=== PATIENT | female | born 1945 | race Caucasian/White ===

== ENCOUNTER → 2018-09-12 07:36 | Outpatient (CLI) | payer MEDICARE, BC, SELFPAY ==
[2018-09-12 08:13] LABS: Basophils # 0.1 K/mm3 (0-0.2); Eosinophils # 0.3 K/mm3 (0.0-0.4); Eosinophils % 4.3 % (0.1-12.0); Hematocrit 32.5 % (37.0-47.0); Hemoglobin 10.6 g/dL (12.2-16.2); Lymphocytes # 0.9 K/mm3 (0.7-4.5); Lymphocytes % 15.5 % (10-50); Mean Corpuscular HGB Conc 32.6 g/dL (31.8-35.4); Mean Corpuscular Hemoglobin 29.4 pg (27.0-31.2); Mean Corpuscular Volume 90.3 fl (81-99); Mean Platelet Volume 8.3 fl (7.4-10.4); Monocytes # 0.4 K/mm3 (0.1-1.0); Monocytes % 6.2 % (1.7-9.3); Neutrophils # 4.3 K/mm3 (1.8-7.8); Neutrophils % 73.1 % (37.0-80.0); Platelet Count 193 K/mm3 (142-424); Red Cell Distribution Width 13.1 % (11.5-17.5); Reticulocyte % (Auto) 1.6 % (0.9-3.2); White Blood Count 5.8 K/mm3 (4.8-10.8)
[2018-09-12 10:09] LABS: Blood Urea Nitrogen 50 mg/dL (7-18); Calcium 9.3 mg/dL (8.5-10.1); Carbon Dioxide 26 mmol/L (21.0-32.0); Chloride 105 mmol/L (98-107); Creatinine,Serum 1.84 mg/dL (0.55-1.02); Estimated Glomerular Filt Rate 27 ml/min (>60); Ferritin 32 ng/mL (8-388); GFR (African American) 33 ML/MIN (>60); Glucose 137 mg/dL (74-106); Sodium 142 mmol/L (136-145)
[2018-09-13 04:23] LABS: Iron 61 ug/dL (27-139); UIBC 246 ug/dL (118-369)
[2018-09-13 06:08] LABS: Iron Saturation 20 % (15-55)
[2018-09-13 08:34] LABS: Folate 14.1 ng/mL (>3.0); Vitamin B12 484 pg/mL (232-1245)
== END ==
PROVIDERS: Visit Provider Nurse Practitioner Family
DX: D64.9 Anemia, unspecified (principal); E87.5 Hyperkalemia; I10 Essential (primary) hypertension
CPT/HCPCS: 36415; 80048; 82607; 82728; 82746; 83540; 83550; 85025; 85044

== ENCOUNTER → 2018-09-27 15:19 | Outpatient (CLI) | payer MEDICARE, BC, SELFPAY ==
--- NOTE | 2018-09-27 15:25 | XR_ITS ---
XR chest 2V HISTORY: ITS.REASON: cough ORDERING PHYSICIAN: Alta Davila APRN PATIENT AGE: 73 years COMPARISON: None FINDINGS: There is borderline cardiomegaly without failure. Lungs are free of acute infiltrate. There are mild degenerative changes in the thoracic spine. IMPRESSION: Borderline cardiomegaly otherwise negative
== END ==
PROVIDERS: PCP Internal Medicine; Visit Provider Nurse Practitioner Family
DX: R05 Cough (principal)
CPT/HCPCS: 71046

== ENCOUNTER → 2018-10-30 14:56 | Outpatient (CLI) | payer MEDICARE, BC, SELFPAY ==
--- NOTE | 2018-10-30 14:58 | CA_ITS ---
PROCEDURE: 2-D M-mode and color Doppler study INDICATIONS FOR THE TEST: Chest pain COPD Heart Murmur Tobacco Smoking Palpitations Fatigue Syncope Edema HypertensionXDiabetes Mellitus Rheumatic Fever SOBXDOE ObesityXHyperlipidemia Family History HD Additional History PATIENT INFORMATION HEIGHT: 68 WEIGHT:226 GENDER: Female B/P:166/67 2-D/M-MODE INTERPRETATION: 2-D MEASUREMENTS OBSERVED VALUES IN CMS Right Ventricular Dimension (RVDd) 2.4 Interventricular Septum (Thickness)(IVsd) 1.1 Left Ventricular Internal Dimensions(LVIDd) 5.0 Left Ventricular Posterior Wall (Thickness)(LVPWd) 1.1 Aortic Root 3.0 Aortic Cusp Separation 1.9 Left Atrial Dimensions (LAD) 3.9 2D 1. Left atrium is mildly enlarged, left ventricle is normal size, there is mild concentric left ventricular hypertrophy, visually estimated ejection fraction 55% with no regional wall motion abnormality. 2. The right atrium and left ventricular normal size and contractility. 3. The aortic valve is minimally thickened and calcified leaflet continue to display good mobility. 4. The mitral and tricuspid valve leaflets are minimally thickened. 5. The pulmonic valve is poorly visualized. 6. No significant pericardial effusion noted. DOPPLER INTERROGATION: Doppler interrogation of the aortic, mitral and tricuspid valvular presence of moderate mitral and mild tricuspid regurgitation, tricuspid regurgitation jet velocity is inadequate for calculation of the right ventricular systolic pressure, grade 1 diastolic dysfunction seen with tissue Doppler evidence of raised left atrial pressure. CONCLUSION: 1. Mildly enlarged left atrium, normal left ventricular size, mild concentric left ventricular hypertrophy, visually estimated ejection fraction 55% with no regional wall motion abnormality, grade 1 diastolic dysfunction seen with tissue Doppler evidence of raised left atrial pressure. 2. Moderate mitral and mild tricuspid regurgitation 3. No significant pericardial effusion noted.
== END ==
PROVIDERS: PCP Internal Medicine; Visit Provider Internal Medicine
DX: R06.00 Dyspnea, unspecified (principal)
CPT/HCPCS: 93306

== ENCOUNTER → 2018-10-31 07:33 | Outpatient (CLI) | payer MEDICARE, BC, SELFPAY ==
--- NOTE | 2018-10-31 07:35 | US_ITS ---
US abd. aorta screening HISTORY: Abdominal aortic aneurysm evaluation ITS.REASON: aaa ORDERING PHYSICIAN: KAYLEEN Ghosh PATIENT AGE: 73 years Comparison: None FINDINGS: No evidence of aortic aneurysm. Incidental note is made of a 6 x 5 cm cyst along the lower pole the right kidney. IMPRESSION: 1. Negative for aortic aneurysm. 2. 6 cm right renal cyst
[2018-10-31 08:29] LABS: Basophils # 0.1 K/mm3 (0-0.2); Basophils % 0.9 % (0.1-2.0); Eosinophils # 0.2 K/mm3 (0.0-0.4); Eosinophils % 3.4 % (0.1-12.0); Hematocrit 33.8 % (37.0-47.0); Hemoglobin 10.5 g/dL (12.2-16.2); Lymphocytes # 0.8 K/mm3 (0.7-4.5); Lymphocytes % 14.4 % (10-50); Mean Corpuscular HGB Conc 30.9 g/dL (31.8-35.4); Mean Corpuscular Hemoglobin 27.6 pg (27.0-31.2); Mean Corpuscular Volume 89.3 fl (81-99); Mean Platelet Volume 8.1 fl (7.4-10.4); Monocytes # 0.4 K/mm3 (0.1-1.0); Monocytes % 7.5 % (1.7-9.3); Neutrophils # 4.2 K/mm3 (1.8-7.8); Neutrophils % 73.9 % (37.0-80.0); Platelet Count 208 K/mm3 (142-424); Red Blood Count 3.79 M/mm3 (4.20-5.40); Red Cell Distribution Width 13.1 % (11.5-17.5); White Blood Count 5.6 K/mm3 (4.8-10.8)
[2018-10-31 10:39] LABS: Uric Acid 5.9 mg/dL (2.6-7.2)
[2018-10-31 10:41] LABS: C-Reactive Protein < 0.2 mg/L (0.0-0.9)
[2018-10-31 11:04] LABS: Alanine Aminotransferase 29 U/L (12-78); Albumin Level 3.6 gm/dL (3.4-5.0); Alkaline Phosphatase 107 U/L (46-116); Anion Gap 16.2 mEq/L (5-15); Aspartate Amino Transferase 19 U/L (15-37); Bilirubin,Direct 0.1 mg/dL (0.0-0.2); Bilirubin,Indirect 0.5 mg/dL (0.0-0.9); Bilirubin,Total 0.6 mg/dL (0.2-1.0); Blood Urea Nitrogen 26 mg/dL (7-18); Calcium 9.3 mg/dL (8.5-10.1); Carbon Dioxide 25 mmol/L (21.0-32.0); Chloride 105 mmol/L (98-107); Creatinine,Serum 1.51 mg/dL (0.55-1.02); Estimated Glomerular Filt Rate 34 ml/min (>60); Free T4 (Free Thyroxine) 1.12 ng/dl (0.76-1.46); GFR (African American) 41 ML/MIN (>60); Glucose 123 mg/dL (74-106); Potassium 5.2 mmoL/L (3.5-5.1); Sodium 141 mmol/L (136-145); Thyroid Stimulating Hormone 2.96 uIU/ml (0.358-3.740); Total Protein,Serum 6.7 gm/dL (6.4-8.2)
[2018-10-31 11:44] LABS: Erythrocyte Sedimentation Rate 30 mm/hr (0-30)
[2018-11-01 16:10] LABS: Albumin 3.6 g/dL (2.9-4.4); Alpha-1-Globulin 0.2 g/dL (0.0-0.4); Alpha-2-Globulin 0.9 g/dL (0.4-1.0); Gamma Globulin 0.7 g/dL (0.4-1.8); Protein, Total 6.6 g/dL (6.0-8.5)
[2018-11-02 16:10] LABS: Albumin, U 74.7 % (.); Alpha-1-Globulin, U 3.8 % (.); Alpha-2-Globulin, U 5.4 % (.); Beta Globulin, U 10.7 % (.); Gamma Globulin, U 5.5 % (.); M-Spike, % Not Observed % (Not Observed); Protein,Total,Urine 98.2 mg/dL (Not Estab.)
[2018-11-02 20:02] LABS: Antinuclear Antibodies, IFA Positive (.); RA Latex Turbid. 10.1 IU/mL (0.0-13.9)
[2018-11-03 11:34] LABS: Antinuclear Antibodies (ANA) Negative
== END ==
PROVIDERS: Internal Medicine; PCP Internal Medicine; Visit Provider Physician Assistant
DX: R06.02 Shortness of breath (principal); M54.9 Dorsalgia, unspecified; R00.2 Palpitations; I10 Essential (primary) hypertension; I71.4 Abdominal aortic aneurysm, without rupture
CPT/HCPCS: 36415; 76705; 80048; 80076; 83880; 84155; 84156; 84165; 84166; 84439; 84443; 84550; 85025; 85651; 86038; 86140; 86431

== ENCOUNTER → 2018-11-08 07:25 | Outpatient (CLI) | payer MEDICARE, BC, SELFPAY ==
[2018-11-08 09:48] LABS: Anion Gap 16.1 mEq/L (5-15); Blood Urea Nitrogen 70 mg/dL (7-18); Calcium 9.2 mg/dL (8.5-10.1); Carbon Dioxide 24 mmol/L (21.0-32.0); Chloride 102 mmol/L (98-107); Creatinine,Serum 2.28 mg/dL (0.55-1.02); Estimated Glomerular Filt Rate 21 ml/min (>60); GFR (African American) 25 ML/MIN (>60); Glucose 129 mg/dL (74-106); Potassium 5.1 mmoL/L (3.5-5.1); Sodium 137 mmol/L (136-145)
== END ==
PROVIDERS: Visit Provider Nurse Practitioner Family
DX: R06.02 Shortness of breath (principal)
CPT/HCPCS: 36415; 80048; 83880

== ENCOUNTER → 2018-11-16 11:53 | Outpatient (CLI) | payer MEDICARE, BC, SELFPAY ==
[2018-11-16 13:02] LABS: Anion Gap 16.1 mEq/L (5-15); Blood Urea Nitrogen 73 mg/dL (7-18); Calcium 9.4 mg/dL (8.5-10.1); Carbon Dioxide 27 mmol/L (21.0-32.0); Chloride 101 mmol/L (98-107); Creatinine,Serum 2.32 mg/dL (0.55-1.02); Estimated Glomerular Filt Rate 21 ml/min (>60); GFR (African American) 25 ML/MIN (>60); Glucose 106 mg/dL (74-106); Potassium 4.1 mmoL/L (3.5-5.1); Sodium 140 mmol/L (136-145)
== END ==
PROVIDERS: Visit Provider Nurse Practitioner Family
DX: I51.89 Other ill-defined heart diseases (principal)
CPT/HCPCS: 36415; 80048

== ENCOUNTER 2018-11-23 15:04 | Outpatient (RCR) | payer MEDICARE, BC, SELFPAY | END 2019-03-12 13:27 | disposition home or self-care (01) | LOC: PT 15:04 | PROVIDERS: Visit Provider Internal Medicine | DX: I25.10 Atherosclerotic heart disease of native coronary artery without angina pectoris (principal); R06.02 Shortness of breath | CPT/HCPCS: 93798 ==

== ENCOUNTER → 2018-11-27 07:31 | Outpatient (CLI) | payer MEDICARE, BC, SELFPAY ==
[2018-11-27 10:54] LABS: Anion Gap 14.1 mEq/L (5-15); Blood Urea Nitrogen 53 mg/dL (7-18); Calcium 9.1 mg/dL (8.5-10.1); Carbon Dioxide 29 mmol/L (21.0-32.0); Chloride 102 mmol/L (98-107); Creatinine,Serum 1.92 mg/dL (0.55-1.02); Estimated Glomerular Filt Rate 26 ml/min (>60); GFR (African American) 31 ML/MIN (>60); Glucose 164 mg/dL (74-106); Potassium 4.1 mmoL/L (3.5-5.1); Sodium 141 mmol/L (136-145)
[2018-11-27 16:29] LABS: Basophils % 0.8 % (0.1-2.0); Eosinophils # 0.2 K/mm3 (0.0-0.4); Eosinophils % 3.7 % (0.1-12.0); Hematocrit 33.1 % (37.0-47.0); Hemoglobin 10.7 g/dL (12.2-16.2); Lymphocytes % 18.5 % (10-50); Mean Corpuscular HGB Conc 32.4 g/dL (31.8-35.4); Mean Corpuscular Hemoglobin 29.6 pg (27.0-31.2); Mean Corpuscular Volume 91.5 fl (81-99); Mean Platelet Volume 8.9 fl (7.4-10.4); Monocytes # 0.4 K/mm3 (0.1-1.0); Monocytes % 6.6 % (1.7-9.3); Neutrophils # 3.9 K/mm3 (1.8-7.8); Neutrophils % 70.4 % (37.0-80.0); Platelet Count 210 K/mm3 (142-424); Red Blood Count 3.62 M/mm3 (4.20-5.40); Red Cell Distribution Width 13.6 % (11.5-17.5); Reticulocyte % (Auto) 1.7 % (0.9-3.2); White Blood Count 5.5 K/mm3 (4.8-10.8)
[2018-11-27 17:10] LABS: Ferritin 35 ng/mL (8-388)
[2018-11-29 09:11] LABS: Iron 72 ug/dL (27-139); UIBC 237 ug/dL (118-369)
[2018-11-29 10:03] LABS: Iron Saturation 23 % (15-55)
[2018-11-29 10:16] LABS: Folate 16.6 ng/mL (>3.0); Vitamin B12 470 pg/mL (232-1245)
== END ==
PROVIDERS: Visit Provider Nurse Practitioner Family
DX: I10 Essential (primary) hypertension (principal); D50.9 Iron deficiency anemia, unspecified; E11.9 Type 2 diabetes mellitus without complications; Z79.84 Long term (current) use of oral hypoglycemic drugs
CPT/HCPCS: 36415; 80048; 82607; 82728; 82746; 83540; 83550; 85025; 85044

== ENCOUNTER → 2019-03-13 07:27 | Outpatient (CLI) | payer MEDICARE, BC, SELFPAY ==
[2019-03-13 08:57] LABS: Anion Gap 10.9 mEq/L (5-15); Blood Urea Nitrogen 38 mg/dL (7-18); Calcium 8.8 mg/dL (8.5-10.1); Carbon Dioxide 28 mmol/L (21.0-32.0); Chloride 104 mmol/L (98-107); Creatinine,Serum 1.87 mg/dL (0.55-1.02); Estimated Glomerular Filt Rate 26 ml/min (>60); GFR (African American) 32 ML/MIN (>60); Glucose 114 mg/dL (74-106); Potassium 3.9 mmoL/L (3.5-5.1); Sodium 139 mmol/L (136-145)
== END ==
PROVIDERS: Visit Provider Internal Medicine
DX: I10 Essential (primary) hypertension (principal); R06.02 Shortness of breath
CPT/HCPCS: 36415; 80048; 83880

== ENCOUNTER → 2019-04-30 08:42 | Outpatient (POV) | payer MEDICARE, BC, SELFPAY | PROVIDERS: Visit Provider Nurse Practitioner Family | DX: Z00.00 Encounter for general adult medical examination without abnormal findings (principal) ==

== ENCOUNTER → 2019-06-13 07:29 | Outpatient (CLI) | payer MEDICARE, BC, SELFPAY ==
[2019-06-13 08:42] LABS: Chloride 102 mmol/L (98-107); Potassium 4.3 mmoL/L (3.5-5.1); Sodium 141 mmol/L (136-145)
[2019-06-13 08:45] LABS: Anion Gap 17.3 mEq/L (5-15); Blood Urea Nitrogen 52 mg/dl (7-17); Calcium 9.5 mg/dl (8.4-10.2); Carbon Dioxide 26 mmol/L (22.0-30.0); Estimated Glomerular Filt Rate 28 ml/min (>60); GFR (African American) 33 ML/MIN (>60); Glucose 121 mg/dl (74-100)
== END ==
PROVIDERS: Visit Provider Internal Medicine
DX: I10 Essential (primary) hypertension (principal)
CPT/HCPCS: 36415; 80048

== ENCOUNTER → 2019-12-12 07:46 | Outpatient (CLI) | payer MEDICARE, BC, SELFPAY ==
[2019-12-12 09:01] LABS: Chloride 104 mmol/L (98-107); Potassium 3.9 mmoL/L (3.5-5.1); Sodium 140 mmol/L (136-145)
[2019-12-12 09:04] LABS: Anion Gap 13.9 mEq/L (5-15); Blood Urea Nitrogen 41 mg/dl (7-17); Calcium 8.9 mg/dl (8.4-10.2); Carbon Dioxide 26 mmol/L (22.0-30.0); Estimated Glomerular Filt Rate 29 ml/min (>60); GFR (African American) 36 ML/MIN (>60); Glucose 116 mg/dl (74-100)
== END ==
PROVIDERS: Visit Provider Internal Medicine
DX: I10 Essential (primary) hypertension (principal)
CPT/HCPCS: 36415; 80048

== ENCOUNTER → 2019-12-13 09:25 | Outpatient (CLI) | payer MEDICARE, BC, SELFPAY ==
--- NOTE | 2019-12-13 09:27 | CA_ITS ---
APPROVED REPORT EXAM: Comprehensive 2D, Doppler, and color-flow Echocardiogram Binding End Stitcher: Serena Purvis CRT Ht: 5 ft 8 in Wt: 216lbs BSA: 2.11 BP: 155/63 mmHg Indications: Congestive Heart Failure, Murmur, Shortness of Breath, Diabetes, CAD, Hyperlipidemia, Hypertension/HDD, GERD, 2D Dimensions LVOT 1.99 cm (M/F) 1.5-2.5 M-Mode Dimensions RVDd 3.13 cm (0.9-2.6) LVDd 4.56 cm (3.5-5.7) LVDs 3.08 cm (3.5-5.7) IVSd 1.74 cm (0.6-1.1) PWd 1.43 cm (0.6-1.1) EF (Teich) 60.90% FS 32.50% EDV (Teich) 95.40 mL ESV (Teich) 37.30 mL LV Diastology E/A Ratio 0.84 Mitral Valve MV A Velocity 97.00 (40-130 cm/s) Left Ventricle Left atrium is mildly enlarged, left ventricle is normal size, mild concentric left ventricular hypertrophy, visually estimated ejection fraction 55% with no regional wall motion abnormality, grade 1 diastolic dysfunction seen with tissue Doppler evidence of raise left atrial pressure. Right Ventricle Right atrium is normal size, right ventricle is mildly enlarged with normal contractility. Aortic Valve Aortic valve is minimally thickened and fibrosed, there is no aortic stenosis or aortic insufficiency. Mitral Valve Mitral valve leaflets are minimally thickened, there is no mitral stenosis, there is mild to moderate mitral regurgitation. Tricuspid Valve Tricuspid valve is grossly normal, there is mild tricuspid regurgitation, tricuspid regurgitation jet velocity is inadequate for calculation of the right ventricular systolic pressure. Pulmonic Valve Pulmonic valve is poorly visualized. Great Vessels Aortic root is normal size. Pericardium No significant pericardial effusion noted. Conclusion 1. Mildly enlarged left atrium, normal left ventricular size, mild concentric left ventricular hypertrophy, visually estimated ejection fraction 55% with no regional wall motion abnormality, grade 1 diastolic dysfunction seen with tissue Doppler evidence of raise left atrial pressure. 2. Mildly enlarged right ventricle with normal contractility. 3. Mild to moderate mitral and mild tricuspid regurgitation. 4. No significant pericardial effusion noted. Electronically signed by : Anson Palacio, 12/13/2019 13:48:04
--- NOTE | 2019-12-13 09:27 | CA_ITS ---
APPROVED REPORT Clinic Administrator: CT Laterality: Bilateral Study Quality: Adequate Indications: left carotid bruit Risk Factors Hypertension: Hyperlipidemia Diabetes Doppler Spectral Velocity Analysis ECA (R) 138.70/12.50 cm/s ECA (L) 86.80/14.20 cm/s dICA (R) 103.30/36.70 cm/s dICA (L) 91.40/27.40 cm/s Alesha (R) 81.50/27.00 cm/s Alesha (L) 88.30/26.90 cm/s pICA (R) 79.70/27.80 cm/s pICA (L) 87.50/23.20 cm/s dCCA (R) 99.40/21.40 cm/s dCCA (L) 77.10/24.70 cm/s pCCA (R) 76.30/17.10 cm/s pCCA (L) 97.30/24.70 cm/s Vert (R) 35.20/4.40 cm/s Vert (L) 60.60/24.70 cm/s ICA/CCA 1.00 ICA/CCA 1.20 Findings Duplex evaluation demonstrates stenosis of the right proximal internal carotid artery <20%. Duplex evaluation demonstrates stenosis of the left proximal internal carotid artery <20%. Duplex evaluation demonstrates antegrade flow of the bilateral Vertebral Arteries. Conclusion Duplex evaluation demonstrates stenosis of the right proximal internal carotid artery <20%. Duplex evaluation demonstrates stenosis of the left proximal internal carotid artery <20%. Duplex evaluation demonstrates antegrade flow of the bilateral Vertebral Arteries. Electronically signed by : Jose Alberto Mandujano MD 12/13/2019 17:59:03
== END ==
PROVIDERS: PCP Internal Medicine; Visit Provider Nurse Practitioner Family
DX: E11.9 Type 2 diabetes mellitus without complications (principal); E78.2 Mixed hyperlipidemia; I11.0 Hypertensive heart disease with heart failure; I25.10 Atherosclerotic heart disease of native coronary artery without angina pectoris; I34.0 Nonrheumatic mitral (valve) insufficiency; I50.32 Chronic diastolic (congestive) heart failure; K21.9 Gastro-esophageal reflux disease without esophagitis; R06.02 Shortness of breath; R09.89 Other specified symptoms and signs involving the circulatory and respiratory systems; Z79.84 Long term (current) use of oral hypoglycemic drugs
CPT/HCPCS: 93306; 93880

== ENCOUNTER → 2020-06-20 08:53 | Outpatient (CLI) | payer OTHER, MEDICARE, SELFPAY ==
--- NOTE | 2020-06-20 08:58 | XR_ITS ---
PROCEDURE: XR KNEE LT 4V CLINICAL INDICATION: left knee pain; weightbearing COMPARISON: No exams were available for comparison FINDINGS: Moderate to severe osteoarthritic changes are present most severe at the patellofemoral joint Minimal lateral patellar subluxation. No fracture or dislocation. No lytic or blastic change Other findings:None. IMPRESSION: Moderate to severe osteoarthritis Dictated by: Jose Alberto Mandujano MD 06/20/2020 09:50 Jose Alberto Mandujano MD in [place] 06/20/2020 09:50
== END ==
PROVIDERS: Visit Provider Orthopaedic Surgery
DX: M25.562 Pain in left knee (principal)
CPT/HCPCS: 73564

== ENCOUNTER → 2020-07-15 15:20 | Outpatient (POV) | payer MEDICARE, BC, SELFPAY | PROVIDERS: Visit Provider Dermatology | DX: Z00.00 Encounter for general adult medical examination without abnormal findings (principal) ==

== ENCOUNTER → 2020-07-17 07:31 | Outpatient (CLI) | payer OTHER, MEDICARE, SELFPAY ==
[2020-07-17 08:17] LABS: Basophils # 0.1 K/mm3 (0-0.2); Basophils % 0.8 % (0.1-2.0); Eosinophils # 0.4 K/mm3 (0.0-0.4); Eosinophils % 4.8 % (0.1-12.0); Hematocrit 34.4 % (37.0-47.0); Hemoglobin 11.4 g/dL (12.2-16.2); Lymphocytes # 1.1 K/mm3 (0.7-4.5); Lymphocytes % 14.9 % (10-50); Mean Corpuscular HGB Conc 33.2 g/dL (31.8-35.4); Mean Corpuscular Hemoglobin 30.2 pg (27.0-31.2); Mean Corpuscular Volume 90.8 fl (81-99); Mean Platelet Volume 8.2 fl (7.4-10.4); Monocytes # 0.5 K/mm3 (0.1-1.0); Monocytes % 6.6 % (1.7-9.3); Neutrophils # 5.4 K/mm3 (1.8-7.8); Neutrophils % 72.8 % (37.0-80.0); Platelet Count 218 K/mm3 (142-424); Red Blood Count 3.79 M/mm3 (4.20-5.40); Red Cell Distribution Width 13.5 % (11.5-17.5); White Blood Count 7.4 K/mm3 (4.8-10.8)
[2020-07-17 08:23] LABS: Chloride 104 mmol/L (98-107)
[2020-07-17 08:24] LABS: Potassium 4.4 mmoL/L (3.5-5.1); Sodium 140 mmol/L (136-145)
[2020-07-17 08:27] LABS: Anion Gap 11.4 mEq/L (5-15); Blood Urea Nitrogen 41 mg/dl (7-17); Calcium 9.5 mg/dl (8.4-10.2); Carbon Dioxide 29 mmol/L (22.0-30.0); Estimated Glomerular Filt Rate 32 ml/min (>60); GFR (African American) 38 ML/MIN (>60); Glucose 130 mg/dl (74-100)
== END ==
PROVIDERS: Visit Provider Internal Medicine
DX: I10 Essential (primary) hypertension (principal)
CPT/HCPCS: 36415; 80048; 85025

== ENCOUNTER → 2020-07-18 13:15 | Outpatient (CLI) | payer OTHER, MEDICARE, SELFPAY ==
--- NOTE | 2020-07-18 13:16 | CA_ITS ---
APPROVED REPORT Bilateral Lower Extremity Venous Study for DVT. Shoe Salesperson: Kathleen Rocha RVT Indications Lower Extremity Pain: Bilateral Lower Extremity Edema: Bilateral edema Medications Aspirin Vein Imaging CFV (R): compressive, spontaneous, phasic, augmentation FEM (R): compressive, spontaneous, phasic, augmentation POP (R): compressive, spontaneous, phasic, augmentation PTV (R): Compressible GSV (R): Compressible Peroneals (R):Compressible GAS (R): Compressible CFV (L): compressive, spontaneous, phasic, augmentation FEM (L): compressive, spontaneous, phasic, augmentation POP (L): compressive, spontaneous, phasic, augmentation PTV (L): Compressible GSV (L): Compressible Peroneals (L):Compressible GAS (L): Compressible Findings Study suggests no evidence of DVT of the bilateral lower extremites. Study suggests no evidence of SVT of the bilateral lower extremites. Conclusion Study suggests no evidence of DVT of the bilateral lower extremites. Study suggests no evidence of SVT of the bilateral lower extremites. Bilateral Juarez's cysts are noted, measuring up to 7 cm. Electronically signed by : Vijaya Ruvalcaba, 07/18/2020 15:42:47
== END ==
PROVIDERS: PCP Internal Medicine; Visit Provider Internal Medicine Cardiovascular Disease
DX: I70.213 Atherosclerosis of native arteries of extremities with intermittent claudication, bilateral legs; R60.0 Localized edema; M79.605 Pain in left leg; M79.604 Pain in right leg
CPT/HCPCS: 93970

== ENCOUNTER → 2020-12-26 07:54 | Outpatient (CLI) | payer OTHER, MEDICARE, SELFPAY ==
--- NOTE | 2020-12-26 08:09 | MM_ITS ---
PROCEDURE: MM DIG SCREENING MAMM BI W/CAD Digital Breast Tomosynthesis Included CLINICAL INDICATION: SCREENING COMPARISON: MG SCN DIG BREAST TOMOSYN PADMINI from 10/04/2017 MG SCN DIG BREAST TOMOSYN PADMINI from 10/06/2018 MG SCN DIG BREAST TOMOSYN PADMINI from 11/14/2019 TECHNIQUE: Standard CC and MLO images and 3D Tomosynthesis was obtained. R2 CAD reviewed. FINDINGS: The breasts are extremely dense which lowers the sensitivity of mammography. No suspicious appearing mass, malignant-appearing microcalcification, architectural distortion, or skin thickening. IMPRESSION: No change with no evidence of malignancy BI-RAD Category: 1 Negative FOLLOW-UP: 1 YR 1 Year Follow-up (A letter has been sent to the patient regarding results of the study.) Dictated by: Jose Alberto Mandujano MD 01/16/2021 16:24 Jose Alberto Mandujano MD in [place] 01/16/2021 16:24
== END ==
PROVIDERS: PCP Internal Medicine; Visit Provider Internal Medicine
DX: Z12.31 Encounter for screening mammogram for malignant neoplasm of breast (principal)
CPT/HCPCS: 77063; 77067

== ENCOUNTER → 2020-12-29 07:52 | Outpatient (CLI) | payer OTHER, MEDICARE, SELFPAY ==
[2020-12-29 09:53] LABS: Creatinine,Urine Random 137 mg/dL (Not Estab.)
[2020-12-29 10:29] LABS: Chloride 104 mmol/L (98-107); Potassium 4.9 mmoL/L (3.5-5.1); Sodium 140 mmol/L (136-145)
[2020-12-29 10:31] LABS: Alanine Aminotransferase 25 U/L (12-78); Alkaline Phosphatase 108 U/L (38-126); Aspartate Amino Transferase 28 U/L (14-36); Bilirubin,Total 0.5 mg/dl (0.2-1.3); Blood Urea Nitrogen 37 mg/dl (7-17); Estimated Glomerular Filt Rate 34 ml/min (>60); GFR (African American) 41 ML/MIN (>60)
[2020-12-29 10:32] LABS: Albumin Level 4.1 g/dl (3.5-5.0); Albumin/Globulin Ratio 1.7 (1.1-1.8); Calcium 9.2 mg/dl (8.4-10.2); Carbon Dioxide 27 mmol/L (22.0-30.0); Chol/HDL Ratio 5.3 (1-3.5); Cholesterol 229 mg/dl (140-200); Globulin 2.4 g/dL (1.3-3.2); Glucose 142 mg/dl (74-100); HDL Cholesterol 43 mg/dl (40-60); Total Protein,Serum 6.5 g/dl (6.3-8.2); Triglycerides 195 mg/dl (30-150); VLDL Cholesterol 39 mg/dL (0-40)
[2020-12-29 10:33] LABS: Microalbumin/Creatinine Ratio 351.8
[2020-12-29 10:43] LABS: Direct LDL Cholesterol 143.83 mg/dL (100-129)
[2020-12-29 14:12] LABS: Hemoglobin A1C 6.4 % (4.0-6.0)
== END ==
PROVIDERS: Visit Provider Internal Medicine
DX: E11.21 Type 2 diabetes mellitus with diabetic nephropathy (principal)
CPT/HCPCS: 36415; 80053; 80061; 82043; 82570; 83036

== ENCOUNTER → 2021-01-22 07:42 | Outpatient (CLI) | payer OTHER, MEDICARE, SELFPAY ==
[2021-01-22 08:45] LABS: Chloride 104 mmol/L (98-107)
[2021-01-22 08:46] LABS: Potassium 4.4 mmoL/L (3.5-5.1); Sodium 139 mmol/L (136-145)
[2021-01-22 08:49] LABS: Anion Gap 16.4 mEq/L (5-15); Blood Urea Nitrogen 56 mg/dl (7-17); Carbon Dioxide 23 mmol/L (22.0-30.0); Estimated Glomerular Filt Rate 32 ml/min (>60); GFR (African American) 38 ML/MIN (>60); Glucose 144 mg/dl (74-100)
[2021-01-22 08:56] LABS: NT Pro Brain Natriuretic Pep. 141 pg/mL (0-125)
== END ==
PROVIDERS: Visit Provider Internal Medicine Cardiovascular Disease
DX: R06.02 Shortness of breath (principal); I25.10 Atherosclerotic heart disease of native coronary artery without angina pectoris; I11.0 Hypertensive heart disease with heart failure; E78.5 Hyperlipidemia, unspecified; I50.30 Unspecified diastolic (congestive) heart failure; K21.9 Gastro-esophageal reflux disease without esophagitis
CPT/HCPCS: 36415; 80048; 83880

== ENCOUNTER → 2021-03-25 14:22 | Outpatient (CLI) | payer OTHER, MEDICARE, SELFPAY ==
--- NOTE | 2021-03-25 14:30 | XR_ITS ---
PROCEDURE: XR KNEE LT 4V CLINICAL INDICATION: left knee pain COMPARISON: CR XR KNEE LT 4V from 06/20/2020 FINDINGS: Moderate severe osteoarthritic change of the medial and lateral compartment with severe osteoarthritis of the patellofemoral joint. No fracture or dislocation. There is 6 mm lateral translation of the tibia. There is also mild lateral subluxation of the patella. These findings are overall not significantly changed. Other findings:None. IMPRESSION: Moderate to severe osteoarthritis of the left knee Dictated by: Jose Alberto Mandujano MD 03/25/2021 14:54 Jose Alberto Mandujano MD in [place] 03/25/2021 14:54
--- NOTE | 2021-03-25 14:30 | XR_ITS ---
PROCEDURE: XR KNEE RT 4V CLINICAL INDICATION: right knee pain COMPARISON: CR XR KNEE LT 4V from 06/20/2020 FINDINGS: There are severe osteoarthritic changes of the patellofemoral joint with mild lateral patellar subluxation. Along the lateral aspect of the patella there is a separate bony fragment which could be related to an old fracture or bipartite patella. An additional well-circumscribed calcific density is present along the superior lateral aspect of the patella. Moderate to severe osteoarthritic changes are present at the lateral compartment with chondrocalcinosis. Mild osteoarthritis of the medial compartment. Other findings:None. IMPRESSION: Moderate to severe osteoarthritis of the right knee with possible old fracture versus bipartite patella laterally Dictated by: Jose Alberto Mandujano MD 03/25/2021 14:57 Jose Alberto Mandujano MD in [place] 03/25/2021 14:57
== END ==
PROVIDERS: PCP Internal Medicine; Visit Provider Orthopaedic Surgery
DX: M25.561 Pain in right knee (principal); M25.562 Pain in left knee
CPT/HCPCS: 73564

== ENCOUNTER → 2021-05-07 14:27 | Outpatient (CLI) | payer OTHER, MEDICARE, SELFPAY ==
[2021-05-07 15:22] LABS: Anion Gap 13.3 mEq/L (5-15); Blood Urea Nitrogen 50 mg/dl (7-17); Calcium 9.3 mg/dl (8.4-10.2); Carbon Dioxide 28 mmol/L (22.0-30.0); Chloride 101 mmol/L (98-107); Estimated Glomerular Filt Rate 28 ml/min (>60); GFR (African American) 33 ML/MIN (>60); Glucose 165 mg/dl (74-100); Potassium 4.3 mmoL/L (3.5-5.1); Sodium 138 mmol/L (136-145)
[2021-05-08 17:20] LABS: Bilirubin,Unconjugated 0.2 mg/dL (0.0-1.1)
[2021-05-08 17:21] LABS: Alanine Aminotransferase 25 U/L (12-78); Albumin Level 4.4 g/dl (3.5-5.0); Alkaline Phosphatase 127 U/L (38-126); Aspartate Amino Transferase 29 U/L (14-36); Bilirubin,Direct 0.3 mg/dl (0.0-0.4); Bilirubin,Indirect 0.2 mg/dL (0.0-0.9); Bilirubin,Total 0.5 mg/dl (0.2-1.3); Chol/HDL Ratio 4.3 (1-3.5); Cholesterol 139 mg/dl (140-200); HDL Cholesterol 32 mg/dl (40-60)
[2021-05-08 17:27] LABS: Triglycerides 436 mg/dl (30-150)
[2021-05-08 17:32] LABS: Direct LDL Cholesterol 65.15 mg/dL (100-129)
== END ==
PROVIDERS: PCP Internal Medicine; Visit Provider Internal Medicine Cardiovascular Disease
DX: I25.10 Atherosclerotic heart disease of native coronary artery without angina pectoris (principal); I11.0 Hypertensive heart disease with heart failure; I50.32 Chronic diastolic (congestive) heart failure; E78.2 Mixed hyperlipidemia; R60.9 Edema, unspecified; E78.5 Hyperlipidemia, unspecified
CPT/HCPCS: 36415; 80048; 80061; 80076

== ENCOUNTER → 2021-06-23 11:52 | Outpatient (CLI) | payer OTHER, MEDICARE, SELFPAY | PROVIDERS: Visit Provider Podiatrist | DX: M79.672 Pain in left foot (principal); L60.0 Ingrowing nail | CPT/HCPCS: 87070; 87205 ==

== ENCOUNTER → 2021-07-01 15:02 | Outpatient (CLI) | payer OTHER, MEDICARE, SELFPAY ==
[2021-07-01 16:43] LABS: Blood Urea Nitrogen 63 mg/dl (7-17); Estimated Glomerular Filt Rate 22 ml/min (>60); GFR (African American) 26 ML/MIN (>60)
== END ==
PROVIDERS: Visit Provider Podiatrist
DX: Z01.812 Encounter for preprocedural laboratory examination (principal)
CPT/HCPCS: 82565; 84520

== ENCOUNTER → 2021-07-02 14:40 | Outpatient (CLI) | payer OTHER, MEDICARE, SELFPAY ==
--- NOTE | 2021-07-02 14:41 | MR_ITS ---
FINAL REPORT CLINICAL HISTORY: LEFT FOOT PAIN, Soft tissue mass left foot pain , redness, itching , swelling on top of foot ( marker placed) on soft tissue mass x 6 months FINDINGS: Multiplanar MR imaging of the left foot was performed without contrast. There is mild hallux valgus deformity. Mild and moderate degenerative changes are present, worst involving the midfoot. There are severe degenerative changes at the middle cuneiform-second metatarsal joint with severe bone marrow edema and superior spurring. This may account for the palpable abnormality. The bony structures are intact without evidence of fracture. The flexor and extensor tendons are intact. No ligamentous injury is identified. The musculature is intact. The plantar aponeurosis is intact. No soft tissue mass or cyst is identified. IMPRESSION: Severe degenerative change at the middle cuneiform-second metatarsal joint with bone marrow edema and spurring which may account for the palpable abnormality. Reviewed, Interpreted and Dictated by Noel Barber III, MD Transcribed by Sindy Mora Authenticated by Noel Barber III, MD on 07/02/2021 04:30:[address] [facility]
== END ==
PROVIDERS: PCP Internal Medicine; Visit Provider Podiatrist
DX: M79.672 Pain in left foot (principal)
CPT/HCPCS: 73718

== ENCOUNTER → 2021-07-16 13:13 | Outpatient (CLI) | payer OTHER, MEDICARE, SELFPAY ==
[2021-07-16 13:38] LABS: Basophils # 0.1 K/mm3 (0-0.2); Basophils % 1.6 % (0.1-2.0); Eosinophils # 0.4 K/mm3 (0.0-0.4); Eosinophils % 4.9 % (0.1-12.0); Hematocrit 34.2 % (37.0-47.0); Hemoglobin 11.2 g/dL (12.2-16.2); Lymphocytes # 1.2 K/mm3 (0.7-4.5); Lymphocytes % 16.7 % (10-50); Mean Corpuscular HGB Conc 32.8 g/dL (31.8-35.4); Mean Corpuscular Hemoglobin 30.9 pg (27.0-31.2); Mean Corpuscular Volume 94.1 fl (81-99); Mean Platelet Volume 9.1 fl (7.4-10.4); Monocytes # 0.5 K/mm3 (0.1-1.0); Monocytes % 6.5 % (1.7-9.3); Neutrophils % 70.2 % (37.0-80.0); Platelet Count 238 K/mm3 (142-424); Red Blood Count 3.64 M/mm3 (4.20-5.40); Red Cell Distribution Width 13.3 % (11.5-17.5); White Blood Count 7.1 K/mm3 (4.8-10.8)
[2021-07-16 14:15] LABS: Anion Gap 13.9 mEq/L (5-15); Blood Urea Nitrogen 41 mg/dl (7-17); Calcium 9.4 mg/dl (8.4-10.2); Carbon Dioxide 23 mmol/L (22.0-30.0); Chloride 106 mmol/L (98-107); Estimated Glomerular Filt Rate 31 ml/min (>60); GFR (African American) 38 ML/MIN (>60); Glucose 129 mg/dl (74-100); Potassium 4.9 mmoL/L (3.5-5.1); Sodium 138 mmol/L (136-145)
== END ==
PROVIDERS: Visit Provider Internal Medicine Cardiovascular Disease
DX: I25.10 Atherosclerotic heart disease of native coronary artery without angina pectoris (principal); I50.30 Unspecified diastolic (congestive) heart failure; E78.5 Hyperlipidemia, unspecified; R60.9 Edema, unspecified
CPT/HCPCS: 36415; 80048; 85025

== ENCOUNTER → 2021-08-25 14:11 | Outpatient (POV) | payer OTHER, MEDICARE, SELFPAY | PROVIDERS: Visit Provider Dermatology | DX: Z00.00 Encounter for general adult medical examination without abnormal findings (principal) ==

== ENCOUNTER → 2021-09-24 07:48 | Outpatient (CLI) | payer OTHER, MEDICARE, SELFPAY ==
[2021-09-24 09:28] LABS: Hemoglobin A1C 5.9 % (4.0-6.0)
[2021-09-24 09:55] LABS: Chloride 104 mmol/L (98-107); Sodium 140 mmol/L (136-145)
[2021-09-24 09:57] LABS: Blood Urea Nitrogen 48 mg/dl (7-17); Estimated Glomerular Filt Rate 29 ml/min (>60); GFR (African American) 35 ML/MIN (>60)
[2021-09-24 09:58] LABS: Alanine Aminotransferase 29 U/L (12-78); Albumin Level 4.3 g/dl (3.5-5.0); Albumin/Globulin Ratio 1.7 (1.1-1.8); Alkaline Phosphatase 102 U/L (38-126); Aspartate Amino Transferase 30 U/L (14-36); Bilirubin,Total 0.7 mg/dl (0.2-1.3); Carbon Dioxide 27 mmol/L (22.0-30.0); Globulin 2.5 g/dL (1.3-3.2); Glucose 133 mg/dl (74-100); Total Protein,Serum 6.8 g/dl (6.3-8.2)
[2021-09-24 09:59] LABS: Creatinine,Urine Random 129 mg/dL (Not Estab.)
[2021-09-24 10:47] LABS: Microalbumin/Creatinine Ratio 278.5
== END ==
PROVIDERS: PCP Internal Medicine; Visit Provider Nurse Practitioner
DX: I10 Essential (primary) hypertension (principal); E11.21 Type 2 diabetes mellitus with diabetic nephropathy
CPT/HCPCS: 36415; 80053; 82043; 82570; 83036

== ENCOUNTER → 2021-10-27 09:25 | Outpatient (CLI) | payer OTHER, MEDICARE, SELFPAY ==
--- NOTE | 2021-10-27 09:28 | XR_ITS ---
FINAL REPORT TECHNIQUE: Bone densitometry calculations of the left forearm and right hip were obtained. CLINICAL HISTORY: bone loss, post menopausal pt has metal in spine and lt hip FINDINGS: DEXA BONE DENSITY AXIAL SKELETON Using the left forearm, the bone mineral density of the distal 1/3 is 0.506 g/cm2, corresponding to T-score of -3.1. Diminished bone mineral density classified as osteoporosis. Using the right hip, the bone mineral density of the femoral neck is 0.782 g/cm2, corresponding to a T-score of -0.6. Normal bone mineral density. NOTE: T-score: Standard deviation compared with peak bone mass of young adult mean. *Following the recommendations of the International Society of Bone Densitometry, classification of hip BMD is based on the lower of two T-scores; total hip or femoral neck. IMPRESSION: Osteoporosis: Lowest T-score is at or below -2.5. This patient's T-score meets the World Health Organization criteria for osteoporosis. Reviewed, Interpreted and Dictated by Denton Serra MD Transcribed by Maggie England Authenticated and [facility]
== END ==
PROVIDERS: PCP Internal Medicine; Visit Provider Internal Medicine
DX: M81.0 Age-related osteoporosis without current pathological fracture (principal)
CPT/HCPCS: 77080

== ENCOUNTER → 2021-11-05 07:49 | Outpatient (CLI) | payer OTHER, MEDICARE, SELFPAY ==
[2021-11-05 09:10] LABS: Anion Gap 16.2 mEq/L (5-15); Blood Urea Nitrogen 52 mg/dl (7-17); Calcium 9.6 mg/dl (8.4-10.2); Carbon Dioxide 26 mmol/L (22.0-30.0); Chloride 101 mmol/L (98-107); Estimated Glomerular Filt Rate 27 ml/min (>60); GFR (African American) 33 ML/MIN (>60); Glucose 116 mg/dl (74-100); Potassium 5.2 mmoL/L (3.5-5.1); Sodium 138 mmol/L (136-145)
== END ==
PROVIDERS: PCP Internal Medicine; Visit Provider Internal Medicine Cardiovascular Disease
DX: I50.32 Chronic diastolic (congestive) heart failure (principal); R60.9 Edema, unspecified
CPT/HCPCS: 36415; 80048

== ENCOUNTER → 2021-11-10 14:33 | Outpatient (CLI) | payer OTHER, MEDICARE, SELFPAY ==
[2021-11-10 16:02] LABS: Anion Gap 11.9 mEq/L (5-15); Blood Urea Nitrogen 54 mg/dl (7-17); Calcium 9.4 mg/dl (8.4-10.2); Carbon Dioxide 25 mmol/L (22.0-30.0); Chloride 105 mmol/L (98-107); Estimated Glomerular Filt Rate 26 ml/min (>60); GFR (African American) 31 ML/MIN (>60); Glucose 133 mg/dl (74-100); Potassium 4.9 mmoL/L (3.5-5.1); Sodium 137 mmol/L (136-145)
== END ==
PROVIDERS: Visit Provider Internal Medicine Cardiovascular Disease
DX: E87.5 Hyperkalemia (principal)
CPT/HCPCS: 36415; 80048

== ENCOUNTER → 2022-01-22 07:47 | Outpatient (CLI) | payer OTHER, MEDICARE, SELFPAY ==
--- NOTE | 2022-01-22 07:57 | MM_ITS ---
PROCEDURE INFORMATION: Exam: MG Bilateral Screening 3D Mammography Exam date and time: 01/22/2022 7:53 AM Age: 76 years old Clinical indication: Screening examination. Her daughter had breast cancer at age 52. TECHNIQUE: Imaging protocol: Bilateral Screening tomosynthesis and 2D mammography including computer-aided detection (CAD) when performed. COMPARISON: 1. MG MM DIG SCREENING MAMM BI W/CAD 12/26/2020 8:05 AM 2. MG SCN DIG BREAST TOMOSYN PADMINI 11/14/2019 10:36 AM FINDINGS: MAMMOGRAPHY: Breast composition: The breasts are heterogeneously dense, which may obscure small masses. Mass: None. Architectural distortion: None. Calcifications: No suspicious calcifications. Asymmetric density: None. Skin thickening: None. Axillary adenopathy: None. IMPRESSION: No mammographic evidence of malignancy. Annual screening is recommended unless otherwise clinically indicated. ASSESSMENT: BI-RADS Category 1: Negative
== END ==
PROVIDERS: Visit Provider Internal Medicine
DX: Z12.31 Encounter for screening mammogram for malignant neoplasm of breast (principal)
CPT/HCPCS: 77063; 77067

== ENCOUNTER → 2022-03-30 07:46 | Outpatient (CLI) | payer OTHER, MEDICARE, SELFPAY ==
[2022-03-30 08:30] LABS: Basophils # 0.1 K/mm3 (0-0.2); Basophils % 1.1 % (0.1-2.0); Eosinophils # 0.4 K/mm3 (0.0-0.4); Hematocrit 35.6 % (37.0-47.0); Hemoglobin 11.7 g/dL (12.2-16.2); Lymphocytes # 1.3 K/mm3 (0.7-4.5); Lymphocytes % 17.8 % (10-50); Mean Corpuscular HGB Conc 32.9 g/dL (31.8-35.4); Mean Corpuscular Hemoglobin 31.1 pg (27.0-31.2); Mean Corpuscular Volume 94.7 fl (81-99); Monocytes # 0.5 K/mm3 (0.1-1.0); Monocytes % 6.1 % (1.7-9.3); Platelet Count 230 K/mm3 (142-424); Red Blood Count 3.76 M/mm3 (4.20-5.40); Red Cell Distribution Width 13.1 % (11.5-17.5); White Blood Count 7.3 K/mm3 (4.8-10.8)
[2022-03-30 08:40] LABS: Chloride 105 mmol/L (98-107); Potassium 4.8 mmoL/L (3.5-5.1); Sodium 142 mmol/L (136-145)
[2022-03-30 08:42] LABS: Alanine Aminotransferase 28 U/L (12-78); Aspartate Amino Transferase 28 U/L (14-36); Blood Urea Nitrogen 43 mg/dl (7-17); Estimated Glomerular Filt Rate 27 ml/min (>60); GFR (African American) 33 ML/MIN (>60)
[2022-03-30 08:43] LABS: Albumin Level 4.2 g/dl (3.5-5.0); Albumin/Globulin Ratio 1.8 (1.1-1.8); Alkaline Phosphatase 87 U/L (38-126); Anion Gap 15.8 mEq/L (5-15); Bilirubin,Total 0.5 mg/dl (0.2-1.3); Calcium 9.5 mg/dl (8.4-10.2); Carbon Dioxide 26 mmol/L (22.0-30.0); Cholesterol 121 mg/dl (140-200); Creatinine,Urine Random 131 mg/dL (Not Estab.); Globulin 2.3 g/dL (1.3-3.2); Glucose 121 mg/dl (74-100); HDL Cholesterol 40 mg/dl (40-60); Total Protein,Serum 6.5 g/dl (6.3-8.2); Triglycerides 126 mg/dl (30-150); VLDL Cholesterol 25 mg/dL (0-40)
[2022-03-30 08:48] LABS: Hemoglobin A1C 5.8 % (4.0-6.0)
[2022-03-30 08:55] LABS: Direct LDL Cholesterol 48.84 mg/dL (100-129)
[2022-03-30 09:26] LABS: Microalbumin/Creatinine Ratio 500.6
[2022-03-30 09:58] LABS: Vitamin B12 723 pg/mL (239-931)
[2022-03-30 10:05] LABS: Folate > 20.00 ng/mL
== END ==
PROVIDERS: PCP Internal Medicine; Visit Provider Internal Medicine
DX: E11.69 Type 2 diabetes mellitus with other specified complication (principal); Z79.84 Long term (current) use of oral hypoglycemic drugs
CPT/HCPCS: 36415; 80053; 80061; 82043; 82570; 82607; 82746; 83036; 85025

== ENCOUNTER → 2022-05-12 15:26 | Outpatient (CLI) | payer OTHER, MEDICARE, SELFPAY ==
--- NOTE | 2022-05-12 15:26 | MR_ITS ---
PROCEDURE INFORMATION: Exam: MR Lumbar Spine Without Contrast Exam date and time: 05/12/2022 3:36 PM Age: 76 years old Clinical indication: Pain; Lumbago with sciatica; Bilateral; Prior surgery; Additional info: Bilateral leg pain. Weakness and pain in both legs x few months. TECHNIQUE: Imaging protocol: Magnetic resonance imaging of the lumbar spine without contrast. COMPARISON: No relevant prior studies available. FINDINGS: Bones/joints: Retrolisthesis of L2 over L3 noted. Alignment is otherwise maintained. Discogenic changes noted along lumbar levels. No marrow replacing process. Spinal cord: Conus medullaris and cauda equina nerve roots are unremarkable L1-L2: Diffuse disc bulge and facet arthropathy produce mild spinal stenosis. There is mild bilateral neural foraminal narrowing. L2-L3: Diffuse disc bulge and arthropathy produce mild spinal canal stenosis. There is mild bilateral neural foraminal narrowing. L3-L4: Postoperative changes related to L3-L4 posterior interbody fusion. Susceptibility artifact obscures the assessment of the surrounding structures. Diffuse disc bulge and facet arthropathy produce mild spinal canal stenosis. There is moderate left, mild right neural foraminal narrowing. L4-L5: Diffuse disc bulge and facet arthropathy without significant spinal canal stenosis. There is severe right, mild left foraminal narrowing. L5-S1: Diffuse disc bulge and facet arthropathy without significant spinal canal stenosis. There is mild bilateral neural foraminal narrowing. Soft tissues: Unremarkable. IMPRESSION: 1. Status post L3-L4 posterior interbody fusion. Degenerative retrolisthesis of L2 over L3. 2. Multilevel degenerative changes more pronounced at L4-L5, where there is severe narrowing of the right neural foramen. Moderate narrowing of the left neural foramen at L3-L4 level.
== END ==
PROVIDERS: PCP Internal Medicine; Visit Provider Internal Medicine Cardiovascular Disease
DX: M79.604 Pain in right leg (principal); M79.605 Pain in left leg
CPT/HCPCS: 72148; 76376

== ENCOUNTER → 2022-05-14 08:26 | Outpatient (CLI) | payer OTHER, MEDICARE, SELFPAY ==
[2022-05-14 10:00] LABS: Chloride 109 mmol/L (98-107); Potassium 5.3 mmoL/L (3.5-5.1); Sodium 141 mmol/L (136-145)
[2022-05-14 10:03] LABS: Anion Gap 13.3 mEq/L (5-15); Blood Urea Nitrogen 46 mg/dl (7-17); Carbon Dioxide 24 mmol/L (22.0-30.0); Estimated Glomerular Filt Rate 34 ml/min (>60); GFR (African American) 41 ML/MIN (>60)
[2022-05-14 10:04] LABS: Calcium 9.2 mg/dl (8.4-10.2); Glucose 118 mg/dl (74-100)
== END ==
PROVIDERS: PCP Internal Medicine; Visit Provider Internal Medicine Cardiovascular Disease
DX: E78.2 Mixed hyperlipidemia (principal); I25.10 Atherosclerotic heart disease of native coronary artery without angina pectoris; I11.0 Hypertensive heart disease with heart failure; I50.32 Chronic diastolic (congestive) heart failure; M79.604 Pain in right leg; M79.605 Pain in left leg; N18.9 Chronic kidney disease, unspecified
CPT/HCPCS: 36415; 80048

== ENCOUNTER → 2022-05-21 08:06 | Outpatient (CLI) | payer OTHER, MEDICARE, SELFPAY ==
[2022-05-21 09:57] LABS: Chloride 107 mmol/L (98-107); Sodium 142 mmol/L (136-145)
[2022-05-21 10:00] LABS: Blood Urea Nitrogen 55 mg/dl (7-17); Estimated Glomerular Filt Rate 23 ml/min (>60); GFR (African American) 28 ML/MIN (>60)
[2022-05-21 10:01] LABS: Calcium 8.9 mg/dl (8.4-10.2); Carbon Dioxide 26 mmol/L (22.0-30.0); Glucose 138 mg/dl (74-100)
== END ==
PROVIDERS: PCP Internal Medicine; Visit Provider Internal Medicine Cardiovascular Disease
DX: I50.32 Chronic diastolic (congestive) heart failure (principal); N18.9 Chronic kidney disease, unspecified
CPT/HCPCS: 36415; 80048

== ENCOUNTER → 2022-05-26 13:17 | Outpatient (CLI) | payer OTHER, MEDICARE, SELFPAY ==
[2022-05-26 14:12] LABS: Anion Gap 11.6 mEq/L (5-15); Blood Urea Nitrogen 42 mg/dl (7-17); Calcium 8.8 mg/dl (8.4-10.2); Carbon Dioxide 25 mmol/L (22.0-30.0); Chloride 107 mmol/L (98-107); Estimated Glomerular Filt Rate 26 ml/min (>60); GFR (African American) 31 ML/MIN (>60); Glucose 148 mg/dl (74-100); Potassium 4.6 mmoL/L (3.5-5.1); Sodium 139 mmol/L (136-145)
== END ==
PROVIDERS: PCP Internal Medicine; Visit Provider Internal Medicine Cardiovascular Disease
DX: I25.10 Atherosclerotic heart disease of native coronary artery without angina pectoris (principal); I11.9 Hypertensive heart disease without heart failure; E78.5 Hyperlipidemia, unspecified; I50.30 Unspecified diastolic (congestive) heart failure; R60.9 Edema, unspecified
CPT/HCPCS: 36415; 80048

== ENCOUNTER → 2022-06-21 08:45 | Outpatient (POV) | payer OTHER, MEDICARE, SELFPAY ==
--- NOTE | 2022-06-21 09:03 | EXP.PAIN.OV ---
HPI Data of Consult Patient: new to practice Consult date: 06/21/22 Requesting Physician: Na Dunham APRN Primary Care Provider: Shahid Knight MD Consult Narrative Reason for consult: Low back pain, bilateral leg pain History of present illness: Ms. Nagel is a 77 year old female who presents today as a new patient. She is a referral from [facility]. Today she rates her pain a 10 out of 10. Patient states she has significant, unbearable pain in her low back that radiates into both her lower extremities. Patient does describe this as a sharp, throbbing sensation that is worse with increased activity and also has numbness in her toes bilaterally. Patient states she cannot tolerate prolonged walking or standing due to the pain. She does state that she has had back pain going on for years however this episode has been bothering her more over the last 7 months. Patient states that she has had 2 back surgeries in the past with the first surgery in 2011 on her L4-L5 and in 2014 on L3. Patient states that in 2018 she did have a significant infection related to her back hardware and had to be put on chronic medication to prevent infection. Patient states that Dr. Rojas who performed her back surgery states that she is not a candidate for back surgery due to the risk of infection. Patient denies any history of injections in her back. She states she frequently has trouble doing activities a living such as sweeping or even cooking causes increased pain. She does state at bedtime her legs do seem worse and she has trouble falling asleep due to the pain. Patient has tried [id number] Tylenol and ibuprofen along with heat and ice however did not notice any additional relief. Patient denies any topical use. Patient states she did try physical therapy and chiropractor however both of these made her symptoms significantly worse. Patient is not on any scheduled medications. Her Terry is [phone]. Its been reviewed and appropriate. CC: Na Dunham APRN [facility] Disclaimer: The information contained in this section may have been updated after the patient was seen, as this information can be updated by other users. Medical History Bilateral leg pain CAD (coronary artery disease) Cardiac murmur Diastolic dysfunction Edema HHD (hypertensive heart disease) HLD (hyperlipidemia) Left carotid bruit Moderate mitral valve regurgitation SOB (shortness of breath) Social History Smoking Status: Never smoker second hand exposure: No alcohol intake: never substance use type: denies use current occupational status: employed Travel in the last 8 weeks: Inside the [facility] housing: house current occupation: [employer] current occupational exposures/hazards: No caffeine: No Review of Systems Review of Systems Review of systems:: pertinent systems reviewed and negative unless documented below Review of systems (narrative): Review of Systems: General: No recent weight changes, no fever, no sleep disturbances Respiratory: No cough, no shortness of air, no recurring pulmonary infections Cardiovascular/peripheral vascular: No chest pain, no palpitations, no edema, no shortness of breath Gastrointestinal: No new onset incontinence, normal bowel movements reported Genitourinary: No new onset incontinence Musculoskeletal: Low back pain, bilateral leg pain Psychiatric: [Normal mood/affect] Neurological: [Denies weakness in extremities], [denies balance issues] Meds Home Medications and Allergies Home Medications Medication Instructions Recorded Confirmed Type aspirin 81 mg tablet,delayed 81 mg PO DAILY Supplement 12/16/17 06/11/22 History release (Adult Low Dose Aspirin) ropinirole 1 mg tablet (Requip) 2 mg PO QHS PRN . 10/30/18 06/11/22 History semaglutide 0.25 mg or 0.5 mg (2 0.5 mg SQ QWEEK Diabetes
[2022-06-21 09:31] VITALS: BP 117/67; PULSE 80; RESP 19; O2SAT 97; BMI 33.1
== END | disposition home or self-care (01) ==
PROVIDERS: PCP Internal Medicine; Visit Provider Nurse Practitioner Family
DX: M51.16 Intervertebral disc disorders with radiculopathy, lumbar region (principal); M47.26 Other spondylosis with radiculopathy, lumbar region; M48.061 Spinal stenosis, lumbar region without neurogenic claudication; M43.10 Spondylolisthesis, site unspecified; M79.604 Pain in right leg; M79.605 Pain in left leg
CPT/HCPCS: 99202; G0463

== ENCOUNTER → 2022-06-24 15:03 | Outpatient (CLI) | payer OTHER, MEDICARE, SELFPAY ==
[2022-06-24 16:35] LABS: Chloride 103 mmol/L (98-107)
[2022-06-24 16:36] LABS: Potassium 4.1 mmoL/L (3.5-5.1); Sodium 138 mmol/L (136-145)
[2022-06-24 16:39] LABS: Anion Gap 12.1 mEq/L (5-15); Blood Urea Nitrogen 50 mg/dl (7-17); Calcium 8.2 mg/dl (8.4-10.2); Carbon Dioxide 27 mmol/L (22.0-30.0); Estimated Glomerular Filt Rate 24 ml/min (>60); GFR (African American) 29 ML/MIN (>60); Glucose 110 mg/dl (74-100)
[2022-06-24 16:47] LABS: NT Pro Brain Natriuretic Pep. 207 pg/mL (0-450)
== END ==
PROVIDERS: PCP Internal Medicine; Visit Provider Nurse Practitioner Family
DX: I50.32 Chronic diastolic (congestive) heart failure (principal); R60.9 Edema, unspecified; I50.9 Heart failure, unspecified
CPT/HCPCS: 36415; 80048; 83880

== ENCOUNTER 2022-06-29 13:41 | Day surgery (SDC) | payer OTHER, MEDICARE, SELFPAY ==
[2022-06-29 13:57] VITALS: BP 177/74; PULSE 69; RESP 18; TEMP 36.6; O2SAT 98; BMI 32.8
[2022-06-29 14:05] VITALS: BP 200/86; PULSE 67; RESP 18; O2SAT 98
[2022-06-29 14:06] VITALS: BP 200/86; PULSE 67; RESP 18; O2SAT 98
[2022-06-29 14:15] VITALS: BP 195/78; PULSE 70; RESP 18; O2SAT 99
--- NOTE | 2022-06-29 14:15 | EXP.PAIN.PRO ---
Procedure Date: 06/29/22 Time: 14:10 Anesthesiologist:: Roberto Carlos Truong CRNA Complications:: None Pre-procedure Diagnosis:: Degenerative disc disease lumbar spine multilevels. Lumbar radiculopathy. Lumbar postlaminectomy syndrome. Post-procedure Diagnosis:: Same. Indications for Procedure:: Patient is a pleasant 77-year-old female comes our clinic today for lumbar epidural steroid injection L4-5 level. 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 She is on her feet 8 to 10 hours/day. She describes her low back pain as constant, dull, aching as well as bilateral hip and leg radicular symptoms. She rates her pain 7/10. Patient is status post 2 separate lumbar fusions. Procedure Details:: Procedure: Lumbar epidural steroid injection under fluoroscopy Informed consent was obtained and the risks and benefits of the procedure were explained to the patient. The patient was taken to the procedure room and noninvasive monitors placed, including noninvasive blood pressure cuff and pulse oximeter. The back was viewed using C-arm Fluoroscopy and prepped using Chloraprep as a cleansing solution and the L4-L5 interspace was palpated. Skin and subcutaneous tissues were anesthetized using lidocaine 1.5% and a 25-gauge needle. After this, an 18-gauge Touhy epidural needle was placed into the L4-L5 interspace and advanced using fluoroscopic guidance and loss of resistance to air until the epidural space was encountered. After confirmation of needle placement in the epidural space, with dye, a solution containing normal saline, 3 mL and Depo-Medrol 80 mg were incrementally injected into the lumbar epidural space. The patient tolerated the procedure well with no complications. The patient was observed in the Pain Clinic and then discharged home neurologically intact. Plan and Disposition:: Patient was discharged without incident.
== END 2022-06-29 14:15 | disposition home or self-care (01) ==
LOC: SC.PAINP 13:42
PROVIDERS: PCP Internal Medicine; Visit Provider Nurse Anesthetist, Certified Registered
DX: M51.16 Intervertebral disc disorders with radiculopathy, lumbar region (principal); M96.1 Postlaminectomy syndrome, not elsewhere classified
CPT/HCPCS: 62323; J1040

== ENCOUNTER → 2022-07-09 08:08 | Outpatient (CLI) | payer OTHER, MEDICARE, SELFPAY ==
[2022-07-09 08:13] LABS: MANUAL DIFFERENTIAL MANUAL DIFFERENTIAL (MANUAL DIFF)
[2022-07-09 08:40] LABS: Basophils % 0.5 % (0.1-2.0); Eosinophils # 0.4 K/mm3 (0.0-0.4); Eosinophils % 5.3 % (0.1-12.0); Hematocrit 34.5 % (37.0-47.0); Hemoglobin 11.3 g/dL (12.2-16.2); Lymphocytes # 1.1 K/mm3 (0.7-4.5); Lymphocytes % 15.5 % (10-50); Mean Corpuscular HGB Conc 32.9 g/dL (31.8-35.4); Mean Corpuscular Hemoglobin 30.9 pg (27.0-31.2); Mean Corpuscular Volume 93.9 fl (81-99); Mean Platelet Volume 8.7 fl (7.4-10.4); Monocytes # 0.5 K/mm3 (0.1-1.0); Monocytes % 6.4 % (1.7-9.3); Neutrophils # 5.2 K/mm3 (1.8-7.8); Neutrophils % 72.3 % (37.0-80.0); Platelet Count 220 K/mm3 (142-424); Red Blood Count 3.67 M/mm3 (4.20-5.40); Red Cell Distribution Width 13.2 % (11.5-17.5); White Blood Count 7.1 K/mm3 (4.8-10.8)
[2022-07-09 08:58] LABS: Alanine Aminotransferase 26 U/L (12-78); Albumin Level 3.8 g/dl (3.5-5.0); Alkaline Phosphatase 107 U/L (38-126); Amylase 65 U/L (30-110); Anion Gap 15.7 mEq/L (5-15); Aspartate Amino Transferase 25 U/L (14-36); Bilirubin,Direct 0.3 mg/dl (0.0-0.4); Bilirubin,Indirect 0.2 mg/dL (0.0-0.9); Bilirubin,Total 0.5 mg/dl (0.2-1.3); Bilirubin,Unconjugated 0.3 mg/dL (0.0-1.1); Blood Urea Nitrogen 27 mg/dl (7-17); Calcium 8.9 mg/dl (8.4-10.2); Carbon Dioxide 20 mmol/L (22.0-30.0); Chloride 108 mmol/L (98-107); Estimated Glomerular Filt Rate 34 ml/min (>60); GFR (African American) 41 ML/MIN (>60); Glucose 122 mg/dl (74-100); Lipase 189 U/L (23-300); Potassium 4.7 mmoL/L (3.5-5.1); Sodium 139 mmol/L (136-145); Total Protein,Serum 6.1 g/dl (6.3-8.2)
[2022-07-09 09:14] LABS: Free T4 (Free Thyroxine) 1.27 ng/dl (0.78-2.19)
[2022-07-09 09:29] LABS: Thyroid Stimulating Hormone 3.63 uIU/mL (0.465-4.68)
[2022-07-09 10:30] LABS: Lymphocytes % 20 % (10-50); Monocytes % 3 % (2-9); Neutrophils % 77 % (42-76); Platelet Estimate Normal; RBC Morphology Normal; Total Cells Counted 100
== END ==
PROVIDERS: PCP Internal Medicine; Visit Provider Physician Assistant
DX: R11.10 Vomiting, unspecified (principal); R19.7 Diarrhea, unspecified
CPT/HCPCS: 36415; 80048; 80076; 82150; 83690; 84439; 84443; 85007; 85014; 85018; 85048; 85049

== ENCOUNTER → 2022-07-19 07:58 | Outpatient (CLI) | payer OTHER, MEDICARE, SELFPAY ==
[2022-07-19 08:17] LABS: Microscopic, Urine URINE MICROSCOPIC (MICROSCOPIC)
[2022-07-19 08:35] LABS: Basophils % 0.6 % (0.1-2.0); Eosinophils # 0.3 K/mm3 (0.0-0.4); Eosinophils % 4.7 % (0.1-12.0); Hematocrit 37.9 % (37.0-47.0); Hemoglobin 11.7 g/dL (12.2-16.2); Lymphocytes % 14.5 % (10-50); Mean Corpuscular Hemoglobin 29.2 pg (27.0-31.2); Mean Corpuscular Volume 94.1 fl (81-99); Mean Platelet Volume 8.5 fl (7.4-10.4); Monocytes # 0.4 K/mm3 (0.1-1.0); Neutrophils # 5.2 K/mm3 (1.8-7.8); Neutrophils % 74.2 % (37.0-80.0); Platelet Count 257 K/mm3 (142-424); Red Blood Count 4.03 M/mm3 (4.20-5.40); Red Cell Distribution Width 13.2 % (11.5-17.5)
[2022-07-19 08:38] LABS: Appearance,Urine CLEAR (Clear); Bilirubin,Urine Negative (Negative); Blood, Urine TRACE-L (Negative); Color,Urine YELLOW (Yellow); Glucose,Urine (UA) 3+ (Negative); Ketones,Urine Negative (Negative); Leukocyte Esterase,Urine TRACE (Negative); Nitrate,Urine Negative (Negative); Protein,Urine 2+ (Negative); Specific Gravity, Urine 1.025 (1.005-1.030); Urobilinogen,Urine 0.2 EU/dl (0.2)
[2022-07-19 08:45] LABS: Creatinine,Urine Random 116 mg/dL (Not Estab.)
[2022-07-19 09:08] LABS: Bacteria,Urine Trace /lpf; Squamous Epithelial Cell,Urine Occasional #/hpf (0-5)
[2022-07-19 09:18] LABS: Albumin Level 3.9 g/dl (3.5-5.0); Anion Gap 13.6 mEq/L (5-15); Blood Urea Nitrogen 25 mg/dl (7-17); Carbon Dioxide 22 mmol/L (22.0-30.0); Chloride 108 mmol/L (98-107); Estimated Glomerular Filt Rate 31 ml/min (>60); GFR (African American) 38 ML/MIN (>60); Glucose 111 mg/dl (74-100); Phosphorous 3.9 mg/dl (2.5-4.5); Potassium 4.6 mmoL/L (3.5-5.1); Sodium 139 mmol/L (136-145)
[2022-07-19 09:28] LABS: Intact Parathyroid Hormone 99.2 pg/mL (7.5-53.5)
[2022-07-19 09:33] LABS: 25-OH Vitamin D, Total 45.2 ng/mL (30-100); Microalbumin/Creatinine Ratio 525.3
== END ==
PROVIDERS: PCP Internal Medicine; Visit Provider Internal Medicine Nephrology
DX: N18.32 Chronic kidney disease, stage 3b (principal); E55.9 Vitamin D deficiency, unspecified
CPT/HCPCS: 36415; 80069; 81001; 82043; 82306; 82570; 83970; 84155; 85025

== ENCOUNTER → 2022-07-19 08:26 | Outpatient (CLI) | payer OTHER, MEDICARE, SELFPAY ==
--- NOTE | 2022-07-19 08:26 | US_ITS ---
FINAL REPORT CLINICAL HISTORY: vomiting/diarrhea FINDINGS: Sonographic images of the abdomen were obtained. The liver has increased echogenicity consistent with fatty infiltration. The gallbladder is surgically absent. There is no evidence of biliary ductal dilatation. The common hepatic duct measures 7 mm, which is within normal limits. Limited images of the pancreas are unremarkable. There are echogenic foci within the spleen which is probably due to calcified granulomas. The right kidney measures 14 cm in length. The left kidney measures 11 cm in length. There are anechoic structures in both kidneys. A dominant focus in the lower pole of the right kidney measures 5.3 x 5.0 cm in there may be a single septation present. Other smaller anechoic structures are seen bilaterally. There is no evidence of hydronephrosis. The aorta has an unremarkable appearance. Limited images of the inferior vena cava are unremarkable. IMPRESSION: Surgically absent gallbladder . Fatty infiltrated liver. Bilateral renal cysts. Reviewed, Interpreted and Dictated by Denton Serra MD Transcribed by Maggie England Authenticated and [facility]
--- NOTE | 2022-07-19 08:26 | XR_ITS ---
FINAL REPORT TECHNIQUE: Chest PA & Lateral CLINICAL HISTORY: CAD FINDINGS: 2 views of the chest were performed. The heart size is normal. The mediastinum is within normal limits. There is no acute cardiopulmonary process. There are no pleural effusions. There is no pneumothorax. The bony thorax appears intact. IMPRESSION: No acute cardiopulmonary process. Reviewed, Interpreted and Dictated by Denton Serra MD Transcribed by Guille Nicole Authenticated and [facility]
== END ==
PROVIDERS: PCP Internal Medicine; Visit Provider Internal Medicine
DX: R06.02 Shortness of breath (principal); R11.10 Vomiting, unspecified; R19.7 Diarrhea, unspecified; I25.10 Atherosclerotic heart disease of native coronary artery without angina pectoris; I11.0 Hypertensive heart disease with heart failure; I50.32 Chronic diastolic (congestive) heart failure; E11.65 Type 2 diabetes mellitus with hyperglycemia; E78.2 Mixed hyperlipidemia; K21.9 Gastro-esophageal reflux disease without esophagitis; Z79.84 Long term (current) use of oral hypoglycemic drugs
CPT/HCPCS: 71046; 76700

== ENCOUNTER → 2022-07-22 15:11 | Outpatient (POV) | payer OTHER, MEDICARE, SELFPAY | PROVIDERS: Visit Provider Internal Medicine Nephrology | DX: Z00.00 Encounter for general adult medical examination without abnormal findings (principal) ==

== ENCOUNTER → 2022-07-28 15:19 | Outpatient (POV) | payer OTHER, MEDICARE, SELFPAY ==
--- NOTE | 2022-07-28 15:22 | EXP.PAIN.SOA ---
[facility] Pain Management SOAP Note Subjective:: Patient is a pleasant 77-year-old female who presents today for follow-up of lumbar epidural steroid injection at L4-L5 on 06/29/2022. We are currently treating the patient for degenerative disc disease of lumbar spine with lumbar radiculopathy symptoms, lumbar facet arthropathy, lumbar spinal stenosis, retrolisthesis lumbar spine, low back pain. Today she rates her pain a 6 out of 10. She does state that the injection provided good relief for approximately 2 weeks however she is back to her baseline. She states she continues to have throbbing, aching sensation that is worse with increased activity in her low back and numbness in her legs. She states the injection did improve some of the symptoms. She does state that she continues to have difficulty with activities of daily living such as cooking and cleaning. Patient does have a history of restless leg syndrome and is currently prescribed 2 mg of ropinirole twice daily. She states she did notice additional improvement with the increase of this medication. She states she does not need any refills at this time. She states she has been to her neurosurgeon who did think the injections were a good idea and that she would benefit from them. She is interested in repeating her lumbar epidural injection. She also states that she did discuss with her neurosurgeon the possibility of a spinal cord stimulator in the future. She does have a history of 2 back surgeries on L4-L5 and L3. 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 She has been previously told that she is not a candidate for additional back surgery due to the risk. Patient states that she is scheduled to see her infection disease doctor coming up. She has recently been prescribed gabapentin 300 mg 3 times a day from an outside provider. Patient denies any side effects from this medication. She does continue to use Tylenol and ibuprofen with minimal improvement. Her Terry is [phone]. Its been reviewed and appropriate. Review of Systems: General: No recent weight changes, no fever, no sleep disturbances Respiratory: No cough, no shortness of air, no recurring pulmonary infections Cardiovascular/peripheral vascular: No chest pain, no palpitations, no edema, no shortness of breath Gastrointestinal: No new onset incontinence, normal bowel movements reported Genitourinary: No new onset incontinence Musculoskeletal: Low back pain Psychiatric: [Normal mood/affect] Neurological: [Denies weakness in extremities], [denies balance issues] Objective:: Physical Exam: General: Alert and oriented x3, no acute distress, pleasant and cooperative Lungs: Respirations even and unlabored, symmetrical chest expansion Eyes: PERRL Musculoskeletal: Flexion and extension of lumbar [spine] somewhat guarded secondary to pain, [antalgic gait noted] Neurological: Speech clear, no gross sensory deficit Assessment:: Degenerative disc disease of lumbar spine with lumbar radiculopathy symptoms, lumbar facet arthropathy, lumbar spinal stenosis, retrolisthesis of lumbar spine, low back pain Plan:: Patient is experiencing significant pain in her low back with limited range of motion of her lumbar spine. I have discussed with the patient that she may benefit from a repeat lumbar epidural steroid injection. Patient has tried and failed conservative therapy such as oral medications, heat and ice, topicals, at home exercising and stretching for longer than 6 weeks and 2 prior back surgeries. Risk and benefits were discussed with the patient and she would like to proceed forward with this plan of care. Patient did have multilevel disc bulge, facet arthropathy and severe right with mild left foraminal narrowing at L4-L5. Patient is not on any blood thinners. I have also counseled the patient that she may benefit from the spinal cord stimulator t
[2022-07-28 15:33] VITALS: BP 161/71; PULSE 94; RESP 19; O2SAT 97; BMI 32.6
== END ==
PROVIDERS: PCP Internal Medicine; Visit Provider Nurse Practitioner Family
DX: M51.16 Intervertebral disc disorders with radiculopathy, lumbar region (principal); M48.061 Spinal stenosis, lumbar region without neurogenic claudication; M43.16 Spondylolisthesis, lumbar region; M47.26 Other spondylosis with radiculopathy, lumbar region
CPT/HCPCS: 99212; G0463

== ENCOUNTER → 2022-07-30 09:29 | Outpatient (CLI) | payer OTHER, MEDICARE, SELFPAY ==
--- NOTE | 2022-07-30 09:46 | XR_ITS ---
FINAL REPORT CLINICAL HISTORY: knee pain in bilat knees @ popliteal surface x mos. NKT. COMPARISON: 03/25/2021 FINDINGS: RIGHT KNEE Three views of the right knee reveal no evidence of fracture or dislocation. The bony alignment is normal. There are moderate degenerative changes. There is severe patellofemoral degenerative change. There is no evidence of joint effusion. There are chronic calcifications adjacent to the lateral patella. IMPRESSION: Moderate and severe degenerative changes as described, stable. Reviewed, Interpreted and Dictated by Noel Barber III, MD Transcribed by Maggie England Authenticated and [facility]
--- NOTE | 2022-07-30 09:46 | XR_ITS ---
FINAL REPORT CLINICAL HISTORY: knee pain in bilat knees, worsened in Lt knee @ popliteal surface. NKT. COMPARISON: 03/25/2021 FINDINGS: Three views of the left knee reveal no evidence of fracture or dislocation. There is mild lateral subluxation of the tibia in relation to the distal femur. There is moderate and severe degenerative change. There is severe patellofemoral compartment narrowing. There is no evidence of joint effusion. No localized soft tissue abnormality is seen. IMPRESSION: Moderate and severe degenerative changes as above, stable. Reviewed, Interpreted and Dictated by Noel Barber III, MD Transcribed by Maggie England Authenticated and [facility]
== END ==
PROVIDERS: PCP Internal Medicine; Visit Provider Orthopaedic Surgery
DX: M25.561 Pain in right knee (principal); M25.562 Pain in left knee
CPT/HCPCS: 73562

== ENCOUNTER → 2022-08-10 16:01 | Outpatient (POV) | payer OTHER, MEDICARE, SELFPAY | PROVIDERS: Visit Provider Dermatology | DX: Z00.00 Encounter for general adult medical examination without abnormal findings (principal) ==

== ENCOUNTER 2022-08-17 14:13 | Day surgery (SDC) | payer OTHER, MEDICARE, SELFPAY ==
[2022-08-17 14:32] VITALS: BP 165/66; PULSE 74; RESP 18; TEMP 36.7; O2SAT 95; BMI 33.1
[2022-08-17 14:49] VITALS: BP 166/76; PULSE 73; RESP 18; O2SAT 98
[2022-08-17 14:51] VITALS: BP 166/76; PULSE 73; RESP 18; O2SAT 98
[2022-08-17 14:58] VITALS: BP 143/66; PULSE 74; RESP 18; O2SAT 97
--- NOTE | 2022-08-17 15:02 | EXP.PAIN.PRO ---
Procedure Date: 08/17/22 Time: 14:45 Anesthesiologist:: Roberto Carlos Truong CRNA Complications:: None Pre-procedure Diagnosis:: Degenerative disc disease lumbar spine multilevels. Lumbar radiculopathy. Lumbar postlaminectomy syndrome. Lumbar spondylosis. Multilevel lumbar facet arthropathy. Post-procedure Diagnosis:: Same. Indications for Procedure:: Patient is a very pleasant 77-year-old female that comes our clinic today for a second lumbar epidural steroid injection at the L4-5 level. Patient is reporting 75% improvement terms of her overall low back, bilateral hip and leg radicular symptoms with her first injection at the L4-5 level. Patient states she is able to ambulate with minimal pain. She is standing on her feet longer at work with minimal pain. She is very pleased with the results. Procedure Details:: Procedure: Lumbar epidural steroid injection under fluoroscopy Informed consent was obtained and the risks and benefits of the procedure were explained to the patient. The patient was taken to the procedure room and noninvasive monitors placed, including noninvasive blood pressure cuff and pulse oximeter. The back was viewed using C-arm Fluoroscopy and prepped using Chloraprep as a cleansing solution and the L4-L5 interspace was palpated. Skin and subcutaneous tissues were anesthetized using lidocaine 1.5% and a 25-gauge needle. After this, an 18-gauge Touhy epidural needle was placed into the L4-L5 interspace and advanced using fluoroscopic guidance and loss of resistance to air until the epidural space was encountered. After confirmation of needle placement in the epidural space, with dye, a solution containing normal saline, 3 mL and Depo-Medrol 80 mg were incrementally injected into the lumbar epidural space. The patient tolerated the procedure well with no complications. The patient was observed in the Pain Clinic and then discharged home neurologically intact. Plan and Disposition:: Patient was discharged without incident.
== END 2022-08-17 14:57 | disposition home or self-care (01) ==
PROVIDERS: PCP Internal Medicine; Visit Provider Nurse Anesthetist, Certified Registered
DX: M51.16 Intervertebral disc disorders with radiculopathy, lumbar region (principal); M47.26 Other spondylosis with radiculopathy, lumbar region; M96.1 Postlaminectomy syndrome, not elsewhere classified
CPT/HCPCS: 62323; J1040

== ENCOUNTER → 2022-09-01 15:20 | Outpatient (POV) | payer OTHER, MEDICARE, SELFPAY ==
[2022-09-01 15:30] VITALS: BP 138/69; PULSE 74; RESP 20; O2SAT 96; BMI 33.0
--- NOTE | 2022-09-02 08:42 | EXP.PAIN.SOA ---
[facility] Pain Management SOAP Note Subjective:: Patient is a pleasant 77-year-old female who presents today for follow-up of lumbar epidural steroid injection at L4-L5 on 08/17/2022. We are currently treating the patient for degenerative disc disease of lumbar spine with lumbar radiculopathy symptoms, lumbar facet arthropathy, lumbar spinal stenosis, retrolisthesis of lumbar spine, low back pain. Today she rates her pain a 3 out of 10. She states she has had at least 80% improvement following this injection and that it has provided significant relief. Patient states she has been able to increase her activity with decreased pain symptoms. Patient was previously on gabapentin 300 mg 3 times a day from an outside provider however she states she has discontinued this medication due to not liking how she felt while on it. She did state that she had a groggy sensation following taking this medication. She does use Tylenol and ibuprofen as needed. Patient was also previously prescribed ropinirole 2 mg twice a day and this did provide additional relief. She is requesting a refill at today's visit. Patient does have a history of 2 previous back surgeries on L3 and L4-L5. At this time she is not a surgical candidate for additional back surgery due to infection risk. Her Terry is [phone]. Its been reviewed and appropriate. Review of Systems: General: No recent weight changes, no fever, no sleep disturbances Respiratory: No cough, no shortness of air, no recurring pulmonary infections Cardiovascular/peripheral vascular: No chest pain, no palpitations, no edema, no shortness of breath Gastrointestinal: No new onset incontinence, normal bowel movements reported Genitourinary: No new onset incontinence Musculoskeletal: Low back pain Psychiatric: [Normal mood/affect] Neurological: [Denies weakness in extremities], [denies balance issues] Objective:: Physical Exam: General: Alert and oriented x3, no acute distress, pleasant and cooperative Lungs: Respirations even and unlabored, symmetrical chest expansion Eyes: PERRL Musculoskeletal: Flexion and extension of lumbar [spine] somewhat guarded secondary to pain, [antalgic gait noted] Neurological: Speech clear, no gross sensory deficit Assessment:: Degenerative disc disease of lumbar spine with lumbar radiculopathy symptoms, lumbar facet arthropathy, lumbar spinal stenosis, retrolisthesis of lumbar spine, low back pain Plan:: Patient has had significant improvement following her lumbar epidural steroid injection and does not require any additional injective therapy. I will refill her ropinirole 2 mg twice daily and provide a 3-month supply of this medication patient will return to clinic in 1 month for reevaluation of symptoms and plan of care. Patient has been instructed to contact the clinic with any concerns before the next appointment. Dr. Mcclellan has reviewed this note and agrees with this plan of care. This note was dictated using voice recognition software and make contain errors or omissions. [facility] Disclaimer: The information contained in this section may have been updated after the patient was seen, as this information can be updated by other users. Medical History Bilateral leg pain CAD (coronary artery disease) Cardiac murmur Diastolic dysfunction Edema HHD (hypertensive heart disease) HLD (hyperlipidemia) Left carotid bruit Moderate mitral valve regurgitation SOB (shortness of breath) Family History Other No significant family history Social History Smoking Status: Never smoker second hand exposure: No alcohol intake: never substance use type: denies use current occupational status: employed Travel in the last 8 weeks: None housing: house current occupation: [employer] current occupational exposures/hazar
== END | disposition home or self-care (01) ==
PROVIDERS: Visit Provider Nurse Practitioner Family
DX: M51.16 Intervertebral disc disorders with radiculopathy, lumbar region (principal); M48.061 Spinal stenosis, lumbar region without neurogenic claudication; M43.16 Spondylolisthesis, lumbar region
CPT/HCPCS: 99212; G0463

== ENCOUNTER → 2022-09-17 08:45 | Outpatient (CLI) | payer OTHER, MEDICARE, SELFPAY ==
[2022-09-17 09:33] LABS: Adenovirus F 40/41, stool Not Detected (NotDetected); Astrovirus Not Detected (NotDetected); Campylobacter Not Detected (NotDetected); Clostridium Difficile A/B, PCR Not Detected (NotDetected); Cryptosporidium Not Detected (NotDetected); Cyclospora Cayetanesis Not Detected (NotDetected); Entamoeba histolytica Not Detected (NotDetected); Enteroaggregative E coli Not Detected (NotDetected); Enteropathogenic E coli Not Detected (NotDetected); Enterotoxigenic E coli Not Detected (NotDetected); Giardia lamblia Not Detected (NotDetected); Norovirus Not Detected (NotDetected); Plesimonas Shigalloides, PCR Not Detected (NotDetected); Rotavirus A Not Detected (NotDetected); Salmonella, PCR Not Detected (NotDetected); Sapovirus Not Detected (NotDetected); Shiga-like toxin E coli Not Detected (NotDetected); Shigella Enterovasive E coli Not Detected (NotDetected); Vibrio Cholerae Not Detected (NotDetected); Vibrio, PCR Not Detected (NotDetected); Yersinia Entercolitica, PCR Not Detected (NotDetected)
== END ==
PROVIDERS: PCP Internal Medicine; Visit Provider Nurse Practitioner
DX: R10.9 Unspecified abdominal pain (principal); R11.10 Vomiting, unspecified; R19.7 Diarrhea, unspecified
CPT/HCPCS: 87045; 87205; 87506

== ENCOUNTER → 2022-09-30 14:59 | Outpatient (POV) | payer OTHER, MEDICARE, SELFPAY ==
--- NOTE | 2022-09-30 15:16 | EXP.PAIN.SOA ---
[facility] Pain Management SOAP Note Subjective:: Patient is a pleasant 77-year-old female who presents today for 1 month follow-up. We are currently treating the patient for degenerative disc disease of the lumbar spine with lumbar radiculopathy symptoms, lumbar facet arthropathy, lumbar spinal stenosis, retrolisthesis of lumbar spine, low back pain. Today she rates her pain a 9 out of 10. Patient denies any new trauma or injury. Patient denies any change to location or type of pain she experiences. Patient states she is having worsening low back pain with radiating symptoms into her lower extremities. She does describe this as an aching, throbbing sensation that is worse with increased activity. Patient does state that the pain interferes with her ability to perform activities of daily living such as cooking and cleaning. Patient previously had a lumbar epidural steroid injection at the very beginning of August that provided 80% improvement and lasted up until last week. Patient is interested in repeating this injection. Patient states when the injection was working well she was able to increase her activity with decreased pain symptoms. She does use [id number] Tylenol and ibuprofen as needed. Patient is also managed with ropinirole 2 mg twice a day. Patient denies any side effects from this medication. She states she does not need any refills at this time. Patient has had prior back surgeries x2 at L3 and L4-L5. Patient has been told that she is a nonsurgical candidate due to increased infection risk. Her Terry is [phone]. Its been reviewed and appropriate. Review of Systems: General: No recent weight changes, no fever, no sleep disturbances Respiratory: No cough, no shortness of air, no recurring pulmonary infections Cardiovascular/peripheral vascular: No chest pain, no palpitations, no edema, no shortness of breath Gastrointestinal: No new onset incontinence, normal bowel movements reported Genitourinary: No new onset incontinence Musculoskeletal: Low back pain, bilateral leg pain Psychiatric: [Normal mood/affect] Neurological: [Denies weakness in extremities], [denies balance issues] Objective:: Physical Exam: General: Alert and oriented x3, no acute distress, pleasant and cooperative Lungs: Respirations even and unlabored, symmetrical chest expansion Eyes: PERRL Musculoskeletal: Flexion and extension of lumbar [spine] somewhat guarded secondary to pain, [antalgic gait noted] Neurological: Speech clear, no gross sensory deficit Assessment:: Degenerative disc disease of lumbar spine with lumbar radiculopathy symptoms, lumbar facet arthropathy, lumbar spinal stenosis, retrolisthesis of lumbar spine with low back pain Plan:: Patient is experiencing worsening pain in her low back and legs with limited range of motion. I have discussed with the patient that she may benefit from repeat lumbar epidural steroid injection. Risk and benefits were discussed with the patient and she would like to proceed forward with this plan of care. Patient is not on any blood thinners. patient has previously had a lumbar epidural that did provide at least 80% improvement lasting approximately a month and a half. Patient has tried and failed conservative therapy such as oral medications, heat and ice, topicals, physical therapy, at home exercise and stretching for longer than 6 weeks as well as 2 previous back surgeries. We will schedule the patient for an LESI L4-L5. Patient has been instructed to contact the clinic with any concerns before the next appointment. Dr. Mcclellan has reviewed this note and agrees with this plan of care. This note was dictated using voice recognition software and make contain errors or omissions. [facility] Disclaimer: The information contained in this section may have been updated after the patient was seen, as this information can be updated by other users. Medical History (Updated 09/09/22 @ 15:31 by Nayeli Acuna APRN) Abdominal pain
[2022-09-30 15:40] VITALS: BP 136/88; PULSE 72; RESP 18; O2SAT 97; BMI 32.6
== END ==
PROVIDERS: PCP Internal Medicine; Visit Provider Nurse Practitioner Family
DX: M51.16 Intervertebral disc disorders with radiculopathy, lumbar region (principal); M47.26 Other spondylosis with radiculopathy, lumbar region; M48.061 Spinal stenosis, lumbar region without neurogenic claudication; M43.16 Spondylolisthesis, lumbar region
CPT/HCPCS: 99212; G0463

== ENCOUNTER 2022-10-05 11:53 | Day surgery (SDC) | payer OTHER, MEDICARE, SELFPAY ==
[2022-10-05 12:00] VITALS: BP 165/77; PULSE 73; RESP 18; TEMP 36.6; O2SAT 96; BMI 32.6
[2022-10-05 12:04] VITALS: BP 176/71; PULSE 70; RESP 18; O2SAT 97
--- NOTE | 2022-10-05 12:05 | EXP.PAIN.PRO ---
Procedure Date: 10/05/22 Time: 12:00 Anesthesiologist:: Roberto Carlos Truong CRNA Complications:: None Pre-procedure Diagnosis:: Degenerative disc disease lumbar spine multilevels. Lumbar radiculopathy. Lumbar postlaminectomy syndrome. Lumbar spondylosis. Post-procedure Diagnosis:: Same. Indications for Procedure:: Patient is a very pleasant 77-year-old female that comes our clinic today for repeat lumbar epidural steroid injection at the L4-5 level. Patient describes her low back pain as constant, dull, aching. She also complains of bilateral hip and leg radicular symptoms at times. She rates her pain 8/10 Procedure Details:: Procedure: Lumbar epidural steroid injection under fluoroscopy Informed consent was obtained and the risks and benefits of the procedure were explained to the patient. The patient was taken to the procedure room and noninvasive monitors placed, including noninvasive blood pressure cuff and pulse oximeter. The back was viewed using C-arm Fluoroscopy and prepped using Chloraprep as a cleansing solution and the L4-L5 interspace was palpated. Skin and subcutaneous tissues were anesthetized using lidocaine 1.5% and a 25-gauge needle. After this, an 18-gauge Touhy epidural needle was placed into the L4-L5 interspace and advanced using fluoroscopic guidance and loss of resistance to air until the epidural space was encountered. After confirmation of needle placement in the epidural space, with dye, a solution containing normal saline, 3 mL and Depo-Medrol 80 mg were incrementally injected into the lumbar epidural space. The patient tolerated the procedure well with no complications. The patient was observed in the Pain Clinic and then discharged home neurologically intact. Plan and Disposition:: Patient was discharged without incident.
[2022-10-05 12:11] VITALS: BP 179/73; PULSE 66; RESP 18; O2SAT 96
== END 2022-10-05 12:11 | disposition home or self-care (01) ==
PROVIDERS: PCP Internal Medicine; Visit Provider Nurse Anesthetist, Certified Registered
DX: M51.16 Intervertebral disc disorders with radiculopathy, lumbar region (principal); M96.1 Postlaminectomy syndrome, not elsewhere classified; M47.26 Other spondylosis with radiculopathy, lumbar region
CPT/HCPCS: 62323; J1040; Q9966

== ENCOUNTER → 2022-10-21 12:45 | Outpatient (CLI) | payer OTHER, MEDICARE, SELFPAY | PROVIDERS: PCP Internal Medicine; Visit Provider Physician Assistant | DX: R06.02 Shortness of breath (principal); I11.0 Hypertensive heart disease with heart failure; I50.32 Chronic diastolic (congestive) heart failure | CPT/HCPCS: 93306 ==

== ENCOUNTER → 2022-10-25 07:36 | Outpatient (CLI) | payer OTHER, MEDICARE, SELFPAY ==
[2022-10-25 07:49] LABS: Microscopic, Urine URINE MICROSCOPIC (MICROSCOPIC)
[2022-10-25 08:50] LABS: Chloride 104 mmol/L (98-107); Potassium 4.8 mmoL/L (3.5-5.1); Sodium 138 mmol/L (136-145)
[2022-10-25 08:52] LABS: Blood Urea Nitrogen 66 mg/dl (7-17); Estimated Glomerular Filt Rate 24 ml/min (>60); GFR (African American) 29 ML/MIN (>60)
[2022-10-25 08:53] LABS: Alanine Aminotransferase 25 U/L (12-78); Albumin Level 4.3 g/dl (3.5-5.0); Albumin/Globulin Ratio 1.7 (1.1-1.8); Alkaline Phosphatase 103 U/L (38-126); Anion Gap 14.8 mEq/L (5-15); Aspartate Amino Transferase 27 U/L (14-36); Bilirubin,Total 0.6 mg/dl (0.2-1.3); Carbon Dioxide 24 mmol/L (22.0-30.0); Cholesterol 128 mg/dl (140-200); Globulin 2.6 g/dL (1.3-3.2); Glucose 127 mg/dl (74-100); Magnesium 1.7 mg/dl (1.6-2.3); Total Protein,Serum 6.9 g/dl (6.3-8.2); Triglycerides 183 mg/dl (30-150); VLDL Cholesterol 37 mg/dL (0-40)
[2022-10-25 08:54] LABS: Chol/HDL Ratio 3.2 (1-3.5); HDL Cholesterol 40 mg/dl (40-60)
[2022-10-25 09:00] LABS: Appearance,Urine CLEAR (Clear); Bilirubin,Urine Negative (Negative); Blood, Urine Negative (Negative); Color,Urine YELLOW (Yellow); Glucose,Urine (UA) 1+ (Negative); Ketones,Urine Negative (Negative); Leukocyte Esterase,Urine 1+ (Negative); Nitrate,Urine Negative (Negative); Protein,Urine 1+ (Negative); Urobilinogen,Urine 0.2 EU/dl (0.2)
[2022-10-25 09:04] LABS: Direct LDL Cholesterol 54.31 mg/dL (100-129)
[2022-10-25 10:11] LABS: Squamous Epithelial Cell,Urine Occasional #/hpf (0-5)
[2022-10-25 13:59] LABS: Intact Parathyroid Hormone 263.5 pg/mL (7.5-53.5); NT Pro Brain Natriuretic Pep. 219 pg/mL (0-450)
[2022-10-25 14:04] LABS: Free Thyroxine Index 3.2 ug/dL (5.93-13.13); T4 (Thyroxine) 8.7 ug/dl (5.53-11.0); Triiodothryronine (T3) Uptake 37 % (23.5-40.5)
[2022-10-25 14:17] LABS: Thyroid Stimulating Hormone 4.01 uIU/mL (0.465-4.68)
[2022-10-25 15:55] LABS: Creatinine,Urine Random 96 mg/dL (Not Estab.)
[2022-10-25 18:16] LABS: Microalbumin/Creatinine Ratio 182.5
[2022-10-25 21:25] LABS: Hemoglobin A1C 6.4 % (4.0-6.0)
[2022-10-26 14:34] LABS: Hematocrit 36.1 % (37.0-47.0); Red Blood Count 4.08 M/mm3 (4.20-5.40)
[2022-10-26 14:35] LABS: Mean Corpuscular HGB Conc 33.2 g/dL (31.8-35.4); Mean Corpuscular Hemoglobin 29.4 pg (27.0-31.2); Mean Corpuscular Volume 88.4 fl (81-99); Platelet Count 225 K/mm3 (142-424); Red Cell Distribution Width 13.6 % (11.5-17.5)
== END ==
PROVIDERS: Internal Medicine Nephrology; Physician Assistant; PCP Internal Medicine; Visit Provider Internal Medicine
DX: R06.02 Shortness of breath (principal); R53.83 Other fatigue; I50.32 Chronic diastolic (congestive) heart failure; E20.9 Hypoparathyroidism, unspecified
CPT/HCPCS: 36415; 80053; 80061; 80069; 81001; 82043; 82570; 83036; 83735; 83880; 83970; 84155; 84436; 84443; 84479; 85014; 85018; 85048; 85049; 87086

== ENCOUNTER → 2022-11-01 15:43 | Outpatient (POV) | payer OTHER, MEDICARE, SELFPAY | PROVIDERS: Visit Provider Internal Medicine Nephrology | DX: Z00.00 Encounter for general adult medical examination without abnormal findings (principal) ==

== ENCOUNTER → 2022-11-03 14:07 | Outpatient (CLI) | payer OTHER, MEDICARE, SELFPAY ==
--- NOTE | 2022-11-03 14:07 | CT_ITS ---
FINAL REPORT TECHNIQUE: Thin section axial images were obtained from the lung apices through the upper abdomen without contrast. This study was performed with techniques to keep radiation doses as low as reasonably achievable (ALARA). Individualized dose reduction techniques using automated exposure control or adjustment of mA and/or kV according to the patient's size were employed. CLINICAL HISTORY: HIGH RES CHEST COMPARISON: None FINDINGS: There are borderline in size AP window nodes, the largest measuring 19 mm in diameter. No hilar or axillary adenopathy is present. Borderline cardiomegaly is present. No pleural or pericardial effusion. There is evidence of prior granulomatous disease. There is a 3 mm nodule, noncalcified, in the left lower lobe best seen on axial image #35. High resolution images revealed no interlobular septal thickening, no bronchiectasis, no air trapping, and no fibrosis. Limited, unenhanced evaluation of the upper abdomen is without acute abnormality. There is no acute osseous abnormality. IMPRESSION: No evidence of interstitial lung disease. 3 mm nodule left lower lobe, recommend 6 to 12-month follow-up CT per Fleischner criteria.. Reviewed, Interpreted and Dictated by Brandie Thapa MD Transcribed by Linh Hunt Authenticated and . [facility]
[2022-11-03 15:00] VITALS: PULSE 58; PULSE 62
== END ==
PROVIDERS: PCP Internal Medicine; Visit Provider Internal Medicine Pulmonary Disease
DX: J84.9 Interstitial pulmonary disease, unspecified (principal)
CPT/HCPCS: 71250; 94060; 94618; 94640; 94727; 94729

== ENCOUNTER → 2022-11-05 13:46 | Outpatient (CLI) | payer OTHER, MEDICARE, SELFPAY ==
[2022-11-07 08:10] LABS: Complement C3 139 mg/dL (82-167)
[2022-11-08 12:17] LABS: Albumin 3.4 g/dL (2.9-4.4); Alpha-1-Globulin 0.2 g/dL (0.0-0.4); Alpha-2-Globulin 0.9 g/dL (0.4-1.0); Gamma Globulin 0.7 g/dL (0.4-1.8)
[2022-11-08 13:23] LABS: Immunoglobulin A, Qn 140 mg/dL (64-422); Immunoglobulin G, Qn 770 mg/dL (586-1602); Immunoglobulin M, Qn 42 mg/dL (26-217)
[2022-11-08 16:10] LABS: Cytoplasmic (C-ANCA) <1:20 titer (Neg:<1:20); Perinuclear (P-ANCA) <1:20 titer (Neg:<1:20)
[2022-11-28 12:54] LABS: Antiproteinase 3 (PR-3) Abs <0.2; Myeloperoxidase Antibody <0.2
[2022-11-28 12:55] LABS: Free Kappa Lt Chains 27; Free Lambda Lt Chains 23.7
[2022-11-28 12:56] LABS: Antinuclear Antibodies (ANA) NEGATIVE
== END ==
PROVIDERS: PCP Internal Medicine; Visit Provider Internal Medicine Nephrology
DX: R80.9 Proteinuria, unspecified (principal)
CPT/HCPCS: 36415; 82784; 83520; 83883; 84155; 84165; 86038; 86161; 86256; 86334

== ENCOUNTER 2022-11-18 08:56 | Day surgery (SDC) | payer OTHER, MEDICARE, SELFPAY ==
[2022-11-12 08:42] VITALS: BMI 33.1
[2022-11-18 09:31] VITALS: BP 160/55; PULSE 64; RESP 18; TEMP 36.1; O2SAT 97
[2022-11-18 09:39] LABS: POC Glucose,Bedside 115 (70-110)
--- NOTE | 2022-11-18 09:48 | P.PNANES_ITS ---
[facility] Disclaimer: The information contained in this section may have been updated after the patient was seen, as this information can be updated by other users. Medical History Abdominal pain Bilateral leg pain CAD (coronary artery disease) Cardiac murmur Chronic bronchitis Diastolic dysfunction Dyspnea on exertion Edema HHD (hypertensive heart disease) HLD (hyperlipidemia) Hyperparathyroidism Left carotid bruit Moderate mitral valve regurgitation SOB (shortness of breath) Surgical History History of back surgery History of bilateral tubal ligation History of cholecystectomy History of elbow surgery History of surgery on right wrist History of total left hip arthroplasty Family History Daughter Cancer Sister Diabetes Coronary artery disease Parkinsons Father Diabetes Coronary artery disease Brother Stroke Mother Spiradenoma Social History Smoking Status: Never smoker second hand exposure: No alcohol intake: never substance use type: denies use current occupational status: employed Travel in the last 8 weeks: None household members: none housing: house lives independently: Yes marital status: single education level: high school service: No skilled nursing: No current occupation: [employer] current occupational exposures/hazards: No caffeine: Yes special lois needs: No agree to transfusion: No do you feel safe at home: Yes victim of physical abuse: No victim of emotional abuse: No victim of sexual abuse: No would you like helpful sources: No [facility] Anesthesia Checklist Patient Identification Patient Identification: Arm Band and Verbal (Name & ) Structural Data Admitted From: Home Planned Operative Procedure/s: EGD & Colonoscopy Consent for Planned Operative Procedure(s) Verified: Yes NPO Status Verified Time NPO: 00:00 Additional verifications Anesthesia Reactions: No Hx Blood Transfusions: No Blood Transfusion Reaction: No Airway Assessment Mallampati Score:: Class II C-Spine Mobility Assessed: Yes TMJ Mobility Assessed: Yes Dentition: Dentures-poor fitting Neurological Assessment Level of Consciousness: Awake Hx Seizures: No Numbness or tingling in extremities: No Anesthesia Plan Anesthesia Risk discussed: Yes Anesthesia Plan: Verified ASA Class: III Anesthesia Type: MAC
--- NOTE | 2022-11-18 10:31 | HMH.SCOPE ---
Procedure: Date: 11/18/22 Patient Date of :: 1945 Procedure Performed:: EGD Indications:: Nausea/Vomiting Performing Provider:: Denis Acuna MD Referring Provider:: Nayeli Acuna APRN Sedation:: Propofol Procedure:: The gastroscope was gently passed through the incisoral orifice into the oral cavity and under direct visualization the esophagus was intubated. The endoscope was passed down the esophagus, through the stomach, and into the duodenum. Color, texture, mucosa, and anatomy of the esophagus, stomach, and duodenum were carefully examined with the scope. Findings:: Oropharynx: normal Esophagus: normal EG Junction: intact at 40 cm Cardia: normal Fundus: normal Body: normal Antrum: normal Duodenal bulb: normal Duodenum (second and third portion): normal Impression: Normal EGD Recommendations:: Symptomatic therapy as needed Complications:: None Estimated blood obtained (mL): 0 Colonoscopy Component Colonoscopy Component Was a colonoscopy performed during today's procedure?: No
[2022-11-18 10:32] VITALS: O2SAT 97
[2022-11-18 10:56] VITALS: BP 91/44; PULSE 61; RESP 14; TEMP 36.3; O2SAT 94
--- NOTE | 2022-11-18 11:01 | HMH.SCOPE ---
Procedure: Date: 11/18/22 Patient Date of :: 1945 Procedure Performed:: Colonoscopy & biopsies Indications:: diarrhea Performing Provider:: Denis Acuna MD Referring Provider:: Nayeli Acuna APRN Sedation:: Propofol Procedure:: After placing the patient in the left lateral decubitus position, the colonoscopy was gently inserted into the rectum and under direct visualization advanced to the cecum which was identified by transillumination in the right lower quadrant, identification of the ileocecal valve, appendiceal orifice, and cecal strap. Color, texture, mucosa, and anatomy of the colon were carefully examined with the scope. Findings:: Anal canal: normal Rectum: normal Sigmoid colon: normal without polyps or inflammatory changes Descending colon: normal without polyps or inflammatory changes Splenic flexure: normal Transverse colon: normal without polyps or inflammatory changes Hepatic flexure: normal Ascending colon: normal without polyps or inflammatory changes Cecum: normal Terminal ileum: not visualized Random biopsies obtained for evaluation of microscopic colitis Impression: Normal appearing colonoscopy. No evidence of active colitis. Specimens:: Colonic mucosa Recommendations:: Follow up examination in about TEN years or so, sooner if clinically indicated. Complications:: None Estimated blood obtained (mL): 0 Colonoscopy Component Colonoscopy Component Was a colonoscopy performed during today's procedure?: Yes Recommended follow up colonoscopy of at least 10 years?: Yes
[2022-11-18 11:06] VITALS: BP 113/60; PULSE 56; RESP 16; O2SAT 96
[2022-11-18 11:16] VITALS: BP 118/57; PULSE 60; RESP 17; O2SAT 95
[2022-11-18 11:25] VITALS: BP 123/69; PULSE 63; RESP 16; O2SAT 98
== END 2022-11-18 11:25 | disposition home or self-care (01) ==
PROVIDERS: PCP Internal Medicine; Visit Provider Internal Medicine Gastroenterology
PROC: 0DJ08ZZ Inspection of Upper Intestinal Tract, Via Natural or Artificial Opening Endoscopic (ICD-10-PCS; CPT 43235; principal; 2022-11-18 10:30)
DX: R11.2 Nausea with vomiting, unspecified (principal); R19.7 Diarrhea, unspecified; E11.9 Type 2 diabetes mellitus without complications
CPT/HCPCS: 44376; 45378; 82962

== ENCOUNTER → 2022-11-26 08:50 | Outpatient (CLI) | payer OTHER, MEDICARE, SELFPAY ==
--- NOTE | 2022-11-26 08:51 | NM_ITS ---
FINAL REPORT CLINICAL HISTORY: hyperthyroidism 10:05 am 20.1 mci tc sestamibi injected into lt ant COMPARISON: None FINDINGS: 20.1 mCi Technetium Sestamibi was administered. Planar imaging was performed early and two-hour delayed of the neck and upper thorax. Early imaging shows physiologic uptake within the upper neck involving the salivary glands and lower neck involving the thyroid gland. On delayed imaging there is no abnormal retained activity in the lower neck or mediastinum to localize parathyroid adenoma. IMPRESSION: No scintigraphic evidence of parathyroid adenoma. Reviewed, Interpreted and Dictated by Noel Barber III, MD Transcribed by Linh Hunt Authenticated and [facility]
== END ==
PROVIDERS: PCP Internal Medicine; Visit Provider Nurse Practitioner
DX: E21.3 Hyperparathyroidism, unspecified (principal)
CPT/HCPCS: 78070; A9500

== ENCOUNTER → 2022-12-13 15:40 | Outpatient (CLI) | payer OTHER, MEDICARE, SELFPAY ==
[2022-12-13 18:01] LABS: Alanine Aminotransferase 27 U/L (12-78); Albumin Level 3.7 g/dl (3.5-5.0); Alkaline Phosphatase 101 U/L (38-126); Anion Gap 15.1 mEq/L (5-15); Aspartate Amino Transferase 31 U/L (14-36); Bilirubin,Total 0.6 mg/dl (0.2-1.3); Blood Urea Nitrogen 40 mg/dl (7-17); Calcium 8.9 mg/dl (8.4-10.2); Carbon Dioxide 26 mmol/L (22.0-30.0); Chloride 104 mmol/L (98-107); Chol/HDL Ratio 3.2 (1-3.5); Cholesterol 109 mg/dl (140-200); Estimated Glomerular Filt Rate 31 ml/min (>60); GFR (African American) 38 ML/MIN (>60); Glucose 104 mg/dl (74-100); HDL Cholesterol 34 mg/dl (40-60); Potassium 4.1 mmoL/L (3.5-5.1); Sodium 141 mmol/L (136-145); Total Protein,Serum 6.3 g/dl (6.3-8.2); Triglycerides 272 mg/dl (30-150); VLDL Cholesterol 54 mg/dL (0-40)
[2022-12-13 18:09] LABS: NT Pro Brain Natriuretic Pep. 284 pg/mL (0-450)
[2022-12-13 18:11] LABS: Direct LDL Cholesterol 41.71 mg/dL (100-129)
[2022-12-13 18:29] LABS: Bilirubin,Direct 0.1 mg/dl (0.0-0.4); Bilirubin,Indirect 0.6 mg/dL (0.0-0.9); Bilirubin,Unconjugated 0.6 mg/dL (0.0-1.1)
== END ==
PROVIDERS: PCP Internal Medicine; Visit Provider Physician Assistant
DX: I25.10 Atherosclerotic heart disease of native coronary artery without angina pectoris (principal); I11.0 Hypertensive heart disease with heart failure; I50.32 Chronic diastolic (congestive) heart failure; N18.9 Chronic kidney disease, unspecified; Z79.899 Other long term (current) drug therapy; R06.09 Other forms of dyspnea
CPT/HCPCS: 36415; 80048; 80061; 80076; 83880

== ENCOUNTER 2022-12-14 08:12 | Day surgery (SDC) | payer OTHER, MEDICARE, SELFPAY ==
[2022-12-14 08:38] VITALS: BP 156/70; PULSE 68; RESP 18; TEMP 36.6; O2SAT 98; BMI 33.1
[2022-12-14 09:01] VITALS: BP 124/76; PULSE 73; RESP 18; O2SAT 97
[2022-12-14 09:02] VITALS: BP 124/76; PULSE 73; RESP 18; O2SAT 97
[2022-12-14 09:05] VITALS: BP 150/71; PULSE 71; RESP 18; O2SAT 98
--- NOTE | 2022-12-14 09:15 | EXP.PAIN.PRO ---
Procedure Date: 12/14/22 Time: 09:00 Anesthesiologist:: Roberto Carlos Truong CRNA Complications:: None Pre-procedure Diagnosis:: Degenerative disc lumbar spine multilevels. Lumbar radiculopathy. Post-procedure Diagnosis:: Same. Indications for Procedure:: Patient is a very pleasant 77-year-old female that comes our clinic today for repeat lumbar epidural steroid injection at the L4-5 level. Patient states previous epidural injections have been successful in regards to decreasing low back pain as well as bilateral hip and leg radicular symptoms. Patient still works full-time as a nurse. She is on her feet 8 to 10 hours a day. Procedure Details:: Procedure: Lumbar epidural steroid injection under fluoroscopy Informed consent was obtained and the risks and benefits of the procedure were explained to the patient. The patient was taken to the procedure room and noninvasive monitors placed, including noninvasive blood pressure cuff and pulse oximeter. The back was viewed using C-arm Fluoroscopy and prepped using Chloraprep as a cleansing solution and the L4-L5 interspace was palpated. Skin and subcutaneous tissues were anesthetized using lidocaine 1.5% and a 25-gauge needle. After this, an 18-gauge Touhy epidural needle was placed into the L4-L5 interspace and advanced using fluoroscopic guidance and loss of resistance to air until the epidural space was encountered. After confirmation of needle placement in the epidural space, with dye, a solution containing normal saline, 3 mL and Depo-Medrol 80 mg were incrementally injected into the lumbar epidural space. The patient tolerated the procedure well with no complications. The patient was observed in the Pain Clinic and then discharged home neurologically intact. Plan and Disposition:: Patient was discharged without incident.
== END 2022-12-14 09:05 | disposition home or self-care (01) ==
PROVIDERS: PCP Internal Medicine; Visit Provider Nurse Anesthetist, Certified Registered
DX: M51.16 Intervertebral disc disorders with radiculopathy, lumbar region (principal)
CPT/HCPCS: 62323; J1040

== ENCOUNTER → 2023-01-28 09:39 | Outpatient (CLI) | payer OTHER, MEDICARE, SELFPAY ==
--- NOTE | 2023-01-28 09:42 | MM_ITS ---
PROCEDURE INFORMATION: Exam: MG Bilateral Screening 3D Mammography Exam date and time: 01/28/2023 9:38 AM Age: 77 years old Clinical indication: Screening mammogram TECHNIQUE: Imaging protocol: Bilateral Screening tomosynthesis and 2D mammography including computer-aided detection (CAD) when performed. COMPARISON: 1. MG MM DIG SCREENING MAMM BI W/CAD 01/22/2022 7:53 AM 2. MG MM DIG SCREENING MAMM BI W/CAD 12/26/2020 8:05 AM 3. MG SCN DIG BREAST TOMOSYN PADMINI 11/14/2019 10:36 AM FINDINGS: MAMMOGRAPHY: Breast composition: The breast is heterogeneously dense, which may obscure small masses. Mass: None. Architectural distortion: No new or suspicious architectural distortion. Calcifications: No new or suspicious calcifications are present Asymmetric density: No new or suspicious asymmetric density is present Skin thickening: None. Axillary adenopathy: None. IMPRESSION: No mammographic evidence of malignancy. Recommend annual screening mammography unless otherwise clinically indicated. ASSESSMENT: BI-RADS category 1: Negative
== END ==
PROVIDERS: PCP Internal Medicine; Visit Provider Internal Medicine
DX: Z12.31 Encounter for screening mammogram for malignant neoplasm of breast (principal)
CPT/HCPCS: 77063; 77067

== ENCOUNTER 2023-03-15 11:13 | Day surgery (SDC) | payer OTHER, MEDICARE, SELFPAY ==
[2023-03-15 11:23] VITALS: BP 190/77; PULSE 75; RESP 16; TEMP 36.3; O2SAT 97; BMI 31.9
[2023-03-15 11:29] VITALS: BP 156/89; PULSE 76; RESP 18; O2SAT 98
[2023-03-15 11:30] VITALS: BP 156/89; PULSE 76; RESP 18; O2SAT 98
--- NOTE | 2023-03-15 11:39 | EXP.PAIN.PRO ---
Procedure Date: 03/15/23 Time: 11:20 Anesthesiologist:: Roberto Carlos Truong CRNA Complications:: None Pre-procedure Diagnosis:: Degenerative disc lumbar spine multilevels. Lumbar radiculopathy. Post-procedure Diagnosis:: Same. Indications for Procedure:: Very pleasant 77-year-old female comes our clinic today for repeat lumbar epidural steroid injection at the L4-5 level. Patient has had moderate to significant improvement terms of her overall low lumbar as well as bilateral hip and leg radicular symptoms with previous injection same level. She rates her pain today 7/10. Procedure Details:: Procedure: Lumbar epidural steroid injection under fluoroscopy Informed consent was obtained and the risks and benefits of the procedure were explained to the patient. The patient was taken to the procedure room and noninvasive monitors placed, including noninvasive blood pressure cuff and pulse oximeter. The back was viewed using C-arm Fluoroscopy and prepped using Chloraprep as a cleansing solution and the L4-L5 interspace was palpated. Skin and subcutaneous tissues were anesthetized using lidocaine 1.5% and a 25-gauge needle. After this, an 18-gauge Touhy epidural needle was placed into the L4-L5 interspace and advanced using fluoroscopic guidance and loss of resistance to air until the epidural space was encountered. After confirmation of needle placement in the epidural space, with dye, a solution containing normal saline, 3 mL and Depo-Medrol 80 mg were incrementally injected into the lumbar epidural space. The patient tolerated the procedure well with no complications. The patient was observed in the Pain Clinic and then discharged home neurologically intact. Plan and Disposition:: Patient was discharged without incident.
[2023-03-15 11:40] VITALS: BP 145/64; PULSE 78; RESP 18; O2SAT 97
== END 2023-03-15 11:40 | disposition home or self-care (01) ==
PROVIDERS: PCP Internal Medicine; Visit Provider Nurse Anesthetist, Certified Registered
DX: M51.16 Intervertebral disc disorders with radiculopathy, lumbar region (principal)
CPT/HCPCS: 62323; J1040

== ENCOUNTER 2023-05-13 08:03 | Outpatient (CLI) | payer OTHER, MEDICARE, SELFPAY ==
--- NOTE | 2023-05-13 08:16 | ECG_ITS ---
APPROVED REPORT Exam: Resting ECG HR:71 bpm ECG Measurements Heart Rate 71 AXES NJ 169 P 51 QRSd 113 QRS -5 QT 392 T 18 QTc 414 Conclusion SINUS RHYTHM LOW QRS VOLTAGE IN PRECORDIAL LEADS [QRS DEFLECTION < 1.0 mV IN CHEST LEADS] INCOMPLETE RIGHT BUNDLE BRANCH BLOCK [90+ ms QRS DURATION, TERMINAL R IN V1/V2, 40+ ms S IN I/aVL/V4/V5/V6] POSSIBLE ANTERIOR MYOCARDIAL INFARCTION , PROBABLY OLD [30 ms Q WAVE IN V3/V4, OR R < 0.2 mV IN V4] BORDERLINE ECG UNCONFIRMED REPORT Electronically signed by : Beto Ritter MD 05/13/2023 14:35:31
--- NOTE | 2023-05-13 08:27 | XR_ITS ---
FINAL REPORT CLINICAL HISTORY: Pre Op, knee sx FINDINGS: TWO-VIEW CHEST The heart size is normal. The mediastinum is normal. The lungs are clear. There is no pneumothorax. IMPRESSION: No acute cardiopulmonary process. Reviewed, Interpreted and Dictated by Denton Serra MD Transcribed by Sindy Mora Authenticated and [facility]
[2023-05-13 08:56] LABS: Basophils # 0.1 K/mm3 (0-0.2); Basophils % 0.7 % (0.1-2.0); Eosinophils # 0.5 K/mm3 (0.0-0.4); Eosinophils % 6.6 % (0.1-12.0); Hematocrit 36.3 % (37.0-47.0); Hemoglobin 12.1 g/dL (12.2-16.2); Lymphocytes % 14.4 % (10-50); Mean Corpuscular HGB Conc 33.2 g/dL (31.8-35.4); Mean Corpuscular Hemoglobin 30.3 pg (27.0-31.2); Mean Corpuscular Volume 91.2 fl (81-99); Mean Platelet Volume 8.6 fl (7.4-10.4); Monocytes # 0.5 K/mm3 (0.1-1.0); Monocytes % 6.9 % (1.7-9.3); Neutrophils # 4.9 K/mm3 (1.8-7.8); Neutrophils % 71.3 % (37.0-80.0); Platelet Count 180 K/mm3 (142-424); Red Blood Count 3.98 M/mm3 (4.20-5.40); Red Cell Distribution Width 14.2 % (11.5-17.5); White Blood Count 6.9 K/mm3 (4.8-10.8)
[2023-05-13 09:18] LABS: Alanine Aminotransferase 27 U/L (12-78); Albumin Level 3.5 g/dl (3.5-5.0); Albumin/Globulin Ratio 1.5 (1.1-1.8); Alkaline Phosphatase 103 U/L (38-126); Anion Gap 12.6 mEq/L (5-15); Aspartate Amino Transferase 28 U/L (14-36); Bilirubin,Total 0.7 mg/dl (0.2-1.3); Blood Urea Nitrogen 26 mg/dl (7-17); Calcium 9.4 mg/dl (8.4-10.2); Carbon Dioxide 25 mmol/L (22.0-30.0); Chloride 108 mmol/L (98-107); Estimated Glomerular Filt Rate 40 ml/min (>60); GFR (African American) 48 ML/MIN (>60); Globulin 2.4 g/dL (1.3-3.2); Glucose 129 mg/dl (74-100); Potassium 4.6 mmoL/L (3.5-5.1); Sodium 141 mmol/L (136-145); Total Protein,Serum 5.9 g/dl (6.3-8.2)
[2023-05-13 16:36] LABS: Hemoglobin A1C 6.4 % (4.0-6.0)
== END 2023-05-13 23:59 ==
PROVIDERS: PCP Internal Medicine; Visit Provider Orthopaedic Surgery
DX: Z01.818 Encounter for other preprocedural examination (principal); M17.0 Bilateral primary osteoarthritis of knee
CPT/HCPCS: 36415; 71046; 80053; 83036; 85025; 93005

== ENCOUNTER 2023-05-31 06:14 | Observation (INO) | payer OTHER, MEDICARE, SELFPAY ==
[2023-05-27 12:45] VITALS: BMI 33.4
[2023-05-31] VITALS (19 sets, daily range): BP systolic 114–165; BP diastolic 55–83; PULSE 58–86; RESP 12–20; TEMP 36.1–37.1; O2SAT 93–99; BMI 34.6
[2023-05-31] MEDS: LACTATED RINGERS 1000ML 1,000 ML 25 ML IV (06:18)
[2023-05-31 06:50] LABS: POC Glucose,Bedside 176 (70-110)
--- NOTE | 2023-05-31 07:32 | SW/DCPLANNER ---
Addendum entered by Sandra Kelly 06/01/23 10:00: Patient prefers to discharge home and receive outpatient PT at [facility]. I have asked Commercial Real Estate Sales Manager to schedule an appointment as outpatient. Original Note: I called and spoke w/ this patient yesterday regarding plans once medically stable for discharge after procedure. Patient stated that she plans to return back home, has all appropriate DME, assistance from family and wants to go to outpatient PT in [place]. I will follow up w/ patient today after procedure.
--- NOTE | 2023-05-31 07:44 | HMH.PHAINT1 ---
Pharmacy Intervention Comments: Reviewed medication list using external fill history to confirm all medications.
[2023-05-31] MEDS: CEFAZOLIN SODIUM 2 GM in 0.9 % SODIUM CHLORIDE 100 ML IV ×3 (07:45→21:03)
--- NOTE | 2023-05-31 08:07 | EXP.ANES.CKL ---
[facility] Disclaimer: The information contained in this section may have been updated after the patient was seen, as this information can be updated by other users. Medical History Abdominal pain Asthma Bilateral leg pain CAD (coronary artery disease) Cardiac murmur Chronic bronchitis Diastolic dysfunction Dyspnea on exertion Edema HHD (hypertensive heart disease) HLD (hyperlipidemia) Hyperparathyroidism Left carotid bruit Moderate mitral valve regurgitation SOB (shortness of breath) Surgical History History of back surgery History of bilateral tubal ligation History of cholecystectomy History of elbow surgery right History of surgery on right wrist History of total left hip arthroplasty Family History Daughter Cancer breast Sister Diabetes Coronary artery disease Parkinsons Father Diabetes Coronary artery disease Brother Stroke Mother Spiradenoma Social History Smoking Status: Never smoker second hand exposure: No alcohol intake: never substance use type: denies use current occupational status: employed Travel in the last 8 weeks: None household members: none housing: house lives independently: Yes marital status: single education level: high school service: No jail: No current occupation: [employer] current occupational exposures/hazards: No caffeine: Yes special lois needs: No agree to transfusion: No do you feel safe at home: Yes victim of physical abuse: No victim of emotional abuse: No victim of sexual abuse: No would you like helpful sources: No [facility] Anesthesia Checklist Patient Identification Patient Identification: Arm Band Structural Data Admitted From: Home Planned Operative Procedure/s: Left Total Knee Arthroplasty Consent for Planned Operative Procedure(s) Verified: Yes Verified Documents: Surgical Consent and History and Physical NPO Status Verified Time NPO: 00:00 Additional verifications Anesthesia Reactions: No Hx Blood Transfusions: Yes Blood Transfusion Reaction: No Airway Assessment Mallampati Score:: Class II C-Spine Mobility Assessed: Yes TMJ Mobility Assessed: Yes Dentition: Good Dentition (upper dentures removed) Neurological Assessment Level of Consciousness: Awake, Alert and Appropriate Anesthesia Plan Anesthesia Risk discussed: Yes Anesthesia Plan: Verified ASA Class: III Anesthesia Type: General w/block (Left Adductor Canal Block. Risks/benefits explained. Pt verbalized understanding) Preoperative Comments Pre-Operative Comments: Discussed options of SAB/MAC/Nerve Block vs GA/Nerve Block with pt. Pt did not want SAB d/t her history of low back surgery and elected for GA/Regional. Risks/benefits of plan of care discussed. Pt verbalized understanding
[2023-05-31] MEDS: TRANEXAMIC ACID 1,000 MG in 0.9 % SODIUM CHLORIDE 250 ML 500 MG IV ×2 (08:15→09:20)
[2023-05-31] MEDS: MORPHINE PF 10 MG/10ML AMP (08:17)
[2023-05-31] MEDS: ROPIVACAINE 0.5% 30ML VIAL 150 MG (08:17)
--- NOTE | 2023-05-31 09:26 | EXP.OP.NOTE ---
Date of procedure: 05/31/23 Pre-op Diagnosis:: Left knee osteoarthritis Post-op Diagnosis:: Left knee osteoarthritis Procedure performed:: Left total knee replacement Surgeon:: Toi Eubanks MD [place] Supervisor(s):: None LABOR SERVICE REPRESENTATIVE:: Kevin Huffman Anesthesia: GETA, regional and local Estimated blood loss (mL): 5 Clinical Note:: Hilda is a very pleasant 78-year-old female with activity limiting left knee pain secondary to osteoarthritis affecting her quality of life. Left knee x-rays July 2022 revealed severe tricompartmental degenerative changes in a valgus knee with complete loss of lateral joint space and marginal osteophyte formation. 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 She lives in [place] and her primary care physician is Dr. Shahid Knight. History of a lumbar fusion in [address] Rojas. History of a left hip replacement. She failed conservative treatment measures for her left knee including cortisone injections in January. We discussed all the risks, benefits and alternatives to left total knee replacement and she agrees to proceed. Surgical consent form was signed. Operative findings:: Left knee severe tricompartmental degenerative changes in a valgus knee with complete loss of lateral joint space and marginal osteophyte formation. Evidence of osteonecrosis as well. Operative note:: The patient was seen in the preoperative holding area. The left knee was marked to confirm the correct operative site. She received Ancef 2 g IV prophylactic antibiotics within 1 hour of incision time. She received a gram of IV TXA just prior to the incision and as we were closing to help minimize bleeding. She was seen by anesthesia. Spinal was deferred due to patient preference and history of a lumbar fusion. She was brought back to the operating room. General anesthesia induced without difficulty. Nonsterile tourniquet applied to the left thigh. The left lower extremity was prepped and draped in the usual sterile fashion. Timeout performed to confirm left total knee replacement for patient Hilda Nagel. The left lower extremity was exsanguinated with an Esmarch. Tourniquet was inflated to 300 mmHg. With the knee flexed I made a midline incision with a 10 blade scalpel. Full-thickness medial and lateral flaps were elevated. Using a fresh 10 blade I made a medial parapatellar arthrotomy. Patella was everted. Infrapatellar fat pad and anterior femoral fat pads were excised with the Bovie. Marginal osteophytes were removed with a rongeur. Medial and lateral Hohmann retractors were placed. A medial release was performed with the Bovie. We then drilled the distal femur and placed the intramedullary distal femoral cutting guide set at a 5 degree valgus cut. This was pinned in place. We removed approximately centimeter bone from the distal femur with the oscillating saw. The distal femur was sized to a size 5. The 4-in-1 cutting guide was pinned in place set at 3 degrees of external rotation. We then made the anterior and posterior cuts and the chamfer cuts. We turned our attention to the tibia. A PCL retractor and medial and lateral Hohmann retractors were placed. Using the extramedullary tibial cutting guide this was pinned in place for a 3 degree posterior slope removing approximately a centimeter from the high medial side and 5 mm from the lateral side. This cut was made with the oscillating saw. Medial and lateral menisci and posterior osteophytes were excised. With a 9 mm block we achieved full extension with excellent alignment. We sized the tibia to a size 3 tibial tray. This was pinned in place and fins were impacted. We placed the size 5 trial femur. Decided to use a 5 narrow for the final implant. We made the box cut with the reamer and punch. We then placed a 9 mm trial poly. With these trial components in place there was full extension and flexion with excellent alignment. We then made a thin patellar cut as patella was sized to just 18 mm in thickness. We placed a 29 guide and made drill holes and with the [address] there is excellent patellar tracking. Trial components removed and final components opened on the back table. The knee was copiously irrigated with Pulsavac lavage and thoroughly dried. We injected the posterior capsule with 20 cc of half percent Naropin and 5 mg of morphine for local anesthetic. Cement was mixed on the back table. We applied cement to the cut tibial and femoral surfaces and impacted in place the final size 3 tibia and the size 5 narrow femur. We then placed a 9 mm poly it was seen to be fully engaged in the tibial tray. The knee was placed in extension and excess cement was removed. We applied cement to the cut patellar surface and held the 29 thin patellar button in place with a patellar clamp. Once the cemented fully cured we irrigated the knee with a dilute Betadine solution and Pulsavac lavage. The knee was thoroughly dried. We proceeded with closure. The deep fascia was closed with #1 strata fix barbed suture. The dermis was closed with 2-0 Vicryl interrupted sutures. The skin was closed with 3 0 STRATAFIX barbed subcuticular suture. We applied a Prineo mesh dressing with glue on the incision. We then applied a sterile dressing with 4 x 4's, ABD, soft roll and Gamaliel bandage. Tourniquet was deflated at 74 minutes. Anesthesia reversed without difficulty. Adductor canal block was performed for perioperative pain control. Patient was transferred to recovery in stable condition. All sponge and needle counts correct. Postoperative plan: -She will be admitted to the hospitalist service for medical management. Discussed with Dr. Millan. -Mobilize as tolerated with PT and OT. -Initiate aspirin tomorrow for DVT prophylaxis. -communications manager for rehab placement in [place]. Patient prefers inpatient rehab after her hospital stay as she lives at home alone. -Remove dressing tomorrow. Okay to shower with mesh dressing in place. -Follow-up in the office on Wednesday 06/21. Tourniquet time (min): 74 Condition: stable Disposition: PACU Specimens:: Implants: [employer] posterior stabilized total knee arthroplasty with a size 5 narrow femur, 3 tibia, 9 polyethylene and 29 thin patella Complications:: None
--- NOTE | 2023-05-31 09:34 | P.PNANES_ITS ---
[facility] Anesthesia Record Part I Anesthesia Record I Intake, IV Amount: 1,000 Hydration: Adequate Estimated blood loss (mL): 10 Urine output (mL): 0 Blood Products used (#): none Blood Pressure: 117/64 SaO2: 93 Pulse Rate: 67 Airway Patency: Patent Respiratory Rate: 16 Temperature: 98.6 F Patient is:: Drowsy, Nasal O2 and Stable Stable to PACU at:: 09:30
--- NOTE | 2023-05-31 09:38 | XR_ITS ---
FINAL REPORT CLINICAL HISTORY: Status post left knee replacement COMPARISON: 07/30/2022 FINDINGS: Left knee Two views were obtained. There is no acute fracture or dislocation. The patient is status post knee arthroplasty. There is soft tissue air. There is no evidence of complication. IMPRESSION: Knee arthroplasty without evidence of complication. Reviewed, Interpreted and Dictated by Noel Barber III, MD Transcribed by Sindy Mora Authenticated and [facility]
[2023-05-31 09:55] LABS: POC Glucose,Bedside 193 (70-110)
[2023-05-31] MEDS: MORPHINE 2MG/ML SYRINGE 2 MG IV (10:05)
[2023-05-31] MEDS: 0.9 % SODIUM CHLORIDE 1000ML 1,000 ML 75 ML IV (10:19)
--- NOTE | 2023-05-31 11:37 | EXP.HP ---
History of Present Illness *Admission Date: 05/31/23 *Reason for visit:: Primary osteoarthritis of left knee, status post TKA *History of present illness: Ms. Nagel is a 78-year-old female with severe osteoarthritis of both knees. Left knee pain is activity limiting. Impacting her quality of life. Has been seeing orthopedics as an outpatient, decision made for elective left knee replacement today. Patient taken to the OR with successful left knee replacement. Tolerated procedure well. Additional history includes history of lumbar fusion in 2016, left hip replacement, degenerative disc disease hyper tension, yeast, chronic pain. Medicine was consulted to admit patient after surgery for observation overnight and therapy eval in the morning. After arriving to the floor, patient's pain is stable. Denies any chest pain or shortness of breath. No nausea or vomiting. Has DME equipment at home per review. [facility] Disclaimer: The information contained in this section may have been updated after the patient was seen, as this information can be updated by other users. Medical History Abdominal pain Asthma Bilateral leg pain CAD (coronary artery disease) Cardiac murmur Chronic bronchitis Diastolic dysfunction Dyspnea on exertion Edema HHD (hypertensive heart disease) HLD (hyperlipidemia) Hyperparathyroidism Left carotid bruit Moderate mitral valve regurgitation SOB (shortness of breath) Surgical History History of back surgery History of bilateral tubal ligation History of cholecystectomy History of elbow surgery History of surgery on right wrist History of total left hip arthroplasty Family History Diabetes Sister Father Coronary artery disease Sister Father Spiradenoma Mother Cancer Daughter Parkinsons Sister Stroke Brother Social History (Updated 05/31/23 @ 14:04 by Jenny Rg RN) Smoking Status: Never smoker second hand exposure: No alcohol intake: never substance use type: denies use current occupational status: employed Travel in the last 8 weeks: None household members: none housing: house lives independently: Yes marital status: single education level: high school service: No retirement: No current occupation: [employer] current occupational exposures/hazards: No caffeine: Yes special lois needs: No agree to transfusion: No do you feel safe at home: Yes victim of physical abuse: No victim of emotional abuse: No victim of sexual abuse: No would you like helpful sources: No Review of Systems Review of Systems Review of systems (narrative): 14 point review of systems performed, pertinent positives and negatives as per [facility] Meds Home Medications and Allergies Home Medications Medication Instructions Recorded Confirmed Type minocycline 100 mg capsule 100 mg PO DAILY INFECTION 01/14/20 05/27/23 History MANAGEMENT alendronate 70 mg tablet 70 mg PO WEEKLY BONES 05/07/22 05/31/23 History spironolactone 25 mg tablet 25 mg PO DAILY Fluid 06/21/22 05/27/23 History ondansetron HCl 4 mg tablet 4 mg PO Q4H PRN nausea and 07/21/22 05/27/23 Rx vomiting #20 tabs empagliflozin 10 mg tablet 10 mg PO DAILY Diabetes #90 tabs 07/29/22 05/27/23 Rx (Jardiance) torsemide 100 mg tablet 50 mg PO DIRECTED edema #45 tabs 09/21/22 05/27/23 Rx losartan 100 mg tablet 100 mg PO DAILY BLOOD PRESSURE #90 10/21/22 05/27/23 Rx tabs semaglutide 0.25 mg or 0.5 mg (2 0.25 mg SQ WEEKLY Diabetes 11/02/22 05/31/23 History mg/3 mL) subcutaneous pen injector (Ozempic) albuterol sulfate 90 mcg/actuation 2 inh inhalation Q6H PRN shortness 12/15/22 05/27/23 Rx aerosol inhaler (Ventolin HFA) of breath or wheezing 90 days #18 grams carvedilol 25 mg tablet 50 mg PO BID bp 3 months #360 tabs 02/28/23 05/27/23 Rx celecoxib 100 mg capsule (Celebrex) 100 mg PO BID #60 caps 04/01/23 05/27/23 Rx evolocumab 140 mg/mL subcutaneous 140 mg SQ Q2W Cholesterol #2 mL 05/17/23 05/27/23 Rx pen injector (Repej Gurrola) aspirin 325 mg tablet 325 mg PO .QD #20 tabs 05/31/23 05/31/23 Rx oxycodone 5 mg tablet 5 mg PO Q4H PRN pain #30 tabs 05/31/23 05/31/23 Rx pantoprazole 40 mg tablet,delayed 40 mg PO BID 05/31/23 05/31/23 History release ropinirole 2 mg tablet 2 mg PO DAILY 05/31/23 05/31/23 History New Prescriptions to Start Prescriptions: aspirin 325 mg tablet oxycodone 5 mg tablet Allergies Allergy/AdvReac Type Severity Reaction Status Date / Time [id number] Reductase AdvReac Intermediate myalgia Verified 05/31/23 06:20 Inhibitor [Aalnast-Pej-Xew Reductase Inhibitor] Exam Data for Last 24 hours Vital signs and Labs for Last 24 Hours: Temp Pulse Resp BP Pulse Ox O2 Del Method O2 Flow Rate 98.6 F 82 18 144/76 H 98 Nasal Cannula 3 05/31/23 09:35 05/31/23 10:10 05/31/23 10:10 05/31/23 10:10 05/31/23 10:10 05/31/23 10:10 05/31/23 10:10 Laboratory Results - last 24 hr 05/31/23 06:27: POC Glucose 176 H 05/31/23 09:47: POC Glucose 193 H I & O for Last 24 hours: Intake & Output 05/28/23 05/29/23 05/30/23 05/31/23 23:59 23:59 23:59 23:59 Intake Total 1000 / 1000 Balance 1000 / 1000 Weight 106.339 kg Constitutional Constitutional: no acute distress, obese and cooperative *Routine HEENT Exam Head: Present normocephalic Eye: Present EOMI and PERRL ENT: Present mucous membranes moist *Routine Neck Exam Neck: Present supple; Absent lymphadenopathy *Routine Respiratory Exam Respiratory: Present CTA bilaterally; Absent rhonchi, wheezes or crackles *Routine Cardiovascular Exam Cardiovascular: Present RRR *Routine Abdominal Exam Abdominal: Present soft and normoactive bowel sounds; Absent tenderness *Routine Rectal Exam Rectal:: deferred *Routine Genitalia Exam Genitalia:: deferred *Routine Extremities Exam Extremities: Absent cyanosis, clubbing or edema Comments: Left knee in postsurgical wrap. Neurovascularly intact in feet bilaterally. *Routine Skin Exam Skin: Present warm; Absent rash *Routine Neurological Exam Neurological: Present alert, oriented X3 and moving all extremities; Absent altered mental status Assessment and Plan *Assessment and plan (1) Primary osteoarthritis of knees, bilateral: Status: Acute Category: Medical Code(s): M17.0 - Bilateral primary osteoarthritis of knee (2) Status post left knee replacement: Status: Acute Category: Surgical Code(s): Z96.652 - Presence of left artificial knee joint (3) Diabetes: Status: Chronic Qualifiers: Diabetes mellitus complication status: with hyperglycemia Diabetes mellitus senior living insulin use: without senior living use Diabetes mellitus type: type 2 Qualified Code(s): E11.65 - Type 2 diabetes mellitus with hyperglycemia Category: Medical Code(s): E11.9 - Type 2 diabetes mellitus without complications (4) Diastolic congestive heart failure: Status: Chronic Qualifiers: Heart failure chronicity: chronic Qualified Code(s): I50.32 - Chronic diastolic (congestive) heart failure Category: Medical Code(s): I50.30 - Unspecified diastolic (congestive) heart failure (5) GERD (gastroesophageal reflux disease): Status: Chronic Qualifiers: Esophagitis presence: without esophagitis Qualified Code(s): K21.9 - Gastro-esophageal reflux disease without esophagitis Category: Medical Code(s): K21.9 - Gastro-esophageal reflux disease without esophagitis (6) CKD (chronic kidney disease): Status: Chronic Qualifiers: Chronic kidney disease stage: unspecified stage Qualified Code(s): N18.9 - Chronic kidney disease, unspecified Category: Medical Code(s): N18.9 - Chronic kidney disease, unspecified (7) Degenerative disc disease, lumbar: Status: Acute Category: Medical Code(s): M51.36 - Other intervertebral disc degeneration, lumbar region (8) HLD (hyperlipidemia): Status: Chronic Qualifiers: Hyperlipidemia type: mixed hyperlipidemia Qualified Code(s): E78.2 - Mixed hyperlipidemia Category: Medical Code(s): E78.5 - Hyperlipidemia, unspecified (9) HHD (hypertensive heart disease): Status: Chronic Qualifiers: Heart failure chronicity: chronic Heart failure presence: with heart failure Heart failure type: diastolic Qualified Code(s): I11.0 - Hypertensive heart disease with heart failure; I50.32 - Chronic diastolic (congestive) heart failure Category: Medical Code(s): I11.9 - Hypertensive heart disease without heart failure (10) CAD (coronary artery disease): Status: Chronic Qualifiers: Associated angina: without angina Coronary Disease-Associated Artery/Lesion type: [place] artery [place] vs. transplanted heart: [place] heart Qualified Code(s): I25.10 - Atherosclerotic heart disease of [place] coronary artery without angina pectoris Category: Medical Code(s): I25.10 - Atherosclerotic heart disease of [place] coronary artery without angina pectoris Plan 78-year-old female with primary osteoarthritis of knees. Presented for elective left TKA. Status post surgery, tolerated well. Discussed case with orthopedics, request admission for observation overnight, eval by therapy, pain control, and discharge home tomorrow with outpatient therapy. Medicine agreed to admit for further management. On room air and hemodynamically stable at time of evaluation. Problems addressed as follows: Primary osteoarthritis of bilateral knees Status post left TKA -Orthopedics consulted, appreciate their management. Tolerated surgery well. -Morning labs to monitor kidney function and electrolytes including BMP and CBC ordered. - Pain control initiated -PT/OT consulted. Patient plans to do outpatient therapy -Aspirin 325 mg daily for DVT prophylaxis postop for 6 weeks -Anticipate discharge tomorrow Diabetes Most recent A1c 6.4. Welcome hold on current regimen. Had sliding scale and fingerstick AC at bedtime during the mission. Continue empagliflozin 10 mg daily, will resume home regimen at discharge GERD: Continue pantoprazole 40 mg twice daily COPD/asthma: Continue albuterol inhaler as needed 2 puffs every 6 hours Hypertension: Continue carvedilol 50 mg twice daily, losartan 100 g daily, spironolactone 25 mg daily Restless leg: Continue ropinirole 2 mg daily History of degenerative disc disease of her back/infected hardware in her back, continue daily minocycline 100 mg for infection suppression DNR Regular diet Aspirin 325 mg daily
[2023-05-31] MEDS: OXYCODONE 5MG IMMEDIATE RELEASE TABLET 5 MG PO ×2 (12:52→21:02)
--- NOTE | 2023-05-31 14:54 | HMH.OTEV ---
OT Inpatient Evaluation Rehab OT IP Evaluation Start: 05/31/23 09:39 Freq: ONCE Status: Active Protocol: Document 05/31/23 14:22 [email or web address] (Rec: 05/31/23 14:54 ANNETTAELSA [id number]) Rehab OT IP Assessment Subjective History 78-year-old female with primary osteoarthritis of knees. Presented for elective left TKA. Status post surgery, tolerated well. Discussed case with orthopedics, request admission for observation overnight, eval by therapy, pain control, and discharge home tomorrow with outpatient therapy. Medicine agreed to admit for further management. On room air and hemodynamically stable at time of evaluation. Problems addressed as follows: Primary osteoarthritis of bilateral knees Status post left TKA -Orthopedics consulted, appreciate their management. Tolerated surgery well. -Morning labs to monitor kidney function and electrolytes including BMP and CBC ordered. - Pain control initiated -PT/OT consulted. Patient plans to do outpatient therapy -Aspirin 325 mg daily for DVT prophylaxis postop for 6 weeks -Anticipate discharge tomorrow Diabetes Most recent A1c 6.4. Welcome hold on current regimen. Had sliding scale and fingerstick AC at bedtime during the mission. Continue empagliflozin 10 mg daily, will resume home regimen at discharge GERD: Continue pantoprazole 40 mg twice daily COPD/asthma: Continue albuterol inhaler as needed 2 puffs every 6 hours Hypertension: Continue carvedilol 50 mg twice daily, losartan 100 g daily, spironolactone 25 mg daily Restless leg: Continue ropinirole 2 mg daily History of degenerative disc disease of her back/infected hardware in her back, continue daily minocycline 100 mg for infection suppression Patient was independent with ADLs and fx'l mobility tasks prior to admission. Continues to drive and work at [facility] [employer] [facility]. Subjective I can try to get up. Assisted Patient during transfer, bed mobility, ADL of toileting and ambulation with usage of RW. Patient required Min A to complete all task. No LOB noted. Objective Patient Orientation Person,Name,Age,Birthday,Year Right Upper Extremity Gross ROM WFL Left Upper Extremity Gross ROM WFL Bed Mobility bed mobility - supine/sit Assist Level Minimal x 1 (25% assist) Transfer Training Sit/Stand/Pivot Transfer Assist Level Minimal x 2 (25% assist) Chair Transfer Ability Minimal x 2 (25% assist) Chair Transfer Technique Sit to/from Ambulatory Chair Transfer Assistive Devices Rolling Walker Lower Body Dressing Ability Minimal Assistance Performing Toilet Hygiene Ability Minimal Assistance Commode/Toilet Transfer Technique Sit to/from Ambulatory Rehab OT IP prob,goals,plan Problems Date of Evaluation: 05/31/23 OT IP Problems Bed Mobility,Transfers,Balance ,Self care,Safety Rehab Potential Rehab Potential Good Equipment Needs Assistive Devices Rolling / Wheeled Walker Plan OT intervention Plan Bed Mobility,Transfers,Balance ,Self care,Safety,Therapeutic Exercise OT Plan Frequency Daily Duration LOS Discharge Goals Bed Mobility Ability Assistance x1 Sit to Stand Chair Transfer Ability Minimal x 1 (25% assist) Chair Transfer Ability Minimal x 1 (25% assist) Chair Transfer Technique Sit to/from Ambulatory Chair Transfer Assistive Devices Rolling Walker Lower Body Dressing Ability Minimal Assistance Performing Toilet Hygiene Ability Minimal Assistance Overall Commode/Toilet Transfer Ability Minimal Assistance Commode/Toilet Transfer Technique Sit to/from Ambulatory Discharge Plan OT Discharge Plan Recommend HH services after medical d/c or possible OP OT Services. Daugther will assist with patient as needed. Patient to continue OT IP services while here at [facility]. Eval Complexity Eval Charge Codes 59408 - Low Complexity PHYSICIAN CERTIFICATION: I certify the specified therapy services for Hilda Nagel are required, authorized, and reviewed every 30 days.
--- NOTE | 2023-05-31 14:56 | PC.NURSE ---
Pt. aox 4, 99% on Ra, up with assistance times 2, had a left total knee today.
[2023-05-31] MEDS: humaLOG 100 UNITS/ML 3ML VIAL (SSI) SQ ×2 (16:31→21:04)
[2023-05-31 16:32] LABS: POC Glucose,Bedside 198 (70-110)
--- NOTE | 2023-05-31 16:53 | HMH.PTEV ---
Physical Therapy Evaluation Rehab PT IP Evaluation Start: 05/31/23 09:39 Freq: ONCE Status: Active Protocol: Document 05/31/23 16:45 KOKI (Rec: 05/31/23 16:52 KOKI [id number]) Subjective/History History History s/p L TKA. Pt IND with mobility prior to surgery and working full-time. No Prior AD use. Subjective Subjective Pt agreeable to PT evaluation. New diagnosis of cancer in past 12 No months? Rehab PT IP Eval Objective Appearance Patient Behavior Appropriate Patient Orientation Person,Place Difficulty following instructions none Speech Pattern Clear Ambulation Patient Able to Ambulate Yes Ambulation Observation IP General Gait Pattern Observation Antalgic Gait Ambulation Distance (feet) 20 Ambulation Assistive Device Rolling Walker Ambulation Ability Minimal x 1 (25% assist) Transfers Bed Transfer Ability Minimal x 1 (25% assist) Sit to Stand Bed Transfer Ability Minimal x 1 (25% assist) Rehab PT IP prob,goals,plan Problems Date of Evaluation: 05/31/23 PT IP Problems Bed Mobility,Transfers,Gait, Balance,Self care,Safety Rehab Potential Rehab Potential Good Equipment Needs Assistive Devices Rolling / Wheeled Walker Plan PT Intervention Plan Bed Mobility,Transfers,Gait, Balance,Self care Other Intervention Plan 1-2 PT Plan Frequency Daily Duration LOS Discharge Goals Bed Transfer Ability Contact Guard/Hand Hold Sit to Stand Chair Transfer Ability Contact Guard/Hand Hold Ambulation Assistive Device Rolling Walker Ambulation Distance (feet) 30 Discharge Plan PT Discharge Plan Recommending outpatient PT services. Pt safe to d/c home d/t family support (Daugther will assist with patient as needed) and current level of functioning. Pt would benefit from skilled inpatient PT while at [facility] to prevent functional decline. Eval Complexity Eval Charge Codes 79210 - Moderate Complexity PHYSICIAN CERTIFICATION: I certify the specified therapy services for Hilda Nagel are required, authorized, and reviewed every 30 days.
[2023-05-31] MEDS: CARVEDILOL 25MG TABLET 50 MG PO (21:02)
[2023-05-31] MEDS: PANTOPRAZOLE 40MG TABLET 40 MG PO (21:02)
[2023-05-31 21:16] LABS: POC Glucose,Bedside 208 (70-110)
[2023-06-01] VITALS: BP 130/57; PULSE 74; RESP 20; TEMP 36.7; O2SAT 96
[2023-06-01 04:00] VITALS: BP 139/76; PULSE 81; RESP 20; TEMP 36.4; O2SAT 96; BMI 34.2
[2023-06-01] MEDS: OXYCODONE 5MG IMMEDIATE RELEASE TABLET 5 MG PO (06:00)
[2023-06-01 06:10] LABS: POC Glucose,Bedside 140 (70-110)
[2023-06-01 06:38] LABS: Basophils % 0.2 % (0.1-2.0); Eosinophils # 0.2 K/mm3 (0.0-0.4); Eosinophils % 1.8 % (0.1-12.0); Hematocrit 33.6 % (37.0-47.0); Hemoglobin 11.2 g/dL (12.2-16.2); Lymphocytes # 1.1 K/mm3 (0.7-4.5); Lymphocytes % 11.8 % (10-50); Mean Corpuscular HGB Conc 33.3 g/dL (31.8-35.4); Mean Corpuscular Hemoglobin 30.9 pg (27.0-31.2); Mean Corpuscular Volume 92.7 fl (81-99); Mean Platelet Volume 9.4 fl (7.4-10.4); Monocytes # 0.5 K/mm3 (0.1-1.0); Monocytes % 5.8 % (1.7-9.3); Neutrophils # 7.4 K/mm3 (1.8-7.8); Neutrophils % 80.3 % (37.0-80.0); Platelet Count 172 K/mm3 (142-424); Red Blood Count 3.63 M/mm3 (4.20-5.40); Red Cell Distribution Width 14.1 % (11.5-17.5); White Blood Count 9.2 K/mm3 (4.8-10.8)
[2023-06-01 06:46] LABS: Chloride 107 mmol/L (98-107); Sodium 137 mmol/L (136-145)
[2023-06-01 06:49] LABS: Blood Urea Nitrogen 38 mg/dl (7-17); Creatinine Clearance Estimated 52 mL/min (50-200); Estimated Glomerular Filt Rate 34 ml/min (>60); GFR (African American) 41 ML/MIN (>60)
[2023-06-01 06:50] LABS: Calcium 8.3 mg/dl (8.4-10.2); Carbon Dioxide 27 mmol/L (22.0-30.0); Glucose 142 mg/dl (74-100)
[2023-06-01 08:00] VITALS: BP 115/51; PULSE 79; RESP 20; TEMP 36.4; O2SAT 96
[2023-06-01] MEDS: EMPAGLIFLOZIN 10MG TABLET 10 MG PO (08:55)
[2023-06-01] MEDS: IRBESARTAN 150MG TAB 150 MG PO (08:55)
[2023-06-01] MEDS: PANTOPRAZOLE 40MG TABLET 40 MG PO (08:55)
[2023-06-01] MEDS: ASPIRIN 325MG TABLET 325 MG PO (08:55)
[2023-06-01] MEDS: ROPINIROLE 1MG TABLET 2 MG PO (08:56)
[2023-06-01] MEDS: CARVEDILOL 25MG TABLET 50 MG PO (08:56)
[2023-06-01] MEDS: MINOCYCLINE HCL 100 MG PO (08:57)
[2023-06-01] MEDS: KETOROLAC 30MG/ML VIAL 15 MG IV (09:23)
--- NOTE | 2023-06-01 09:55 | EXP.ANES.II ---
[facility] Anesthesia Record Part II Anesthesia Record Part II Discharge Time: 10:10 Destination: Surgical Day Care (OP Surgery) PACU nurse assessment reviewed?: Yes Patient Condition:: Good Anesthesia Complications:: None Swallowing reflex intact?: Yes Airway Patency: Patent Cyanosis?: No Blood Pressure: 144/76 SaO2: 98 Respiratory Rate: 18 Pulse Rate: 82 Temperature: 98.6 F Mental Status: Alert & Oriented Pain level:: 6 Nausea and/or vomitting:: None Intake, IV Amount: 0 Hydration: Adequate
[2023-06-01 09:57] VITALS: BP 144/76; PULSE 82; RESP 18; TEMP 37; O2SAT 98
--- NOTE | 2023-06-01 11:21 | P.DS_ITS ---
General Admission date:: 05/31/23 Discharge date: 06/01/23 HPI HPI HPI: Ms. Nagel is a 78-year-old female with severe osteoarthritis of both knees. Left knee pain is activity limiting. Impacting her quality of life. Has been seeing orthopedics as an outpatient, decision made for elective left knee replacement today. Patient taken to the OR with successful left knee replacement. Tolerated procedure well. Additional history includes history of lumbar fusion in 2016, left hip replacement, degenerative disc disease hyper tension, yeast, chronic pain. Medicine was consulted to admit patient after surgery for observation overnight and therapy eval in the morning. After arriving to the floor, patient's pain is stable. Denies any chest pain or shortness of breath. No nausea or vomiting. Has DME equipment at home per review. Hospital Course Hospital Course Hospital Course: Patient was seen and evaluated at the bedside on the day of discharge. Patient wishes to be discharged. All patient questions were answered and patient was given time to ask questions. Patient was discharged in stable condition. Patient understands that she can return to ER in case of any sudden changes in health. Total time spent on DC - 38 mins 78-year-old female with primary osteoarthritis of knees. Presented for elective left TKA. Status post surgery, tolerated well. Discussed case with orthopedics, request admission for observation overnight, eval by therapy, pain control, and discharge home tomorrow with outpatient therapy. Medicine agreed to admit for further management. On room air and hemodynamically stable at time of evaluation. Problems addressed as follows: Primary osteoarthritis of bilateral knees dc on oral ASA 325mg PO daily for DC Status post left TKA - cleared by ortho for DC -Aspirin 325 mg daily for DVT prophylaxis postop for 6 weeks Diabetes- continue home regimen GERD: Continue pantoprazole 40 mg twice daily COPD/asthma: Continue albuterol inhaler as needed 2 puffs every 6 hours Hypertension: Continue carvedilol 50 mg twice daily, losartan 100 g daily, spironolactone 25 mg daily Restless leg: Continue ropinirole 2 mg daily History of degenerative disc disease of her back/infected hardware in her back, continue daily minocycline 100 mg for infection suppression Exam Data for Last 24 hours Vital signs and Labs for Last 24 Hours: Temp Pulse Resp BP Pulse Ox O2 Del Method O2 Flow Rate 97.6 F 79 18 115/51 L 96 Room Air 97 06/01/23 08:00 06/01/23 08:00 06/01/23 09:57 06/01/23 08:00 06/01/23 08:00 06/01/23 09:00 05/31/23 13:32 Laboratory Results - last 24 hr 05/31/23 16:25: POC Glucose 198 H 05/31/23 20:54: POC Glucose 208 H 06/01/23 05:48: WBC 9.2, RBC 3.63 L, Hgb 11.2 L, Hct 33.6 L, MCV 92.7, MCH 30.9, MCHC 33.3, RDW 14.1, Plt Count 172, MPV 9.4, Neut % (Auto) 80.3 H, Lymph % (Auto) 11.8, Dolores % (Auto) 5.8, Eos % (Auto) 1.8, Baso % (Auto) 0.2, Neut # (Auto) 7.4, Lymph # (Auto) 1.1, Dolores # (Auto) 0.5, Eos # (Auto) 0.2, Baso # (Auto) 0.0, Sodium 137, Potassium 4.0, Chloride 107, Carbon Dioxide 27, Anion Gap 7.0, BUN 38 H, Creatinine 1.50 H, Estimated Creat Clear 52, Estimated GFR 34 L, Est GFR ( Amer) 41 L, Glucose 142 H, Calcium 8.3 L 06/01/23 05:56: POC Glucose 140 H I & O for Last 24 hours: Intake & Output 05/29/23 05/30/23 05/31/23 06/01/23 23:59 23:59 23:59 23:59 Intake Total 2039 / 204 270 / 270 Output Total 500 / 500 400 / 400 Balance 1540 / 1540 -130 / -130 Weight 106.339 kg 105.007 kg Constitutional Constitutional: no acute distress *Routine HEENT Exam Head: Present normocephalic Eye: Present EOMI and PERRL ENT: Present mucous membranes moist *Routine Neck Exam Neck: Present supple; Absent lymphadenopathy *Routine Respiratory Exam Respiratory: Present CTA bilaterally *Routine Cardiovascular Exam Cardiovascular: Present RRR *Routine Abdominal Exam Abdominal: Present soft and normoactive bowel sounds; Absent tenderness *Routine Extremities Exam Extremities: Absent cyanosis, clubbing or edema *Routine Skin Exam Skin: Present warm; Absent rash *Routine Neurological Exam Neurological: Present alert and oriented X3 Results Data Completed and Pending Labs on day of discharge: Labs from last 24 hours 06/01/23 06/01/23 05/31/23 05:56 05:48 20:54 WBC 9.2 RBC 3.63 L Hgb 11.2 L Hct 33.6 L MCV 92.7 MCH 30.9 MCHC 33.3 RDW 14.1 Plt Count 172 MPV 9.4 Neut % (Auto) 80.3 H Lymph % (Auto) 11.8 Dolores % (Auto) 5.8 Eos % (Auto) 1.8 Baso % (Auto) 0.2 Neut # (Auto) 7.4 Lymph # (Auto) 1.1 Dolores # (Auto) 0.5 Eos # (Auto) 0.2 Baso # (Auto) 0.0 Sodium 137 Potassium 4.0 Chloride 107 Carbon Dioxide 27 Anion Gap 7.0 BUN 38 H Creatinine 1.50 H Estimated Creat Clear 52 Estimated GFR 34 L Est GFR ( Amer) 41 L Glucose 142 H POC Glucose 140 H 208 H Calcium 8.3 L 05/31/23 16:25 WBC RBC Hgb Hct MCV MCH MCHC RDW Plt Count MPV Neut % (Auto) Lymph % (Auto) Dolores % (Auto) Eos % (Auto) Baso % (Auto) Neut # (Auto) Lymph # (Auto) Dolores # (Auto) Eos # (Auto) Baso # (Auto) Sodium Potassium Chloride Carbon Dioxide Anion Gap BUN Creatinine Estimated Creat Clear Estimated GFR Est GFR ( Amer) Glucose POC Glucose 198 H Calcium DS: Diagnosis Discharge Diagnosis (1) Primary osteoarthritis of knees, bilateral: Status: Acute Code(s): M17.0 - Bilateral primary osteoarthritis of knee (2) Status post left knee replacement: Status: Acute Code(s): Z96.652 - Presence of left artificial knee joint (3) Diabetes: Status: Chronic Code(s): E11.9 - Type 2 diabetes mellitus without complications Qualifiers: Diabetes mellitus type: type 2 Diabetes mellitus residential insulin use: without residential use Diabetes mellitus complication status: with hyperglycemia Qualified Code(s): E11.65 - Type 2 diabetes mellitus with hyperglycemia (4) Diastolic congestive heart failure: Status: Chronic Code(s): I50.30 - Unspecified diastolic (congestive) heart failure Qualifiers: Heart failure chronicity: chronic Qualified Code(s): I50.32 - Chronic diastolic (congestive) heart failure (5) GERD (gastroesophageal reflux disease): Status: Chronic Code(s): K21.9 - Gastro-esophageal reflux disease without esophagitis Qualifiers: Esophagitis presence: without esophagitis Qualified Code(s): K21.9 - Gastro-esophageal reflux disease without esophagitis (6) CKD (chronic kidney disease): Status: Chronic Code(s): N18.9 - Chronic kidney disease, unspecified Qualifiers: Chronic kidney disease stage: unspecified stage Qualified Code(s): N18.9 - Chronic kidney disease, unspecified (7) Degenerative disc disease, lumbar: Status: Acute Code(s): M51.36 - Other intervertebral disc degeneration, lumbar region (8) HLD (hyperlipidemia): Status: Chronic Code(s): E78.5 - Hyperlipidemia, unspecified Qualifiers: Hyperlipidemia type: mixed hyperlipidemia Qualified Code(s): E78.2 - Mixed hyperlipidemia (9) HHD (hypertensive heart disease): Status: Chronic Code(s): I11.9 - Hypertensive heart disease without heart failure Qualifiers: Heart failure presence: with heart failure Heart failure type: diastolic Heart failure chronicity: chronic Qualified Code(s): I11.0 - Hypertensive heart disease with heart failure; I50.32 - Chronic diastolic (congestive) heart failure (10) CAD (coronary artery disease): Status: Chronic Code(s): I25.10 - Atherosclerotic heart disease of resighini coronary artery without angina pectoris Qualifiers: Coronary Disease-Associated Artery/Lesion type: resighini artery [place] vs. transplanted heart: resighini heart Associated angina: without angina Qualified Code(s): I25.10 - Atherosclerotic heart disease of resighini coronary artery without angina pectoris Meds Home Medications and Allergies Home Medications Medication Instructions Recorded Confirmed Type minocycline 100 mg capsule 100 mg PO DAILY INFECTION 01/14/20 05/27/23 History MANAGEMENT alendronate 70 mg tablet 70 mg PO WEEKLY BONES 05/07/22 05/31/23 History spironolactone 25 mg tablet 25 mg PO DAILY Fluid 06/21/22 05/27/23 History ondansetron HCl 4 mg tablet 4 mg PO Q4H PRN nausea and 07/21/22 05/27/23 Rx vomiting #20 tabs empagliflozin 10 mg tablet 10 mg PO DAILY Diabetes #90 tabs 07/29/22 05/27/23 Rx (Jardiance) torsemide 100 mg tablet 50 mg PO DIRECTED edema #45 tabs 09/21/22 05/27/23 Rx losartan 100 mg tablet 100 mg PO DAILY BLOOD PRESSURE #90 10/21/22 05/27/23 Rx tabs semaglutide 0.25 mg or 0.5 mg (2 0.25 mg SQ WEEKLY Diabetes 11/02/22 05/31/23 History mg/3 mL) subcutaneous pen injector (Ozempic) albuterol sulfate 90 mcg/actuation 2 inh inhalation Q6H PRN shortness 12/15/22 05/27/23 Rx aerosol inhaler (Ventolin HFA) of breath or wheezing 90 days #18 grams carvedilol 25 mg tablet 50 mg PO BID bp 3 months #360 tabs 02/28/23 05/27/23 Rx celecoxib 100 mg capsule (Celebrex) 100 mg PO BID #60 caps 04/01/23 05/27/23 Rx evolocumab 140 mg/mL subcutaneous 140 mg SQ Q2W Cholesterol #2 mL 05/17/23 05/27/23 Rx pen injector (Repatha SureClick) aspirin 325 mg tablet 325 mg PO .QD #20 tabs 05/31/23 05/31/23 Rx oxycodone 5 mg tablet 5 mg PO Q4H PRN pain #30 tabs 05/31/23 05/31/23 Rx pantoprazole 40 mg tablet,delayed 40 mg PO BID 05/31/23 05/31/23 History release ropinirole 2 mg tablet 2 mg PO DAILY 05/31/23 05/31/23 History New Prescriptions to Start Prescriptions: aspirin 325 mg tablet oxycodone 5 mg tablet Allergies Allergy/AdvReac Type Severity Reaction Status Date / Time Zlihzhv-[id number]-GjG Reductase AdvReac Intermediate myalgia Verified 05/31/23 06:20 Inhibitor [Eglzvfv-Nco-Kmr Reductase Inhibitor] Discharge Plan Disposition Patient Disposition: Home Health Service Discharge Order Discharge Orders: Discharge Order (Routine); Ordered 06/01/23 Ordered By: Attila Vick Follow up Plan Follow up with: Shahid Knight MD [Primary Care Provider] - 06/08/23 11:15 am Toi Eubanks MD [Physician] - 06/22/23 1:30 pm (physical therapy starting 0 06/02 @11:00 in [facility]) Prescriptions/Medication Reconciliation: New oxycodone 5 mg tablet 5 mg PO Q4H PRN (Reason: pain) Qty: 30 0RF aspirin 325 mg tablet 325 mg PO .QD Qty: 20 0RF Rx Instructions: Take w breakfast for 2-3 weeks for DVT prophylaxis. Thanks Continued minocycline 100 mg capsule 100 mg PO DAILY alendronate 70 mg tablet 70 mg PO WEEKLY Ozempic 0.25 mg or 0.5 mg (2 mg/3 mL) pen injector 0.25 mg SQ WEEKLY ondansetron HCl 4 mg tablet 4 mg PO Q4H PRN (Reason: nausea and vomiting) Qty: 20 0RF Jardiance 10 mg tablet 10 mg PO DAILY Qty: 90 3RF torsemide 100 mg tablet 50 mg PO DIRECTED Qty: 45 2RF Rx Instructions: 50 mg on MON/WED/FRI ONLY losartan 100 mg tablet 100 mg PO DAILY Qty: 90 3RF albuterol sulfate [Ventolin HFA] 90 mcg/actuation HFA aerosol inhaler 2 inh inhalation Q6H PRN (Reason: shortness of breath or wheezing) 90 Days Qty: 18 3RF carvedilol 25 mg tablet 50 mg PO BID 90 Days Qty: 360 2RF Rx Instructions: give with food (meal/snack) celecoxib [Celebrex] 100 mg capsule 100 mg PO BID Qty: 60 2RF Repatha SureClick 140 mg/mL pen injector 140 mg SQ Q2W Qty: 2 11RF pantoprazole 40 mg tablet,delayed release (DR/EC) 40 mg PO BID Rx Instructions: TAKE ONE TABLET BY MOUTH TWICE A DAY FOR GERD ropinirole 2 mg tablet 2 mg PO DAILY spironolactone 25 mg tablet 25 mg PO DAILY Problem Reconciliation Problems Reviewed?: Yes Patient Discharge Instructions ACTIVITY: Continue current activity, Ambulate as tolerated and Up with assistance DIET: continue same diet Patient Instructions: DI for Knee Replacement, DI for Surgical Site Infection Providers Primary Care Provider: Shahid Knight Admit Provider: Toi Eubanks Attending Provider: Imer Millan
--- NOTE | 2023-06-02 15:00 | CARE MANAGER ---
CM called and spoke with patient regarding recent discharge. Patient aware of scheduled f/u appts, and has started new medication. No concerns voiced at time of call.
== END 2023-06-01 13:05 | disposition home health service (06) ==
LOC: 2ND 06:14
PROVIDERS: Admitting Provider Orthopaedic Surgery; PCP Internal Medicine; Visit Provider Internal Medicine Adolescent Medicine
PROC: (CPT 27447; principal; 2023-05-31 07:30)
DX: M17.0 Bilateral primary osteoarthritis of knee (principal); I13.0 Hypertensive heart and chronic kidney disease with heart failure and stage 1 through stage 4 chronic kidney disease, or unspecified chronic kidney disease; E11.22 Type 2 diabetes mellitus with diabetic chronic kidney disease; N18.9 Chronic kidney disease, unspecified; I50.32 Chronic diastolic (congestive) heart failure; E11.65 Type 2 diabetes mellitus with hyperglycemia; K21.9 Gastro-esophageal reflux disease without esophagitis; Z79.899 Other long term (current) drug therapy
CPT/HCPCS: 27447; 36415; 73560; 80048; 82962; 85025; 96374; 97162; 97165; 97530; J3490; C1713; C1776; G0378; J0131; J2405

== ENCOUNTER 2023-06-22 12:24 | Outpatient (CLI) | payer OTHER, MEDICARE, SELFPAY ==
--- NOTE | 2023-06-22 12:28 | XR_ITS ---
FINAL REPORT CLINICAL HISTORY: Lt Knee Pain-- post op x 3 wks COMPARISON: 05/31/2023 FINDINGS: Three views of the left knee reveal no evidence of fracture or dislocation. The patient has undergone left total knee arthroplasty. The alignment of the prosthesis appears unremarkable. The joint spaces are preserved. There is no evidence of joint effusion. No localized soft tissue abnormality is seen. IMPRESSION: No acute abnormality identified. Reviewed, Interpreted and Dictated by Noel Barber III, MD Transcribed by Linh Hunt Authenticated and [facility]
== END 2023-06-22 23:59 ==
LOC: RAD 12:26
PROVIDERS: PCP Internal Medicine; Visit Provider Orthopaedic Surgery
DX: Z96.652 Presence of left artificial knee joint (principal)
CPT/HCPCS: 73562

== ENCOUNTER 2023-09-02 12:56 | Outpatient (CLI) | payer OTHER, MEDICARE, SELFPAY ==
--- NOTE | 2023-09-02 12:59 | XR_ITS ---
FINAL REPORT CLINICAL HISTORY: lt knee pain COMPARISON: 07/30/2022 FINDINGS: Left knee Three views were obtained. There is no acute fracture or dislocation. There has been interval knee arthroplasty. Small joint effusion is identified. IMPRESSION: Postsurgical changes. Reviewed, Interpreted and Dictated by Noel Barber III, MD Transcribed by Sindy Mora Authenticated and . [facility]
== END 2023-09-02 23:59 | disposition home or self-care (01) ==
LOC: RAD 12:57
PROVIDERS: PCP Internal Medicine; Visit Provider Orthopaedic Surgery
DX: M25.562 Pain in left knee (principal); Z96.652 Presence of left artificial knee joint; Z47.1 Aftercare following joint replacement surgery
CPT/HCPCS: 73562

== ENCOUNTER 2023-09-20 15:27 | Outpatient (CLI) | payer OTHER, MEDICARE, SELFPAY ==
--- NOTE | 2023-09-20 15:34 | ECG_ITS ---
APPROVED REPORT Exam: Resting ECG HR:72 bpm ECG Measurements Heart Rate 72 AXES IL 182 P 76 QRSd 106 QRS 231 QT 379 T 43 QTc 403 Conclusion SINUS RHYTHM INDETERMINATE AXIS LOW QRS VOLTAGE IN PRECORDIAL LEADS [QRS DEFLECTION < 1.0 mV IN CHEST LEADS] RIGHT BUNDLE BRANCH BLOCK [120+ ms QRS DURATION, UPRIGHT V1, 40+ ms S IN I/aVL/V4/V5/V6] POSSIBLE ANTERIOR MYOCARDIAL INFARCTION , PROBABLY OLD [30 ms Q WAVE IN V3/V4, OR R < 0.2 mV IN V4] ABNORMAL ECG UNCONFIRMED REPORT Electronically signed by : Beto Ritter MD 09/20/2023 17:27:33
[2023-09-20 17:05] LABS: Basophils # 0.1 K/mm3 (0-0.2); Basophils % 0.8 % (0.1-2.0); Eosinophils # 0.3 K/mm3 (0.0-0.4); Eosinophils % 5.1 % (0.1-12.0); Hemoglobin 12.8 g/dL (12.2-16.2); Lymphocytes # 1.1 K/mm3 (0.7-4.5); Lymphocytes % 17.1 % (10-50); Mean Corpuscular HGB Conc 32.7 g/dL (31.8-35.4); Mean Corpuscular Volume 91.8 fl (81-99); Mean Platelet Volume 8.9 fl (7.4-10.4); Monocytes # 0.4 K/mm3 (0.1-1.0); Monocytes % 6.1 % (1.7-9.3); Neutrophils # 4.4 K/mm3 (1.8-7.8); Neutrophils % 70.9 % (37.0-80.0); Platelet Count 218 K/mm3 (142-424); Red Blood Count 4.25 M/mm3 (4.20-5.40); Red Cell Distribution Width 14.9 % (11.5-17.5); White Blood Count 6.3 K/mm3 (4.8-10.8)
[2023-09-20 17:15] LABS: Chloride 103 mmol/L (98-107); Sodium 140 mmol/L (136-145)
[2023-09-20 17:17] LABS: Blood Urea Nitrogen 45 mg/dl (7-17); Estimated Glomerular Filt Rate 21 ml/min (>60); GFR (African American) 25 ML/MIN (>60)
[2023-09-20 17:18] LABS: Alanine Aminotransferase 31 U/L (12-78); Albumin Level 3.9 g/dl (3.5-5.0); Albumin/Globulin Ratio 1.6 (1.1-1.8); Alkaline Phosphatase 132 U/L (38-126); Aspartate Amino Transferase 31 U/L (14-36); Bilirubin,Total 0.4 mg/dl (0.2-1.3); Calcium 9.4 mg/dl (8.4-10.2); Carbon Dioxide 28 mmol/L (22.0-30.0); Globulin 2.5 g/dL (1.3-3.2); Glucose 150 mg/dl (74-100); Total Protein,Serum 6.4 g/dl (6.3-8.2)
== END 2023-09-20 23:59 | disposition home or self-care (01) ==
LOC: RT 15:29
PROVIDERS: PCP Internal Medicine; Visit Provider Orthopaedic Surgery
DX: Z01.818 Encounter for other preprocedural examination (principal); M17.11 Unilateral primary osteoarthritis, right knee; M25.561 Pain in right knee
CPT/HCPCS: 36415; 80053; 83036; 85025; 93005

== ENCOUNTER 2023-10-07 10:03 | Outpatient (CLI) | payer OTHER, MEDICARE, SELFPAY ==
--- NOTE | 2023-10-07 10:12 | XR_ITS ---
FINAL REPORT CLINICAL HISTORY: Right TKA COMPARISON: 07/30/2022 FINDINGS: There is no acute fracture or dislocation. There has been interval right knee arthroplasty. The hardware is intact. Small joint effusion is identified. IMPRESSION: Interval right knee arthroplasty. Reviewed, Interpreted and Dictated by Ally West MD Transcribed by Sindy Mora Authenticated and [facility]
== END 2023-10-07 23:59 | disposition home or self-care (01) ==
LOC: RAD 10:06
PROVIDERS: PCP Internal Medicine; Visit Provider Orthopaedic Surgery
DX: M25.561 Pain in right knee (principal)
CPT/HCPCS: 73562

== ENCOUNTER 2023-11-03 12:34 | Observation (INO) | payer OTHER, MEDICARE, SELFPAY ==
[2023-11-03 12:41] VITALS: BP 168/82; PULSE 65; RESP 20; TEMP 36.8; O2SAT 97
--- OUTSIDE RECORDS SUMMARY | 2023-11-03 12:43 | XMS_ITS ---
Author Name Unknown Address [address] [place] [address] [place] [id number] Phone Organization [facility] Address [address] [place] [address] [place] [id number] Phone Care Team Providers Care Earth Science Professor Name Role Phone Seymour DOOLEY, Shahid Wiggins Unavailable [phone] [ ] Conditions or Problems No information available. Medications Medication Instructions Start Date Stop Date Generic Name NDC Provider MINOCYCLINE HCL 100 MG CAPS 1 capsule by mouth once a day TAKE 1 CAPSULE BY MOUTH EVERY DAY 0 minocycline [id number] Shahid Ahuja MD Medications Administered No information available. Allergies, Adverse Reactions, Alerts No information available. 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 Plan of Care Type Date Detail Appointment 11:00 AM Shahid julien MD, [address] [place] [address], [facility] [address] [place] [address], [phone], Pending order STAT Labs Pending order CMP Pending order CBC with Differe ntial Pending order C- reactive prot ein Pending order Sedimentation Ra te (ESR) Procedures Code Procedure Name Date Entry Date CPT-sl STAT Labs CPT-39358 CMP [id number] CBC with Differential 2023 CPT-65341 C- reactive protein CPT-18295 Sedimentation Rate (ESR) 202 07/17/08 Vital Signs Date Name Value Unit Description BMI (Body Mass Index) 34.66 kg/m2 Bod y Mass Index (Ratio) Body Temperature 97.7 [degF] temperat ure E&M BP Diastolic 72 mm[Hg] blood pressu re, diastolic BP Systolic 142 mm[Hg] blood pressur e, systolic Heart Rate 76 /min pulse rate Height 68 [in_us] height E&M Respiratory Rate 16 /min respirat ory rate E&M Weight Measured 228.0 [lb_av] weight E& M Immunizations No information available. Advance Directives No information available.
--- OUTSIDE RECORDS SUMMARY | 2023-11-03 12:43 | XMS_ITS | Clinical Summary ---
Author Name Unknown Address [address] [place] [address] Phone Organization [facility] Address [address] [place] [address] Phone Care Team Providers Care Full Stack Software Developer Name Role Phone Seymour DOOLEY, Shahid Calderon [phone] [ ] Conditions or Problems Problem Name Problem Code Onset Date Status Entry Date Provider Comment Standard Description Annotate Anemia 167505190 (SNOMED CT) 10/31 Active 10/31 Shahid Ahuja MD Anemia Hx of bilateral knee arthroplast ies 146307445 (SNOMED CT) 10/31 Active 10/31 Shahid Ahuja MD History of operative procedure on knee 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 Coagulase negative 45720532920 9107 (SNOMED CT) 06/08 Resolved 06/08 Shahid Ahuja MD Infection caused by coagulase-negat richard Staphylococcus Staph epidermidis 952217127 (SNOMED CT) 08/06 Active 08/06 Shahid Ahuja MD Sepsis caused by coagulase negative Staphylococcus Dermatitis 29512608 (SNOMED CT) 08/06 Active 08/06 Shahid Ahuja MD Eczema Long-term (current) use of antibiotics 252823967 (SNOMED CT) 07/08 Active 07/08 Shahid Ahuja MD Long-term drug therapy Health advice, education, or counseling 447398872 (SNOMED CT) 07/08 Active 07/08 Shahid Ahuja MD Procedure carried out on subject Nontraumati c acute kidney injury 47988913830 9103 (SNOMED CT) 06/28 Resolved 06/28 Shahid Ahuja MD Acute nontraumatic kidney injury Nontraumati c acute kidney injury 67989346317 9103 (SNOMED CT) 08/09 Resolved 08/09 Shahid Ahuja MD Acute nontraumatic kidney injury Kidney disease, chronic, stage II 608939596 (SNOMED CT) 01/07 Active 01/07 Shahid Ahuja MD Chronic kidney disease stage 2 Arthritis, left hip 50339860 (SNOMED CT) 07/11 Active 07/11 Nia collazo APRN Arthritis of hip Pruritus 560156664 (SNOMED CT) 04/27 Active 04/27 Shahid Ahuja MD Pruritic disorder Adverse drug reaction 37492406 (SNOMED CT) 09/20 Active 09/20 Shahid Ahuja MD Adverse reaction to drug Rash 003133206 (SNOMED CT) 09/20 Active 09/20 Nia collazo [employer]IND [employer]ER Eruption Nontraumati c acute kidney injury 48458142359 9103 (SNOMED CT) 08/09 Removed 08/09 Nia collazo [employer]ER Acute nontraumatic kidney injury Paraspinal fluid collection (Abscess) 82640088 (SNOMED CT) 06/28 Active 06/29 Suzanne W Spinal cord abscess Elevated LFT's 707012919 (SNOMED CT) 06/14 Active 06/14 Suzanne W Liver function tests outside reference range Adverse effect of other systemic antibiotics -CUBICIN/In itial encounter T36.8x5A (ICD-10-CM) 06/21 Active 06/21 Suzanne W Adverse effect of other systemic antibiotics, initial encounter Nontraumati c acute kidney injury 86962472669 9103 (SNOMED CT) 06/28 Removed 06/28 Nia collazo BLIND HOOKER Acute nontraumatic kidney injury Adverse drug reaction 59924211 (SNOMED CT) 06/21 Inactive 06/21 Shahid Ahuja MD Adverse reaction to drug Myositis 67102384 (SNOMED CT) 06/21 Active 06/21 Shahid Ahuja MD Myositis Elevated LFTs 533126770 (SNOMED CT) 06/14 Inactive 06/14 Nia Mehta Valentin collazo APRN Liver function tests outside reference range Other obesity due to excess calories 239907068 (SNOMED CT) 06/13 Active 06/13 Mila Morguelan Simple obesity Presence of vertebral hardware 180857492 (SNOMED CT) 06/08 Active 06/09 Suzanne W Device in situ Lumbar region, infected discitis M46.36 (ICD-10-CM) 06/07 Active 06/07 Suzanne W Infection of intervertebral disc (pyogenic), 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 Coagulase negative 73101546671 9107 (SNOMED CT) 06/08 Removed 06/08 Shahid Ahuja MD Infection caused by coagulase-negat richard Staphylococcus Benign Essential Hypertensio n 87573582 (SNOMED CT) 06/07 Active 06/07 Jenny Carmelo Benign hypertension Lumbar region, infected discitis(do cument infectious agent) M46.36 (ICD-10-CM) 06/07 Inactive 06/07 Jenny Carmelo Infection of intervertebral disc (pyogenic), lumbar region Osteomyelit is of vertebra, lumbar region M46.26 (ICD-10-CM) 06/07 Active 06/07 Jenny Carmelo Osteomyelitis of vertebra, lumbar region Spine, subsequent encounter, infection/i nflammatory reaction due to internal fixation device T84.63xD (ICD-10-CM) 06/07 Active 06/07 Jenny Carmelo Infection and inflammatory reaction due to internal fixation device of spine, subsequent encounter Medications Medication Instructions Start Date Stop Date Generic Name NDC Provider MINOCYCLINE HCL 100 MG CAPS 1 capsule by mouth once a day TAKE 1 CAPSULE BY MOUTH EVERY DAY 10/26 minocycline 07534467678 Shahid Ahuja MD MINOCYCLINE HCL 100 MG CAPS 1 capsule by mouth once a day TAKE 1 CAPSULE BY MOUTH EVERY DAY 04/20 minocycline 74136160808 Shahid Ahuja MD MINOCYCLINE HCL 100 MG CAPS TAKE 1 CAPSULE BY MOUTH EVERY DAY 06/07 minocycline 85731772881 Davida Ambrocio RN MINOCYCLINE HCL 100 MG CAPS 1 capsule by mouth once a day TAKE 1 CAPSULE BY MOUTH EVERY DAY 04/26 minocycline 58500816791 Shahid Ahuja MD MINOCYCLINE HCL 100 MG CAPS TAKE 1 CAPSULE BY MOUTH EVERY DAY 06/07 minocycline 31961188270 Shahid Ahuja MD MINOCYCLINE HCL 100 MG CAPS TAKE 1 CAPSULE BY MOUTH EVERY DAY 05/02 minocycline 63405635951 Shahid Ahuja MD PROVENTIL HFA 108 (90 Base) MCG/ACT AERS every four hours as needed 08/05 albuterol sulfate 79721590520 Areli Min NORCO 5-325 MG ORAL TABLET by mouth every six hours as needed 08/05 NORCO 5-325 MG ORAL TABLET Areli Min TYLENOL 325 MG CAPS 2 tablet by mouth every four hours as needed 08/05 ACETAMINOPHEN Areli Min ZETIA 10 MG TABS by mouth once a day 08/05 ezetimibe 94434839002 Areli Min CYCLOBENZAPRINE HCL 10 MG TABS by mouth three times a day as needed 08/05 cyclobenzaprine 39981898884 Areli Min FLORASTOR 250 MG CAPS by mouth twice a day 08/05 saccharomyces boulardii 30242163031 Areli Min LASIX 40 MG TABS by mouth once a day 08/05 furosemide 05026831350 Areli Min GLUCOPHAGE 500 MG ORAL TABLET by mouth every morning 08/05 GLUCOPHAGE 500 MG ORAL TABLET Areli Min TEKTURNA 300 MG TABS by mouth once a day 08/05 aliskiren 10734307129 Areli Min DIOVAN HCT 320-25 MG TABS by mouth once a day 08/05 valsartan-hydroch lorothiazide 50250801275 Areli Min DOXYCYCLINE HYCLATE 100 MG CAPS Take 1 twice a day 08/05 doxycycline hyclate 39710070186 Areli Pako ALENDRONATE SODIUM 70 MG TABS once a week alendronate 66780282814 Areli Pako JARDIANCE 10 MG TABS once a day empagliflozin 60520044997 Areli Pako REPATHA SURECLICK 140 MG/ML SOAJ once every two weeks evolocumab 37975718227 Areli Pako LOSARTAN POTASSIUM 100 MG TABS once a day losartan 55640766115 Areli Pako ROPINIROLE HCL 1 MG TABS once a day as needed ropinirole 31177051743 Areli Pako OZEMPIC (0.25 OR 0.5 MG/DOSE) 2 MG/3ML SOPN once a week semaglutide 84681982590 Areli Pako SPIRONOLACTONE 25 MG TABS once a day spironolactone 05131143022 Areli Pako TORSEMIDE 100 MG TABS as needed torsemide 02264867884 Areli Pako MINOCYCLINE HCL 100 MG CAPS Take 1 capsule by mouth once a day 07/28 minocycline 46663514004 Corina Horvath MINOCYCLINE HCL 100 MG CAPS TAKE 1 CAPSULE BY MOUTH EVERY DAY 08/05 minocycline 50541234719 Shahid Ahuja MD MINOCYCLINE HCL 100 MG CAPS Take 1 capsule by mouth once a day for a week, then once a day minocycline 61570366412 Lorena Ahuja MINOCYCLINE HCL 100 MG CAPS Take 1 capsule by mouth once a day 08/01 minocycline 83045697902 Lorena Minaty MINOCYCLINE HCL 100 MG CAPS TAKE 1 CAPSULE BY MOUTH DAILY 08/06 minocycline 32474736218 Elaine Ross RN MINOCYCLINE HCL 100 MG CAPS Take 1 capsule by mouth once a day for a week, then once a day 08/01 minocycline 11579130756 Shahid Ahuja MD CYCLOBENZAPRINE HCL 10 MG TABS by mouth three times a day as needed 08/05 cyclobenzaprine 40670486209 Glenna Joiner FLORASTOR 250 MG CAPS by mouth twice a day 08/05 saccharomyces boulardii 74048632504 Glenna Joiner NORCO 5-325 MG ORAL TABLET by mouth every six hours as needed 08/05 NORCO 5-325 MG ORAL TABLET Glenna Joiner DOXYCYCLINE HYCLATE 100 MG CAPS Take 1 twice a day 08/05 doxycycline hyclate 11559881093 Shahid Ahuja MD ZETIA 10 MG TABS by mouth once a day 08/05 ezetimibe 11315437237 Glenna Joiner GLUCOPHAGE 500 MG ORAL TABLET by mouth every morning 08/05 GLUCOPHAGE 500 MG ORAL TABLET Glenna Joiner PROVENTIL HFA 108 (90 Base) MCG/ACT AERS every four hours as needed 08/05 albuterol sulfate 76081440211 Glenna Joiner PROTONIX 40 MG PACK by mouth twice a day pantoprazole 16576671714 Glenna Joiner TEKTURNA 300 MG TABS by mouth once a day 08/05 aliskiren 58194303464 Glenna Joiner TYLENOL 325 MG CAPS 2 tablet by mouth every four hours as needed 08/05 ACETAMINOPHEN Glenna Joiner COREG 25 MG TABS 1.5 tablet by mouth twice a day carvedilol 11425333754 Glenna Joiner ASPIRIN 81 MG ORAL TABLET by mouth once a day ASPIRIN 81 MG ORAL TABLET Glenna Joiner LASIX 40 MG TABS by mouth once a day 08/05 furosemide 29297577827 Glenna Joiner DIOVAN HCT 320-25 MG TABS by mouth once a day 08/05 valsartan-hydroch lorothiazide 00367583633 Glenna Joiner MINOCYCLINE HCL 100 MG CAPS Take 1 capsule by mouth once a day minocycline 83635793823 Lorena Ahuja MINOCYCLINE HCL 100 MG CAPS TAKE 1 CAPSULE BY MOUTH DAILY 08/06 minocycline 57237709889 Shahid Ahuja MD MINOCYCLINE HCL 100 MG CAPS TAKE 1 CAPSULE BY MOUTH DAILY minocycline 28863621604 Madhavi Nguyen MINOCYCLINE HCL 100 MG CAPS Take 1 capsule by mouth once a day 08/04 minocycline 17532114065 Lorena Ahuja MINOCYCLINE HCL 100 MG CAPS TAKE 1 CAPSULE BY MOUTH DAILY 07/17 MINOCYCLINE HCL 20540779958 Shahid Ahuja MD MINOCYCLINE HCL 100 MG CAPS Take 1 by mouth daily 07/17 MINOCYCLINE HCL 41102051071 Shahid Ahuja MD MINOCYCLINE HCL 100 MG CAPS one po daily 0 10/11 MINOCYCLINE HCL 75762821526 Shahid Ahuja MD MINOCYCLINE HCL 100 MG CAPS one daily 0 10/26 MINOCYCLINE HCL 19133260619 Shahid Ahuja MD MINOCYCLINE HCL 100 MG CAPS one po daily 0 07/26 MINOCYCLINE HCL 29562081818 Shahid Ahuja MD MINOCYCLINE HCL 100 MG CAPS one po daily 0 04/28 MINOCYCLINE HCL 59276625000 Nia Carias APRN MINOCYCLINE HCL 100 MG CAPS one po bid 0 11/18 MINOCYCLINE HCL 79748858973 Nia Carias APRN MINOCYCLINE HCL 100 MG CAPS one po bid 0 10/20 MINOCYCLINE HCL 31009235326 Shahid Ahuja MD DOXYCYCLINE MONOHYDRATE 100 MG CAPS one po bid 0 09/23 DOXYCYCLINE MONOHYDRATE 21771533354 Shahid Ahuja MD DOXYCYCLINE MONOHYDRATE 100 MG CAPS one po bid 0 09/08 DOXYCYCLINE MONOHYDRATE 24535908612 Shahid Ahuja MD VANCOMYCIN HCL 5000 MG INTRAVENOUS SOLUTION RECONSTITUTED 1.75 gms IV Q 48 hrs/BHHI Doses at noon 07/25 VANCOMYCIN HCL 80871161510 Mana Brizuela RN DOXYCYCLINE HYCLATE 100 MG CAPS Take one pill twice daily. 08/06 DOXYCYCLINE HYCLATE 43763324075 Shahid Ahuja MD VANCOMYCIN HCL 5000 MG INTRAVENOUS SOLUTION RECONSTITUTED 1.75 gms IV Q 48 hrs/BHHI Doses at noon 07/25 VANCOMYCIN HCL 37439936533 Alva Rojo RN VANCOMYCIN HCL 5000 MG INTRAVENOUS SOLUTION RECONSTITUTED 1.25 gms IV Q 48 hrs/BHHI Doses at noon 07/07 VANCOMYCIN HCL 97242625112 Alva Rojo RN VANCOMYCIN HCL 5000 MG INTRAVENOUS SOLUTION RECONSTITUTED 1.25 gms IV Q 24 hrs/BHHI Doses at noon 06/28 VANCOMYCIN HCL 17478927338 Alva Rojo RN VANCOMYCIN HCL 5000 MG INTRAVENOUS SOLUTION RECONSTITUTED 1.75 gms IV Q 24 hrs/BHHI Doses at noon 06/21 VANCOMYCIN HCL 52386198848 Sarah Torres RN VANCOMYCIN HCL 5000 MG INTRAVENOUS SOLUTION RECONSTITUTED 1.75 gms IV Q 24 hrs/BHHI 06/15 VANCOMYCIN HCL 93840424359 Sarah Torres RN CUBICIN 500 MG INTRAVENOUS SOLUTION RECONSTITUTED 500mg IV Q 24 hrs/BHHI and melany wiseman do PICC care and labs on appt days 06/14 DAPTOMYCIN 15981474456 Sarah Torres RN CEFTRIAXONE SODIUM 2 GM SOLR 2 GMS iv q 24 HRS/BHHI AND Melany noel do PICC care and labs 06/08 CEFTRIAXONE SODIUM 27368595696 Sarah Torres RN PROTONIX 40 MG PACK by mouth twice daily 08/06 PANTOPRAZOLE SODIUM 92721920772 Mila Guadarrama ZETIA 10 MG TABS by mouth daily 08/06 EZETIMIBE 26053299133 Andreas MORA HCT 320-25 MG TABS by mouth daily 08/06 VALSARTAN-HYDROCH LOROTHIAZIDE 60864713001 Andreas K TEKTURNA 300 MG TABS by mouth daily 08/06 ALISKIREN FUMARATE 24244863598 Andreas K FLORASTOR 250 MG CAPS by mouth twice daily 08/06 SACCHAROMYCES BOULARDII 87148403402 Andreas K PROTONIX 40 MG PACK 06/08 PANTOPRAZOLE SODIUM 98242774709 Andreas K GLUCOPHAGE 500 MG ORAL TABLET by mouth in the morning 08/06 METFORMIN HCL 14278082648 Andreas K NORCO 5-325 MG ORAL TABLET by mouth every 6 hours as needed 08/06 HYDROCODONE-ACETA MINOPHEN 07587283589 Andreas K LASIX 40 MG TABS by mouth daily 08/06 FUROSEMIDE 38628104312 Andreas K CYCLOBENZAPRINE HCL 10 MG TABS by mouth three times a day as needed 08/06 CYCLOBENZAPRINE HCL 47771250210 Andreas K COREG 25 MG TABS 1.5 tabs by mouth twice daily 08/06 CARVEDILOL 97923858475 Andreas K ASPIRIN 81 MG ORAL TABLET by mouth daily 08/06 ASPIRIN 08302103105 Andreas K PROVENTIL HFA 108 (90 Base) MCG/ACT AERS every 4 hours as needed 08/06 ALBUTEROL SULFATE 57233398967 Andreas K TYLENOL 325 MG CAPS 2 tabs by mouth every 4 hours as needed for pain 08/06 ACETAMINOPHEN 62909830702 Andreas K CEFTRIAXONE SODIUM 2 GM SOLR 2 GMS iv q 24 HRS/BHHI AND Melany noel do PICC care and labs 06/08 CEFTRIAXONE SODIUM 07575706424 Sarah Torres RN CUBICIN 500 MG INTRAVENOUS SOLUTION RECONSTITUTED 500mg IV Q 24 hrs/BHHI and melany wiseman do PICC care and labs on appt days 2/27 DAPTOMYCIN 80131133417 Sarah Torres RN Medications Administered No information available. Allergies, Adverse Reactions, Alerts No information available. Results Date Name Value Unit Range Flag Description Clinical Lists Update: Prelo ad HGBA1C 6.40 % Hemoglobin A1c/Hemoglobin, total in Blood - % Lab Report: CK CPK 26 U/L 26-174 Creatine shaista se [Enzymatic activity/volume] in Serum or Plasma Lab Report: VANCOMYCIN, TROU GH VANCOMY CHAL 20.10 ug/mL 10.00-20. 0 H vancomycin level, serum, trough Lab Report: CBC WITH AUTO DI FFERENTIAL MONOCYTE BF 9.1 % 5.0-12.0 monocyte s as percent of body fluid leukocytes PMN % 68.5 % 42.7-76.0 Neutrophils /100 leukocytes in Blood by Automated count RDW 12.7 % 12.3-15.4 Erythrocyte distribution width [Ratio] by Automated count Lab Report: COMPREHENSIVE ME TABOLIC PANEL GFRC 28 mL/min/1 .73m2 >60 L Glomerular Filtration Rate Calculation Office Visit: room 3 DIET ASSOCIATE PROFESSOR OF HISTORY Yes - Overweight Dietary manageme nt education, guidance, and counseling (procedure) Lab Report: CBC WITH AUTO DI FFERENTIAL ZZ-GE-[id number] 0.0 /100 WBC 0.0-0.2 GE use only - for [employer] import when terms are not otherwise specified IMMATUREGRAN 0.02 10*3/MM3 0.00-0.05 Immature granulocytes [#/volume] in Blood BASO# 0.05 10*3/mm3 0.00-0.20 Basop hils [#/volume] in Blood EOS ABSLT 0.41 10*3/uL 0.00-0.40 H Eosinophi ls [#/volume] in Blood MONOSCT AUTO 0.59 10*3/uL 0.10-0.90 Monocy chau [#/volume] in Blood by Automated count LYMPHCT AUTO 0.82 10*3/mm3 0.70-3.10 Lymph ocytes [#/volume] in Blood by Automated count ABS NEUTROPH 4.93 10*3/uL 1.70-7.00 Neutro phils [#/volume] in Blood IMM GRANU % 0.3 % 0.0-0.5 Immature granulocytes/100 leukocytes in Blood % EOS AUTO 6.0 % 0.3-6.2 Eosinophil s/100 leukocytes in Blood by Automated count MONOCYTE % 8.7 % 5.0-12.0 Monocytes /100 leukocytes in Blood by Automated count LYMPHOCY BF 12.0 % 19.6-45.3 L lymphoc ytes as percent of body fluid leukocytes NEUTROP BF 72.3 % 42.7-76.0 Neutroph ils/100 leukocytes in Body fluid PLATELETS 211 10*3/mm3 140-450 Platelets [#/volume] in Blood by Automated count RDW_ 14.9 12.3-15.4 RDW, no uni ts MCHC 31.3 G/DL 31.5-35.7 L MCHC [Mass/ volume] by Automated count MCH 30.1 pg 26.6-33.0 MCH [Entiti c mass] by Automated count MCV 96.0 fL 79.0-97.0 MCV [Entiti c volume] by Automated count HCT 31.6 % 34.0-46.6 L Hematocrit [Volume Fraction] of Blood by Automated count HGB 9.9 g/dL 12.0-15.9 L Hemoglobin [Mass/volume] in Blood RBC 3.29 10*6/mm3 3.77-5.28 L Erythrocyt es [#/volume] in Blood by Automated count WBC 6.82 10*3/mm3 3.40-10.8 0 Leukocytes [#/volume] in Blood by Automated count Office Visit: Office Visit: rm. 6 FALLRSKASSES yes Fall ris k assessment ORALTOBACUSE Never Tobacco smoking status SMOK STATUS Never smoker Toba outside sales account representative smoking status MEDS REVIEW Done Documenta tion of current medications (procedure) Lab Report: SEDIMENTATION RA TE ESR 32 mm/h 0-30 H Erythrocyte sedimentation rate by Westergren method Lab Report: C-REACTIVE PROTE IN CRP 1.75 mg/dL 0.00-0.50 H C reactive protein [Mass/volume] in Serum or Plasma Lab Report: COMPREHENSIVE ME TABOLIC PANEL ANIONGAP 11.0 mmol/L 5.0-15.0 anion gap, serum BUN/CREAT 16.0 7.0-25.0 Urea nitrogen/Creatinine [Mass Ratio] in Serum or Plasma BILI TOTAL 0.7 mg/dL 0.0-1.2 Bilirubin. total [Mass/volume] in Serum or Plasma ALK PHOS 113 U/L 39-117 Alkaline phosphatase [Enzymatic activity/volume] in Blood SGOT (AST) 16 U/L 1-32 Aspartate aminotransferase [Enzymatic activity/volume] in Serum or Plasma SGPT (ALT) 18 U/L 1-33 Alanine aminotransferase [Enzymatic activity/volume] in Serum or Plasma ALBUMIN 3.7 g/dL 3.5-5.2 Albumin [Mass/volume] in Serum or Plasma PROTEIN, TOT 6.5 g/dL 6.0-8.5 Protein [Mass/volume] in Serum or Plasma CALCIUM 8.9 mg/dL 8.6-10.5 Calcium [Moles/volume] in Serum or Plasma CO2 28.0 mmol/L 22.0-29.0 Carbon diox felipe, total [Moles/volume] in Venous blood CHLORIDE 104 mmol/L 98-107 Chloride [Moles/volume] in Serum or Plasma POTASSIUM 4.1 mmol/L 3.5-5.2 Potassium [Moles/volume] in Serum or Plasma SODIUM 143 mmol/L 136-145 Sodium [Moles/volume] in Serum or Plasma CREATININE 1.50 mg/dL 0.57-1.00 H Creatini ne [Mass/volume] in Serum or Plasma BUN 24 mg/dL 8-23 H Urea nitrogen [Mass/volume] in Serum or Plasma GLUCOSE SER 162 mg/dL 65-99 H Glucose [Mass/volume] in Serum or Plasma Plan of Care Type Date Detail Appointment 11:00 AM Shahid julien MD, [address], [address], [place], [address], Referral MRI Lumbar Spine with/without constrast Pending order STAT Labs Pending order CMP Pending order CBC with Differe ntial Pending order C- reactive prot ein Pending order Sedimentation Ra te (ESR) Pending order STAT Labs Pending order STAT Labs Pending order CMP Pending order CBC with Differe ntial Pending order C- reactive prot ein Pending order Sedimentation Ra te (ESR) Pending order STAT Labs Pending order STAT Labs Pending order STAT Labs Pending order STAT Labs Pending order STAT Labs Pending order CMP Pending order CBC with Differe ntial Pending order C- reactive prot ein Pending order Sedimentation Ra te (ESR) Pending order STAT Labs Pending order STAT Labs Pending order STAT Labs Pending order STAT Labs Pending order CMP Pending order CBC with Differe ntial Pending order C- reactive prot ein Pending order Sedimentation Ra te (ESR) Pending order Continue oral an tibiotics Pending order CBC with Differe ntial Pending order CMP Pending order Sedimentation Ra te (ESR) Pending order C- reactive prot ein Pending order STAT Labs Pending order STAT Labs Pending order STAT Labs Pending order STAT Labs Pending order CMP Pending order CBC with Differe ntial Pending order C- reactive prot ein Pending order Sedimentation Ra te (ESR) Pending order STAT Labs Pending order STAT Labs Pending order CMP Pending order CBC with Differe ntial Pending order C- reactive prot ein Pending order Sedimentation Ra te (ESR) Pending order CMP Pending order CBC with Differe ntial Pending order C- reactive prot ein Pending order Sedimentation Ra te (ESR) Pending order STAT Labs Pending order CMP Pending order CBC with Differe ntial Pending order C- reactive prot ein Pending order Sedimentation Ra te (ESR) Pending order Continue oral an tibiotics Pending order Weekly Labs (Con tinue) Pending order CMP Pending order CBC with Differe ntial Pending order C- reactive prot ein Pending order Sedimentation Ra te (ESR) Pending order CMP Pending order CBC with Differe ntial Pending order C- reactive prot ein Pending order Sedimentation Ra te (ESR) Pending order Continue oral an tibiotics Pending order STAT Labs Pending order Continue oral an tibiotics Pending order CMP Pending order CBC with Differe ntial Pending order C- reactive prot ein Pending order Sedimentation Ra te (ESR) Pending order CMP Pending order CBC with Differe ntial Pending order C- reactive prot ein Pending order Sedimentation Ra te (ESR) Pending order New Oral Antibio tic Pending order CMP Pending order CBC with Differe ntial Pending order C- reactive prot ein Pending order Sedimentation Ra te (ESR) Pending order Continue oral an tibiotics Pending order STAT Labs Pending order Continue oral an tibiotics Pending order CMP Pending order CBC with Differe ntial Pending order Continue IV anti biotics Pending order Vancomycin Pending order New Oral Antibio tic Pending order Continue IV anti biotics Pending order Weekly Labs (Con tinue) Pending order Weekly PICC Line Care Pending order CMP Pending order CBC with Differe ntial Pending order C- reactive prot ein Pending order Sedimentation Ra te (ESR) Pending order Vancomycin Troug h Pending order STAT Labs Pending order CMP Pending order CBC with Differe ntial Pending order C- reactive prot ein Pending order Sedimentation Ra te (ESR) Pending order Vancomycin Troug h Pending order CMP Pending order C- reactive prot ein Pending order Sedimentation Ra te (ESR) Pending order Vancomycin Troug h Pending order CBC with Differe ntial Pending order STAT Labs Pending order STAT Labs Pending order STAT Labs Pending order STAT Labs Pending order STAT Labs Pending order STAT Labs Pending order STAT Labs Pending order STAT Labs Pending order CPK Pending order STAT Labs Pending order CMP Pending order CBC with Differe ntial Pending order C- reactive prot ein Pending order Sedimentation Ra te (ESR) Pending order Vancomycin Troug h Pending order STAT Labs Pending order Vancomycin Troug h Pending order Stat Weekly Labs Pending order Stat Weekly Labs Pending order Continue IV anti biotics Pending order Weekly PICC Line Care Pending order Weekly Labs (Con tinue) Pending order CMP Pending order CBC with Differe ntial Pending order C- reactive prot ein Pending order CPK Pending order Sedimentation Ra te (ESR) Pending order Continue IV anti biotics Pending order Change IV antibi otics Pending order Continue IV anti biotics Pending order Weekly Labs (Con tinue) Pending order Weekly PICC Line Care Pending order CMP Pending order CBC with Differe ntial Pending order C- reactive prot ein Pending order Sedimentation Ra te (ESR) Pending order CPK Pending order Continue IV anti biotics Pending order Stat Weekly Labs Patient education Medications Patient education Medications Patient education Medications Patient education WE[facility] Procedures Code Procedure Name Date Entry Date CPT-sl STAT Labs CPT-38183 CMP [id number] CBC with Differential 2023 CPT-87026 C- reactive protein CPT-20758 Sedimentation Rate (ESR) 07/24/15 CPT-sl STAT Labs CPT-sl STAT Labs CPT-39670 CMP [id number] CBC with Differential 2023 CPT-03348 C- reactive protein CPT-23736 Sedimentation Rate (ESR) 07/17/08 CPT-sl STAT Labs CPT-sl STAT Labs CPT-sl STAT Labs CPT-65827 CMP [id number] CBC with Differential 2021 CPT-47753 C- reactive protein CPT-75526 Sedimentation Rate (ESR) 05/28/17 CPT-sl STAT Labs CPT-sl STAT Labs CPT-sl STAT Labs CPT-sl STAT Labs CPT-90245 CMP [id number] CBC with Differential 2020 CPT-50046 C- reactive protein CPT-50821 Sedimentation Rate (ESR) 202 04/27/20 CPT-Cooral Continue oral antibiotics 20 06/07/22 [id number] CBC with Differential 2020 CPT-82460 CMP CPT-56734 Sedimentation Rate (ESR) 202 04/20/22 CPT-24230 C- reactive protein CPT-sl STAT Labs CPT-sl STAT Labs CPT-sl STAT Labs CPT-sl STAT Labs CPT-64284 CMP [id number] CBC with Differential 2019 CPT-04277 C- reactive protein CPT-44013 Sedimentation Rate (ESR) 202 CPT-sl STAT Labs CPT-sl STAT Labs CPT-94510 CMP [id number] CBC with Differential 2018 CPT-15416 C- reactive protein CPT-79183 Sedimentation Rate (ESR) 201 12/26/09 CPT-33719 CMP [id number] CBC with Differential 2018 CPT-24536 C- reactive protein CPT-68101 Sedimentation Rate (ESR) 201 12/20/10 CPT-sl STAT Labs CPT-57607 CMP [id number] CBC with Differential 2018 CPT-35907 C- reactive protein CPT-21531 Sedimentation Rate (ESR) 201 12/20/09 CPT-Cooral Continue oral antibiotics 20 06/05/09 CPT-cwl Weekly Labs (Continue) 04/27 CPT-01388 CMP [id number] CBC with Differential 2018 CPT-16524 C- reactive protein CPT-26371 Sedimentation Rate (ESR) 201 12/17/09 CPT-63645 CMP [id number] CBC with Differential 2017 CPT-50348 C- reactive protein CPT-66925 Sedimentation Rate (ESR) 201 11/25/10 CPT-Cooral Continue oral antibiotics 20 02/02/11 CPT-sl STAT Labs CPT-Cooral Continue oral antibiotics 20 02/11/02 CPT-09560 CMP [id number] CBC with Differential 2017 CPT-16711 C- reactive protein CPT-72208 Sedimentation Rate (ESR) 201 11/22/02 CPT-07116 CMP [id number] CBC with Differential 2017 CPT-96750 C- reactive protein CPT-71403 Sedimentation Rate (ESR) 201 11/21/04 CPT-trip New Oral Antibiotic CPT-26214 CMP [id number] CBC with Differential 2017 CPT-06533 C- reactive protein CPT-55419 Sedimentation Rate (ESR) 201 11/21/07 CPT-Cooral Continue oral antibiotics 03/09/07 CPT-sl STAT Labs CPT-Cooral Continue oral antibiotics 20 04/08/23 CPT-23629 CMP [id number] CBC with Differential 2017 CPT-95559 MRI Lumbar Spine with/without constrast 2 CPT-ca Continue IV antibiotics 2017 CPT-J3370 Vancomycin CPT-trip New Oral Antibiotic CPT-ca Continue IV antibiotics 2017 CPT-cwl Weekly Labs (Continue) 07/11 CPT-wpc Weekly PICC Line Care 201807/11 CPT-34860 CMP [id number] CBC with Differential 2017 CPT-98648 C- reactive protein CPT-51936 Sedimentation Rate (ESR) 201 11/18/25 CPT-50928 Vancomycin Trough CPT-sl STAT Labs CPT-85026 CMP [id number] CBC with Differential 2017 CPT-24341 C- reactive protein CPT-36355 Sedimentation Rate (ESR) 201 11/19/19 CPT-51188 Vancomycin Trough CPT-10247 CMP CPT-43825 C- reactive protein CPT-20654 Sedimentation Rate (ESR) 201 11/18/12 CPT-61610 Vancomycin Trough [id number] CBC with Differential 2017 [id number], [id number] CPK CPT-sl STAT Labs CPT-01174 CMP [id number] CBC with Differential 2017 CPT-41275 C- reactive protein CPT-97974 Sedimentation Rate (ESR) 201 11/18/05 CPT-47786 Vancomycin Trough CPT-sl STAT Labs CPT-71210 Vancomycin Trough CPT- stat weekly Stat Weekly Labs CPT-ca Continue IV antibiotics 2017 CPT-wpc Weekly PICC Line Care 0 06/14 CPT-cwl Weekly Labs (Continue) 06/14 CPT-42513 CMP [id number] CBC with Differential 2017 CPT-66243 C- reactive protein [id number], [id number] CPK CPT-65831 Sedimentation Rate (ESR) 201 11/17/26 CPT-ca Continue IV antibiotics 2017 CPT-felice Change IV antibiotics 0 06/14 CPT-ca Continue IV antibiotics 2017 CPT-cwl Weekly Labs (Continue) 06/08 CPT-wpc Weekly PICC Line Care 0 06/08 CPT-50499 CMP [id number] CBC with Differential 2017 CPT-62211 C- reactive protein CPT-75131 Sedimentation Rate (ESR) 201 11/17/20 [id number], [id number] CPK CPT-ca Continue IV antibiotics 2017 CPT- stat weekly Stat Weekly Labs Vital Signs Date Name Value Unit Description BMI (Body Mass Index) 35.88 kg/m2 Bod y Mass Index (Ratio) Body Temperature 96.9 [degF] temperat ure E&M BP Diastolic 78 mm[Hg] blood pressu re, diastolic BP Systolic 170 mm[Hg] blood pressur e, systolic Heart Rate 72 /min pulse rate Height 68 [in_us] height E&M Respiratory Rate 16 /min respirat ory rate E&M Weight Measured 236.0 [lb_av] weight E& M Immunizations Vaccine Administration Date Standard Description CVX Co de Dose Unspecified Formulation Unspecified Formulation 152 Unknown Unspecified Formulation Unspecified Formulation 33 Unknown Advance Directives Directive Description Start Date NO DIRECTIVES AT THIS TIME
--- OUTSIDE RECORDS SUMMARY | 2023-11-03 12:43 | XMS_ITS ---
Author Name Unknown Address [address] [place] [address] [place] [id number] Phone Organization [facility] Address [address] [place] [address] [place] [id number] Phone Care Team Providers Care Geography Department Chair Name Role Phone Seymour DOOLEY, Shahid Calderon [ ] Conditions or Problems Problem Name Problem Code Onset Date Status Entry Date Provider Comment Standard Description Annotate Anemia 718707305 (SNOMED CT) 10/31 Active 10/31 Shahid Ahuja MD Anemia Hx of bilateral knee arthroplasties 906818447 (SNOMED CT) 10/31 Active 10/31 Shahid Ahuja MD History of operative procedure on knee Medications Medication Instructions Start Date Stop Date Generic Name NDC Provider MINOCYCLINE HCL 100 MG CAPS 1 capsule by mouth once a day TAKE 1 CAPSULE BY MOUTH EVERY DAY 0 minocycline [id number] Shahid Ahuja MD Medications Administered No information available. Allergies, Adverse Reactions, Alerts No information available. Results Date Name Value Unit Range Flag Description Office Visit: Office Visit: rm. 6 FALLRSKASSES yes Fall ris k assessment ORALTOBACUSE Never Tobacco smoking status SMOK STATUS Never smoker Toba senior accounting specialist smoking status MEDS REVIEW Done Documenta tion of current medications (procedure) Plan of Care Type Date Detail Appointment 11:00 AM Shahid julien MD, [facility], [address], [place], [address], Pending order STAT Labs Pending order CMP Pending order CBC with Differe ntial Pending order C- reactive prot ein Pending order Sedimentation Ra te (ESR) Procedures Code Procedure Name Date Entry Date CPT-sl STAT Labs CPT-51846 CMP [id number] CBC with Differential 2023 CPT-24046 C- reactive protein CPT-25551 Sedimentation Rate (ESR) 202 07/24/15 Vital Signs Date Name Value Unit Description [...] Measured 236.0 [lb_av] weight E& M Immunizations No information available. Advance Directives No information available.
--- NOTE | 2023-11-03 12:52 | EXP.CARD.CON ---
History of Present Illness History of Present Illness Consult date: 11/03/23 Requesting physician: Imer Millan Consult reason: congestive heart failure Chief complaint: SOA, edema Additional Medical History:: 1. CAD A. C, 2018, mild CAD. EF 70-75%. LVEDP 18 mmHg. PA OP 15 mmHg, PAP 30 over 15 mmHg, RAP is 8 mmHg. 2. Less than 20% ICA stenosis bilaterally, carotid duplex, 2019 3. Hypertension/HHD/HFpEF A. Echocardiogram, 11/2019, mild LAE, normal LV size, mild concentric LVH, EF 55% with no regional WMA. Grade 1 DD. Mild RV enlargement with normal contractility. Mild to moderate MR and mild TR. B. Echocardiogram, 10/2022, EF 55-60%. No significant valve disease. RVSP 28 mmHg. B. Acute exacerbation, 10/2023, 15 pound weight gain after knee surgery with paroxysmal nocturnal dyspnea 4. Asthma A. High-resolution CT, 10/2022, no evidence of interstitial lung disease. 3 mm nodule left lower lobe, follow-up in 1 year. B. PFT October 2022 no evidence of obstructive or restrictive lung disease.. V1 VC ratio 70, FEV1 and FVC at 85% predicted, 1.97 L or 92% predicted, 2.78 L. No significant airway reversibility noted. No restriction noted. DLCO within normal limits. 5. Status post left knee replacement, May/2023 A. Right knee replacement, 09/2023. 6. CKD, stage III A. Baseline Cr 1.5-1.7 with GFR 34-40. 7. Chronic low back pain A. History of MRI showing severe to moderate foraminal narrowing bilaterally and L4 and L5. B. History of spinal infection due to surgery, followed by infectious disease in [place] 8. Colonoscopy, 11/2022, normal 9. GERD A. EGD, 2019, nonerosive GERD with moderate esophageal dysmotility and very small sliding hiatal hernia. B. EGD, 11/2022, normal with benign biopsy. 10. Diabetes mellitus type 2 A. Hemoglobin A1c is 7.0, on 09/20/2023 11. Abnormal EKG with right bundle branch block and poor R wave progression anteriorly. 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 She recently had right knee replacement and has noticed an increase in swelling of that right leg over the last few days. Her PCP ordered a right lower extremity venous Doppler that was negative for DVT. We discussed trying to use her oral medications to help with the shortness of breath and swelling. She did increase her medications last night but to no effect. She was seen in the office and subsequently admitted to Dr. Millan's service for further treatment. Blood pressure in the office today 146/86 mmHg, heart rate 68 bpm oxygen saturation 99% on room air. [facility] Disclaimer: The information contained in this section may have been updated after the patient was seen, as this information can be updated by other users. Medical History (Updated 11/03/23 @ 13:08 by KAYLEEN Ghosh) Diabetes HLD (hyperlipidemia) CAD (coronary artery disease) Bilateral knee pain Asthma On statin therapy Hyperparathyroidism Chronic bronchitis Dyspnea on exertion Fatigue Hypoparathyroidism Change in bowel function Abdominal pain Degenerative arthritis of knee, bilateral Diarrhea Vomiting Edema Bilateral leg pain Low back pain Retrolisthesis of vertebrae Lumbar spinal stenosis Lumbar facet arthropathy Lumbar radiculopathy Degenerative disc disease, lumbar Bilateral leg pain Ingrowing Toenail Onychodystrophy Onychomycosis Pain due to onychomycosis of toenail of left foot BMI 33.0-33.9,adult Ingrowing Toenail Edema CKD (chronic kidney disease) Cardiac murmur Left carotid bruit Moderate mitral valve regurgitation Hiatal hernia GERD (gastroesophageal reflux disease) Diastolic congestive heart failure PAC (premature atrial contraction) HHD (hypertensive heart disease) SOB (shortness of breath) Diastolic dysfunction Surgical History (Updated 10/07/23 @ 12:21 by Toi Eubanks MD) History of arthroplasty of left knee History of elbow surgery History of cholecystectomy History of surgery on right wrist History of total left hip arthroplasty History of bilateral tubal ligation History of back surgery Family History Daughter Cancer breast Sister Diabetes Coronary artery disease Parkinsons Father Diabetes Coronary artery disease Brother Stroke Mother Spiradenoma Social History Smoking Status: Never smoker second hand exposure: No alcohol intake: never substance use type: denies use current occupational status: employed Travel in the last 8 weeks: None household members: none housing: house lives independently: Yes marital status: single education level: high school service: No intermediate: No current occupation: [employer] current occupational exposures/hazards: No caffeine: Yes special lois needs: No agree to transfusion: No do you feel safe at home: Yes victim of physical abuse: No victim of emotional abuse: No victim of sexual abuse: No would you like helpful sources: No Review of Systems Review of Systems Review of systems:: pertinent systems reviewed and negative unless documented below Constitutional Constitutional: Reports difficulty sleeping *Cardiovascular Cardiovascular: Denies chest pain, Reports dyspnea and Reports dyspnea on exertion *Respiratory Respiratory: Reports dyspnea, Reports dyspnea on exertion and Denies wheezing Allergic/Immunologic Allergic/Immunologic: Denies wheezing Exam Constitutional Constitutional: no acute distress *Routine Respiratory Exam Respiratory: Present decreased breath sounds and CTA bilaterally; Absent rhonchi or wheezes *Routine Cardiovascular Exam Cardiovascular: Present RRR and gallop; Absent murmur or rubs *Routine Extremities Exam Extremities: Present edema *Routine Neurological Exam Neurological: Present alert, oriented X3 and CN II-XII intact Meds Home Medications and Allergies Home Medications Medication Instructions Recorded Confirmed Type minocycline 100 mg capsule 100 mg PO DAILY 01/14/20 11/03/23 History pantoprazole 40 mg tablet,delayed 40 mg PO BID 05/31/23 11/03/23 History release ropinirole 2 mg tablet 2 mg PO HS 05/31/23 11/03/23 History celecoxib 100 mg capsule 100 mg PO BID #180 caps 08/15/23 11/03/23 Rx albuterol sulfate 90 mcg/actuation 2 inh inhalation Q6HP PRN 09/27/23 11/03/23 History aerosol inhaler (Ventolin HFA) shortness of breath or wheezing carvedilol 25 mg tablet 50 mg PO BID 09/27/23 11/03/23 History empagliflozin 10 mg tablet 10 mg PO DAILY 09/27/23 11/03/23 History (Jardiance) losartan 100 mg tablet 100 mg PO DAILY 09/27/23 11/03/23 History semaglutide 1 mg/dose (4 mg/3 mL) 1 mg SQ WEEKLY 09/27/23 11/03/23 History subcutaneous pen injector (Ozempic) spironolactone 25 mg tablet 25 mg PO DAILY 09/27/23 11/03/23 History torsemide 100 mg tablet 50 mg PO MOWEFR 09/27/23 11/03/23 History aspirin 81 mg tablet,delayed 81 mg PO DAILY 11/03/23 11/03/23 History release (Adult Low Dose Aspirin) evolocumab 140 mg/mL subcutaneous 140 mg SQ Q2W 11/03/23 11/03/23 History pen injector (Repatha SureClick) oxycodone 5 mg tablet 5 mg PO Q6HP PRN Severe Pain 11/03/23 11/03/23 History (Scale Score 7-10) New Prescriptions to Start Prescriptions: Allergies Allergy/AdvReac Type Severity Reaction Status Date / Time Wyukiws-VQJ-TsC Reductase AdvReac Intermediate myalgia Verified 10/07/23 10:45 Inhibitor [Asjcwjk-Bud-Lfg Reductase Inhibitor] Assessment and Plan *Assessment and plan (1) Acute on chronic heart failure with preserved ejection fraction (HFpEF): Status: Acute Category: Medical Code(s): I50.33 - Acute on chronic diastolic (congestive) heart failure (2) Status post right knee replacement: Status: Acute Category: Surgical Code(s): Z96.651 - Presence of right artificial knee joint (3) Status post left knee replacement: Status: Acute Category: Surgical Code(s): Z96.652 - Presence of left artificial knee joint (4) HTN (hypertension): Status: Acute Qualifiers: Hypertension type: primary hypertension Qualified Code(s): I10 - Essential (primary) hypertension Category: Medical Code(s): I10 - Essential (primary) hypertension (5) HLD (hyperlipidemia): Status: Acute Qualifiers: Hyperlipidemia type: mixed hyperlipidemia Qualified Code(s): E78.2 - Mixed hyperlipidemia Category: Medical Code(s): E78.5 - Hyperlipidemia, unspecified (6) Diabetes: Status: Acute Qualifiers: Diabetes mellitus type: type 2 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 Acute on chronic HFpEF with PND/orthopnea, 15 pound weight gain and LE edema, resistant to increase in home meds -Start IV bumex drip -monitor labs 2. Status post right knee replacement, 09/2023, and left knee replacement 05/2023 -Clinically stable 3. Hypertension with hypertensive heart disease -Continue home medications of losartan 100 mg daily and carvedilol 50 mg twice daily 4. History of hyperlipidemia -Continue Repatha therapy 5. Diabetes -Continue Jardiance and Ozempic 6. Chronic spinal infection -Chronic antibiotic therapy 7. CAD, clinically stable -Continue aspirin therapy Diurese overnight Monitor labs Check Echo to assess LVEF in light of CHF exacerbation
--- NOTE | 2023-11-03 12:59 | HMH.PHAINT1 ---
Pharmacy Intervention Comments: MEDICATION RECONCILIATION COMPLETED ON PATIENT USING EXTERNAL FILL HISTORY FROM PHARMACY, JONATHAN REPORT, AND DISCHARGE SUMMARY FROM PREVIOUS ADMISSION. -HANNAH BRUNERD
--- NOTE | 2023-11-03 13:24 | CA_ITS ---
APPROVED REPORT EXAM: Comprehensive 2D, Doppler, and color-flow Echocardiogram Color Repairer: Piper Morales, AMBROSE, RVS Ht: 5 ft 7 in Wt: 220lbs BSA: 2.11 BP: 148/59 mmHg Indications: CAD, CHF exacerbation, Smoker, MR, HLD 2D Dimensions Left Atrium 4.48 cm LA Volume 80.30 mL RVID Base (AP4) 2.69 cm (M/F) 2.5-4.1 LA Volume Index 38.495062 mL/m2 (M/F) 16-34 EF AP4 59.60 % GL Strain -18.2 % M-Mode Dimensions RVDd 2.97 cm (0.9-2.6) LVDd 5.22 cm (3.5-5.7) Ao Diam 3.19 cm (2.0-3.7) LVDs 3.45 cm (3.5-5.7) IVSd 1.24 cm (0.6-1.1) PWd 1.45 cm (0.6-1.1) EF (Teich) 62.40% EPSs 0.40 cm FS 33.90% EDV (Teich) 130.70 mL TAPSE 2.53 (<1.7) ESV (Teich) 49.10 mL LV Diastology E Decel Time 175 (160-240 msec) E/A Ratio 1.14 MED E' 7.3 (>= 7 cm/sec) MED A' 9.40 cm/s E'/MED E' Ratio 17.48 (<= 14) LAT E' 7.3 (>= 10 cm/sec) LAT A' 9.00 cm/s E/LAT E' Ratio 17.48 (<= 14) Aortic Valve LVOT Max 141.0 (70-110 cm/s) LVOT VTI 32.31 cm AoV Peak Khoi. 182.0 (50-130 cm/s) AO Mean GR. 6.50 (<5 mmHg) AO VTI 39.6 (18-25 cm) Mitral Valve MV E Max Khoi. 128.0 (40-130 cm/s) MV A Velocity 112.0 (40-130 cm/s) E/A Ratio 1.14 MV Decel. Time 175 (160-240 ms) Tricuspid Valve TR P. Velocity 283.00 cm/s RAP Estimate 10.00 mmHg RVSP 42.10 mmHg Left Ventricle The left ventricle is normal size. The left ventricular systolic function is normal. The left ventricular ejection fraction is within the normal range. There is increase in LV wall thickness. There is normal LV segmental wall motion. Grade 2 diastolic dysfunction is present. LVEF is 60%. Right Ventricle The right ventricle is normal size. The right ventricular systolic function is normal. Atria Left atrium is mildly dilated. The right atrium size is normal. There is no Doppler evidence of interatrial shunt. Aortic Valve The aortic valve is mildly thickened. There is no aortic valvular stenosis. Trace aortic regurgitation. Mitral Valve The mitral valve leaflets are mildly thickened. No evidence of mitral valve stenosis. Mild mitral regurgitation. The MR jet is eccentric and posteriorly directed. The MR jet may be underestimated. Tricuspid Valve The tricuspid valve leaflets are thin and pliable. Mild tricuspid regurgitation. RVSP is 30-35 mmHg. Pulmonic Valve The pulmonary valve is normal in structure. Trace pulmonic regurgitation. The ascending aorta is not well-visualized. Great Vessels The aortic root is normal in size. IVC is normal in size and collapses >50% with inspiration. Pericardium There is no pericardial effusion. Other Information Study Quality: Fair Conclusion Normal biventricular systolic function. Grade 2 diastolic dysfunction. Mild LA dilation. Mild MR. The MR jet is eccentric and posteriorly directed. The MR jet may be underestimated. Mild TR. RVSP 30-35 mmHg. Electronically signed by : Norah Vazquez MD 11/04/2023 22:50:12
[2023-11-03] MEDS: BUMETANIDE 1MG/4ML VIAL 1 MG IV (13:34)
[2023-11-03] MEDS: BUMETANIDE 10 MG in 0.9 % SODIUM CHLORIDE 60 ML 5 MG IV (13:34)
--- NOTE | 2023-11-03 13:39 | EXP.HP ---
History of Present Illness *Admission Date: 11/03/23 *Reason for visit:: dyspnea, swelling in legs *History of present illness: Ms. 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 She reached out to cardiology yesterday concerning for lower extremity edema and gain of 15 pounds in weight over the past month. Presented to the office today and found to be dyspneic on exam with complaint of orthopnea. She has been having to sleep in a recliner for the past couple of days. Not responding to oral diuretics with improvement in fluid status. Her primary care doctor ordered right lower extremity venous duplex that was negative for DVT. Given failure of outpatient therapy, cardiology requested inpatient treatment with IV diuretics. On arrival to the floor, patient appears in minimal distress. Most comfortable sitting upright. Has significant edema in her legs. No nausea or vomiting. No chest pain. Knee pain doing well after surgery. Blood pressure elevated at 146/86. No significant cough. [facility] Disclaimer: The information contained in this section may have been updated after the patient was seen, as this information can be updated by other users. Medical History Diabetes HLD (hyperlipidemia) CAD (coronary artery disease) Bilateral knee pain Asthma On statin therapy Hyperparathyroidism Chronic bronchitis Dyspnea on exertion Fatigue Hypoparathyroidism Change in bowel function Abdominal pain Degenerative arthritis of knee, bilateral Diarrhea Vomiting Edema Bilateral leg pain Low back pain Retrolisthesis of vertebrae Lumbar spinal stenosis Lumbar facet arthropathy Lumbar radiculopathy Degenerative disc disease, lumbar Bilateral leg pain Ingrowing Toenail Onychodystrophy Onychomycosis Pain due to onychomycosis of toenail of left foot BMI 33.0-33.9,adult Ingrowing Toenail Edema CKD (chronic kidney disease) Cardiac murmur Left carotid bruit Moderate mitral valve regurgitation Hiatal hernia GERD (gastroesophageal reflux disease) Diastolic congestive heart failure PAC (premature atrial contraction) HHD (hypertensive heart disease) SOB (shortness of breath) Diastolic dysfunction Surgical History History of arthroplasty of left knee History of elbow surgery History of cholecystectomy History of surgery on right wrist History of total left hip arthroplasty History of bilateral tubal ligation History of back surgery Family History Daughter Cancer Sister Diabetes Coronary artery disease Parkinsons Father Diabetes Coronary artery disease Brother Stroke Mother Spiradenoma Social History Smoking Status: Never smoker second hand exposure: No alcohol intake: never substance use type: denies use current occupational status: employed Travel in the last 8 weeks: None household members: none housing: house lives independently: Yes marital status: single education level: high school service: No longterm: No current occupation: [employer] current occupational exposures/hazards: No caffeine: Yes special lois needs: No agree to transfusion: No do you feel safe at home: Yes victim of physical abuse: No victim of emotional abuse: No victim of sexual abuse: No would you like helpful sources: No Review of Systems Review of Systems Review of systems (narrative): 14 point review of systems performed, pertinent positives and negatives as per HPI Meds Home Medications and Allergies Home Medications Medication Instructions Recorded Confirmed Type minocycline 100 mg capsule 100 mg PO DAILY 01/14/20 11/03/23 History pantoprazole 40 mg tablet,delayed 40 mg PO BID 05/31/23 11/03/23 History release ropinirole 2 mg tablet 2 mg PO HS 05/31/23 11/03/23 History celecoxib 100 mg capsule 100 mg PO BID #180 caps 08/15/23 11/03/23 Rx albuterol sulfate 90 mcg/actuation 2 inh inhalation Q6HP PRN 09/27/23 11/03/23 History aerosol inhaler (Ventolin HFA) shortness of breath or wheezing carvedilol 25 mg tablet 50 mg PO BID 09/27/23 11/03/23 History empagliflozin 10 mg tablet 10 mg PO DAILY 09/27/23 11/03/23 History (Jardiance) losartan 100 mg tablet 100 mg PO DAILY 09/27/23 11/03/23 History semaglutide 1 mg/dose (4 mg/3 mL) 1 mg SQ WEEKLY 09/27/23 11/03/23 History subcutaneous pen injector (Ozempic) spironolactone 25 mg tablet 25 mg PO DAILY 09/27/23 11/03/23 History torsemide 100 mg tablet 50 mg PO MOWEFR 09/27/23 11/03/23 History aspirin 81 mg tablet,delayed 81 mg PO DAILY 11/03/23 11/03/23 History release (Adult Low Dose Aspirin) evolocumab 140 mg/mL subcutaneous 140 mg SQ Q2W 11/03/23 11/03/23 History pen injector (Damir Gurrola) oxycodone 5 mg tablet 5 mg PO Q6HP PRN Severe Pain 11/03/23 11/03/23 History (Scale Score 7-10) New Prescriptions to Start Prescriptions: Allergies Allergy/AdvReac Type Severity Reaction Status Date / Time Rabssun-PZU-[id number] Reductase AdvReac Intermediate myalgia Verified 10/07/23 10:45 Inhibitor [Seucnmh-Zwd-Hgz Reductase Inhibitor] Exam Data for Last 24 hours Vital signs and Labs for Last 24 Hours: Temp Pulse Resp BP Pulse Ox O2 Del Method 98.3 F 65 20 168/82 H 97 Room Air 11/03/23 12:41 11/03/23 12:41 11/03/23 12:41 11/03/23 12:41 11/03/23 12:41 11/03/23 12:41 I & O for Last 24 hours: Intake & Output 10/31/23 11/01/23 11/02/23 11/03/23 23:59 23:59 23:59 23:59 Output Total 0 / 0 Balance 0 / 0 Constitutional Constitutional: no acute distress, obese, chronically ill appearing and cooperative *Routine HEENT Exam Head: Present normocephalic Eye: Present EOMI and PERRL ENT: Present mucous membranes moist *Routine Neck Exam Neck: Present supple; Absent lymphadenopathy *Routine Respiratory Exam Respiratory: Present CTA bilaterally; Absent rhonchi, wheezes or crackles *Routine Cardiovascular Exam Cardiovascular: Present RRR *Routine Abdominal Exam Abdominal: Present soft and normoactive bowel sounds; Absent tenderness *Routine Rectal Exam Rectal:: deferred *Routine Genitalia Exam Genitalia:: deferred *Routine Extremities Exam Extremities: Present edema (2+ to knees); Absent cyanosis or clubbing Comments: Well-healed surgical scars over both knees *Routine Skin Exam Skin: Present warm; Absent rash *Routine Neurological Exam Neurological: Present alert, oriented X3 and moving all extremities; Absent altered mental status Assessment and Plan *Assessment and plan (1) Acute on chronic heart failure with preserved ejection fraction (HFpEF): Status: Acute Category: Medical Code(s): I50.33 - Acute on chronic diastolic (congestive) heart failure (2) HLD (hyperlipidemia): Status: Acute Qualifiers: Hyperlipidemia type: mixed hyperlipidemia Qualified Code(s): E78.2 - Mixed hyperlipidemia Category: Medical Code(s): E78.5 - Hyperlipidemia, unspecified (3) Diabetes: Status: Acute Qualifiers: Diabetes mellitus type: type 2 Diabetes mellitus terminal gauger insulin use: without terminal gauger use Diabetes mellitus complication status: with hyperglycemia Qualified Code(s): E11.65 - Type 2 diabetes mellitus with hyperglycemia Category: Medical Code(s): E11.9 - Type 2 diabetes mellitus without complications (4) HTN (hypertension): Status: Acute Qualifiers: Hypertension type: primary hypertension Qualified Code(s): I10 - Essential (primary) hypertension Category: Medical Code(s): I10 - Essential (primary) hypertension (5) CAD (coronary artery disease): Status: Acute Qualifiers: Coronary Disease-Associated Artery/Lesion type: [place] artery [place] vs. transplanted heart: [place] heart Associated angina: without angina Qualified Code(s): I25.10 - Atherosclerotic heart disease of [place] coronary artery without angina pectoris Category: Medical Code(s): I25.10 - Atherosclerotic heart disease of [place] coronary artery without angina pectoris (6) COPD (chronic obstructive pulmonary disease): Status: Acute Category: Medical Code(s): J44.9 - Chronic obstructive pulmonary disease, unspecified (7) Obesity (BMI 30.0-34.9): Status: Chronic Category: Medical Code(s): E66.9 - Obesity, unspecified Plan Ms. Andersen is a 78-year-old female with history of COPD, CAD, hypertension, heart failure. Generally well-controlled on medicines. Presented to cardiology clinic today as an outpatient due to worsening dyspnea since her knee replacement surgery several weeks ago. She has noticed increased swelling in her legs and has gained approximately 15 pounds. Discussed case with cardiology provider, request admission for diuresis and treatment of her orthopnea and acute on chronic CHF exacerbation. Agreed to admit for further management. Initiated on Bumex drip. Echo pending. Problems addressed as follows: Acute on chronic HFpEF with PND/orthopnea Hypertension CAD -Patient is gained 15 pounds in the past month. Lower extremity edema noted. -BNP ordered and pending -1 mg Bumex IV x 1, initiate drip at 0.5 mg/h. Strict I's and O's. Goal negative 1-2L fluid status in the next 12 to 24 hours., 15 pound weight gain and LE edema, resistant to increase in home meds -Echo pending, evaluate EF in light of CHF -Continue home losartan 100 mg daily and carvedilol 50 mg twice daily -Aspirin 81mg daily -Cardiology consulted and assisting with care. CKD versus TERRY, baseline creatinine approximate 1.5. Creatinine 1.9 on admission. Monitor for improvement with diuresis. Caution with nephrotoxins. -CBC, CMP, magnesium ordered for the morning. Hyperlipidemia: On Repatha at home. Hold during admission. Diabetes: - A1c 6 weeks ago 7.0, repeat pending. Continue Jardiance daily. Hold Ozempic during admission. Initiate fingersticks ACHS with sliding scale insulin low intensity per protocol Status post right knee replacement, 09/2023, and left knee replacement 05/2023 -Clinically stable, oxycodone 5 mg as needed every 6 hours for severe breakthrough pain. Chronic spinal infection -Continue daily minocycline 100 mg for suppressive therapy 7. CAD, clinically stable Full code Cardiac diet Lovenox 30 mg subcu daily
[2023-11-03 14:09] LABS: Chloride 106 mmol/L (98-107); Sodium 141 mmol/L (136-145)
[2023-11-03 14:12] LABS: Blood Urea Nitrogen 31 mg/dl (7-17); Calcium 9.3 mg/dl (8.4-10.2); Carbon Dioxide 31 mmol/L (22.0-30.0); Estimated Glomerular Filt Rate 26 ml/min (>60); GFR (African American) 31 ML/MIN (>60); Glucose 110 mg/dl (74-100)
[2023-11-03 16:00] VITALS: BP 159/72; PULSE 70; RESP 18; TEMP 36.4; O2SAT 97
[2023-11-03 16:53] LABS: NT Pro Brain Natriuretic Pep. 1420 pg/mL (0-450)
[2023-11-03 17:46] LABS: POC Glucose,Bedside 152 (70-110)
--- NOTE | 2023-11-03 17:58 | PC.NURSE ---
pt admitted with chf exacerbation with worsening shortness of breath. she is not requiring o2 support at this time. bumex gtt infusing. purewick in place per pt request.
[2023-11-03 19:22] LABS: Hemoglobin A1C 5.7 % (4.0-6.0)
[2023-11-03 19:52] LABS: POC Glucose,Bedside 138 (70-110)
[2023-11-03 20:00] VITALS: BP 164/71; PULSE 66; PULSE 67; RESP 18; TEMP 36.6; O2SAT 97
[2023-11-03] MEDS: PANTOPRAZOLE 40MG TABLET 40 MG PO (20:21)
[2023-11-03] MEDS: ROPINIROLE 1MG TABLET 2 MG PO (20:21)
[2023-11-03] MEDS: CARVEDILOL 25MG TABLET 50 MG PO (20:21)
[2023-11-04 00:08] VITALS: PULSE 67
--- NOTE | 2023-11-04 01:05 | PC.NURSE ---
Resting in bed. No complaints. Bumex drip at 5 ml/hr/pump. Diuresing well.
[2023-11-04 04:00] VITALS: BP 156/67; PULSE 67; PULSE 70; RESP 16; TEMP 36.8; O2SAT 97; BMI 35.2
[2023-11-04 04:22] VITALS: O2SAT 97
[2023-11-04 04:58] LABS: POC Glucose,Bedside 138 (70-110)
--- NOTE | 2023-11-04 05:41 | ECG_ITS ---
APPROVED REPORT Exam: Resting ECG HR:67 bpm ECG Measurements Heart Rate 67 AXES RI 165 P 48 QRSd 126 QRS 42 QT 434 T 13 QTc 450 Conclusion SINUS RHYTHM RIGHT BUNDLE BRANCH BLOCK [120+ ms QRS DURATION, UPRIGHT V1, 40+ ms S IN I/aVL/V4/V5/V6] ABNORMAL ECG UNCONFIRMED REPORT Electronically signed by : Beto Ritter MD 11/05/2023 10:54:35
[2023-11-04 06:26] LABS: Basophils # 0.1 K/mm3 (0-0.2); Basophils % 0.7 % (0.1-2.0); Eosinophils # 0.5 K/mm3 (0.0-0.4); Eosinophils % 6.7 % (0.1-12.0); Hematocrit 27.8 % (37.0-47.0); Hemoglobin 10.6 g/dL (12.2-16.2); Lymphocytes # 1.2 K/mm3 (0.7-4.5); Lymphocytes % 17.3 % (10-50); Mean Corpuscular HGB Conc 38.1 g/dL (31.8-35.4); Mean Corpuscular Hemoglobin 36.1 pg (27.0-31.2); Mean Corpuscular Volume 94.7 fl (81-99); Mean Platelet Volume 8.3 fl (7.4-10.4); Monocytes # 0.5 K/mm3 (0.1-1.0); Monocytes % 7.1 % (1.7-9.3); Neutrophils # 4.7 K/mm3 (1.8-7.8); Neutrophils % 68.1 % (37.0-80.0); Platelet Count 224 K/mm3 (142-424); Red Blood Count 2.93 M/mm3 (4.20-5.40); Red Cell Distribution Width 16.3 % (11.5-17.5)
--- NOTE | 2023-11-04 06:28 | PC.NURSE ---
PATIENT'S HR DROPS DOWN INTO 30s RESEMBLING A MARKED SINUS ARRHYTHMIA. DEA 0.20 TO 0.24. BORDERLINE FIRST DEGREE AVB AND BBB. Zainab REYNOLDS APRN NOTIFIED AND 12 LEAD OBTAINED.
[2023-11-04 07:26] LABS: Alanine Aminotransferase 28 U/L (12-78); Albumin Level 3.7 g/dl (3.5-5.0); Albumin/Globulin Ratio 1.5 (1.1-1.8); Alkaline Phosphatase 103 U/L (38-126); Anion Gap 8.4 mEq/L (5-15); Aspartate Amino Transferase 29 U/L (14-36); Bilirubin,Total 0.6 mg/dl (0.2-1.3); Blood Urea Nitrogen 34 mg/dl (7-17); Calcium 9.2 mg/dl (8.4-10.2); Carbon Dioxide 36 mmol/L (22.0-30.0); Chloride 100 mmol/L (98-107); Creatinine Clearance Estimated 41 mL/min (50-200); Estimated Glomerular Filt Rate 26 ml/min (>60); GFR (African American) 31 ML/MIN (>60); Globulin 2.4 g/dL (1.3-3.2); Glucose 136 mg/dl (74-100); Magnesium 1.6 mg/dl (1.6-2.3); Potassium 3.4 mmoL/L (3.5-5.1); Sodium 141 mmol/L (136-145); Total Protein,Serum 6.1 g/dl (6.3-8.2)
--- NOTE | 2023-11-04 07:48 | P.DS_ITS ---
General Admission date:: 11/03/23 Discharge date: 11/04/23 HPI HPI HPI: Ms. 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 She reached out to cardiology yesterday concerning for lower extremity edema and gain of 15 pounds in weight over the past month. Presented to the office today and found to be dyspneic on exam with complaint of orthopnea. She has been having to sleep in a recliner for the past couple of days. Not responding to oral diuretics with improvement in fluid status. Her primary care doctor ordered right lower extremity venous duplex that was negative for DVT. Given failure of outpatient therapy, cardiology requested inpatient treatment with IV diuretics. On arrival to the floor, patient appears in minimal distress. Most comfortable sitting upright. Has significant edema in her legs. No nausea or vomiting. No chest pain. Knee pain doing well after surgery. Blood pressure elevated at 146/86. No significant cough. Hospital Course Hospital Course Hospital Course: Ms. Andersen is a 78-year-old female with history of COPD, CAD, hypertension, heart failure. Generally well-controlled on medicines. Presented to cardiology clinic today as an outpatient due to worsening dyspnea since her knee replacement surgery several weeks ago. She has noticed increased swelling in her legs and has gained approximately 15 pounds. Discussed case with cardiology provider, request admission for diuresis and treatment of her orthopnea and acute on chronic CHF exacerbation. Agreed to admit for further management. Initiated on Bumex drip. Echo obtained showing stable heart function. Responded well to Bumex drip. Negative at least 3 L during admission. Given improvement clinically, stable to discharge home for continued diuresis. Close follow-up with cardiology next week. Problems addressed as follows: Acute on chronic HFpEF with PND/orthopnea Hypertension CAD -Patient admitted for weight gain and dyspnea. Found to be in acute on chronic heart failure with preserved ejection fraction. BNP elevated at 1400, patient has gained 15 pounds in the past month. Lower extremity edema noted. Initiated on Bumex drip. Responded well. Down at least 3 L during admission. Continued home regimen for blood pressure including her losartan and carvedilol. Will resume diuretic regimen with spironolactone at discharge. Increase torsemide to 50 mg daily from every other day. Stable to discharge home given improvement. Follow-up with cardiology this coming week for repeat labs and monitoring of kidney function. Remained stable on room air during admission. CKD versus TERRY, baseline creatinine approximate 1.5. Creatinine 1.9 on admission. Creatinine remained at 1.9 during admission. BUN 34 on morning of discharge. Potassium 3.4 magnesium 1.6. Replace magnesium on day of discharge. Received oral potassium. As she is on spironolactone, we will not continue supplementation at this time. Further management pending labs next week. Hyperlipidemia: On Repatha at home. Hold during admission. Diabetes: - A1c 6 weeks ago 7.0, repeat during admission of 5.8. Continue Jardiance daily. Recommend resuming Ozempic per home regimen after discharge. Controlled during admission with morning glucose 136. Status post right knee replacement, 09/2023, and left knee replacement 05/2023 -Clinically stable, oxycodone 5 mg as needed every 6 hours for severe breakthrough pain. Chronic spinal infection: Continue daily minocycline 100 mg for suppressive therapy Total time spent on discharge 32 minutes in counseling, documentation, chart review, and direct care with patient. Exam Data for Last 24 hours Vital signs and Labs for Last 24 Hours: Temp Pulse Resp BP Pulse Ox O2 Del Method O2 Flow Rate 98.2 F 67 16 156/67 H 97 Room Air 3 11/04/23 04:00 11/04/23 04:00 11/04/23 04:00 11/04/23 04:00 11/04/23 04:22 11/04/23 05:00 11/04/23 04:22 Laboratory Results - last 24 hr 11/03/23 13:50: Sodium 141, Potassium 4.0, Chloride 106, Carbon Dioxide 31 H, Anion Gap 8.0, BUN 31 H, Creatinine 1.90 H, Estimated GFR 26 L, Est GFR ( Amer) 31 L, Glucose 110 H, Hemoglobin A1c 5.7, Calcium 9.3, NT-Pro-B Natriuret Pep 1420 H 11/03/23 17:40: POC Glucose 152 H 11/03/23 19:44: POC Glucose 138 H 11/04/23 04:51: POC Glucose 138 H 11/04/23 05:43: WBC 7.0, RBC 2.93 L, Hgb 10.6 L, Hct 27.8 L, MCV 94.7, MCH 36.1 H, MCHC 38.1 H, RDW 16.3, Plt Count 224, MPV 8.3, Neut % (Auto) 68.1, Lymph % (Auto) 17.3, Upson % (Auto) 7.1, Eos % (Auto) 6.7, Baso % (Auto) 0.7, Neut # (Auto) 4.7, Lymph # (Auto) 1.2, Upson # (Auto) 0.5, Eos # (Auto) 0.5 H, Baso # (Auto) 0.1, Sodium 141, Potassium 3.4 L, Chloride 100, Carbon Dioxide 36 H, Anion Gap 8.4, BUN 34 H, Creatinine 1.90 H, Estimated Creat Clear 41, Estimated GFR 26 L, Est GFR ( Amer) 31 L, Glucose 136 H D, Calcium 9.2, Magnesium 1.6, Total Bilirubin 0.6, AST 29, ALT 28, Alkaline Phosphatase 103, Total Protein 6.1 L, Albumin 3.7, Globulin 2.4, Albumin/Globulin Ratio 1.5 I & O for Last 24 hours: Intake & Output 11/01/23 11/02/23 11/03/23 11/04/23 23:59 23:59 23:59 23:59 Intake Total 850 / 1350 500 / 500 Output Total 3400 / 3400 1100 / 1100 Balance -2550 / -2050 -600 / -600 Weight 104.916 kg Constitutional Constitutional: no acute distress, obese and cooperative *Routine HEENT Exam Head: Present normocephalic Eye: Present EOMI and PERRL ENT: Present mucous membranes moist *Routine Neck Exam Neck: Present supple; Absent lymphadenopathy *Routine Respiratory Exam Respiratory: Present CTA bilaterally; Absent rhonchi, wheezes or crackles *Routine Cardiovascular Exam Cardiovascular: Present RRR *Routine Abdominal Exam Abdominal: Present soft and normoactive bowel sounds; Absent tenderness *Routine Rectal Exam Patient deferred: visual exam *Routine Exam Patient deferred: external exam *Routine Extremities Exam Extremities: Present edema (trace BLE); Absent cyanosis or clubbing Comments: Well-healed scars over both knees *Routine Skin Exam Skin: Present warm; Absent rash *Routine Neurological Exam Neurological: Present alert, oriented X3 and moving all extremities; Absent altered mental status Results Data Completed and Pending Labs on day of discharge: Labs from last 24 hours 11/04/23 11/04/23 11/03/23 05:43 04:51 19:44 WBC 7.0 RBC 2.93 L Hgb 10.6 L Hct 27.8 L MCV 94.7 MCH 36.1 H MCHC 38.1 H RDW 16.3 Plt Count 224 MPV 8.3 Neut % (Auto) 68.1 Lymph % (Auto) 17.3 Upson % (Auto) 7.1 Eos % (Auto) 6.7 Baso % (Auto) 0.7 Neut # (Auto) 4.7 Lymph # (Auto) 1.2 [place]pson # (Auto) 0.5 Eos # (Auto) 0.5 H Baso # (Auto) 0.1 Sodium 141 Potassium 3.4 L Chloride 100 Carbon Dioxide 36 H Anion Gap 8.4 BUN 34 H Creatinine 1.90 H Estimated Creat Clear 41 Estimated GFR 26 L Est GFR ( Amer) 31 L Glucose 136 H D POC Glucose 138 H 138 H Hemoglobin A1c Calcium 9.2 Magnesium 1.6 Total Bilirubin 0.6 AST 29 ALT 28 Alkaline Phosphatase 103 NT-Pro-B Natriuret Pep Total Protein 6.1 L Albumin 3.7 Globulin 2.4 Albumin/Globulin Ratio 1.5 11/03/23 11/03/23 17:40 13:50 WBC RBC Hgb Hct MCV MCH MCHC RDW Plt Count MPV Neut % (Auto) Lymph % (Auto) Upson % (Auto) Eos % (Auto) Baso % (Auto) Neut # (Auto) Lymph # (Auto) [place]pson # (Auto) Eos # (Auto) Baso # (Auto) Sodium 141 Potassium 4.0 Chloride 106 Carbon Dioxide 31 H Anion Gap 8.0 BUN 31 H Creatinine 1.90 H Estimated Creat Clear Estimated GFR 26 L Est GFR ( Amer) 31 L Glucose 110 H POC Glucose 152 H Hemoglobin A1c 5.7 Calcium 9.3 Magnesium Total Bilirubin AST ALT Alkaline Phosphatase NT-Pro-B Natriuret Pep 1420 H Total Protein Albumin Globulin Albumin/Globulin Ratio DS: Diagnosis Discharge Diagnosis (1) Acute on chronic heart failure with preserved ejection fraction (HFpEF): Status: Acute Code(s): I50.33 - Acute on chronic diastolic (congestive) heart failure (2) HLD (hyperlipidemia): Status: Acute Code(s): E78.5 - Hyperlipidemia, unspecified Qualifiers: Hyperlipidemia type: mixed hyperlipidemia Qualified Code(s): E78.2 - Mixed hyperlipidemia (3) Diabetes: Status: Acute Code(s): E11.9 - Type 2 diabetes mellitus without complications Qualifiers: Diabetes mellitus complication status: with hyperglycemia Diabetes mellitus mcc insulin use: without marine oil terminal superintendent use Diabetes mellitus type: type 2 Qualified Code(s): E11.65 - Type 2 diabetes mellitus with hyperglycemia (4) HTN (hypertension): Status: Acute Code(s): I10 - Essential (primary) hypertension Qualifiers: Hypertension type: primary hypertension Qualified Code(s): I10 - Essential (primary) hypertension (5) CAD (coronary artery disease): Status: Acute Code(s): I25.10 - Atherosclerotic heart disease of [place] coronary artery without angina pectoris Qualifiers: Associated angina: without angina Coronary Disease-Associated Artery/Lesion type: [place] artery [place] vs. transplanted heart: [place] heart Qualified Code(s): I25.10 - Atherosclerotic heart disease of [place] coronary artery without angina pectoris (6) COPD (chronic obstructive pulmonary disease): Status: Acute Code(s): J44.9 - Chronic obstructive pulmonary disease, unspecified (7) Obesity (BMI 30.0-34.9): Status: Chronic Code(s): E66.9 - Obesity, unspecified Meds Home Medications and Allergies Home Medications Medication Instructions Recorded Confirmed Type minocycline 100 mg capsule 100 mg PO DAILY 01/14/20 11/03/23 History pantoprazole 40 mg tablet,delayed 40 mg PO BID 05/31/23 11/03/23 History release ropinirole 2 mg tablet 2 mg PO HS 05/31/23 11/03/23 History celecoxib 100 mg capsule 100 mg PO BID #180 caps 08/15/23 11/03/23 Rx albuterol sulfate 90 mcg/actuation 2 inh inhalation Q6HP PRN 09/27/23 11/03/23 History aerosol inhaler (Ventolin HFA) shortness of breath or wheezing carvedilol 25 mg tablet 50 mg PO BID 09/27/23 11/03/23 History empagliflozin 10 mg tablet 10 mg PO DAILY 09/27/23 11/03/23 History (Jardiance) losartan 100 mg tablet 100 mg PO DAILY 09/27/23 11/03/23 History semaglutide 1 mg/dose (4 mg/3 mL) 1 mg SQ WEEKLY 09/27/23 11/03/23 History subcutaneous pen injector (Ozempic) spironolactone 25 mg tablet 25 mg PO DAILY 09/27/23 11/03/23 History aspirin 81 mg tablet,delayed 81 mg PO DAILY 11/03/23 11/03/23 History release (Adult Low Dose Aspirin) evolocumab 140 mg/mL subcutaneous 140 mg SQ Q2W 11/03/23 11/03/23 History pen injector (Repatha SureFcoick) oxycodone 5 mg tablet 5 mg PO Q6HP PRN Severe Pain 11/03/23 11/03/23 History (Scale Score 7-10) albuterol sulfate 1.25 mg/3 mL 1.25 mg (3 mL) inhalation QID PRN 11/04/23 Rx solution for nebulization shortness of breath or wheezing #90 mL torsemide 100 mg tablet 50 mg (1/2 x 100 mg) PO DAILY 30 11/04/23 11/03/23 Rx days #0 tabs New Prescriptions to Start Prescriptions: albuterol sulfate Imer Millan Allergies Allergy/AdvReac Type Severity Reaction Status Date / Time Bouxooi-LEY-ApY Reductase AdvReac Intermediate myalgia Verified 10/07/23 10:45 Inhibitor [Jzvgphq-Bll-Pso Reductase Inhibitor] Discharge Plan Disposition Patient Disposition: Home, Self-Care Condition: Fair Follow up Plan Follow up with: Del Salas PA [Physician Medical Cost Consultant] - Enter time for follow up Shahid Knight MD [Primary Care Provider] - 11/10/23 2:30 pm Prescriptions/Medication Reconciliation: New albuterol sulfate 1.25 mg/3 mL solution for nebulization 1.25 mg inhalation QID PRN (Reason: shortness of breath or wheezing) Qty: 90 0RF Continued minocycline 100 mg capsule 100 mg PO DAILY pantoprazole 40 mg tablet,delayed release (DR/EC) 40 mg PO BID ropinirole 2 mg tablet 2 mg PO HS Ozempic 1 mg/dose (4 mg/3 mL) pen injector 1 mg SQ WEEKLY Patient Comments: INJECT 1 MG UNDER THE SKIN FOR 84 DAYS carvedilol 25 mg tablet 50 mg PO BID Rx Instructions: give with food (meal/snack) albuterol sulfate [Ventolin HFA] 90 mcg/actuation HFA aerosol inhaler 2 inh inhalation Q6HP PRN (Reason: shortness of breath or wheezing) losartan 100 mg tablet 100 mg PO DAILY Jardiance 10 mg tablet 10 mg PO DAILY spironolactone 25 mg tablet 25 mg PO DAILY Patient Comments: TAKE 1 TABLET BY MOUTH EVERY DAY aspirin [Adult Low Dose Aspirin] 81 mg tablet,delayed release (DR/EC) 81 mg PO DAILY Repatha SureClick 140 mg/mL pen injector 140 mg SQ Q2W oxycodone 5 mg tablet 5 mg PO Q6HP PRN (Reason: Severe Pain (Scale Score 7-10)) Patient Comments: TAKE 1 TABLET BY MOUTH EVERY 6 HOURS NEEDED Changed torsemide 100 mg tablet 50 mg PO DAILY 30 Days Qty: 0 0RF Held celecoxib 100 mg capsule 100 mg PO BID Qty: 180 2RF Hold Instructions: pending follow-up renal function labs Other Ambulatory Orders: Basic Metabolic Panel (Routine) Timeframe: 2 Days Facility: [facility] - Location: Laboratory Ordered By: Imer Millan Problem Reconciliation Problems Reviewed?: Yes Patient Discharge Instructions ACTIVITY: Continue current activity DIET: continue same diet Patient Instructions: DI for Heart Failure Providers Primary Care Provider: Shahid Knight Admit Provider: Imer Millan Attending Provider: Imer Millan
[2023-11-04 08:00] VITALS: BP 153/75; PULSE 73; PULSE 75; RESP 19; TEMP 36.6; O2SAT 96
--- NOTE | 2023-11-04 08:33 | XR_ITS ---
FINAL REPORT CLINICAL HISTORY: SOA, CHF, wheezing COMPARISON: None FINDINGS: PA and lateral views of the chest was performed. The heart and mediastinum are normal. The hilar regions are unremarkable. There are course interstitial lung changes. Otherwise, the lungs are clear. There is no infiltrate or edema. There are no pleural effusions. There are degenerative changes to the shoulders bilaterally. There is mild degenerative disc disease noted throught the thoracic spine. IMPRESSION: Course bilateral interstitial lung changes. Reviewed, Interpreted and Dictated by eRbel Kumar MD Transcribed by Renuka Sánchez Authenticated and [facility]
--- NOTE | 2023-11-04 08:36 | EXP.CARD.PN ---
Subjective Subjective Date: 11/04/23 Time: 08:36 Principal diagnosis: HFpEF Interval history: 78 yo WF in bed in NAD. Diuresed over 3 liters overnight on the bumex drip. Drip stopped this AM and oral torsemide restarted. LE edema has improved but still complains of SOA. Some wheezing noted on exam. Pt admits she has not been taking asthma meds regularly until recent SOA started. Non smoker but had significant secondhand smoke exposure and farm chemical exposure. Cr at 1.9 (stable) with mild bump in BUN to 34 Exam Data for Last 24 hours Vital signs and Labs for Last 24 Hours: Temp Pulse Resp BP Pulse Ox O2 Del Method O2 Flow Rate 98 F 73 19 153/75 H 96 Room Air 3 11/04/23 08:00 11/04/23 08:00 11/04/23 08:00 11/04/23 08:00 11/04/23 08:00 11/04/23 08:00 11/04/23 04:22 Laboratory Results - last 24 hr 11/03/23 13:50: Sodium 141, Potassium 4.0, Chloride 106, Carbon Dioxide 31 H, Anion Gap 8.0, BUN 31 H, Creatinine 1.90 H, Estimated GFR 26 L, Est GFR ( Amer) 31 L, Glucose 110 H, Hemoglobin A1c 5.7, Calcium 9.3, NT-Pro-B Natriuret Pep 1420 H 11/03/23 17:40: POC Glucose 152 H 11/03/23 19:44: POC Glucose 138 H 11/04/23 04:51: POC Glucose 138 H 11/04/23 05:43: WBC 7.0, RBC 2.93 L, Hgb 10.6 L, Hct 27.8 L, MCV 94.7, MCH 36.1 H, MCHC 38.1 H, RDW 16.3, Plt Count 224, MPV 8.3, Neut % (Auto) 68.1, Lymph % (Auto) 17.3, [place] % (Auto) 7.1, Eos % (Auto) 6.7, Baso % (Auto) 0.7, Neut # (Auto) 4.7, Lymph # (Auto) 1.2, [place] # (Auto) 0.5, Eos # (Auto) 0.5 H, Baso # (Auto) 0.1, Sodium 141, Potassium 3.4 L, Chloride 100, Carbon Dioxide 36 H, Anion Gap 8.4, BUN 34 H, Creatinine 1.90 H, Estimated Creat Clear 41, Estimated GFR 26 L, Est GFR ( Amer) 31 L, Glucose 136 H D, Calcium 9.2, Magnesium 1.6, Total Bilirubin 0.6, AST 29, ALT 28, Alkaline Phosphatase 103, Total Protein 6.1 L, Albumin 3.7, Globulin 2.4, Albumin/Globulin Ratio 1.5 I & O for Last 24 hours: Intake & Output 11/01/23 11/02/23 11/03/23 11/04/23 11:59 11:59 11:59 11:59 Intake Total 1350 / 1350 Output Total 4500 / 4500 Balance -3150 / -3150 Weight 231 lb 4.8 oz Constitutional Constitutional: no acute distress *Routine Respiratory Exam Respiratory: Present wheezes and diminished air movement; Absent rhonchi *Routine Cardiovascular Exam Cardiovascular: Present RRR *Routine Extremities Exam Extremities: Present edema Comments: Edema has improved but still present Progress Note: A&P Assessment and plan (1) Acute on chronic heart failure with preserved ejection fraction (HFpEF): Status: Acute (2) HLD (hyperlipidemia): Status: Acute (3) Diabetes: Status: Acute (4) HTN (hypertension): Status: Acute (5) CAD (coronary artery disease): Status: Acute (6) COPD (chronic obstructive pulmonary disease): Status: Acute (7) Obesity (BMI 30.0-34.9): Status: Chronic Assessment and Plan Assessment and Plan for All Diagnoses:: 1. Acute on chronic HFpEF with PND/orthopnea, 15 pound weight gain and LE edema, resistant to increase in home meds -Diuresed well on IV bumex (negative 3 liters). Switched to oral torsemide/spironolactone combo this AM -monitor labs -BNP 1420 2. 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 Hypertension with hypertensive heart disease -Continue home medications of losartan 100 mg daily and carvedilol 50 mg twice daily 4. History of hyperlipidemia -Continue Repatha therapy 5. Diabetes -Continue Jardiance and Ozempic 6. Chronic spinal infection -Chronic antibiotic therapy 7. CAD, clinically stable -Continue aspirin therapy 8. SOA with history of asthma -encouraged routine use of maintenance meds -check CXR CXR pending restart breztri or neb treatments possibly home later today Home med recommendations: Aspirin 81 mg daily coreg 50 mg BID jardiance 10 mg daily losartan 100 mg daily Repatha 1 mg every 2 wks. spironolactone 25 mg daily torsemide 50 mg 3 times per week pantoprazole 40 mg BID Ozempic 1 mg weekly Outpatient follow up with us in 1-2 wks. Outpatient follow up with Dr. Champion in 2-4 wks for asthma. Labs (BMP, mag level) next week.
[2023-11-04] MEDS: POTASSIUM CHLORIDE 20MEQ TAB 40 MEQ PO (08:40)
[2023-11-04] MEDS: IRBESARTAN 150MG TAB 150 MG PO (08:40)
[2023-11-04] MEDS: ENOXAPARIN 40MG/0.4ML SYRINGE 40 MG SQ (08:40)
[2023-11-04] MEDS: TORSEMIDE 20MG TABLET 50 MG PO (08:40)
[2023-11-04] MEDS: CARVEDILOL 25MG TABLET 50 MG PO (08:41)
[2023-11-04] MEDS: EMPAGLIFLOZIN 10MG TABLET 10 MG PO (08:41)
[2023-11-04] MEDS: SPIRONOLACTONE 25MG TABLET 25 MG PO (08:41)
[2023-11-04] MEDS: ASPIRIN EC 81MG TABLET 81 MG PO (08:41)
[2023-11-04] MEDS: PANTOPRAZOLE 40MG TABLET 40 MG PO (08:41)
[2023-11-04] MEDS: MINOCYCLINE HCL 100 MG PO (08:43)
[2023-11-04] MEDS: MAGNESIUM SULFATE IN WATER 2 GM/50 ML PIGGYBACK IV (08:43)
--- NOTE | 2023-11-04 08:56 | PC.NURSE ---
respiratory called to give pt breathing tx.
[2023-11-04] MEDS: ALBUTEROL-HFA 90MCG/PUFF INHALER 8GM 2 PUFF IH (09:06)
[2023-11-04 10:41] LABS: POC Glucose,Bedside 161 (70-110)
[2023-11-04] MEDS: humaLOG 100 UNITS/ML 10ML VIAL (SSI) SQ (10:44)
[2023-11-04 12:00] VITALS: PULSE 70
--- NOTE | 2023-11-07 13:56 | CARE MANAGER ---
Contacted patient related to hospital discharge. She states she feels maya since fluid was taken off. She is calling cards for appt for follow up. She is aware of other follow up and states she hasn't gotten her nebulizer treatments yet due to issue with pharmacy but does have her inhalers. She will let us know if unable to get them. Denies any other questions or concerns.
== END 2023-11-04 15:54 | disposition home or self-care (01) ==
PROVIDERS: Admitting Provider Internal Medicine Adolescent Medicine; PCP Internal Medicine; Visit Provider Internal Medicine Adolescent Medicine
DX: I50.33 Acute on chronic diastolic (congestive) heart failure (principal); E11.65 Type 2 diabetes mellitus with hyperglycemia; E78.5 Hyperlipidemia, unspecified; I13.0 Hypertensive heart and chronic kidney disease with heart failure and stage 1 through stage 4 chronic kidney disease, or unspecified chronic kidney disease; I25.10 Atherosclerotic heart disease of native coronary artery without angina pectoris; J44.9 Chronic obstructive pulmonary disease, unspecified; Z96.651 Presence of right artificial knee joint; Z96.652 Presence of left artificial knee joint; E66.9 Obesity, unspecified; Z68.35 Body mass index [BMI] 35.0-35.9, adult; Z79.899 Other long term (current) drug therapy; E11.22 Type 2 diabetes mellitus with diabetic chronic kidney disease; N18.9 Chronic kidney disease, unspecified; Z79.85 Long-term (current) use of injectable non-insulin antidiabetic drugs
CPT/HCPCS: 36415; 71046; 80048; 80053; 82962; 83036; 83735; 83880; 85025; 93005; 93306; G0378; J1650; J3475

== ENCOUNTER 2023-11-15 15:30 | Outpatient (CLI) | payer OTHER, MEDICARE, SELFPAY ==
[2023-11-15 16:18] LABS: Basophils # 0.1 K/mm3 (0-0.2); Basophils % 0.7 % (0.1-2.0); Eosinophils # 0.4 K/mm3 (0.0-0.4); Eosinophils % 4.3 % (0.1-12.0); Hematocrit 36.2 % (37.0-47.0); Hemoglobin 11.8 g/dL (12.2-16.2); Lymphocytes # 1.4 K/mm3 (0.7-4.5); Lymphocytes % 15.8 % (10-50); Mean Corpuscular HGB Conc 32.5 g/dL (31.8-35.4); Mean Corpuscular Hemoglobin 30.7 pg (27.0-31.2); Mean Corpuscular Volume 94.4 fl (81-99); Mean Platelet Volume 8.7 fl (7.4-10.4); Monocytes # 0.6 K/mm3 (0.1-1.0); Monocytes % 6.8 % (1.7-9.3); Neutrophils # 6.3 K/mm3 (1.8-7.8); Neutrophils % 72.4 % (37.0-80.0); Platelet Count 267 K/mm3 (142-424); Red Blood Count 3.83 M/mm3 (4.20-5.40); Red Cell Distribution Width 15.4 % (11.5-17.5); White Blood Count 8.8 K/mm3 (4.8-10.8)
[2023-11-15 17:29] LABS: Blood Urea Nitrogen 41 mg/dl (7-17); Calcium 9.7 mg/dl (8.4-10.2); Carbon Dioxide 29 mmol/L (22.0-30.0); Chloride 102 mmol/L (98-107); Estimated Glomerular Filt Rate 27 ml/min (>60); GFR (African American) 33 ML/MIN (>60); Glucose 143 mg/dl (74-100); Sodium 139 mmol/L (136-145)
[2023-11-15 17:33] LABS: NT Pro Brain Natriuretic Pep. 328 pg/mL (0-450)
== END 2023-11-15 23:59 | disposition home or self-care (01) ==
LOC: LAB 15:32
PROVIDERS: PCP Internal Medicine; Visit Provider Physician Assistant
DX: I50.33 Acute on chronic diastolic (congestive) heart failure (principal); J44.9 Chronic obstructive pulmonary disease, unspecified
CPT/HCPCS: 36415; 80048; 83880; 85025

== ENCOUNTER 2023-12-23 08:24 | Outpatient (CLI) | payer OTHER, MEDICARE, SELFPAY ==
--- NOTE | 2023-12-23 08:33 | XR_ITS ---
FINAL REPORT TECHNIQUE: Bone densitometry calculations of the lumbar spine and left hip were obtained. CLINICAL HISTORY: SCREENING COMPARISON: None FINDINGS: Using the left forearm, the bone mineral density of the mid forearm is 0.400 g/cm2, corresponding to T-score of -3.8. Using the right hip, the bone mineral density of the femoral neck is 0.875 g/cm2, corresponding to a T-score of -0.6. NOTE: T-score: Standard deviation compared with peak bone mass of young adult mean. *Following the recommendations of the International Society of Bone Densitometry, classification of hip BMD is based on the lower of two T-scores; total hip or femoral neck. IMPRESSION: Osteoporosis: Lowest T-score is at or below -2.5. This patient's T-score meets the World Health Organization criteria for osteoporosis. Reviewed, Interpreted and Dictated by Noel Barber III, MD Transcribed by Linh Hunt Authenticated and [facility]
== END 2023-12-23 23:59 | disposition home or self-care (01) ==
LOC: RAD 08:26
PROVIDERS: PCP Internal Medicine; Visit Provider Internal Medicine
DX: M81.0 Age-related osteoporosis without current pathological fracture (principal); Z78.0 Asymptomatic menopausal state
CPT/HCPCS: 77080

== ENCOUNTER 2024-02-24 10:06 | Outpatient (CLI) | payer OTHER, MEDICARE, SELFPAY ==
--- NOTE | 2024-02-24 10:09 | MM_ITS ---
PROCEDURE INFORMATION: Exam: MG Bilateral Screening 3D Mammography Exam date and time: 02/24/2024 9:53 AM Age: 78 years old Clinical indication: Screening examination. Her daughter had breast cancer age 52. TECHNIQUE: Imaging protocol: Bilateral Screening tomosynthesis and 2D mammography including computer-aided detection (CAD) when performed. COMPARISON: MG MM DIG SCREENING MAMM BI W/CAD 01/28/2023 9:38 AM FINDINGS: MAMMOGRAPHY: Breast composition: The breasts are heterogeneously dense, which may obscure small masses. Mass: None. Architectural distortion: None. Calcifications: No suspicious calcifications. Asymmetric density: None. Skin thickening: None. Axillary adenopathy: None. IMPRESSION: No mammographic evidence of malignancy. Annual screening is recommended unless otherwise clinically indicated. ASSESSMENT: BI-RADS Category 1: Negative.
== END 2024-02-24 23:59 | disposition home or self-care (01) ==
LOC: RAD 10:06
PROVIDERS: PCP Internal Medicine; Visit Provider Nurse Practitioner
DX: Z12.31 Encounter for screening mammogram for malignant neoplasm of breast (principal)
CPT/HCPCS: 77063; 77067

== ENCOUNTER 2024-03-14 07:01 | Outpatient (CLI) | payer OTHER, MEDICARE, SELFPAY ==
--- NOTE | 2024-03-14 | CA_ITS ---
APPROVED REPORT Exam: Pharmacologic Technologist: Agata Lance Ht: 5 ft 8 in Wt: 220 lbs BSA: 2.13 m2 HR: 69 bpm BP: 174/77 mmHg Rhythm: NSR, RBBB, rightward axis, low voltage QRS Medical History Cardiac Risk Factors: HTN, Hyperlipidemia, Diabetes (non-insulin), FHX of CAD Stress Test Details HR Resting HR: 69 bpm Max Heart Rate (APMHR): 143.759246 bpm Target HR (85% APMHR): 121.767385 bpm Recovery HR: 82 bpm BP Resting BP: 174.0/77.0 mmHg Recovery BP: 161.0/86.0 mmHg ECG Resting ECG: NSR, RBBB, rightward axis, low voltage QRS Stress ECG Conclusion During lexiscan pt experinced SOA, mild chest pressure, and mild head discomfort. Occasional PAC noted. No significant ST changes. Unremarkable lexiscan stress. Electronically signed by : Norah Vazquez MD 03/14/2024 12:45:25
--- NOTE | 2024-03-14 07:07 | NM_ITS ---
APPROVED REPORT Exam: Nuclear Stress Test Indication: htn, diabetes, hyperlipidemia, fm hx, c.p., sob, fatigue Patient Location: Outpatient Stress Tech: Agata Lance NM Tech:Giovanna Merino JANERashi RT (R)(N)(M) Ht: 5 ft 8 in Wt: 220 lbs Bra Size: 38c HR: 69 bpm BP: 174/77 mmHg BSA: 2.13 m2 TID: 1.29 BMI: 33.4 History: htn, diabetes, hyperlipidemia, fm hx, c.p., sob, fatigue pt could not lay on stomach for prone images pt c/o mild c.p. with lexiscan Procedure: Patient received 0.4 mg of intravenous Lexiscan, resting heart rate 69 bpm, resting blood pressure 174/77 mmHg, with Lexiscan maximum heart rate achieved was 81 bpm which is % of the maximum predicted heart rate and blood pressure was 179/83 mmHg. Cardiac Stress and Resting SPECT Images: Cardiac Stress and Resting SPECT images were obtained using technetium 99m Myoview 31.4 mCi stress and 10.60 mCi at rest. Resting and stress imaging in supine and prone positions demonstrate no evidence of fixed or reversible perfusion defects. There is increase in transient ischemic dilatation ratio (TID 1.29), suggestive of possible multivessel disease or balanced ischemia. Gated imaging demonstrates normal global and regional LV systolic function. LVEF is calculated at 61%. Conclusion: No evidence of fixed or reversible perfusion defects. There is increase in transient ischemic dilatation ratio (TID 1.29), suggestive of possible multivessel disease or balanced ischemia. Gated imaging demonstrates normal global and regional LV systolic function. LVEF is calculated at 61%. In the setting of normal LV systolic function and presence of TID, further evaluation noninvasively with CCTA suggested prior to proceeding with invasive angiography. Electronically signed by : Norah Vazquez MD 03/19/2024 12:39:03
[2024-03-14] MEDS: SODIUM CHLORIDE 0.9% 10ML SYR (RAD ONLY) 10 ML IV ×2 (07:25→08:30)
[2024-03-14] MEDS: REGADENOSON 0.4MG/5ML SYRINGE 0.4 MG IV (08:30)
[2024-03-14] MEDS: ISOTOPE MYOVIEW (PER STUDY) 1 DOSE IV (10:06)
== END 2024-03-14 23:59 | disposition home or self-care (01) ==
LOC: RAD 07:03
PROVIDERS: PCP Internal Medicine; Visit Provider Physician Assistant
DX: R07.89 Other chest pain (principal); I25.10 Atherosclerotic heart disease of native coronary artery without angina pectoris; I10 Essential (primary) hypertension
CPT/HCPCS: 78452; 93017; 93018; A9502; J2785

== ENCOUNTER 2024-03-23 11:47 | Outpatient (CLI) | payer OTHER, MEDICARE, SELFPAY ==
[2024-03-23 12:27] VITALS: BMI 33.4
[2024-03-23 12:28] VITALS: BP 195/84; PULSE 65; RESP 17; TEMP 36.6; O2SAT 98
[2024-03-23 12:40] LABS: Chloride 106 mmol/L (98-107); Sodium 141 mmol/L (136-145)
[2024-03-23 12:41] LABS: Potassium 4.2 mmoL/L (3.5-5.1)
[2024-03-23 12:43] LABS: Blood Urea Nitrogen 41 mg/dl (7-17); Creatinine Clearance Estimated 37 mL/min (50-200); Estimated Glomerular Filt Rate 24 ml/min (>60); GFR (African American) 29 ML/MIN (>60)
[2024-03-23 12:44] LABS: Anion Gap 11.2 mEq/L (5-15); Calcium 8.7 mg/dl (8.4-10.2); Carbon Dioxide 28 mmol/L (22.0-30.0); Glucose 142 mg/dl (74-100)
--- NOTE | 2024-03-23 12:48 | PC.NURSE ---
Spoke to Del Salas PA-C regarding pt's GFR of 24. Del stated to proceed with procedure and just give fluids after CCTA
--- NOTE | 2024-03-23 12:49 | CT_ITS ---
APPROVED REPORT Cant Hooker: CLINICAL INDICATION Chest Pain TECHNIQUE Image Acquisition: A 128 slice MDCT scanner (Tweetwalla View) was used for data acquisition. A noncontrast coronary calcium scan was performed. A CT attenuation threshold of 130 Hounsfield units (HU) was used for the detection of calcium in contiguous voxels of 1 sq mm in area to be counted as individual lesions. Bolus tracking in the ascending aorta with a threshold of 180 HU was performed. Immediately afterwards, ECG synchronized cardiac CT was then performed from the cardiac base to apex using retrospective gating with ECG tube current modulation. A total of 85 mL of Isovue 370 mg/mL contrast medium was administered at 5 mL/sec followed by a saline flush using a biphasic injection protocol. A tube voltage of 120 KVp was used. The patient received the following medications prior to the cardiac CT. 25 mg of oral metoprolol 5 mg of intravenous metoprolol 0.8 mg of sublingual nitroglycerin The average heart rate at the time of acquisition was 66 bpm and regular. Image Reconstruction Transaxial images were reconstructed at 0.67 mm slide thickness. Data was reviewed interactively on an advanced workstation capable of 2 and 3-dimensional displays in all conventional reconstruction formats, including multiplanar reformations, maximum intensity projections, curved multiplanar reformations, and volume rendered reconstructions. When applicable, selected routine images describing the relevant coronary anatomy and pathology were saved and sent to PACS. Complications None Technical Quality Overall image quality was suboptimal due to significant motion and blurring artifact. Coronary artery opacification was suboptimal. Total DLP (Dose-Length Product) is 2085.7 mGy-cm. The reported value represents the total of one or more individual components during the CT acquisition of this date and at this time, and as such, the same value may appear in more than one CT report depending on the interpreting/reporting physicians. COMPARISON None FINDINGS CT Coronary Calcium Scoring LMA (Left Main Artery) = 20 LAD (Left Anterior Descending) = 424 LCX (Left Coronary Circumflex) = 194 RCA (Right Coronary Artery) = 99 Total Calcium Score = 737 using the AJ-130 method. The observed calcium score of 737 is at 89th percentile for subjects of the same age, sex, and race/ethnicity. The interpretation of the calcium heart score is based on the following continuum*: 0 = no calcified plaque detected (risk of coronary artery disease is very low ??? less than 5%) 1-10 = calcium detected in extremely minimal levels (risk of coronary diseases is still low ??? less than 10%) 11-100 = mild levels of plaque detected with certainty (mild or minimal narrowing of heart arteries is likely) 101-400 = definite,at least moderate levels of plaque detected (relatively high risk of a heart attack within 3-5 years) >401-999 = extensive levels of plaque detected (high risk of heart attack, high levels of vascular disease are present, high likelihood of at least one significant coronary narrowing) *The calcium heart score quantifies the burden of coronary calcification/plaque in the coronary arteries. The calcium heart score is not able to evaluate the presence or burden of non-calcified (i.e. soft) plaque. There is no identifiable calcification in the aortic valve, mitral annulus or mitral valve, pericardium, or myocardium. Coronary CT Angiography The coronary arterial system is right dominant. Quantitative Stenosis Grading: Left Main (LM): The left main originates normally from the left sinus of Valsalva. The LM bifurcates into the left anterior descending artery and left circumflex artery. There is mixed calcified/noncalcified plaque in the proximal LM segment, with indeterminate severity due to significant motion artifact. Left Anterior Descending (LAD) and Diagonal Branches: The LAD gives off 2 diagonal branch(es). There is mixed calcified/noncalcified plaque in the proximal and mid LAD segments with likely moderate 50-70% luminal stenosis. There is no evidence of LAD-myocardial bridge. Left Circumflex (LCX) and Obtuse Marginals (OM): The LCX gives off 1 Obtuse Marginal (OM) branch(es). There is mixed calcified/noncalcified plaque in the proximal LCx segment with up to 70-90% luminal stenosis. Right Coronary Artery (RCA): The RCA originates normally from the right sinus of Valsalva. The RCA gives off a posterior descending artery (PDA) and posterolateral (PL) branches. There is a segment in the proximal RCA that is not visualized due to significant motion. There is mixed calcified/noncalcified plaque in the proximal RCA segment with indeterminate degree of luminal stenosis. Non-Coronary Cardiac Findings: Analysis of the left ventricular (LV) structure and function was performed after 3-D reconstruction of the LV from axial images, with user-corrected automatic contouring for assessment of LV volumes and user-defined reconstruction from oblique planes for measurement of 3-D cardiac structure and function. -The left ventricle systolic function is normal. -There is no left atrial appendage filling defect. Two right pulmonary veins and two left pulmonary veins drain normally into the left atrium. -No pericardial thickening or calcification. -Central and branch pulmonary arteries in the [id number] are unremarkable. -Thoracic aorta within the visualized thoracic aortic-branches in the [id number] is unremarkable. Extracardiac Structures No significant extra-cardiac findings. Note, however, that this study is focused on the cardiac findings. IMPRESSION -Technically difficult study with suboptimal images due to poor IV contrast opacification and significant motion with blurring artifact. -Presence of coronary calcification with an Agatston score = 737 using the AJ-130 method. -The observed calcium score of 737 is at 89tg percentile for subjects of the same age, sex, and race/ethnicity. -Multivessel atherosclerotic coronary disease with possible evidence of significant flow-limiting atherosclerosis as noted above (degree of luminal stenosis may be inaccurate due to technically difficult study). -CAD-RADS 4B. Management recommendations per ACC/AHA guidelines*, as clinically appropriate. *Recommendations: CAD RADS 0: Reassurance. Consider non-atherosclerotic causes of chest pain. CAD RADS 1: Consider non-atherosclerotic causes of chest pain. Consider preventive therapy and risk factor modification. CAD RADS 2: Consider non-atherosclerotic causes of chest pain. Consider preventive therapy and risk factor modification, particularly for patients with nonobstructive plaque in multiple segments. CAD RADS 3: Consider further functional testing. Consider symptom-guided anti-ischemic and preventive pharmacotherapy as well as risk factor modification per published guideline statements. CAD RADS 4A: Consider further functional testing or invasive coronary angiography with revascularization per published guideline statements. Consider symptom-guided anti-ischemic and preventive pharmacotherapy as well as risk factor modification per published guideline statements. CAD RADS 4B: Invasive coronary angiography recommended with revascularization per published guideline statements. Consider symptom-guided anti-ischemic and preventive pharmacotherapy as well as risk factor modification per published guideline statements. CAD RADS 5: Consider invasive angiography and/or viability assessment with revascularization per published guideline statements. Consider symptom-guided anti-ischemic and preventive pharmacotherapy as well as risk factor modification per published guideline statements. CRITICAL RESULT None COMMUNICATION Per this written report The coronary and cardiac findings of this CCTA were reviewed, reported, and signed by Roland Vazquez MD (Forestry Professor) Conclusion Electronically signed by : Norah Vazquez MD 03/26/2024 13:06:57
[2024-03-23] MEDS: METOPROLOL TARTRATE 25MG TABLET 25 MG (12:50)
--- NOTE | 2024-03-23 12:50 | HMH.ITSTN ---
post op nurses called and stated patient labs today were low and they called and spoke with ordering doctor. Nurses called me back and stated we are going to give contrast with known low gfr.
[2024-03-23 12:55] VITALS: BP 196/92; PULSE 65; RESP 18; O2SAT 98
[2024-03-23 13:00] VITALS: BP 131/68; PULSE 69; RESP 16; O2SAT 98
[2024-03-23 13:05] VITALS: BP 132/70; PULSE 75; RESP 16; O2SAT 98
[2024-03-23 13:10] VITALS: BP 144/72; PULSE 68; RESP 16; O2SAT 98
[2024-03-23] MEDS: METOPROLOL TARTRATE 5MG/5ML VIAL *IVABRADINE+METOPROLOL REGIMINE 5 MG IV (13:10)
[2024-03-23 13:18] VITALS: BP 169/88; PULSE 72; RESP 17; O2SAT 99
[2024-03-23] MEDS: IOPAMIDOL-370 (76%);100ML BOTTLE 85 ML IV (13:19)
[2024-03-23] MEDS: 0.9 % SODIUM CHLORIDE 50 ML VIAL IV (13:19)
[2024-03-23] MEDS: SODIUM CHLORIDE 0.9% 10ML SYR (RAD ONLY) 10 ML IV (13:20)
[2024-03-23] MEDS: 0.9 % SODIUM CHLORIDE 1000ML 1,000 ML 999 ML IV (13:21)
[2024-03-23] MEDS: NITROGLYCERIN 0.4MG SL TABLET 0.8 MG SL (13:21)
== END 2024-03-23 14:16 | disposition home or self-care (01) ==
PROVIDERS: PCP Internal Medicine; Visit Provider Physician Assistant
DX: R94.39 Abnormal result of other cardiovascular function study (principal); R07.89 Other chest pain; E78.2 Mixed hyperlipidemia; I10 Essential (primary) hypertension; J44.9 Chronic obstructive pulmonary disease, unspecified
CPT/HCPCS: 75574; 80048; 82565; 84520; J7030; Q9967

== ENCOUNTER 2024-03-26 15:16 | Outpatient (CLI) | payer OTHER, MEDICARE, SELFPAY ==
[2024-03-26 15:58] LABS: Anion Gap 12.1 mEq/L (5-15); Blood Urea Nitrogen 30 mg/dl (7-17); Calcium 9.3 mg/dl (8.4-10.2); Carbon Dioxide 26 mmol/L (22.0-30.0); Chloride 108 mmol/L (98-107); Estimated Glomerular Filt Rate 29 ml/min (>60); GFR (African American) 35 ML/MIN (>60); Glucose 136 mg/dl (74-100); Potassium 4.1 mmoL/L (3.5-5.1); Sodium 142 mmol/L (136-145)
== END 2024-03-26 23:59 | disposition home or self-care (01) ==
LOC: LAB 15:25
PROVIDERS: PCP Internal Medicine; Visit Provider Physician Assistant
DX: N18.4 Chronic kidney disease, stage 4 (severe) (principal)
CPT/HCPCS: 80048

== ENCOUNTER 2024-03-30 08:03 | Day surgery (SDC) | payer OTHER, MEDICARE, SELFPAY ==
[2024-03-30] VITALS (11 sets, daily range): BP systolic 118–160; BP diastolic 58–84; PULSE 53–83; RESP 17–20; TEMP 36.6–36.8; O2SAT 94–100; BMI 33.4
--- NOTE | 2024-03-30 07:20 | IR_ITS ---
APPROVED REPORT Patient Location: Outpatient Director Of Corporate Responsibility: Ger Styles, RT (R) PROCEDURES Left heart catheterization Selective coronary angiogram INDICATION Abnormal Myoview, Angina pectoris, Congestive heart failure Informed consent was obtained prior to the procedure. COMPLICATIONS None Estimated Blood Loss: Less than 10 mls TECHNIQUE One percent lidocaine used to anesthetize the right anterior aspect of the wrist. The right radial artery was accessed via the Seldinger technique. A 6 Egyptian sheath was placed in the right radial artery. 2.5 mg of Verapamil, 800 mcg of nitroglycerin, 1mg Lidocaine and 5000 U Heparin were given through the arterial sheath. The 6 Egyptian JL 3 guide catheter r was also used to perform left heart catheterization and selective coronary angiogram. At the end of the procedure the sheath was removed good hemostasis was achieved using Traclet band, patient was transferred to the postop holding area in stable condition. ANGIOGRAPHIC RESULTS The left main artery Normal The left anterior descending artery Has proximal 10 to 20% stenosis followed by an additional smooth 20 to 30% stenosis The circumflex artery Dominant with mild 10% luminal regularities The right coronary artery Nondominant with proximal 20 to 30% stenosis The [place] ventriculogram reveals Not performed The left ventricular end-diastolic pressure Elevated at 25 mmHg IMPRESSION Mild nonflow limiting coronary artery disease Elevated LVEDP consistent with diastolic dysfunction PLAN 1. Medical management Electronically signed by : Harpreet Hughes MD 03/30/2024 10:20:22
[2024-03-30 09:02] LABS: Basophils # 0.1 K/mm3 (0-0.2); Basophils % 0.9 % (0.1-2.0); Chloride 109 mmol/L (98-107); Eosinophils # 0.6 K/mm3 (0.0-0.4); Eosinophils % 7.1 % (0.1-12.0); Hematocrit 39.6 % (37.0-47.0); Hemoglobin 13.2 g/dL (12.2-16.2); Lymphocytes % 12.2 % (10-50); Mean Corpuscular HGB Conc 33.4 g/dL (31.8-35.4); Mean Corpuscular Hemoglobin 30.7 pg (27.0-31.2); Mean Corpuscular Volume 91.9 fl (81-99); Mean Platelet Volume 8.7 fl (7.4-10.4); Monocytes # 0.5 K/mm3 (0.1-1.0); Monocytes % 6.5 % (1.7-9.3); Neutrophils # 5.8 K/mm3 (1.8-7.8); Neutrophils % 73.3 % (37.0-80.0); Platelet Count 194 K/mm3 (142-424); Potassium 4.1 mmoL/L (3.5-5.1); Red Blood Count 4.31 M/mm3 (4.20-5.40); Red Cell Distribution Width 13.9 % (11.5-17.5); Sodium 142 mmol/L (136-145); White Blood Count 7.9 K/mm3 (4.8-10.8)
[2024-03-30 09:05] LABS: Anion Gap 10.1 mEq/L (5-15); Blood Urea Nitrogen 47 mg/dl (7-17); Calcium 9.1 mg/dl (8.4-10.2); Carbon Dioxide 27 mmol/L (22.0-30.0); Creatinine Clearance Estimated 41 mL/min (50-200); Estimated Glomerular Filt Rate 27 ml/min (>60); GFR (African American) 33 ML/MIN (>60); Glucose 148 mg/dl (74-100)
[2024-03-30] MEDS: LIDOCAINE 1% 10ML MDV 20 ML IJ (10:18)
[2024-03-30] MEDS: diphenhydrAMINE 50MG/ML VIAL 50 MG IV (10:18)
[2024-03-30] MEDS: HEPARIN 1,000 UNITS/500ML NS (CATH LAB) 3000 UNIT IV (10:18)
[2024-03-30] MEDS: HEPARIN 1,000 UNITS/ML 10ML VIAL (CATH LAB) 10000 UNIT IV (10:19)
[2024-03-30] MEDS: FENTANYL 100MCG/2ML VIAL 25 MCG IV (10:19)
[2024-03-30] MEDS: 0.9 % SODIUM CHLORIDE 500 ML 25 ML IV (10:19)
[2024-03-30] MEDS: VERAPAMIL 2.5MG/ML 2ML VIAL 2.5 MG IV (10:19)
[2024-03-30] MEDS: NITROGLYCERIN 800MCG/8ML SYR (CATH LAB) 800 MCG IA (10:23)
[2024-03-30] MEDS: MIDAZOLAM HCL 1MG/ML 5ML VIAL 1 MG IV (10:23)
[2024-03-30] MEDS: IOPAMIDOL-370 (76%);100ML BOTTLE 25 ML IV (10:29)
== END 2024-03-30 12:50 | disposition home or self-care (01) ==
PROVIDERS: PCP Internal Medicine; Visit Provider Internal Medicine
DX: I25.10 Atherosclerotic heart disease of native coronary artery without angina pectoris (principal); I12.9 Hypertensive chronic kidney disease with stage 1 through stage 4 chronic kidney disease, or unspecified chronic kidney disease; I50.32 Chronic diastolic (congestive) heart failure; N18.9 Chronic kidney disease, unspecified; Z79.899 Other long term (current) drug therapy; Z79.85 Long-term (current) use of injectable non-insulin antidiabetic drugs
CPT/HCPCS: 80048; 85025; 93458; 99152; C1725; C1769; J1200; J1644; J2250; J3010; Q9967

== ENCOUNTER 2024-04-06 08:31 | Outpatient (CLI) | payer OTHER, MEDICARE, SELFPAY ==
[2024-04-06 09:21] LABS: Albumin Level 3.8 g/dl (3.5-5.0)
[2024-04-06 09:24] LABS: Alanine Aminotransferase 27 U/L (12-78); Alkaline Phosphatase 155 U/L (38-126); Aspartate Amino Transferase 30 U/L (14-36); Bilirubin,Direct 0.3 mg/dl (0.0-0.4); Bilirubin,Indirect 0.4 mg/dL (0.0-0.9); Bilirubin,Total 0.7 mg/dl (0.2-1.3); Bilirubin,Unconjugated 0.4 mg/dL (0.0-1.1); Chol/HDL Ratio 3.2 (1-3.5); Cholesterol 117 mg/dl (140-200); HDL Cholesterol 37 mg/dl (40-60); Magnesium 1.6 mg/dl (1.6-2.3); Total Protein,Serum 6.1 g/dl (6.3-8.2); Triglycerides 243 mg/dl (30-150); VLDL Cholesterol 49 mg/dL (0-40)
[2024-04-06 09:37] LABS: Direct LDL Cholesterol 46.51 mg/dL (100-129)
[2024-04-06 09:51] LABS: Chloride 107 mmol/L (98-107)
[2024-04-06 09:52] LABS: Potassium 4.5 mmoL/L (3.5-5.1); Sodium 137 mmol/L (136-145)
[2024-04-06 09:55] LABS: Anion Gap 6.5 mEq/L (5-15); Blood Urea Nitrogen 55 mg/dl (7-17); Calcium 9.1 mg/dl (8.4-10.2); Carbon Dioxide 28 mmol/L (22.0-30.0); Estimated Glomerular Filt Rate 27 ml/min (>60); GFR (African American) 33 ML/MIN (>60); Glucose 153 mg/dl (74-100)
[2024-04-06 09:58] LABS: Basophils # 0.1 K/mm3 (0-0.2); Basophils % 0.7 % (0.1-2.0); Eosinophils # 0.8 K/mm3 (0.0-0.4); Eosinophils % 9.9 % (0.1-12.0); Hemoglobin 11.9 g/dL (12.2-16.2); Lymphocytes # 1.1 K/mm3 (0.7-4.5); Lymphocytes % 13.7 % (10-50); Mean Corpuscular HGB Conc 32.2 g/dL (31.8-35.4); Mean Corpuscular Hemoglobin 29.7 pg (27.0-31.2); Mean Corpuscular Volume 92.3 fl (81-99); Mean Platelet Volume 11.2 fl (7.4-10.4); Monocytes # 0.8 K/mm3 (0.1-1.0); Monocytes % 9.3 % (1.7-9.3); Neutrophils # 5.4 K/mm3 (1.8-7.8); Platelet Count 191 K/mm3 (142-424); Red Blood Count 4.01 M/mm3 (4.20-5.40); Red Cell Distribution Width 12.7 % (11.5-17.5); Thyroid Stimulating Hormone 6.35 uIU/mL (0.465-4.68); White Blood Count 8.1 K/mm3 (4.8-10.8)
[2024-04-06 14:13] LABS: Free T4 (Free Thyroxine) 1.31 ng/dl (0.78-2.19)
== END 2024-04-06 23:59 | disposition home or self-care (01) ==
LOC: LAB 08:35
PROVIDERS: Physician Assistant; PCP Internal Medicine; Visit Provider Internal Medicine
DX: I25.10 Atherosclerotic heart disease of native coronary artery without angina pectoris (principal); E78.5 Hyperlipidemia, unspecified; R07.89 Other chest pain; I12.9 Hypertensive chronic kidney disease with stage 1 through stage 4 chronic kidney disease, or unspecified chronic kidney disease; N18.4 Chronic kidney disease, stage 4 (severe); Z68.33 Body mass index [BMI] 33.0-33.9, adult; E66.9 Obesity, unspecified; E11.65 Type 2 diabetes mellitus with hyperglycemia; Z79.85 Long-term (current) use of injectable non-insulin antidiabetic drugs; I13.0 Hypertensive heart and chronic kidney disease with heart failure and stage 1 through stage 4 chronic kidney disease, or unspecified chronic kidney disease; I50.33 Acute on chronic diastolic (congestive) heart failure
CPT/HCPCS: 80048; 80061; 80076; 83735; 84439; 84443; 85025

== ENCOUNTER 2024-06-11 16:25 | Outpatient (CLI) | payer OTHER, MEDICARE, SELFPAY | END 2024-06-11 23:59 | disposition home or self-care (01) | LOC: LAB.DROPOF 06-12 17:59 | PROVIDERS: PCP Podiatrist; Visit Provider Podiatrist | DX: B35.1 Tinea unguium (principal); M79.609 Pain in unspecified limb; M79.676 Pain in unspecified toe(s); L60.3 Nail dystrophy | CPT/HCPCS: 87102; 87206; 87220 ==

== ENCOUNTER 2024-07-26 07:47 | Outpatient (CLI) | payer OTHER, MEDICARE, SELFPAY ==
--- NOTE | 2024-07-26 08:00 | CA_ITS ---
FINAL REPORT CLINICAL HISTORY: HTN, Smoker, CAD, Renal cysts COMPARISON: None FINDINGS: DOPPLER RENAL VESSELS HISTORY: Hypertension . FINDINGS: The kidneys are normal and symmetric in size. Intrarenal resistive indices on the right are 0.8-0.83, normal . Intrarenal resistive indices on the left are 0.81-0.85, normal . Right main renal artery systolic velocity: 132 cm/sec. Aortic-right renal artery flow velocity ratio: 1.6 COMMENT: No evidence of hemodynamically significant renal artery stenosis . Left main renal artery systolic velocity: 157 cm/sec. Aortic-left renal artery flow velocity ratio: 1.9 COMMENT: No evidence of hemodynamically significant renal artery stenosis . IMPRESSION: No evidence of hemodynamically significant renal artery stenosis CTA or gadolinium-enhanced MR may be considered as a more sensitive exam. Alternatively noncontrast MRI may be considered for assessing main renal arteries for stenosis as a more sensitive exam if the patient has renal insufficiency. Reviewed, Interpreted and Dictated by Ally West MD Transcribed by Linh Hunt Authenticated and [facility]
--- NOTE | 2024-07-26 10:00 | US_ITS ---
FINAL REPORT CLINICAL HISTORY: N18.4 - Chronic kidney disease, stage 4 (severe) FINDINGS: RENAL ULTRASOUND Ultrasound images of the kidneys were obtained. The right kidney measures 13.6 cm in length. It is normal echogenicity. There is no hydronephrosis. There is a benign 63 mm exophytic cyst in the lower pole of the right kidney. The left kidney measures 11.8 cm in length. It is normal echogenicity. There is no hydronephrosis. There is a 20 mm hypoechoic mass in the lower pole of the left kidney, could be complex cyst or less likely solid mass. Incidental fatty changes of the liver identified. IMPRESSION: No renal atrophy or obstruction. Indeterminate left renal mass. Recommend CT or MR using renal mass protocol. Fatty liver. Reviewed, Interpreted and Dictated by Ally West MD Transcribed by Sindy Mora Authenticated and [facility]
== END 2024-07-26 23:59 | disposition home or self-care (01) ==
LOC: RT 07:48
PROVIDERS: PCP Internal Medicine; Visit Provider Physician Assistant
DX: I12.9 Hypertensive chronic kidney disease with stage 1 through stage 4 chronic kidney disease, or unspecified chronic kidney disease (principal); N18.4 Chronic kidney disease, stage 4 (severe)
CPT/HCPCS: 76770; 93976

== ENCOUNTER 2024-07-27 11:16 | Outpatient (CLI) | payer OTHER, MEDICARE, SELFPAY ==
[2024-07-27 11:49] LABS: Blood Urea Nitrogen 35 mg/dl (7-17); Estimated Glomerular Filt Rate 27 ml/min (>60); GFR (African American) 33 ML/MIN (>60)
== END 2024-07-27 23:59 | disposition home or self-care (01) ==
LOC: LAB 11:17
PROVIDERS: PCP Internal Medicine; Visit Provider Physician Assistant
DX: N28.89 Other specified disorders of kidney and ureter (principal)
CPT/HCPCS: 36415; 82565; 84520

== ENCOUNTER 2024-07-27 12:57 | Outpatient (CLI) | payer OTHER, MEDICARE, SELFPAY ==
--- NOTE | 2024-07-27 13:00 | MR_ITS ---
FINAL REPORT CLINICAL HISTORY: left renal mass eval. COMPARISON: Ultrasound dated 07/26/2024 FINDINGS: Multiplanar MR imaging of the abdomen was obtained with and without contrast. There are multiple renal cysts present. Abnormality described on recent ultrasound in the lower pole of the left kidney corresponds to a benign cyst measuring up to 20 mm. There is also a dominant cyst at the lower pole right kidney measuring 63 mm. No solid enhancing renal mass identified. There is no hydronephrosis. Remaining solid organs are unremarkable. There is gastric distention, presumably from recent meal. There is no ascites. IMPRESSION: Bilateral renal cyst without evidence of renal neoplasm. Reviewed, Interpreted and Dictated by Ally West MD Transcribed by Sindy Mora Authenticated and [facility]
[2024-07-27] MEDS: GADOTERIDOL INJ 20ML SYRINGE 20 ML IV (14:51)
[2024-07-27] MEDS: 0.9 % SODIUM CHLORIDE 50 ML VIAL IV (14:52)
== END 2024-07-27 23:59 | disposition home or self-care (01) ==
LOC: RAD 12:58
PROVIDERS: PCP Internal Medicine; Visit Provider Physician Assistant
DX: N28.89 Other specified disorders of kidney and ureter (principal)
CPT/HCPCS: 74183; A9576

== ENCOUNTER → 2024-08-16 07:49 | Outpatient (CLI) | payer OTHER, MEDICARE, SELFPAY | LOC: SL 07:50 | PROVIDERS: PCP Physician Assistant; Visit Provider Physician Assistant | DX: R40.0 Somnolence (principal); E66.811 Obesity, class 1; I10 Essential (primary) hypertension; N18.4 Chronic kidney disease, stage 4 (severe); Z68.33 Body mass index [BMI] 33.0-33.9, adult | CPT/HCPCS: G0399 ==

== ENCOUNTER 2024-09-13 16:04 | Emergency (ER) | payer OTHER, MEDICARE, SELFPAY ==
--- NOTE | 2024-09-13 16:12 | ECG_ITS ---
APPROVED REPORT Exam: Resting ECG HR:78 bpm ECG Measurements Heart Rate 78 AXES AZ 169 P 23 QRSd 126 QRS 244 QT 393 T 44 QTc 427 Conclusion SINUS RHYTHM INDETERMINATE AXIS RIGHT BUNDLE BRANCH BLOCK [120+ ms QRS DURATION, UPRIGHT V1, 40+ ms S IN I/aVL/V4/V5/V6] ABNORMAL ECG Electronically signed by : CHIRAG ROBLES, 09/15/2024 12:41:03
[2024-09-13 16:19] VITALS: BP 127/63; PULSE 77; O2SAT 94
[2024-09-13 16:22] VITALS: BP 183/76; PULSE 69; RESP 19; TEMP 36.8; O2SAT 95; BMI 33.1
--- NOTE | 2024-09-13 16:24 | [facility].EDGENADL ---
Discharge Plan Disposition Patient Disposition: Home, Self-Care Condition: Fair Prescriptions Prescriptions: No Action minocycline 100 mg capsule 100 mg PO DAILY flecainide 100 mg tablet 100 mg PO DAILY PRN (Reason: AFib) Qty: 7 2RF Eliquis 2.5 mg tablet 0RF diltiazem HCl 120 mg capsule,extended release 24hr 120 mg PO BID Qty: 60 2RF Dupixent Pen 300 mg/2 mL pen injector SQ fluticasone furoate-vilanterol [Breo Ellipta] 100-25 mcg/dose blister with device 1 inh inhalation DAILY Qty: 90 2RF albuterol sulfate 90 mcg/actuation HFA aerosol inhaler 2 inh inhalation Q6H PRN (Reason: shortness of breath or wheezing) 90 Days Qty: 8.5 2RF pantoprazole 40 mg tablet,delayed release (DR/EC) 40 mg PO BID Qty: 180 3RF ropinirole 2 mg tablet 2 mg PO HS Qty: 90 3RF carvedilol 25 mg tablet 50 mg PO BID 90 Days Qty: 360 3RF Rx Instructions: give with food (meal/snack) Jardiance 10 mg tablet 10 mg PO DAILY Qty: 90 3RF valsartan 320 mg tablet 320 mg PO DAILY Qty: 90 3RF Repatha SureClick 140 mg/mL pen injector 140 mg SQ Q2W Qty: 2 11RF Eliquis 2.5 mg tablet 2.5 mg PO BID Qty: 60 2RF celecoxib 100 mg capsule 100 mg PO BID Qty: 180 2RF promethazine 25 mg tablet 25 mg PO TID PRN (Reason: vomiting) 3 Days Qty: 9 0RF ondansetron 4 mg tablet,disintegrating 4 mg PO Q8H PRN (Reason: nausea) 7 Days Qty: 21 0RF Ozempic 1 mg/dose (4 mg/3 mL) pen injector 1 mg SQ WEEKLY Patient Comments: INJECT 1 MG UNDER THE SKIN FOR 84 DAYS torsemide 100 mg tablet 50 mg PO DAILY 30 Days Qty: 0 0RF Referrals Follow up/Referrals: Shahid Knight MD [Primary Care Provider, Medical] - See instructions Activity Restrictions/Add. Instructions Additional Instructions/Restrictions: You are seen in the emergency room today with complaints of nausea, vomiting, diarrhea. Would recommend trying clear liquid diets this evening and advance diet as tolerated nausea symptoms. Return to the ER if you begin having abdominal pain or intractable nausea with vomiting again. Follow-up with your primary care physician and/or Dr. Arguello in the next 1 to 2 weeks. Clinical Impressions Clinical Impression: Diarrhea, Nausea, Gastroenteritis Instructions Patient Instructions: DI for Diarrhea and Traveler's Diarrhea -- Adult, DI for Diarrhea and Traveler's Diarrhea -- Child, DI for Nausea -- Adult, DI for Nausea -- Child Print Language Print Language: Thai Discharge ED Provider: Raheem Scott General Adult HPI <Nadine Galvez, [employer] - Last Filed: 09/13/24 17:42> General Chief complaint: Nausea/Vomiting/Diarrhea Stated complaint: Dizziness,DUMONT,weakness,V/D Time Seen by Provider: 09/13/24 16:13 History of Present Illness HPI narrative: Hilda Nagel is a 79-year-old female past medical history significant for A-fib on Eliquis, HFpEF, COPD, CAD, HTN who presents emergency room today with complaints of nausea, vomiting, headache and a bit of dizziness. 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 Patient tells me that she woke up this morning with a headache and had diarrhea that started about 230 this morning. Reports that she had a GI bug last week with some diarrhea but no vomiting. Reports that she went to work this morning and began vomiting at work. Emesis was NBNB. Patient reports that she filled up a whole emesis bag while at work and came over here to be evaluated. Patient denies any fever, cough, chest pain. No abdominal pain per se, just some nausea and mild cramping. Has had a prior cholecystectomy and appendectomy. No other complaints at this time. Please note that the above description of symptoms, and this electronic medical record under categorization of recalled from ER triage doctor by RN are reflective of an initial nursing assessment, however, is not reflective of my full history and physical exam that was personally taken and clarified. Consequentially, this proceeding description of symptoms, which may include the patient's cauterized chief complaint in the EMR, do not reflect my personal clinical impression, and the ultimate description of the history of present illness stated complaints should be deferred to this section of this note. Unless stated otherwise were congruent with the section of the note, additional signs, symptoms, or incongruence can be interpreted as in or accurate with my clinical impression. Related Data Home Medications ?Medication ?Instructions ?Recorded ?Confirmed minocycline 100 mg capsule 100 mg PO DAILY 01/14/20 09/05/24 semaglutide 1 mg/dose (4 mg/3 mL) 1 mg SQ WEEKLY 09/27/23 09/05/24 subcutaneous pen injector (Ozempic) dupilumab 300 mg/2 mL subcutaneous mg SQ 09/05/24 09/05/24 pen injector (Dupixent) Previous Rx's ?Medication ?Instructions ?Recorded torsemide 100 mg tablet 50 mg (1/2 x 100 mg) PO DAILY 30 11/04/23 days #0 tabs pantoprazole 40 mg tablet,delayed 40 mg PO BID #180 tabs 12/05/23 release ropinirole 2 mg tablet 2 mg PO HS #90 tabs 12/05/23 carvedilol 25 mg tablet 50 mg (2 x 25 mg) PO BID 90 days 06/04/24 #360 tabs flecainide 100 mg tablet 100 mg PO DAILY PRN AFib #7 tabs 06/07/24 empagliflozin 10 mg tablet 10 mg PO DAILY #90 tabs 06/20/24 (Jardiance) valsartan 320 mg tablet 320 mg PO DAILY #90 tabs 07/06/24 evolocumab 140 mg/mL subcutaneous 140 mg SQ Q2W #2 mL 07/13/24 pen injector (Damir Gurrola) diltiazem HCl 120 mg capsule,24 120 mg PO BID #60 caps 07/18/24 hr,extended release apixaban 2.5 mg tablet (Eliquis) 2.5 mg PO BID #60 tabs 07/30/24 celecoxib 100 mg capsule 100 mg PO BID #180 caps 09/03/24 albuterol sulfate 90 mcg/actuation 2 inh inhalation Q6H PRN shortness 09/06/24 aerosol inhaler of breath or wheezing 90 days #8.5 grams fluticasone furoate 100 1 inh inhalation DAILY #90 ea 09/06/24 mcg-vilanterol 25 mcg/dose inhalation powder (Breo Ellipta) ondansetron 4 mg disintegrating 4 mg PO Q8H PRN nausea 7 days #21 09/13/24 tablet tabs promethazine 25 mg tablet 25 mg PO TID PRN vomiting 3 days 09/13/24 #9 tabs Allergies Allergy/AdvReac Type Severity Reaction Status Date / Time [id number] Reductase AdvReac Intermediate myalgia Verified 09/05/24 14:13 Inhibitor (Ixarvhs-Auy-Mlv Reductase Inhibitor) [facility] <Nadine Galvez, [employer] - Last Filed: 09/13/24 17:42> [facility] Disclaimer: The information contained in this section may have been updated after the patient was seen, as this information can be updated by other users. Medical History New onset a-fib Diabetes HLD (hyperlipidemia) CAD (coronary artery disease) Bilateral knee pain Asthma On statin therapy Hyperparathyroidism Chronic bronchitis Dyspnea on exertion Fatigue Hypoparathyroidism Change in bowel function Abdominal pain Degenerative arthritis of knee, bilateral Diarrhea Vomiting Edema Bilateral leg pain Low back pain Retrolisthesis of vertebrae Lumbar spinal stenosis Lumbar facet arthropathy Lumbar radiculopathy Degenerative disc disease, lumbar Bilateral leg pain Ingrowing Toenail Onychodystrophy Onychomycosis Pain due to onychomycosis of toenail of left foot BMI 33.0-33.9,adult Ingrowing Toenail Edema CKD (chronic kidney disease) Cardiac murmur Left carotid bruit Moderate mitral valve regurgitation Hiatal hernia GERD (gastroesophageal reflux disease) Diastolic congestive heart failure PAC (premature atrial contraction) HHD (hypertensive heart disease) SOB (shortness of breath) Diastolic dysfunction Surgical History History of arthroplasty of right knee History of arthroplasty of left knee History of elbow surgery right History of cholecystectomy History of surgery on right wrist History of total left hip arthroplasty History of bilateral tubal ligation History of back surgery Family History Daughter Cancer breast Sister Diabetes Coronary artery disease Parkinsons Father Diabetes Coronary artery disease Brother Stroke Mother Spiradenoma Social History Smoking Status: Never smoker second hand exposure: No alcohol intake: never substance use type: denies use current occupational status: employed Travel in the last 8 weeks?: None household members: none housing: house lives independently: Yes marital status: single education level: high school service: No skilled nursing: No current occupation: [employer] current occupational exposures/hazards: No caffeine: Yes special lois needs: No agree to transfusion: No do you feel safe at home: Yes victim of physical abuse: No victim of emotional abuse: No victim of sexual abuse: No would you like helpful sources: No Have you lived/traveled outside [place] in past 30 days?: No Contact w/someone who lives/traveled outside [place] past 30 days?: No Exposure to someone with infectious disease in past 14 days?: No Do you have a fever (greater than 100.4 F or 38 C)?: No Have you tested positive for COVID-19?: No Exposed to someone with COVID-19 in past 14 days?: No Do you have a sore throat?: No Do you have a cough?: No Do you have any weakness?: Yes Do you have any diarrhea?: Yes Are you experiencing any unusual bleeding?: No Do you have any muscle aches/pain?: No Do you have any abdominal pain?: No Are you experiencing loss of taste or smell?: No Other Medical History Have you received the Flu Vaccine for this season: No Have you received the Pneumonia Vaccine: Yes <Nadine Galvez APRN - Last Filed: 09/13/24 17:42> ROS Obtained: Yes Systems reviewed as appropriate & no additional complaints except as documented Physical Exam <Nadine Galvez APRN - Last Filed: 09/13/24 17:42> General General appearance: alert and in no apparent distress Head Head exam: atraumatic and normocephalic Eye Eye exam: Present PERRL and EOMI Chest Chest inspection: Present symmetric chest wall rise Respiratory Respiratory exam: Present normal lung sounds bilaterally Cardiovascular Cardiovascular exam: Present regular rate and normal rhythm Abdominal Exam Abdominal exam: Present soft and normal bowel sounds; Absent tenderness Extremities Exam Extremities exam: Present full ROM Neurological Exam Neurological exam: Present alert and oriented X3 Skin Skin exam: Present warm, dry and intact Medical Decision Making <Nadine Galvez APRN - Last Filed: 09/13/24 17:42> Medical Records Screening: Per USPSTF and CDC recommendations, given the prevalence of disease in our region, it is our hospital?s policy to screen for HIV and viral Hepatitis for all patients aged 18 and over and those with ongoing risk factors. Terry Inquiry Pt receiving controlled substance: No Vital Signs: 09/13/24 16:19 09/13/24 16:22 09/13/24 16:31 Temperature 98.3 F Temperature Source Oral Pulse Rate 77 75 Pulse Rate [Left Radial] 69 Respiratory Rate 19 Blood Pressure 127/63 126/60 Blood Pressure [Right Arm] 183/76 H Blood Pressure Mean [Right Arm] 111 Blood Pressure Source Blood Pressure Position 02 Sat by Pulse Oximetry 94 L 95 92 L Oxygen Delivery Method Room Air Room Air Room Air 09/13/24 17:00 09/13/24 17:31 09/13/24 17:53 Temperature 98.1 F Temperature Source Oral Pulse Rate 67 76 85 Pulse Rate [Left Radial] Respiratory Rate 15 Blood Pressure 139/64 148/65 H 145/85 H Blood Pressure [Right Arm] Blood Pressure Mean [Right Arm] Blood Pressure Source Automatic Cuff Blood Pressure Position Supine 02 Sat by Pulse Oximetry 92 L 94 L Oxygen Delivery Method Room Air Room Air Room Air Lab Data Lab Results 09/13/24 16:19: WBC 9.5, RBC 4.64, Hgb 13.7, Hct 42.4, MCV 91.4, MCH 29.5, MCHC 32.3, RDW 13.5, Plt Count 226, MPV 11.0 H, Neut % (Auto) 85.4 H, Lymph % (Auto) 2.6 L, [place] % (Auto) 6.6, Eos % (Auto) 4.9, Baso % (Auto) 0.2, Neut # (Auto) 8.1 H, Lymph # (Auto) 0.3 L, [place] # (Auto) 0.6, Eos # (Auto) 0.5 H, Baso # (Auto) 0.0, Total Counted 100, Neutrophils % (Manual) 88 H, Lymphocytes % (Manual) 2 L, Monocytes % (Manual) 8, Eosinophils % (Manual) 2, Platelet Estimate Normal, RBC Morphology Normal, Sodium 136, Potassium 4.2, Chloride 102, Carbon Dioxide 25, Anion Gap 13.2, BUN 52 H, Creatinine 2.10 H, Estimated Creat Clear 34, Estimated GFR 23 L, Est GFR ( Amer) 28 L, Glucose 177 H, Calcium 9.6, Total Bilirubin 0.9, AST 36, ALT 29, Alkaline Phosphatase 133 H, Total Protein 7.8 D, Albumin 4.4, Globulin 3.4 H, Albumin/Globulin Ratio 1.3, Lipase 521 H 09/13/24 16:29: HCV Ab ALLYSON w/Rflx PCR Qn Negative, HIV Ag/Ab Combo Qual Negative 09/13/24 16:19 09/13/24 16:19 Orders (Tests/Meds): ED MEDICATIONS Discontinued Medications Generic Name Dose Route Start Last Admin Trade Name Janice PRN Reason Stop Dose Admin Sodium Chloride 1,000 mls @ 500 mls/hr 09/13/24 16:30 09/13/24 16:47 Sod Chlor 0.9% 1000ml Bag IV 10/13/24 16:29 500 mls/hr .Q2H MONSE Administration Prochlorperazine Edisylate 5 mg 09/13/24 16:22 09/13/24 16:47 Prochlorperazine 10mg/2ml Vial IV 09/13/24 16:23 5 mg ONCE ONE Administration ORDERS Category Date Time Status CBC w/Auto Diff [Complete Blood Count Auto Diff] Stat Lab 09/13/24 16:19 Completed CMP [Comprehensive Metabolic Panel] Stat Lab 09/13/24 16:19 Completed HIV Combo Stat Lab 09/13/24 16:29 Completed Hepatitis C Ab Qual. W/ RFX Stat Lab 09/13/24 16:29 Completed Lipase Stat Lab 09/13/24 16:19 Completed Medical Decision Narrative: In summary patient is an 79-year-old female who presents emergency department for evaluation of nausea, vomiting, diarrhea with a headache and some mild dizziness. Patient states she woke up with her headache this morning. No focal neurodeficits. No unilateral weakness, numbness, tingling. No vision changes, no blurry vision or double vision. Symptoms began at 2:00 this morning started with diarrhea, then she began vomiting at work. Not really lightheaded per se, just feels weak from vomiting and having diarrhea. Patient is hemodynamically stable upon arrival, afebrile. Remarkable nonfocal physical exam. No abdominal pain or tenderness with palpation. Differential diagnosis includes gastroenteritis versus diverticulitis versus pancreatitis. Initial workup will be conducted with hematologic labs. CT of the abdomen was considered but deferred at this time. Patient without any abdominal pain or tenderness. Initial interventions include crystalloid bolus, Compazine for nausea, EKG. Initial workup reviewed by pa labs remarkable for creatinine of 2.1, baseline appears to be around 1.8. Lipase elevated at 521, could be indicative of mild pancreatitis. Patient continues to be pain-free, no chest pain, abdominal pain, shortness of breath. No back pain. Discussed options of performing a CT of the abdomen with patient the patient feels confident that she would like to try to go home and manage her symptoms at home. Patient understands that if she develops intractable nausea or abdominal pain, she is to return to the ER and we will reevaluate. She should start with clear liquids this evening and advance diet as tolerated. Did discuss with patient her mildly elevated creatinine. She did receive a 1 L IV fluid bolus while she was here in the emergency room. Admission was again discussed and offered but the patient was adamant about going home. We used shared decision-making and discussed drinking adequate fluids at home. She states that Dr. Hughes with cardiology follows closely with her renal function. Upon reassessment after IV fluids and antiemetics, patient was feeling much better and states that she is ready to go home. One of the physicians at the cardiology clinic already called in a prescription for antiemetics for her. Given this, patient appropriate for discharge at this time. She is to follow-up with her primary care physician and cardiology 1 to 2 weeks. Strict return precautions were given for patient and she verbalized understanding. <Raheem Scott MD - Last Filed: 09/13/24 23:34> Vital Signs: 09/13/24 16:19 09/13/24 16:22 09/13/24 16:31 Temperature 98.3 F Temperature Source Oral Pulse Rate 77 75 Pulse Rate [Left Radial] 69 Respiratory Rate 19 Blood Pressure 127/63 126/60 Blood Pressure [Right Arm] 183/76 H Blood Pressure Mean [Right Arm] 111 Blood Pressure Source Blood Pressure Position 02 Sat by Pulse Oximetry 94 L 95 92 L Oxygen Delivery Method Room Air Room Air Room Air 09/13/24 17:00 09/13/24 17:31 09/13/24 17:53 Temperature 98.1 F Temperature Source Oral Pulse Rate 67 76 85 Pulse Rate [Left Radial] Respiratory Rate 15 Blood Pressure 139/64 148/65 H 145/85 H Blood Pressure [Right Arm] Blood Pressure Mean [Right Arm] Blood Pressure Source Automatic Cuff Blood Pressure Position Supine 02 Sat by Pulse Oximetry 92 L 94 L Oxygen Delivery Method Room Air Room Air Room Air Lab Data Lab Results 09/13/24 16:19: WBC 9.5, RBC 4.64, Hgb 13.7, Hct 42.4, MCV 91.4, MCH 29.5, MCHC 32.3, RDW 13.5, Plt Count 226, MPV 11.0 H, Neut % (Auto) 85.4 H, Lymph % (Auto) 2.6 L, [place] % (Auto) 6.6, Eos % (Auto) 4.9, Baso % (Auto) 0.2, Neut # (Auto) 8.1 H, Lymph # (Auto) 0.3 L, [place] # (Auto) 0.6, Eos # (Auto) 0.5 H, Baso # (Auto) 0.0, Total Counted 100, Neutrophils % (Manual) 88 H, Lymphocytes % (Manual) 2 L, Monocytes % (Manual) 8, Eosinophils % (Manual) 2, Platelet Estimate Normal, RBC Morphology Normal, Sodium 136, Potassium 4.2, Chloride 102, Carbon Dioxide 25, Anion Gap 13.2, BUN 52 H, Creatinine 2.10 H, Estimated Creat Clear 34, Estimated GFR 23 L, Est GFR ( Amer) 28 L, Glucose 177 H, Calcium 9.6, Total Bilirubin 0.9, AST 36, ALT 29, Alkaline Phosphatase 133 H, Total Protein 7.8 D, Albumin 4.4, Globulin 3.4 H, Albumin/Globulin Ratio 1.3, Lipase 521 H 09/13/24 16:29: HCV Ab ALLYSON w/Rflx PCR Qn Negative, HIV Ag/Ab Combo Qual Negative Orders (Tests/Meds): ED MEDICATIONS Discontinued Medications Generic Name Dose Route Start Last Admin Trade Name Freq PRN Reason Stop Dose Admin Sodium Chloride 1,000 mls @ 500 mls/hr 09/13/24 16:30 09/13/24 16:47 Sod Chlor 0.9% 1000ml Bag IV 10/13/24 16:29 500 mls/hr .Q2H MONSE Administration Prochlorperazine Edisylate 5 mg 09/13/24 16:22 09/13/24 16:47 Prochlorperazine 10mg/2ml Vial IV 09/13/24 16:23 5 mg ONCE ONE Administration ORDERS Category Date Time Status CBC w/Auto Diff [Complete Blood Count Auto Diff] Stat Lab 09/13/24 16:19 Completed CMP [Comprehensive Metabolic Panel] Stat Lab 09/13/24 16:19 Completed HIV Combo Stat Lab 09/13/24 16:29 Completed Hepatitis C Ab Qual. W/ RFX Stat Lab 09/13/24 16:29 Completed Lipase Stat Lab 09/13/24 16:19 Completed ECG Data Tracing #1: I reviewed this ECG and interpreted as documented below: Sinus rhythm at a rate of 78, QTc 427, right bundle branch block, no STEMI Medical Decision Narrative: In summary patient is an 79-year-old female who presents emergency department for evaluation of nausea, vomiting, diarrhea with a headache and some mild dizziness. Patient states she woke up with her headache this morning. No focal neurodeficits. No unilateral weakness, numbness, tingling. No vision changes, no blurry vision or double vision. Symptoms began at 2:00 this morning started with diarrhea, then she began vomiting at work. Not really lightheaded per se, just feels weak from vomiting and having diarrhea. Patient is hemodynamically stable upon arrival, afebrile. Remarkable nonfocal physical exam. No abdominal pain or tenderness with palpation. Differential diagnosis includes gastroenteritis versus diverticulitis versus pancreatitis. Initial workup will be conducted with hematologic labs. CT of the abdomen/pelvis with IV contrast was considered but deferred at this time. Patient without any abdominal pain or tenderness. Initial interventions include crystalloid bolus, Compazine for nausea, EKG. Initial workup reviewed by me labs remarkable for creatinine of 2.1, baseline appears to be around 1.8. Lipase elevated at 521, could be indicative of mild pancreatitis. Patient continues to be pain-free, no chest pain, abdominal pain, shortness of breath. No back pain. Discussed options of performing a CT of the abdomen with patient the patient feels confident that she would like to try to go home and manage her symptoms at home. Patient understands that if she develops intractable nausea or abdominal pain, she is to return to the ER and we will reevaluate. She should start with clear liquids this evening and advance diet as tolerated. Did discuss with patient her mildly elevated creatinine. She did receive a 1 L IV fluid bolus while she was here in the emergency room. Admission was again discussed and offered but the patient was adamant about going home. We used shared decision-making and discussed drinking adequate fluids at home. She states that Dr. Hughes with cardiology follows closely with her renal function. Upon reassessment after IV fluids and antiemetics, patient was feeling much better and states that she is ready to go home. One of the physicians at the cardiology clinic already called in a prescription for antiemetics for her. Given this, patient appropriate for discharge at this time. She is to follow-up with her primary care physician and cardiology 1 to 2 weeks. Strict return precautions were given for patient and she verbalized understanding. GORDON attestation I was consulted by the GORDON, and we discussed the complexity of problems being addressed. I approved the treatment and management plan for this patient's care in the emergency department, thus performing a substantial portion of the medical decision making. I also personally examined the patient at bedside. She had no abdominal tenderness. Symptoms consistent with gastroenteritis. She strangely had an elevated lipase at 521 however no abdominal tenderness on exam. She was tolerating oral intake without difficulty and had improvement in her symptoms. Had already been prescribed Phenergan and Zofran by providers upstairs before being seen in the ER. Was ultimately discharged in stable condition. Raheem Scott MD Critical Care <Nadine Galvez, [employer] - Last Filed: 09/13/24 17:42> Critical Care Time Critical Care Time: No
[2024-09-13 16:31] VITALS: BP 126/60; PULSE 75; O2SAT 92
[2024-09-13 16:31] LABS: Basophils % 0.2 % (0.1-2.0); Eosinophils # 0.5 Kmm3 (0.0-0.4); Eosinophils % 4.9 % (0.1-12.0); Hematocrit 42.4 % (37.0-47.0); Hemoglobin 13.7 g/dL (12.2-16.2); Immature Granulocytes # 0.03 10^3uL; Immature Granulocytes % 0.3 %; Lymphocytes # 0.3 K/mm3 (0.7-4.5); Lymphocytes % 2.6 % (10-50); Mean Corpuscular HGB Conc 32.3 g/dL (31.8-35.4); Mean Corpuscular Hemoglobin 29.5 pg (27.0-31.2); Mean Corpuscular Volume 91.4 fl (81-99); Monocytes # 0.6 K/mm3 (0.1-1.0); Monocytes % 6.6 % (1.7-9.3); Neutrophils # 8.1 K/mm3 (1.8-7.8); Neutrophils % 85.4 % (37.0-80.0); Nucleated Red Blood Cells # 0 10^3/uL; Nucleated Red Blood Cells % 0 %; Platelet Count 226 K/mm3 (142-424); Red Blood Count 4.64 M/mm3 (4.20-5.40); Red Cell Distribution Width 13.5 % (11.5-17.5); Red Cell Distribution Width-SD 45.8 fL; White Blood Count 9.5 K/mm3 (4.8-10.8)
[2024-09-13 16:39] LABS: Alanine Aminotransferase 29 U/L (12-78); Albumin Level 4.4 g/dl (3.5-5.0); Albumin/Globulin Ratio 1.3 (1.1-1.8); Alkaline Phosphatase 133 U/L (38-126); Anion Gap 13.2 mEq/L (5-15); Aspartate Amino Transferase 36 U/L (14-36); Bilirubin,Total 0.9 mg/dl (0.2-1.3); Blood Urea Nitrogen 52 mg/dl (7-17); Calcium 9.6 mg/dl (8.4-10.2); Carbon Dioxide 25 mmol/L (22.0-30.0); Chloride 102 mmol/L (98-107); Creatinine Clearance Estimated 34 mL/min (50-200); Estimated Glomerular Filt Rate 23 ml/min (>60); GFR (African American) 28 ML/MIN (>60); Globulin 3.4 g/dL (1.3-3.2); Glucose 177 mg/dl (74-100); Lipase 521 U/L (23-300); Potassium 4.2 mmoL/L (3.5-5.1); Sodium 136 mmol/L (136-145); Total Protein,Serum 7.8 g/dl (6.3-8.2)
[2024-09-13] MEDS: PROCHLORPERAZINE 10MG/2ML VIAL 5 MG IV (16:47)
[2024-09-13] MEDS: 0.9 % SODIUM CHLORIDE 1000ML 1,000 ML 500 ML IV (16:47)
[2024-09-13 17:00] VITALS: BP 139/64; PULSE 67; O2SAT 92
[2024-09-13 17:08] LABS: MANUAL DIFFERENTIAL MANUAL DIFFERENTIAL (MANUAL DIFF)
[2024-09-13 17:31] VITALS: BP 148/65; PULSE 76; O2SAT 94
[2024-09-13 17:53] VITALS: BP 145/85; PULSE 85; RESP 15; TEMP 36.7; O2SAT 99
[2024-09-13 17:55] LABS: Eosinophils % 2 % (0-3); Lymphocytes % 2 % (10-50); Monocytes % 8 % (2-9); Neutrophils % 88 % (42-76); Platelet Estimate Normal; RBC Morphology Normal; Total Cells Counted 100
[2024-09-13 18:29] LABS: HIV Combo NEGATIVE (Negative)
[2024-09-13 18:37] LABS: Hepatitis C Ab Qual. W/ RFX NEGATIVE (Negative)
== END 2024-09-13 17:55 | disposition home or self-care (01) ==
PROVIDERS: Nurse Practitioner Acute Care; Emergency Provider Student in an Organized Health Care Education/Training Program; PCP Internal Medicine
DX: K52.9 Noninfective gastroenteritis and colitis, unspecified (principal); I48.91 Unspecified atrial fibrillation; E11.00 Type 2 diabetes mellitus with hyperosmolarity without nonketotic hyperglycemic-hyperosmolar coma (NKHHC); E78.00 Pure hypercholesterolemia, unspecified; J45.909 Unspecified asthma, uncomplicated
CPT/HCPCS: 80053; 83690; 85007; 85025; 85027; 86803; 87389; 93005; 96374; 99284; J0780; J7030

== ENCOUNTER 2024-09-15 19:03 | Emergency (ER) | payer OTHER, MEDICARE, SELFPAY ==
[2024-09-15] VITALS (8 sets, daily range): BP systolic 105–131; BP diastolic 41–64; PULSE 61–71; RESP 16; TEMP 36.6; O2SAT 96–98; BMI 33.1
--- NOTE | 2024-09-15 19:34 | ED_ITS ---
<Statement entered by Feliciano Nevarez MD - 09/15/24 23:20> I was consulted by the GORDON, and we discussed the complexity of the problems being addressed. I approved the treatment and management plan for this patient's care in the emergency department, thus performing a substantive portion of the medical decision making. Feliciano Nevarez MD, KERRY, FACEP Discharge Plan Disposition Patient Disposition: Home, Self-Care Condition: Good Prescriptions Prescriptions: New methocarbamol 750 mg tablet 750 mg PO Q6H PRN (Reason: muscle spasm) Qty: 20 0RF prednisone 50 mg tablet 50 mg PO DAILY 5 Days Qty: 5 0RF No Action minocycline 100 mg capsule 100 mg PO DAILY flecainide 100 mg tablet 100 mg PO DAILY PRN (Reason: AFib) Qty: 7 2RF Eliquis 2.5 mg tablet 0RF diltiazem HCl 120 mg capsule,extended release 24hr 120 mg PO BID Qty: 60 2RF Dupixent Pen 300 mg/2 mL pen injector SQ fluticasone furoate-vilanterol [Breo Ellipta] 100-25 mcg/dose blister with device 1 inh inhalation DAILY Qty: 90 2RF albuterol sulfate 90 mcg/actuation HFA aerosol inhaler 2 inh inhalation Q6H PRN (Reason: shortness of breath or wheezing) 90 Days Qty: 8.5 2RF pantoprazole 40 mg tablet,delayed release (DR/EC) 40 mg PO BID Qty: 180 3RF ropinirole 2 mg tablet 2 mg PO HS Qty: 90 3RF carvedilol 25 mg tablet 50 mg PO BID 90 Days Qty: 360 3RF Rx Instructions: give with food (meal/snack) Jardiance 10 mg tablet 10 mg PO DAILY Qty: 90 3RF valsartan 320 mg tablet 320 mg PO DAILY Qty: 90 3RF Repatha SureClick 140 mg/mL pen injector 140 mg SQ Q2W Qty: 2 11RF Eliquis 2.5 mg tablet 2.5 mg PO BID Qty: 60 2RF celecoxib 100 mg capsule 100 mg PO BID Qty: 180 2RF promethazine 25 mg tablet 25 mg PO TID PRN (Reason: vomiting) 3 Days Qty: 9 0RF ondansetron 4 mg tablet,disintegrating 4 mg PO Q8H PRN (Reason: nausea) 7 Days Qty: 21 0RF Ozempic 1 mg/dose (4 mg/3 mL) pen injector 1 mg SQ WEEKLY Patient Comments: INJECT 1 MG UNDER THE SKIN FOR 84 DAYS torsemide 100 mg tablet 50 mg PO DAILY 30 Days Qty: 0 0RF Referrals Follow up/Referrals: Shahid Knight MD [Primary Care Provider, Medical] - See instructions Activity Restrictions/Add. Instructions Additional Instructions/Restrictions: I have sent in a muscle relaxer and steroids to your pharmacy. I recommend following up with your PCP for reevaluation if you have persistent symptoms. If you have any new or worsening signs or symptoms follow-up sooner or return to the ER as needed. Clinical Impressions Clinical Impression: Acute exacerbation of chronic low back pain Instructions Patient Instructions: DI for Diarrhea and Traveler's Diarrhea -- Adult, DI for Diarrhea and Traveler's Diarrhea -- Child, DI for Nausea -- Adult, DI for Nausea -- Child Print Language Print Language: Greenlandic Discharge ED Provider: Feliciano Nevarez General Adult HPI General Chief complaint: Nausea/Vomiting/Diarrhea Stated complaint: vomiting,ximena,weakness Time Seen by Provider: 09/15/24 19:34 Mode of Arrival: Ambulatory Source of Information: Patient and Relative Description of Symptoms (Recalled from ER Triage Doc. by RN): Patient here for N/V/D; is complaining of still having diarrhea and feeling weak with back pain. History of Present Illness HPI narrative: Patient presents for evaluation of low back pain. Patient was seen on for an enteritis with nausea vomiting and diarrhea. Patient states that she has some rectal rawness from the diarrhea but she no longer has watery stool but she has developed worsening back pain. Patient has a history of chronic kidney disease a stage IV hyperlipidemia hypertension diabetes maintained on GLP-1 osteoporosis and history of previous back surgeries. Patient states that she does have chronic back pain but is not on any pain management regimen and does not follow with pain management. She currently denies fever chills hemoptysis hematochezia melena nausea vomiting diarrhea. She is tolerating oral intake now without vomiting or nausea. Related Data Home Medications ?Medication ?Instructions ?Recorded ?Confirmed minocycline 100 mg capsule 100 mg PO DAILY 01/14/20 semaglutide 1 mg/dose (4 mg/3 mL) 1 mg SQ WEEKLY 09/2609/05/24 subcutaneous pen injector (Ozempic) dupilumab 300 mg/2 mL subcutaneous mg SQ 09/05/2408/17 pen injector (Dupixent) Previous Rx's ?Medication ?Instructions ?Recorded torsemide 100 mg tablet 50 mg (1/2 x 100 mg) PO RINKU Y 30 11/04/23 days #0 tabs pantoprazole 40 mg tablet,delayed 40 mg PO BID #180 ta bs 12/05/23 release ropinirole 2 mg tablet 2 mg PO HS #90 tabs 12/05/23 carvedilol 25 mg tablet 50 mg (2 x 25 mg) PO BID 90 days 06/04/24 #360 tabs flecainide 100 mg tablet 100 mg PO DAILY PRN AFib #7 tabs 06/07/24 empagliflozin 10 mg tablet 10 mg PO DAILY #90 tabs 09/09 (Jardiance) valsartan 320 mg tablet 320 mg PO DAILY #90 tabs evolocumab 140 mg/mL subcutaneous 140 mg SQ Q2W #2 mL 07/13/24 pen injector (Damir Gurrola) diltiazem HCl 120 mg capsule,24 120 mg PO BID #60 caps 07/18/24 hr,extended release apixaban 2.5 mg tablet (Eliquis) 2.5 mg PO BID #60 tab s 07/30/24 celecoxib 100 mg capsule 100 mg PO BID #180 caps 08/16 01/10 albuterol sulfate 90 mcg/actuation 2 inh inhalation Q6 H PRN shortness 09/06/24 aerosol inhaler of breath or wheezing 90 day s #8.5 grams fluticasone furoate 100 1 inh inhalation DAILY #90 e a 09/06/24 mcg-vilanterol 25 mcg/dose inhalation powder (Breo Ellipta) ondansetron 4 mg disintegrating 4 mg PO Q8H PRN nausea 7 days #21 09/13/24 tablet tabs promethazine 25 mg tablet 25 mg PO TID PRN vomiting 3 days 09/13/24 #9 tabs methocarbamol 750 mg tablet 750 mg PO Q6H PRN muscle s pasm #20 09/15/24 tabs prednisone 50 mg tablet 50 mg PO DAILY 5 days #5 tab s 09/15/24 Allergies Allergy/AdvReac Type Severity Reaction Status Date / Time [id number] Reductase AdvReac Intermediate myalgia Verified 09/05/24 14:13 Inhibitor (Ldxstss-Mgc-Pik Reductase Inhibitor) [facility] Disclaimer: The information contained in this section may have been updated after the patient was seen, as this information can be updated by other users. Medical History New onset a-fib Diabetes HLD (hyperlipidemia) CAD (coronary artery disease) Bilateral knee pain Asthma On statin therapy Hyperparathyroidism Chronic bronchitis Dyspnea on exertion Fatigue Hypoparathyroidism Change in bowel function Abdominal pain Degenerative arthritis of knee, bilateral Diarrhea Vomiting Edema Bilateral leg pain Low back pain Retrolisthesis of vertebrae Lumbar spinal stenosis Lumbar facet arthropathy Lumbar radiculopathy Degenerative disc disease, lumbar Bilateral leg pain Ingrowing Toenail Onychodystrophy Onychomycosis Pain due to onychomycosis of toenail of left foot BMI 33.0-33.9,adult Ingrowing Toenail Edema CKD (chronic kidney disease) Cardiac murmur Left carotid bruit Moderate mitral valve regurgitation Hiatal hernia GERD (gastroesophageal reflux disease) Diastolic congestive heart failure PAC (premature atrial contraction) HHD (hypertensive heart disease) SOB (shortness of breath) Diastolic dysfunction Surgical History History of arthroplasty of right knee History of arthroplasty of left knee History of elbow surgery right History of cholecystectomy History of surgery on right wrist History of total left hip arthroplasty History of bilateral tubal ligation History of back surgery Family History Daughter Cancer breast Sister Diabetes Coronary artery disease Parkinsons Father Diabetes Coronary artery disease Brother Stroke Mother Spiradenoma Social History Smoking Status: Never smoker second hand exposure: No alcohol intake: never substance use type: denies use current occupational status: employed Travel in the last 8 weeks?: None household members: none housing: house lives independently: Yes marital status: single education level: high school service: No correction: No current occupation: [employer] current occupational exposures/hazards: No caffeine: Yes special lois needs: No agree to transfusion: No do you feel safe at home: Yes victim of physical abuse: No victim of emotional abuse: No victim of sexual abuse: No would you like helpful sources: No Have you lived/traveled outside [place] in past 30 days?: No Contact w/someone who lives/traveled outside [place] past 30 days?: No Exposure to someone with infectious disease in past 14 days?: No Do you have a fever (greater than 100.4 F or 38 C)?: No Have you tested positive for COVID-19?: No Exposed to someone with COVID-19 in past 14 days?: No Do you have a sore throat?: No Do you have a cough?: No Do you have any weakness?: Yes Do you have any diarrhea?: Yes Are you experiencing any unusual bleeding?: No Do you have any muscle aches/pain?: No Do you have any abdominal pain?: No Are you experiencing loss of taste or smell?: No Other Medical History Have you received the Flu Vaccine for this season: No Have you received the Pneumonia Vaccine: Yes ROS Obtained: Yes Systems reviewed as appropriate & no additional complaints except as documented Physical Exam General General appearance: alert and in no apparent distress Respiratory Respiratory exam: Present normal lung sounds bilaterally Cardiovascular Cardiovascular exam: Present regular rate Neurological Exam Neurological exam: Present alert and oriented X3 Medical Decision Making Medical Records Medical records reviewed: Yes I reviewed the patient's medical records. Screening: Per USPSTF and CDC recommendations, given the prevalence of disease in our region, it is our hospital?s policy to screen for HIV and viral Hepatitis for all patients aged 18 and over and those with ongoing risk factors. Terry Inquiry Pt receiving controlled substance: No Vital Signs: 09/15/24 19:18 09/15/24 19:31 09/15/24 20:06 Temperature 97.9 F Temperature Source Oral Pulse Rate 61 68 Pulse Rate [Right Radial] 64 Respiratory Rate 16 Blood Pressure 130/64 123/57 L Blood Pressure [Right Arm] 131/64 Blood Pressure Mean [Right Arm] 86 Blood Pressure Source [Right Arm] Automatic Cuff Blood Pressure Position [Right Arm] Supine 02 Sat by Pulse Oximetry 98 97 97 Oxygen Delivery Method Room Air 09/15/24 20:30 09/15/24 20:45 09/15/24 21:15 Temperature Temperature Source Pulse Rate 66 65 70 Pulse Rate [Right Radial] Respiratory Rate Blood Pressure 118/63 105/41 L Blood Pressure [Right Arm] Blood Pressure Mean [Right Arm] Blood Pressure Source [Right Arm] Blood Pressure Position [Right Arm] 02 Sat by Pulse Oximetry 98 98 96 Oxygen Delivery Method 09/15/24 21:30 Temperature Temperature Source Pulse Rate 71 Pulse Rate [Right Radial] Respiratory Rate Blood Pressure 115/57 L Blood Pressure [Right Arm] Blood Pressure Mean [Right Arm] Blood Pressure Source [Right Arm] Blood Pressure Position [Right Arm] 02 Sat by Pulse Oximetry 97 Oxygen Delivery Method Lab Data Lab results reviewed: Yes I reviewed the patient's lab results. Lab Results 09/15/24 19:59: Stl C. cayetanensis PCR Not detected, Stool Rotavirus (PCR) Detected A, Stl Adenov F 40/41 PCR Not detected, Stool Astrovirus (PCR) Not detected, Stool Campylobacter PCR Not detected, Stl C.difficile Tox PCR Not detected, Stool Cryptosporidium PCR Not detected, Stl E.coli Shiga Tox PCR Not detected, Stool E coli O157 PCR Not detected, Stl Enterotoxigenic E PCR Not detected, Stool EPEC (PCR) Not detected, Stool EAEC (PCR) Not detected, Stl E. histolytica PCR Not detected, Stool Giardia Lamblia PCR Not detected, Stool Salmonella PCR Not detected, Stool Sapovirus (PCR) Not detected, Stl P. shigelloides PCR Not detected, Stl Shigella/EIEC PCR Not detected, St Y.enterocolitica PCR Not detected, Stool Vibrio (PCR) Not detected, Stl Vibrio cholerae PCR Not detected, Stl Norovirus GI/GII PCR Not detected Orders (Tests/Meds): ED MEDICATIONS Discontinued Medications Generic Name Dose Route Start Last Admin Trade Name Freq PRN Reason Stop Dose Admin Diphenhydramine HCl 50 mg 09/15/24 19:48 09/15/24 20:02 Diphenhydramine 25mg Capsule PO 09/15/24 19:49 50 mg ONCE ONE Administration Methocarbamol 500 mg 09/15/24 19:48 09/15/24 19:58 Methocarbamol 500mg Tablet PO 09/15/24 19:49 500 mg ONCE ONE Administration Prednisone 40 mg 09/15/24 19:48 09/15/24 19:58 Prednisone 20mg Tab PO 09/15/24 19:49 40 mg ONCE ONE Administration ORDERS Category Date Time Status Diarrhea 23 Panel, PCR Stat Lab 09/15/24 19:59 Results Medical Decision Narrative: In summary patient is a 79-year-old female who presents to the emergency department for evaluation of acute on chronic low back pain. Patient is hemodynamically stable with a blood pressure 131/64 pulse 64 respiratory rate 16 satting at 90% on room air normal sinus rhythm on the bedside monitor upon arrival, and afebrile at 97.9. Physical exam is remarkable for bilateral lumbar paraspinous muscular tenderness on palpation however patient is neurovascularly intact in all 4 extremities and is ambulatory in the ER but with an antalgic gait. Patient has no focal neurologic deficits. Abdomen is soft nontender no rebound or guarding no rigidity.. Differential diagnosis includes acute on chronic low back pain versus electrolyte abnormality versus urinary tract infection etc. I had a shared decision-making discussion with the patient regarding her presentation and workup. Patient is only interested in symptomatic relief. She reports that this is a worsening of her chronic back pain. She does not have any medications at home other than Tylenol and ibuprofen. Via patient directed decision making plan will be to treat her symptoms and not pursue labs and imaging.. We will however test for infectious diarrhea if she is able to provide a specimen.. Initial interventions include back pain cocktail of prednisone Benadryl Robaxin. Upon reevaluation patient feels markedly better and her diarrhea panel was positive for rotavirus. Given this patient is appropriate for discharge with prescription for Robaxin and prednisone sent to her pharmacy. Patient advised continue symptomatic treatment and should she have continued new or worsening signs or symptoms follow-up PCP return to the ER as needed. Critical Care Critical Care Time Critical Care Time: No
[2024-09-15] MEDS: METHOCARBAMOL 500MG TABLET 500 MG PO (19:58)
[2024-09-15] MEDS: predniSONE 20MG TAB 40 MG PO (19:58)
[2024-09-15] MEDS: diphenhydrAMINE 25MG CAPSULE 50 MG PO (20:02)
[2024-09-15 20:05] LABS: Adenovirus F 40/41, stool Not Detected (NotDetected); Astrovirus Not Detected (NotDetected); Campylobacter Not Detected (NotDetected); Clostridium Difficile A/B, PCR Not Detected (NotDetected); Cryptosporidium Not Detected (NotDetected); Cyclospora Cayetanesis Not Detected (NotDetected); Entamoeba histolytica Not Detected (NotDetected); Enteroaggregative E coli Not Detected (NotDetected); Enteropathogenic E coli Not Detected (NotDetected); Enterotoxigenic E coli Not Detected (NotDetected); Giardia lamblia Not Detected (NotDetected); Norovirus Not Detected (NotDetected); Plesimonas Shigalloides, PCR Not Detected (NotDetected); Salmonella, PCR Not Detected (NotDetected); Sapovirus Not Detected (NotDetected); Shiga-like toxin E coli Not Detected (NotDetected); Shigella Enterovasive E coli Not Detected (NotDetected); Vibrio Cholerae Not Detected (NotDetected); Vibrio, PCR Not Detected (NotDetected); Yersinia Entercolitica, PCR Not Detected (NotDetected)
[2024-09-15 21:39] LABS: Rotavirus A Detected (NotDetected)
--- NOTE | 2024-09-16 16:40 | PC.NURSE ---
discussed pt's diarrhea panel with Dr Nevarez, ntd
== END 2024-09-15 22:04 | disposition home or self-care (01) ==
PROVIDERS: Physician Assistant; Emergency Provider Student in an Organized Health Care Education/Training Program; PCP Internal Medicine
DX: R11.2 Nausea with vomiting, unspecified (principal); A08.0 Rotaviral enteritis; R19.7 Diarrhea, unspecified; R53.1 Weakness; M54.50 Low back pain, unspecified
CPT/HCPCS: 87507; 99283

== ENCOUNTER 2024-10-04 15:47 | Outpatient (CLI) | payer OTHER, MEDICARE, SELFPAY ==
--- OUTSIDE RECORDS SUMMARY | 2024-10-04 15:50 | XMS_ITS | Clinical Summary ---
Author Organization [facility] Address [address] [place] [address] Phone Care Team Providers Care Mop Handle Assembler Name Role Phone Evette Ahujaasha Unavailable [phone] [ ] Conditions or Problems Problem Name Problem Code Onset Date Status Entry Date Provider Comment Standard Description Annotate Eczematous dermatitis 20969497 (SNOMED CT) 06/05 Active 06/05 Lorena Seymour Eczema Anemia 112556561 (SNOMED CT) 10/31 Active 10/31 Shahid Ahuja MD Anemia Hx of bilateral knee arthroplast ies 290326706 (SNOMED CT) 10/31 Active 10/31 Shahid Ahuja MD History of operative procedure on knee 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 Coagulase negative 09775380701 9107 (SNOMED CT) 06/08 Resolved 06/08 Shahid Ahuja MD Infection caused by coagulase-negat richard Staphylococcus Staph epidermidis 657451836 (SNOMED CT) 08/06 Active 08/06 Shahid Ahuja MD Sepsis caused by coagulase negative Staphylococcus Dermatitis 48973472 (SNOMED CT) 08/06 Active 08/06 Shahid Ahuja MD Eczema Long-term (current) use of antibiotics 436646238 (SNOMED CT) 07/08 Active 07/08 Shahid Ahuja MD Long-term drug therapy Health advice, education, or counseling 831867533 (SNOMED CT) 07/08 Active 07/08 Shahid Ahuja MD Procedure carried out on subject Nontraumati c acute kidney injury 70746151397 9103 (SNOMED CT) 06/28 Resolved 06/28 Shahid Ahuja MD Acute nontraumatic kidney injury Nontraumati c acute kidney injury 77118505458 9103 (SNOMED CT) 08/09 Resolved 08/09 Shahid Ahuja MD Acute nontraumatic kidney injury Kidney disease, chronic, stage II 831347014 (SNOMED CT) 01/07 Active 01/07 Shahid Ahuja MD Chronic kidney disease stage 2 Arthritis, left hip 83769171 (SNOMED CT) 07/11 Active 07/11 Nia collazo ASSOCIATE DATA SCIENTIST Arthritis of hip Pruritus 781144682 (SNOMED CT) 04/27 Active 04/27 Shahid Ahuja MD Pruritic disorder Adverse drug reaction 45446922 (SNOMED CT) 09/20 Active 09/20 Shahid Ahuja MD Adverse reaction to drug Rash 421178506 (SNOMED CT) 09/20 Active 09/20 Nia collazo ASSOCIATE DATA SCIENTIST Eruption Nontraumati c acute kidney injury 70386889915 9103 (SNOMED CT) 08/09 Removed 08/09 Nia collazo APRN Acute nontraumatic kidney injury Paraspinal fluid collection (Abscess) 09310739 (SNOMED CT) 06/28 Active 06/29 Suzanne W Spinal cord abscess Elevated LFT's 080067883 (SNOMED CT) 06/14 Active 06/14 Suzanne W Liver function tests outside reference range Adverse effect of other systemic antibiotics -CUBICIN/In itial encounter T36.8x5A (ICD-10-CM) 06/21 Active 06/21 Suzanne W Adverse effect of other systemic antibiotics, initial encounter Nontraumati c acute kidney injury 94333583332 9103 (SNOMED CT) 06/28 Removed 06/28 Nia collazo ASSOCIATE DATA SCIENTIST Acute nontraumatic kidney injury Adverse drug reaction 60386555 (SNOMED CT) 06/21 Inactive 06/21 Shahid Ahuja MD Adverse reaction to drug Myositis 60446600 (SNOMED CT) 06/21 Active 06/21 Shahid Ahuja MD Myositis Elevated LFTs 524241991 (SNOMED CT) 06/14 Inactive 06/14 Nia Janine collazo APRN Liver function tests outside reference range Other obesity due to excess calories 362301857 (SNOMED CT) 06/13 Active 06/13 Mila Morguelan Simple obesity Presence of vertebral hardware 541741193 (SNOMED CT) 06/08 Active 06/09 Suzanne W Device in situ Lumbar region, infected discitis M46.36 (ICD-10-CM) 06/07 Active 06/07 Suzanne W Infection of intervertebral disc (pyogenic), 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 Coagulase negative 39085263330 9107 (SNOMED CT) 06/08 Removed 06/08 Shahid Ahuja MD Infection caused by coagulase-negat richard Staphylococcus Benign Essential Hypertensio n 10432012 (SNOMED CT) 06/07 Active 06/07 Jenny Carmelo [...] TAKE 1 CAPSULE BY MOUTH EVERY DAY 06/05 tray 92269606123 Lorena Ahuja MINOCYCLINE HCL 100 MG CAPS Take 1 capsule by mouth once a day 12/01 minocycline 62493900363 Lorena Ahuja MINOCYCLINE HCL 100 MG CAPS 1 capsule by mouth once a day TAKE 1 CAPSULE BY MOUTH EVERY DAY 10/26 minocycline 85990001770 Shahid Ahuja MD MINOCYCLINE HCL 100 MG CAPS 1 capsule by mouth once a day TAKE 1 CAPSULE BY MOUTH EVERY DAY 04/20 minocycline 00418411316 Shahid Ahuja MD MINOCYCLINE HCL 100 MG CAPS TAKE 1 CAPSULE BY MOUTH EVERY DAY 06/07 minocycline 24187165277 Davida Ambrocio RN MINOCYCLINE HCL 100 MG CAPS 1 capsule by mouth once a day TAKE 1 CAPSULE BY MOUTH EVERY DAY 04/26 minocycline 78307584374 Shahid Ahuja MD MINOCYCLINE HCL 100 MG CAPS TAKE 1 CAPSULE BY MOUTH EVERY DAY 06/07 minocycline 86558898564 Shahid Ahuja MD MINOCYCLINE HCL 100 MG CAPS TAKE 1 CAPSULE BY MOUTH EVERY DAY 05/02 minocycline 03461705758 Shahid Ahuja MD Proventil HFA 90 mcg/actuation HFA aerosol inhaler every four hours as needed 08/05 albuterol sulfate 73401757410 Areli Min NORCO 5-325 MG ORAL TABLET by mouth every six hours as needed 08/05 NORCO 5-325 MG ORAL TABLET Areli Min TYLENOL 325 MG CAPS 2 tablet by mouth every four hours as needed 08/05 ACETAMINOPHEN Areli Min ZETIA 10 MG TABS by mouth once a day 08/05 ezetimibe 50173945552 Areli Min CYCLOBENZAPRINE HCL 10 MG TABS by mouth three times a day as needed 08/05 cyclobenzaprine 59127627000 Areli Min FLORASTOR 250 MG CAPS by mouth twice a day 08/05 saccharomyces boulardii 26435196925 Areli Min LASIX 40 MG TABS by mouth once a day 08/05 furosemide 76431702119 Areli Pako GLUCOPHAGE 500 MG ORAL TABLET by mouth every morning 08/05 GLUCOPHAGE 500 MG ORAL TABLET Areli Pako TEKTURNA 300 MG TABS by mouth once a day 08/05 aliskiren 07372815382 Areli Pako DIOVAN HCT 320-25 MG TABS by mouth once a day 08/05 valsartan-hydroch lorothiazide 74630822633 Areli Min DOXYCYCLINE HYCLATE 100 MG CAPS Take 1 twice a day 08/05 doxycycline hyclate 10291093504 Areli Min ALENDRONATE SODIUM 70 MG TABS once a week alendronate 18790643994 Areli Min JARDIANCE 10 MG TABS once a day empagliflozin 43778874226 Areli Min REPATHA SURECLICK 140 MG/ML SOAJ once every two weeks evolocumab 67219595846 Areli Min LOSARTAN POTASSIUM 100 MG TABS once a day losartan 10232780563 Areli Min ROPINIROLE HCL 1 MG TABS once a day as needed ropinirole 36823964986 Areli Min OZEMPIC (0.25 OR 0.5 MG/DOSE) 2 MG/3ML SOPN once a week semaglutide 29390767857 Areli Min SPIRONOLACTONE 25 MG TABS once a day spironolactone 27263540836 Areli Min TORSEMIDE 100 MG TABS as needed torsemide 01772056922 Areli Min MINOCYCLINE HCL 100 MG CAPS Take 1 capsule by mouth once a day 07/28 minocycline 05451054375 Corina Horvath MINOCYCLINE HCL 100 MG CAPS TAKE 1 CAPSULE BY MOUTH EVERY DAY 08/05 minocycline 04291143385 Shahid Ahuja MD MINOCYCLINE HCL 100 MG CAPS Take 1 capsule by mouth once a day for a week, then once a day minocycline 66319276462 Lorena Ahuja MINOCYCLINE HCL 100 MG CAPS Take 1 capsule by mouth once a day 08/01 minocycline 64139283897 Lorena Ahuja MINOCYCLINE HCL 100 MG CAPS TAKE 1 CAPSULE BY MOUTH DAILY 08/06 minocycline 26071815544 Elaine Ross RN MINOCYCLINE HCL 100 MG CAPS Take 1 capsule by mouth once a day for a week, then once a day 08/01 minocycline 45865083338 Shahid Ahuja MD CYCLOBENZAPRINE HCL 10 MG TABS by mouth three times a day as needed 08/05 cyclobenzaprine 47436307887 Glenna Joiner FLORASTOR 250 MG CAPS by mouth twice a day 08/05 saccharomyces boulardii 13852279748 Glenna Joiner NORCO 5-325 MG ORAL TABLET by mouth every six hours as needed 08/05 NORCO 5-325 MG ORAL TABLET Glenna Joiner DOXYCYCLINE HYCLATE 100 MG CAPS Take 1 twice a day 07/24 doxycycline hyclate 19759328365 Shahid Ahuja MD ZETIA 10 MG TABS by mouth once a day 08/05 ezetimibe 61751645886 Glenna Joiner GLUCOPHAGE 500 MG ORAL TABLET by mouth every morning 08/05 GLUCOPHAGE 500 MG ORAL TABLET Glenna Joiner Proventil HFA 90 mcg/actuation HFA aerosol inhaler every four hours as needed 08/05 albuterol sulfate 35454210861 Glenna Joiner PROTONIX 40 MG PACK by mouth twice a day pantoprazole 77328839233 Glenna Joiner TEKTURNA 300 MG TABS by mouth once a day 08/05 aliskiren 68965335927 Glenna Joiner TYLENOL 325 MG CAPS 2 tablet by mouth every four hours as needed 08/05 ACETAMINOPHEN Glenna Joiner COREG 25 MG TABS 1.5 tablet by mouth twice a day carvedilol 35773209118 Glenna Joiner ASPIRIN 81 MG ORAL TABLET by mouth once a day ASPIRIN 81 MG ORAL TABLET Glenna Joiner LASIX 40 MG TABS by mouth once a day 08/05 furosemide 26691640356 Glenna Joiner DIOVAN HCT 320-25 MG TABS by mouth once a day 08/05 valsartan-hydroch lorothiazide 46889268469 Glenna Joiner MINOCYCLINE HCL 100 MG CAPS Take 1 capsule by mouth once a day minocycline 39397979829 Lorena Ahuja MINOCYCLINE HCL 100 MG CAPS TAKE 1 CAPSULE BY MOUTH DAILY 08/06 minocycline 67845581884 Shahid Ahuja MD MINOCYCLINE HCL 100 MG CAPS TAKE 1 CAPSULE BY MOUTH DAILY minocycline 04155697063 Madhavi Nguyen MINOCYCLINE HCL 100 MG CAPS Take 1 capsule by mouth once a day 08/04 minocycline 17493951171 Lorena Ahuja MINOCYCLINE HCL 100 MG CAPS TAKE 1 CAPSULE BY MOUTH DAILY 07/17 MINOCYCLINE HCL 76229153516 Shahid Ahuja MD MINOCYCLINE HCL 100 MG CAPS Take 1 by mouth daily 07/17 MINOCYCLINE HCL 97255444232 Shahid Ahuja MD MINOCYCLINE HCL 100 MG CAPS one po daily 10/11 MINOCYCLINE HCL 18452258740 Shahid Ahuja MD MINOCYCLINE HCL 100 MG CAPS one daily 0 10/26 MINOCYCLINE HCL 41298856621 Shahid Ahuja MD MINOCYCLINE HCL 100 MG CAPS one po daily 0 07/26 MINOCYCLINE HCL 40820596322 Shahid Ahuja MD MINOCYCLINE HCL 100 MG CAPS one po daily 0 04/28 MINOCYCLINE HCL 36168340102 Nia Carias APRN MINOCYCLINE HCL 100 MG CAPS one po bid 0 11/18 MINOCYCLINE HCL 71214425695 Nia Carias APRN MINOCYCLINE HCL 100 MG CAPS one po bid 0 10/20 MINOCYCLINE HCL 01642742172 Shahid Ahuja MD DOXYCYCLINE MONOHYDRATE 100 MG CAPS one po bid 09/23 DOXYCYCLINE MONOHYDRATE 50104316423 Shahid Ahuja MD DOXYCYCLINE MONOHYDRATE 100 MG CAPS one po bid 09/08 DOXYCYCLINE MONOHYDRATE 19213821214 Shahid Ahuja MD VANCOMYCIN HCL 5000 MG INTRAVENOUS SOLUTION RECONSTITUTED 1.75 gms IV Q 48 hrs/BHHI Doses at noon 07/25 VANCOMYCIN HCL 26079042250 Mana Brizuela RN DOXYCYCLINE HYCLATE 100 MG CAPS Take one pill twice daily. 07/24 DOXYCYCLINE HYCLATE 55572121475 Shahid Ahuja MD VANCOMYCIN HCL 5000 MG INTRAVENOUS SOLUTION RECONSTITUTED 1.75 gms IV Q 48 hrs/BHHI Doses at noon 07/25 VANCOMYCIN HCL 40276579189 Alva Rojo RN VANCOMYCIN HCL 5000 MG INTRAVENOUS SOLUTION RECONSTITUTED 1.25 gms IV Q 48 hrs/BHHI Doses at noon 07/07 VANCOMYCIN HCL 37456917721 Alva Rojo RN VANCOMYCIN HCL 5000 MG INTRAVENOUS SOLUTION RECONSTITUTED 1.25 gms IV Q 24 hrs/BHHI Doses at noon 06/28 VANCOMYCIN HCL 13589995005 Alva Rojo RN VANCOMYCIN HCL 5000 MG INTRAVENOUS SOLUTION RECONSTITUTED 1.75 gms IV Q 24 hrs/BHHI Doses at noon 06/21 VANCOMYCIN HCL 85568163707 Sarah Torres RN VANCOMYCIN HCL 5000 MG INTRAVENOUS SOLUTION RECONSTITUTED 1.75 gms IV Q 24 hrs/BHHI 06/15 VANCOMYCIN HCL 63272128421 Sarah Torres RN CUBICIN 500 MG INTRAVENOUS SOLUTION RECONSTITUTED 500mg IV Q 24 hrs/BHHI and melany wiseman do PICC care and labs on appt days 06/14 DAPTOMYCIN 39635580619 Sarah Torres RN CEFTRIAXONE SODIUM 2 GM SOLR 2 GMS iv q 24 HRS/BHHI AND Melany noel do PICC care and labs 06/08 CEFTRIAXONE SODIUM 00972751666 Sarah Torres RN PROTONIX 40 MG PACK by mouth twice daily 08/06 PANTOPRAZOLE SODIUM 83022051459 Mila Guadarrama ZETIA 10 MG TABS by mouth daily 08/06 EZETIMIBE 68869956267 Andreas Carbone DIOVAN HCT 320-25 MG TABS by mouth daily 08/06 VALSARTAN-HYDROCH LOROTHIAZIDE 59597674185 Andreas Carbone TEKTURNA 300 MG TABS by mouth daily 08/06 ALISKIREN FUMARATE 27743226622 Andreas Carbone FLORASTOR 250 MG CAPS by mouth twice daily 08/06 SACCHAROMYCES BOULARDII 89242862211 Andreas Carbone PROTONIX 40 MG PACK 06/08 PANTOPRAZOLE SODIUM 67671260209 Andreas Carbone GLUCOPHAGE 500 MG ORAL TABLET by mouth in the morning 08/06 METFORMIN HCL 49353253279 Andreas Carbone NORCO 5-325 MG ORAL TABLET by mouth every 6 hours as needed 08/06 HYDROCODONE-ACETA MINOPHEN 62323101694 Andreas Carbone LASIX 40 MG TABS by mouth daily 08/06 FUROSEMIDE 62088463453 Andreas Carbone CYCLOBENZAPRINE HCL 10 MG TABS by mouth three times a day as needed 08/06 CYCLOBENZAPRINE HCL 80316517683 Andreas Carbone COREG 25 MG TABS 1.5 tabs by mouth twice daily 08/06 CARVEDILOL 91545579796 Andreas Carbone ASPIRIN 81 MG ORAL TABLET by mouth daily 08/06 ASPIRIN 62643134092 Andreas Carbone PROVENTIL HFA 108 (90 BASE) MCG/ACT INHALATION AEROSOL SOLUTION every 4 hours as needed 08/06 ALBUTEROL SULFATE 94530585079 Andreas Carbone TYLENOL 325 MG CAPS 2 tabs by mouth every 4 hours as needed for pain 08/06 ACETAMINOPHEN 65101278502 Andreas Carbone CEFTRIAXONE SODIUM 2 GM SOLR 2 GMS iv q 24 HRS/BHHI AND Melany noel do PICC care and labs 06/08 CEFTRIAXONE SODIUM 21569280511 Sarah Torres RN CUBICIN 500 MG INTRAVENOUS SOLUTION RECONSTITUTED 500mg IV Q 24 hrs/BHHI and melany wiseman do PICC care and labs on appt days 06/14 DAPTOMYCIN 99494398530 Sarah Torres RN Medications Administered No information [...] Rate Calculation Office Visit: room 3 DIET ACCOUNT SERVICE ASSOCIATE Yes - Overweight Dietary manageme nt education, guidance, and counseling (procedure) Office Visit: Office Visit: rm. 6 FALLRSKASSES yes Fall ris k assessment Office Visit: Office Visit: 4 MEDS REVIEW Done Documenta tion of current medications (procedure) ORALTOBACUSE Never Tobacco smoking status SMOK STATUS Never smoker Toba accountant assistant smoking status Lab Report: CBC WITH AUTO DI FFERENTIAL ZZ-GE-unk 0.0 /100 WBC 0.0-0.2 GE use only - for [employer] import when terms are not otherwise specified IMMATUREGRAN 0.16 10*3/MM3 0.00-0.05 H Immature granulocytes [#/volume] in Blood BASO# 0.08 10*3/mm3 0.00-0.20 Basop hils [#/volume] in Blood EOS ABSLT 0.24 10*3/uL 0.00-0.40 Eosinophi ls [#/volume] in Blood MONOSCT AUTO 0.35 10*3/uL 0.10-0.90 Monocy chau [#/volume] in Blood by Automated count LYMPHCT AUTO 1.04 10*3/mm3 0.70-3.10 Lymph ocytes [#/volume] in Blood by Automated count ABS NEUTROPH 8.63 10*3/uL 1.70-7.00 H Neutro phils [#/volume] in Blood IMM GRANU % 1.5 % 0.0-0.5 H Immature granulocytes/100 leukocytes in Blood % EOS AUTO 2.3 % 0.3-6.2 Eosinophil s/100 leukocytes in Blood by Automated count MONOCYTE % 3.3 % 5.0-12.0 L Monocytes /100 leukocytes in Blood by Automated count LYMPHOCY BF 9.9 % 19.6-45.3 L lymphoc ytes as percent of body fluid leukocytes NEUTROP BF 82.2 % 42.7-76.0 H Neutroph ils/100 leukocytes in Body fluid PLATELETS 191 10*3/mm3 140-450 Platelets [#/volume] in Blood by Automated count RDW_ 13.2 12.3-15.4 RDW, no uni ts MCHC 32.9 G/DL 31.5-35.7 MCHC [Mass/ volume] by Automated count MCH 30.1 pg 26.6-33.0 MCH [Entiti c mass] by Automated count MCV 91.5 fL 79.0-97.0 MCV [Entiti c volume] by Automated count HCT 36.5 % 34.0-46.6 Hematocrit [Volume Fraction] of Blood by Automated count HGB 12.0 g/dL 12.0-15.9 Hemoglobin [Mass/volume] in Blood RBC 3.99 10*6/mm3 3.77-5.28 Erythrocyt es [#/volume] in Blood by Automated count WBC 10.50 10*3/mm3 3.40-10.8 0 Leukocytes [#/volume] in Blood by Automated count Lab Report: SEDIMENTATION RA TE ESR 22 mm/h 0-30 Erythrocyte sedimentation rate by Westergren method Lab Report: C-REACTIVE PROTE IN CRP <0.30 mg/dL 0.00-0.50 C reactive protein [Mass/volume] in Serum or Plasma Lab Report: COMPREHENSIVE ME TABOLIC PANEL ANIONGAP 12.0 mmol/L 5.0-15.0 anion gap, serum BUN/CREAT 23.4 7.0-25.0 Urea nitrogen/Creatinine [Mass Ratio] in Serum or Plasma BILI TOTAL 0.6 mg/dL 0.0-1.2 Bilirubin. total [Mass/volume] in Serum or Plasma ALK PHOS 143 U/L 39-117 H Alkaline phosphatase [Enzymatic activity/volume] in Blood SGOT (AST) 13 U/L 1-32 Aspartate aminotransferase [Enzymatic activity/volume] in Serum or Plasma SGPT (ALT) 17 U/L 1-33 Alanine aminotransferase [Enzymatic activity/volume] in Serum or Plasma ALBUMIN 3.5 g/dL 3.5-5.2 Albumin [Mass/volume] in Serum or Plasma PROTEIN, TOT 5.9 g/dL 6.0-8.5 L Protein [Mass/volume] in Serum or Plasma CALCIUM 8.6 mg/dL 8.6-10.5 Calcium [Moles/volume] in Serum or Plasma CO2 21.0 mmol/L 22.0-29.0 L Carbon diox felipe, total [Moles/volume] in Venous blood CHLORIDE 106 mmol/L 98-107 Chloride [Moles/volume] in Serum or Plasma POTASSIUM 4.6 mmol/L 3.5-5.2 Potassium [Moles/volume] in Serum or Plasma SODIUM 139 mmol/L 136-145 Sodium [Moles/volume] in Serum or Plasma CREATININE 1.45 mg/dL 0.57-1.00 H Creatini ne [Mass/volume] in Serum or Plasma BUN 34 mg/dL 8-23 H Urea nitrogen [Mass/volume] in Serum or Plasma GLUCOSE SER 290 mg/dL 65-99 H Glucose [Mass/volume] in Serum or Plasma Plan of Care Type Date Detail Appointment 11:15 AM Shahid julien MD, [facility], [address], [place], [address], Referral MRI Lumbar Spine with/without constrast Pending [...] Medications Patient education Medications Patient education WEIGHT%20MANAG EMENT Procedures Code Procedure Name Date Entry Date CPT-sl STAT Labs CPT-13670 CMP [id number] CBC with Differential 2024 CPT-96372 C- reactive protein CPT-08513 Sedimentation Rate (ESR) 202 08/17/17 G2211 Complex E&M visit add-on (G2211) G2211 Complex E&M visit add-on (G2211) CPT-sl STAT Labs CPT-sl STAT Labs CPT-48046 CMP [id number] CBC with Differential 2023 CPT-45670 C- reactive protein CPT-39968 Sedimentation Rate (ESR) 202 07/24/15 CPT-sl STAT Labs CPT-sl STAT Labs CPT-50713 CMP [id number] CBC with Differential 2023 CPT-19433 C- reactive protein CPT-29159 Sedimentation Rate (ESR) 07/17/08 CPT-sl STAT Labs CPT-sl STAT Labs CPT-sl STAT Labs CPT-07552 CMP [id number] CBC with Differential 2021 CPT-94420 C- reactive protein CPT-97587 Sedimentation Rate (ESR) 05/28/17 CPT-sl STAT Labs CPT-sl STAT Labs CPT-sl STAT Labs CPT-sl STAT Labs CPT-91441 CMP [id number] CBC with Differential 2020 CPT-58828 C- reactive protein CPT-64457 Sedimentation Rate (ESR) 202 04/27/20 CPT-Cooral Continue oral antibiotics 06/07/22 [id number] CBC with Differential 2020 CPT-52486 CMP CPT-60086 Sedimentation Rate (ESR) 202 04/20/22 CPT-05234 C- reactive protein CPT-sl STAT Labs CPT-sl STAT Labs CPT-sl STAT Labs CPT-sl STAT Labs CPT-70879 CMP [id number] CBC with Differential 2019 CPT-27388 C- reactive protein CPT-64998 Sedimentation Rate (ESR) 202 CPT-sl STAT Labs CPT-sl STAT Labs CPT-82662 CMP [id number] CBC with Differential 2018 CPT-65338 C- reactive protein CPT-75738 Sedimentation Rate (ESR) 201 12/26/09 CPT-69715 CMP [id number] CBC with Differential 2018 CPT-16288 C- reactive protein CPT-47667 Sedimentation Rate (ESR) 201 12/20/10 CPT-sl STAT Labs CPT-95665 CMP [id number] CBC with Differential 2018 CPT-61342 C- reactive protein CPT-43105 Sedimentation Rate (ESR) 201 12/20/09 CPT-Cooral Continue oral antibiotics 20 06/05/09 CPT-cwl Weekly Labs (Continue) 04/27 CPT-05574 CMP [id number] CBC with Differential 2018 CPT-69398 C- reactive protein CPT-62687 Sedimentation Rate (ESR) 201 12/17/09 CPT-41041 CMP [id number] CBC with Differential 2017 CPT-55046 C- reactive protein CPT-59891 Sedimentation Rate (ESR) 201 11/25/10 CPT-Cooral Continue oral antibiotics 02/02/11 CPT-sl STAT Labs CPT-Cooral Continue oral antibiotics 20 02/11/02 CPT-18978 CMP [id number] CBC with Differential 2017 CPT-03529 C- reactive protein CPT-08997 Sedimentation Rate (ESR) 201 11/22/02 CPT-28534 CMP [id number] CBC with Differential 2017 CPT-07112 C- reactive protein CPT-00550 Sedimentation Rate (ESR) 201 11/21/04 CPT-trip New Oral Antibiotic CPT-12652 CMP [id number] CBC with Differential 2017 CPT-93282 C- reactive protein CPT-30154 Sedimentation Rate (ESR) 201 11/21/07 CPT-Cooral Continue oral antibiotics 20 03/09/07 CPT-sl STAT Labs CPT-Cooral Continue oral antibiotics 20 04/08/23 CPT-91216 CMP [id number] CBC with Differential 2017 CPT-66625 MRI Lumbar Spine with/without constrast 2 CPT-ca Continue IV antibiotics 2017 CPT-J3370 Vancomycin CPT-trip New Oral Antibiotic CPT-ca Continue IV antibiotics 2017 CPT-cwl Weekly Labs (Continue) 07/11 CPT-wpc Weekly PICC Line Care 07/11 CPT-36587 CMP [id number] CBC with Differential 2017 CPT-55066 C- reactive protein CPT-94295 Sedimentation Rate (ESR) 201 11/18/25 CPT-24450 Vancomycin Trough CPT-sl STAT Labs CPT-97431 CMP [id number] CBC with Differential 2017 CPT-64459 C- reactive protein CPT-60053 Sedimentation Rate (ESR) 201 11/19/19 CPT-90150 Vancomycin Trough CPT-58670 CMP CPT-94827 C- reactive protein CPT-33247 Sedimentation Rate (ESR) 201 11/18/12 CPT-08295 Vancomycin Trough [id number] CBC with Differential 2017 [id number], [id number] CPK CPT-sl STAT Labs CPT-66064 CMP [id number] CBC with Differential 2017 CPT-32403 C- reactive protein CPT-67229 Sedimentation Rate (ESR) 201 11/18/05 CPT-03957 Vancomycin Trough CPT-sl STAT Labs CPT-08011 Vancomycin Trough CPT- stat weekly Stat Weekly Labs CPT-ca Continue IV antibiotics 2017 CPT-wpc Weekly PICC Line Care 0 06/14 CPT-cwl Weekly Labs (Continue) 06/14 CPT-38294 CMP [id number] CBC with Differential 2017 CPT-99678 C- reactive protein [id number], [id number] CPK CPT-03625 Sedimentation Rate (ESR) 201 11/17/26 CPT-ca Continue IV antibiotics 2017 CPT-felice Change IV antibiotics 0 06/14 CPT-ca Continue IV antibiotics 2017 CPT-cwl Weekly Labs (Continue) 06/08 CPT-wpc Weekly PICC Line Care 06/08 CPT-10093 CMP [id number] CBC with Differential 2017 CPT-65235 C- reactive protein CPT-60633 Sedimentation Rate (ESR) 201 11/17/20 [id number], [id number] CPK CPT-ca Continue IV antibiotics 2017 CPT- stat weekly Stat Weekly Labs Vital Signs Date Name Value Unit Description BMI (Body Mass Index) 33.84 kg/m2 Bod y Mass Index (Ratio) Body Temperature 97.8 [degF] temperat ure E&M BP Diastolic 82 mm[Hg] blood pressu re, diastolic BP Systolic 154 mm[Hg] blood pressur e, systolic Heart Rate 68 /min pulse rate Height 68 [in_us] height E&M Respiratory Rate 16 /min respirat ory rate E&M Weight Measured 222.6 [lb_av] weight E& M Weight Measured 222.6 [lb_av] weight E& M Immunizations Vaccine Administration Date Standard Description CVX Co de Dose Unspecified Formulation Unspecified Formulation 152 Unknown Unspecified Formulation Unspecified Formulation 33 Unknown Advance Directives Directive Description Start Date NO DIRECTIVES AT THIS TIME
--- OUTSIDE RECORDS SUMMARY | 2024-10-04 15:50 | XMS_ITS | Continuity of Care Document ---
Author Organization [place] Denise CORLEY [facility] & [place] [facility] Address [address] [place] [address] Assessment No assessment recorded. Plan of Treatment Reminders Order Date Submit Date Provider Last Modified By Organization Details Last Modified Time Details Appointments OV EST 15 025 09:00AM Shahid Ly rd, MD Not available Not available Not available Lab None record ed. Referral None record ed. Procedures None record ed. Surgeries None record ed. Imaging None record ed. Medication Orders None record ed. Patient TargetsNo targets recorded. Patient InstructionsNo instructions recorded. Reason for Referral None Reported. Problems Name Problem SNOMED Code Status Onset Date Resolution Date Notes Provider Name and Address Organization Details Recorded Time Acute dermatitis 18638987 Active [address], MD [address] [place] [address], [phone], [facility] & [place] 4 10:28:06 Acute kidney injury 98334931 Active Annie Vice null, [place] - [place] [facility] & [place] 5 11:00:28 History of artificial joint 412872429 Active Annie Vice null, [facility] & [place] 5 11:00:28 Enteritis caused by rotavirus 094495630 Active Annie Vice null, [place] - [facility] & [place] 5 11:00:28 Dehydration 89099176 Active Annie Vice null, [place] - [facility] & [place] 5 11:00:28 History of cardiac catheteriza tion 9120822563355 0 Active Annie Vice null, [facility] - [facility] - [place] & [place] 5 11:00:28 Allergic rhinitis 16703982 Active Gwendolyn Smooth null, [facility] - [facility] - [place] & [place] 2 09:53:18 Gastroesoph ageal reflux disease without esophagitis 122396028 Active Gwendolyn Smooth null, [place] - [facility] - [place] & [place] 2 09:53:49 Essential hypertensio n 24369971 Active Gwendolyn Smooth null, [facility] - [facility] - [place] & [place] 2 09:54:00 Lumbar spondylosis 781125856 Active Gwendolyn Smooth null, [place] - [facility] - [place] & [place] 2 09:54:25 Lumbar radiculopat hy 680484508 Active Gwendolyn Smooth null, [place] - [facility] - [place] & [place] 2 09:54:39 Mild chronic obstructive pulmonary disease 890516150 Active Gwendolyn Smooth null, [place] - [facility] - [place] & [place] 2 09:55:25 Asthma 794924855 Active Gwendolyn Smooth null, [place] - [facility] - [place] & [place] 2 09:55:35 Osteoarthri tis of multiple joints 619398796 Active Gwendolyn Smooth null, [facility] - [facility] - [place] & [place] 2 09:56:40 Osteoporosi s 90590307 Active Gwendolyn Smooth null, [facility] - [facility] - [place] & [place] 2 09:57:17 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 34310588 Active [address], MD [facility],[address], [address], [place] - [facility] - [place] & [place] 2 10:40:28 Long-term current use of drug therapy 055074045 Active [address], MD [address] [place] [address],[address], [place], [address], [facility] - [facility] - [place] & [place] 2 10:40:38 Acute on chronic diastolic heart failure 708773896 Active [address], MD [address] [place] [address],[place] [address], [place], [address], [facility] - [facility]NT [facility] & [place] 4 16:19:45 Standardize d adult depression screening tool completed 1884819642872 07 Active [address], MD [address] [place] [address],[address], [place], [address], [place] - [facility] - [place] & [place] 4 16:20:49 Problem Notes None recorded. Procedures Surgical History Date Name Laterality Status Provider Name and Address Organization Details Recorded Time Knee Surgery completed Gwendolyn SABILLON - LPNT [facility] & [place] 10/06/2023 09:40:43 procedure on elbow completed Gemma SABILLON - LPNT [facility] & [place] 03/26/2022 10:00:15 procedure on wrist completed Gemma sher Loftoner [facility] - [facility] & [place] 03/26/2022 10:00:33 Cholecystectomy completed Gwendolyn SABILLON - LPNT [facility] & [place] 03/26/2022 10:00:47 Back Surgery completed Gwendolyn SABILLON - LPNT [facility] & [place] 03/26/2022 10:01:04 ligation of fallopian tube completed Gwendolyn SABILLON - LP[facility] - [place] & [place] 03/26/2022 10:01:37 Total hip arthroplasty completed Gwendolyn SABILLON - LPNT [facility] & [place] 03/26/2022 10:01:59 Imaging Results None recorded. Procedure Notes None recorded. Medical Equipment None Reported. Allergies Allergen ID Allergen Name Allergen Category Reaction Reaction Severity Criticality Documentation Date Start Date Code Code System Note Provider Name and Address Organization Details Recorded Time 50772 simvastat in medicatio n Not available Not available Not available 03/26/2022 98411 RxNorm Gwendolyn crook, [place] - [facility] - [place] & [place] 09:44:03 Medications Name Sig Start Date Stop Date Status Note LastModified by Organization Details LastModified Time furosemide 40 mg tablet 40 mg by oral route. 07/01 completed Not Available Not Available Not Available carvedilol 25 mg tablet 50 mg by oral route. active Not Available Not Available No t Available prednisone 10 mg tablet Take 4 tablets every day by oral route as directed for 15 days, for skin eruption. active Not Available Not Available No t Available doxycycline hyclate 100 mg capsule TAKE 1 CAPSULE BY MOUTH TWICE DAILY FOR 10 DAYS 10/05 completed Not Available Not Available Not Available ropinirole 1 mg tablet 2 mg by oral route. active Not Available Not Available No t Available aspirin 325 mg tablet Take 1 tablet every day by oral route as directed. 10/05 completed Not Available Not Available Not Available minocycline 100 mg capsule 100 mg by oral route. active Not Available Not Available No t Available prednisone 20 mg tablet TAKE 3 TABLETS BY MOUTH ONCE DAILY FOR 5 DAYS active Not Available Not Available No t Available alendronate 70 mg tablet TAKE 1 TABLET BY MOUTH EVERY WEEK active Not Available Not Available No t Available simvastatin 10 mg tablet 10 mg by oral route. 11/10 completed Not Available Not Available Not Available permethrin 5 % topical cream 04/20 completed Not Available Not Available Not Available Tylenol Arthritis Pain 650 mg tablet,exte nded release Take 2 tablets every 8 hours by oral route as needed. active Not Available Not Available No t Available amlodipine 5 mg tablet TAKE 1 TABLET BY MOUTH DAILY NEEDED FOR HIGH BLOOD PRESSURE active Not Available Not Available No t Available acyclovir 400 mg tablet TAKE 1 TABLET BY MOUTH 5 TIMES A DAY FOR 10 DAYS 04/20 completed Not Available Not Available Not Available aspirin 81 mg tablet,curtis yed release 81 mg by oral route. 09/17 completed Not Available Not Available Not Available spironolact one 25 mg tablet TAKE 1 TABLET BY MOUTH EVERY DAY 10/02 completed Not Available Not Available Not Available cefadroxil 500 mg capsule TAKE 1 CAPSULE BY MOUTH TWICE DAILY active Not Available Not Available No t Available ciclopirox 8 % topical solution active Not Available Not Available Not Available oxycodone-a cetaminophe n 5 mg-325 mg tablet 09/17 completed Not Available Not Available Not Available prednisolon e acetate 1 % eye drops,suspe nsion SHAKE LIQUID AND INSTILL 1 DROP IN LEFT EYE TWICE DAILY active Not Available Not Available No t Available methocarbam ol 750 mg tablet TAKE 1 TABLET BY MOUTH EVERY 6 HOURS NEEDED FOR MUSCLE SPASM active Not Available Not Available No t Available torsemide 100 mg tablet 50 mg by oral route. active Not Available Not Available No t Available aspirin 325 mg tablet,curtis yed release 325 mg by oral route. 07/01 completed Not Available Not Available Not Available ropinirole 2 mg tablet TAKE 1 TABLET BY MOUTH EVERY NIGHT AT BEDTIME active Not Available Not Available No t Available pantoprazol e 40 mg tablet,curtis yed release 40 mg by oral route. active Not Available Not Available No t Available triamcinolo ne acetonide 0.1 % topical ointment APPLY TOPICALLY TO THE AFFECTED AREA TWICE DAILY active Not Available Not Available No t Available prednisone 50 mg tablet TAKE 1 TABLET BY MOUTH ONCE DAILY FOR 5 DAYS active Not Available Not Available No t Available promethazin e 25 mg tablet TAKE ONE TABLET BY MOUTH THREE TIMES DAILY NEEDED FOR VOMITING FOR 3 DAYS active Not Available Not Available No t Available valsartan 320 mg tablet TAKE 1 TABLET BY MOUTH DAILY active Not Available Not Available No t Available flecainide 100 mg tablet TAKE ONE TABLET BY MOUTH EVERY DAY NEEDED FOR AFIB active Not Available Not Available No t Available doxazosin 4 mg tablet 4 mg by oral route. 09/17 completed Not Available Not Available Not Available hydrochloro thiazide 25 mg tablet 25 mg by oral route. 11/10 completed Not Available Not Available Not Available mupirocin 2 % topical ointment active Not Available Not Available Not Available irbesartan 150 mg tablet TAKE 1 TABLET BY MOUTH TWICE DAILY active Not Available Not Available No t Available methylpredn isolone 4 mg tablets in a dose pack USE DIRECTED 10/05 completed Not Available Not Available Not Available albuterol sulfate HFA 90 mcg/actuati on aerosol inhaler INHALE 2 PUFFS BY MOUTH EVERY 6 HOURS NEEDED FOR SHORTNESS OF BREATH OR WHEEZING active Not Available Not Available No t Available celecoxib 100 mg capsule TAKE 1 CAPSULE BY MOUTH TWICE DAILY active Not Available Not Available No t Available ketoconazol e 2 % topical cream APPLY TO THE AFFECTED AREA(S) BY TOPICAL ROUTE ONCE DAILY Needed 11/01 completed Not Available Not Available Not Available ondansetron 4 mg disintegrat ing tablet DISSOLVE ONE TABLET BY MOUTH EVERY 8 HOURS NEEDED FOR NAUSEA active Not Available Not Available No t Available losartan 100 mg tablet 100 mg by oral route. active Not Available Not Available No t Available metformin ER 500 mg tablet,exte nded release 24 hr 500 mg by oral route. 11/10 completed Not Available Not Available Not Available oxycodone 5 mg tablet TAKE 1 TABLET BY MOUTH EVERY 6 HOURS NEEDED 04/12 completed Not Available Not Available Not Available ezetimibe 10 mg tablet 10 mg by oral route. active Not Available Not Available No t Available Multivitami n 50 Plus tablet Take 1 tablet every day by oral route. active OTC Not Available Not Available No t Available aliskiren 300 mg tablet 300 mg by oral route. 07/01 completed Not Available Not Available Not Available GaviLyte-G 236 gram-22.74 gram-6.74 gram-5.86 gram oral solution DRINK 240 MLS BY MOUTH EVERY 10 MINUTES UNTIL FECAL EFFLUENT IS CLEAR. FOLLOW MAILED INSTRUCTI ONS 10/05 completed Not Available Not Available Not Available apixaban 2.5 mg tablet 2.5 mg by oral route. active Not Available Not Available No t Available Breo Ellipta 100 mcg-25 mcg/dose powder for inhalation INHALE 1 PUFF BY MOUTH EVERY DAY active Not Available Not Available No t Available empaglifloz in 25 mg tablet 25 mg by oral route. active Not Available Not Available No t Available Jardiance 10 mg tablet TAKE 1 TABLET BY MOUTH DAILY active Not Available Not Available No t Available Repatha SureClick 140 mg/mL subcutaneou s pen injector ADMINISTE R 1 ML UNDER THE SKIN EVERY 2 WEEKS active Not Available Not Available No t Available semaglutide 0.25 mg or 0.5 mg (2 mg/1.5 mL) subcutaneou s pen injector 0.5 mg by sub-q route. active Not Available Not Available No t Available Tiadylt ER 120 mg capsule,ext ended release TAKE 1 CAPSULE BY MOUTH TWICE DAILY active Not Available Not Available No t Available Ozempic 1 mg/dose (4 mg/3 mL) subcutaneou s pen injector INJECT 1MG UNDER THE SKIN ONCE PER WEEK active Not Available Not Available No t Available Ozempic 0.25 mg or 0.5 mg (2 mg/3 mL) subcutaneou s pen injector INJECT 0.5 MG UNDER THE SKIN ONCE A WEEK 10/02 completed Not Available Not Available Not Available Vitals Date Recorded Body height Body mass index (BMI) Body weight Body temperature Oxygen saturation Oxygen saturation in Arterial blood by Pulse oximetry Heart rate Heart rate Respiratory rate Systolic blood pressure Diastolic blood pressure Provider Name and Address Organization Details Last Updated DateTime 5 172.72 cm 33.2 kg/m2 60647.8 4 g 97.8 [degF] 99 % 99 % 67 /min 67 /min 16 /min 142 mm[Hg] 72 mm[Hg] Annie Pringle [facility] & [place] 5 10:58:31 Social History Question Answer Notes LastModified by [employer] Details LastModified Time Tobacco Smoking Status Never Smoker Gwendolyn Rebollar [facility] & [place] 03/26/2022 09:58:25 What Is Your Level Of Caffeine Consumption? Occasional [email or web address] Information not available 03/26/2022 What Was The Date Of Your Most Recent Tobacco Screening? 04/12/2024 [email or web address] Information not available 04/12/2024 Has Tobacco Cessation Counseling Been Provided? No [email or web address] Information not available 04/12/2024 Sex: Unknown Functional Status Question Answer Note LastModified by [employer] Details LastModified Time Do you use any illicit or recreational drugs? No [email or web address] Information not available 03/26/2022 Do you or have you ever used any other forms of tobacco or nicotine? No [email or web address] Information not available 03/26/2022 What is your level of alcohol consumption? None Information not available 03/26/2022 Mental Status None recorded. Family History Relationship Description Onset Age of this Age Resolved Age Notes LastModified by Organization Details LastModified Time Father Coronary arterioscler osis Not available 2021 09:57:59 Father Diabetes mellitus [email or web address] Not available 2021 09:58:08 Mother Coronary arterioscler osis [email or web address] Not available 2021 09:57:59 Medical History Condition Response Coronary Artery Disease Y Gout N Hyperthyroidism N Depression N COPD Y Hypothyroidism N Difficulty Swallowing N Anxiety Disorder N Meniere's disease N Obesity Y Arthritis Y Mental Disorder N Stroke N High Cholesterol Y Liver Disease N Fibromyalgia N Kidney Disease Y Anemia N MRSA exposure N Diabetes N Tuberculosis N AIDS/HIV N Congestive Heart Failure (CHF) Y Diverticulitis N Asthma Y Reflux/GERD Y Jaundice N Pulmonary Embolism N Chronic Ear Infections N Hypertension Y Osteoporosis N Gynecological HistoryNo gynecological history recorded. Obstetrics History GPAL:G 0 P 0 0 0 0 Immunizations Vaccine Type Date Status Note Provider Nam e and Address Organization Details Recorded Time Td (adult), 2 Lf tetanus toxoid, preservative free, adsorbed 1 completed Gwendolyn Smooth [facility] 03/26/2022 09:43:45 COVID-19, mRNA, LNP-S, bivalent, PF, 50 mcg/0.5 mL or 25mcg/0.25 mL dose 2 completed [facility] 03/26/2022 09:43:45 pneumococcal polysaccharide PPV23 5 completed [facility] 03/26/2022 09:43:45 COVID-19, mRNA, LNP-S, PF, 100 mcg/0.5mL dose or 50 mcg/0.25mL dose 1 completed [facility] 03/26/2022 09:43:45 COVID-19, mRNA, LNP-S, PF, 100 mcg/0.5mL dose or 50 mcg/0.25mL dose 1 completed [facility] 03/26/2022 09:43:45 COVID-19, mRNA, LNP-S, PF, 100 mcg/0.5mL dose or 50 mcg/0.25mL dose 1 completed [facility] 03/26/2022 09:43:45 Pneumococcal Conjugate, unspecified formulation 5 completed Gwendolyn Smooth [facility] 03/26/2022 09:43:45 RSV, recombinant, protein subunit RSVpreF, adjuvant reconstituted, 0.5 mL, PF 4 completed Gwendolyn Rebollar null, [place] - [facility] - [place] & [place] 04/12/2024 09:51:07 COVID-19, mRNA, LNP-S, PF, 50 mcg/0.5 mL 4 completed Gwendolyn Rebollar null, [facility] - [facility] - [place] & [place] 04/12/2024 09:51:07 Past Encounters Encounter ID Performer Location Encounter Start Date Encounter Closed Date Diagnosis/Indication Diagnosis SNOMED-CT Code Diagnosis ICD10 Code Diagnosis Note [id number] MD [facility] [address] [place] [address] 09/20/2024 10:45:52 09/20/2024 11:31:18 Viral gastroenteritis 195719824 A08.4 Issues relative to today's discussion and diagnosis were addressed. All questions were attempted to be addressed and reconciled . Any particular necessary informatio n was dispensed Complicati on due to diabetes mellitus 27146370 E11.8 We have had a lengthy discussion today that her Ozempic may not be worth the side effects relative to its potential benefit. Her most recent A1c was 6.4 I told her to go on and just leave the Ozempic off for the next 6 weeks and she can follow her fasting and random sugars. If they are saying pretty stable about 2 months from now we can repeat her A1c we can decide if we need to add a secondary agent. Enteritis caused by rotavirus 244307117 A08.0 This has a slowly resolving issue. Standardiz ed adult depression screening tool completed 3141256205 67792 Z13.31 Routine screening for depression is found to be negative. No interventi ons are required Health Concerns Section Related Observation LastModified by Organization Detai ls LastModified Time None Recorded Concern Status LastModified by Organization Details LastModified Time None Recorded Payers Encounter Date Sequence Insurance Name Policy Number Policy Camacho Covered Member ID Camacho Member ID Guarantor Name 09/20/2024 2 [place] Hilda Nagel [id number] Hilda Nagel 09/20/2024 1 [facility] [id number] Hilda Nagel [id number] Hilda Nagel Notes Date Note Type Note Provider Name and Address Organization Details Recorded Time 09/20/2024 text/html Today's visit is after a very prolonged gastroenteritis involving nausea vomiting and diarrhea with profound dehydration. She had several visits in emergency room before she was ultimately admitted. She actually has turned around has improved although she is talking today in retrospect that she is now noticing that with her Ozempic you she is always noticed the 1st 2 days after her Ozempic she was having significant nausea. Shahid Knight MD [address] [place] [address],[address], [place], [address], [place] - [facility] 09/20/2024 12:16:42 OBGyn Episode No OBEpisode recorded.
--- OUTSIDE RECORDS SUMMARY | 2024-10-04 15:51 | XMS_ITS | Clinical Summary ---
Author Organization Healthcare Address [address] [id number] Care Team Providers Care Fittings Tightener Name Role Phone Shahid Knight MD Primary Care Provider [phone] Anson Palacio MD Unavailable [phone] Allergies Active Allergy Reactions Criticality Noted Date Comments Statins Other - please docum ent in the comment field Medium 07/15/2022 myalgia Medications alendronate (Fosamax) 70 MG tablet Take 1 tablet (70 mg) by mouth every 7 (seven) days. Take in the morning with a full glass of water, on an empty stomach, and do not take anything else by mouth or lie down for the next 30 min. Active aspirin 81 MG EC tablet Take 1 tablet (81 mg) by mouth 1 (one) time each day. Active carvedilol (Coreg) 25 MG tablet Take by mouth 2 (two) times a day with meals. Two tablets twice daily Active losartan (Cozaar) 100 MG tablet Take 1 tablet (100 mg) by mouth 1 (one) time each day. Active pantoprazole (Protonix) 40 MG EC tablet Take 1 tablet (40 mg) by mouth 2 (two) times a day. Do not crush, chew, or split. Active rOPINIRole (Requip) 1 MG tablet Take 1 tablet (1 mg) by mouth every night. Active semaglutide (Ozempic) 2 MG/1.5ML solution pen-injector inj. pen Inject under the skin 1 (one) time per week. Active spironolactone (Aldactone) 25 MG tablet Take 1 tablet (25 mg) by mouth 1 (one) time each day. 1-2x weekly Active torsemide (Demadex) 100 MG tablet Take 1 tablet (100 mg) by mouth if needed. 1/2 tablet daily Active empagliflozin (Jardiance) 10 MG Take 1 tablet (10 mg) by mouth 1 (one) time each day. Active Evolocumab 140 MG/ML solution auto-injector Inject under the skin. Active minocycline 100 MG capsule Take 1 capsule (100 mg) by mouth 1 (one) time each day. Active Active Problems Problem Noted Date Diagnosed Date Stage 3 chronic kidney disease 07/22/2022 Proteinuria 07/22/2022 Anemia due to stage 3 chronic kidney disease 09/2022 Essential hypertension 07/22/2022 Chronic heart failure with preserved ejection fr action 07/22/2022 Immunizations Immunization Administration Dates Next Due Moderna COVID-19 Vaccine (Re d Cap) 12+ years 02/19/2021,05/19/2020,04/21/2020 Pneumococcal Conjugate, Unspecified 06/08/2014 Pneumococcal Polysaccharide PPV23 06/08/2014 TD (adult), 2 Lf tetanus tox oid, preservative free, adsorbed 04/25/2000 Family History Medical History Relation Name Comments Diabetes Father Scleroderma Mother Relation Name Status Comments Father Mother Social History Tobacco Use Types Packs/Day Years Used Date Smoking Tobacco: Never Passive Smoke Exposure: Never Smokeless Tobacco: Never Tobacco Cessation:Counseling Given: Not Answered Alcohol Use Standard Drinks/Week Comments Never 0 (1 standard drink = 0.6 oz pur e alcohol) Comments Unknown Sex and Gender Information Value Date Recorded Sex Assigned at Not on file Legal Sex Female 8:18 AM EST Gender Identity Not on file Sexual Orientation Not on file Last Filed Vital Signs Vital Sign Reading Time Taken Comments Blood Pressure 146/76 11/01/2022 4:02 PM EDT Pulse 59 11/01/2022 4:02 PM EDT Temperature - - Respiratory Rate - - Oxygen Saturation - - Inhaled Oxygen Concentration - - Weight 101 kg (222 lb) 11/01/2022 4:02 PM EDT Height 172.7 cm (5' 8 ) 10/21/2022 2:09 PM EDT Body Mass Index 33.75 10/21/2022 2:09 PM EDT Plan of Treatment Health Maintenance Due Date Last Done Comments [facility]-Bone Density Scan 1945 [facility]-Depression Screening 1945 [facility]-Hepatitis C Screening 1945 [facility]-Medicare Annual Wellness (AWV) 1945 [facility]-Infant/Child/Adol SDOH Screenings 1945 [facility]- SDOH Screenings 1964 [facility]-Adult SDOH Screenings 1964 [facility]-Zoster Vaccines (1 of 2) 1996 [facility]-DTaP,Tdap,and Td Vaccines (1 - Tdap) 04/26/2000 04/25/2000 [facility]-Pneumococcal Vaccine: 50+ Years (2 of 2 - PCV) 06/08/2015 06/08/2014 [facility]-RSV Vaccine: 60+ Years or (1 - 1-dose 75+ series) 2021 [id number] Vaccine ( season) 2023 02/12/2022, 02/19/2021, 05/19/2020, Additional history exists [facility]-Influenza Vaccine (Season Ended) 2024 [facility]-Diabetes: Hemoglobin A1C Discontinued 06/02/2017 [facility]-Obesity Intervention Completed 11/01/2022, 0409/2022 HPV Vaccines Aged Out No longer eligi ble based on patient's age to complete this topic [facility]-HIB Vaccines Aged Out No longer e ligible based on patient's age to complete this topic [facility]-Hepatitis A Vaccines Aged Out No longer eligible based on patient's age to complete this topic [facility]-IPV Vaccines Aged Out No longer e ligible based on patient's age to complete this topic [facility]-Rotavirus Vaccines Aged Out No lo nger eligible based on patient's age to complete this topic Insurance [address] [id number] [facility] MEDICARE Care Teams Fittings Tightener Relationship Specialty Start Date End Date Shahid Knight MD [address] [place] [id number] PCP - General 05/20/22 Anson Palacio MD [address] [place] [id number] 05/20/22
--- OUTSIDE RECORDS SUMMARY | 2024-10-04 15:51 | XMS_ITS | Encounter Summary ---
Author Organization [facility] Address [address] [place] [address] Care Team Providers Care Choir Accompanist Name Role Phone Shahid Knight MD Primary Care Provider Reason for Visit * Reason Onset Date Comments Medications Refill 01/27/2011 Encounter Details Date Type Department Care Team (Late st Contact Info) Description 01/27/2011 Refill [facility] [address] [facility] [address] [place] [address] Harpreet Hughes MD [address] [place] [address] Medications Refill Social History Tobacco Use Types Packs/Day Years Used Date Smoking Tobacco: Never Alcohol Use Standard Drinks/Week Comments No 0 (1 standard drink = 0.6 oz pur e alcohol) Comments Unknown Sex and Gender Information Value Date Recorded Sex Assigned at Not on file Legal Sex Female 11:06 PM EST Gender Identity Not on file Sexual Orientation Not on file documented as of this encounter Plan of Treatment Not on file documented as of this encounter Visit Diagnoses Diagnosis Coronary artery disease Coronary atherosclerosis of unspecified type of vessel, [place] or graft Hyperlipidemia Other and unspecified hyperlipidemia Hypertension Unspecified essential hypertension documented in this encounter Care Teams Choir Accompanist Relationship Specialty Start Date End Date Shahid Knight MD [address] [place] [address] PCP - General Pediatrics 09/25/09 documented as of this encounter
--- OUTSIDE RECORDS SUMMARY | 2024-10-04 15:51 | XMS_ITS | Clinical Summary ---
Author Organization [facility] Address [address] [place] [address] Care Team Providers Care Hr Associate Name Role Phone Shahid Knight MD Primary Care Provider Allergies No known active allergies Medications aspirin (ASPIRIN) 325 mg tablet Take by mouth Daily. Active metFORMIN (GLUCOPHAGE) 500 mg tablet Take 1 Tab by mouth Twice a day. Active simvastatin (ZOCOR) 10 mg tablet Take 1 Tab by mouth Daily. 90 Tab 3 04/20/2011 Active pantoprazole (PROTONIX) 40 mg tablet Take 1 Tab by mouth Daily. 30 Tab 5 04/20/2011 Active furosemide (LASIX) 40 mg tablet Take 1 Tab by mouth Daily. 30 Tab 5 04/20/2011 Active ezetimibe (ZETIA) 10 mg tablet Take 1 Tab by mouth Daily. 90 Tab 3 04/20/2011 Active Carvedilol Phosphate (COREG CR) 40 mg CM24 Take 40 mg by mouth Daily. 30 Tab 5 04/20/2011 Active amLODIPine (NORVASC) 10 mg tablet Take 1 Tab by mouth Daily. 30 Tab 5 04/20/2011 Active Aliskiren-Valsar celis (VALTURNA) 300-320 mg Tab Take 1 TAB by mouth Daily. 30 TAB 5 04/20/2011 Active hydrochlorothiaz felipe (HYDRODIURIL) 25 mg tablet Take 1 Tab by mouth Daily. 30 Tab 5 02/03/2012 Active Active Problems Problem Noted Date Diagnosed Date Coronary artery disease Hyperlipidemia Hypertension Family History Medical History Relation Name Comments Diabetes Father Diabetes Sister Relation Name Status Comments Father Sister Social History Tobacco Use Types Packs/Day Years Used Date Smoking Tobacco: Never Alcohol Use Standard Drinks/Week Comments No 0 (1 standard drink = 0.6 oz pur e alcohol) Comments No Sex and Gender Information Value Date Recorded Sex Assigned at Not on file Legal Sex Female 11:06 PM EST Gender Identity Not on file Sexual Orientation Not on file Last Filed Vital Signs Vital Sign Reading Time Taken Comments Blood Pressure 154/87 04/06/2011 1:07 PM EST Pulse 62 04/06/2011 1:07 PM EST Temperature - - Respiratory Rate 16 04/06/2011 1:07 PM EST Oxygen Saturation - - Inhaled Oxygen Concentration - - Weight 86.6 kg (191 lb) 04/06/2011 1:07 PM EST Height 172.7 cm (5' 8 ) 04/06/2011 1:07 PM EST Body Mass Index 29.04 04/06/2011 1:07 PM EST Plan of Treatment Health Maintenance Due Date Last Done Comments HEP C SCREENING 1946 ANNUAL WELLNESS EXAM 1949 DTAP/TDAP/TD VACCINE (1 - Tdap) 1965 PNEUMOCOCCAL VACCINE 65+ YEA RS (1 of 1 - PCV) 1996 Shingles Vaccine (Shingrix) (1 of 2) 1996 DEXA SCAN EVERY 2 YR (Osteop orosis Screen) 2011 INFLUENZA VACCINE (Season Ended) 2024 HEP A VACCINE Aged Out No longer elig ible based on patient's age to complete this topic HIB VACCINE Aged Out No longer eligi ble based on patient's age to complete this topic ROTOVIRUS VACCINE Aged Out No longer eligible based on patient's age to complete this topic Insurance [facility] Care Teams Hr Associate Relationship Specialty Start Date End Date Shahid Knight MD [address] [place] [address] PCP - General Pediatrics 09/25/09
--- OUTSIDE RECORDS SUMMARY | 2024-10-04 15:51 | XMS_ITS | Encounter Summary ---
Author Organization [facility] Address [address] [place] [address] Care Team Providers Care Sounding Device Operator Name Role Phone Shahid Knight MD Primary Care Provider [phone] Reason for Visit * Reason Onset Date Comments Medications Refill 04/05/2011 Encounter Details Date Type Department Care Team (Late st Contact Info) Description 04/05/2011 Refill [facility] [place] [address] [address] [place] [address] Harpreet Hughes MD [address] [place] [address] Medications Refill Social History Tobacco Use [...] on file documented as of this encounter Miscellaneous Notes * Telephone Encounter - Inés Walker - 04/05/2011 3:27 PM EST Last office visit 09-18-10 documented in this encounter Plan of Treatment Not on file documented as of this encounter Visit Diagnoses Not on filedocumented in this encounter Care Teams Sounding Device Operator Relationship Specialty Start Date End Date Shahid Knight MD [address] [place] [address] PCP - General Pediatrics 09/25/09 documented as of this encounter
--- OUTSIDE RECORDS SUMMARY | 2024-10-04 15:51 | XMS_ITS | Encounter Summary ---
Author Organization [facility] Address [address] [place] [address] Care Team Providers Care Upholstered Goods Crafter Name Role Phone Shahid Knight MD Primary Care Provider Encounter Details Date Type Department Care Team (Late st Contact Info) Description 05/13/2011 Telephone [facility] [address] [place] [phone] Harpreet Hughes MD [address] [place] [address] Social History Tobacco Use Types Packs/Day Years [...] encounter Miscellaneous Notes * Telephone Encounter - Katia Crowder - 05/13/2011 2:48 PM EST PT STOPPED BY [facility] ON 05-13-11 HAD BP CHECKED 100/56 ct/vg documented in this encounter Plan of Treatment Not on file documented as of this encounter Visit Diagnoses Not on filedocumented in this encounter Care Teams Upholstered Goods Crafter Relationship Specialty Start Date End Date Shahid Knight MD [address] [place] [address] PCP - General Pediatrics 09/25/09 documented as of this encounter
--- OUTSIDE RECORDS SUMMARY | 2024-10-04 15:51 | XMS_ITS | Data Portability ---
Author Organization [facility] Address [address] [facility] [address] [place] [address] Assessment No assessment recorded. Plan of Treatment Reminders Order Date Submit Date Provider Last Modified By Organization Details Last Modified Time Details Appointments None recorded. Lab systemic lupus erythematos us profile 2018 019 [facility], [address] [place] [address], [phone], 9 17:11:20 Referral None recorded. Procedures None recorded. Surgeries None recorded. Imaging None recorded. Medication Orders None recorded. Patient TargetsNo targets recorded. Patient InstructionsNo instructions recorded. Reason for Referral None Reported. Results Created Date Observation Date Name Description Value Unit Range Abnormal Flag Note LastModifiedBy Organization Detail LastModifiedTime 11/22/19 19 11/22/2018 syste prashanth lupus eryth emato dario profi le C3 148 mg/dL 83-193 normal TEST PERFO RMED AT: [facility] [address] [place] [address] RAJEEV Smith MD Not Available [facility] [address] [place] [address], [phone], 11/24/2018 18:06:06 11/22/19 19 11/22/2018 syste prashanth lupus eryth emato dario profi le C4 28 mg/dL 15-57 normal TEST PERFO RMED AT: [facility] [address] [place] [address] RAJEEV Smith MD Not Available [facility] [address] [place], [address], 11/24/2018 18:06:06 11/22/19 19 11/23/2018 syste prashanth lupus eryth emato dario profi le sm antibody <1.0 NEG ai <1.0 neg normal Not Available [facility] [address] [place] [address], [phone], 11/24/2018 18:06:06 11/22/19 19 11/23/2018 syste prashanth lupus eryth emato dario profi le sm/computer technology trainer Ab <1.0 NEG ai <1.0 neg normal TEST PERFO RMED AT: [facility] [address] [place] [address] RAJEEV Smith MD Not Available [facility] [address] [place] [address], [phone], 11/24/2018 18:06:06 11/22/19 19 11/23/2018 syste prashanth lupus eryth emato dario profi le centromere B Ab <1.0 NEG ai <1.0 neg normal TEST PERFO RMED AT: [facility] [address] [facility] [place] [address] RAJEEV Smith MD Not Available [facility] [address] [place] [address], [phone], 11/24/2018 18:06:06 11/22/19 19 11/23/2018 syste prashanth lupus eryth emato dario profi le scleroderma Ab <1.0 NEG ai <1.0 neg normal TEST PERFO RMED AT: [facility] [address] [place] [address] RAJEEV Smith MD Not Available [facility] [address] [place] [address], [phone], 11/24/2018 18:06:06 11/22/19 19 11/23/2018 syste prashanth lupus eryth emato dario profi le ss-A Ab <1.0 NEG ai <1.0 neg normal Not Available [facility] [address] [place], [address], 11/24/2018 18:06:06 11/22/19 19 11/23/2018 syste prashanth lupus eryth emato dario profi le ss-B Ab <1.0 NEG ai <1.0 neg normal TEST PERFO RMED AT: [facility] [place] [address] [place] [address] RAJEEV Smith MD Not Available [facility] [address] [place], [address], 11/24/2018 18:06:06 11/22/19 19 11/24/2018 syste prashanth lupus eryth emato dario profi le DNA (ds) Ab NEGATI VE negati ve normal TEST PERFO RMED AT: [facility] [place] [address] [place] [address] RAJEEV Smith MD Not Available [facility] [address] [place], [address], 11/24/2018 18:06:06 Result Notes None recorded. Problems No Known Problems Medical Equipment None Reported. Allergies No known drug allergies Medications Name Sig Start Date Stop Date Status Note LastModified by Organization Details LastModified Time minocycline 100 mg capsule Take 1 capsule every day by oral route. active Not Available Not Available No t Available pantoprazole 40 mg tablet,delayed release Take 2 tablets twice a day by oral route. active Not Available Not Available No t Available doxazosin 4 mg tablet Take 1 tablet every day by oral route. active Not Available Not Available No t Available losartan 100 mg tablet Take 1 tablet every day by oral route. active Not Available Not Available No t Available Asprin Ec Low Dose 81 mg tablet,delayed release Take 1 tablet every day by oral route. active Not Available Not Available No t Available Zetia 10 mg tablet Take 1 tablet every day by oral route. active Not Available Not Available No t Available toremifene 50 mg active Not Available Not Av ailable Not Available carvedilol 25 mg active Not Available Not Av ailable Not Available Tylenol 250 mg active Not Available Not Avail able Not Available Vitals Date Recorded Body weight Body mass index (BMI) Body height Heart rate Respiratory rate Systolic blood pressure Diastolic blood pressure Provider Name and Address Organization Details Last Updated DateTime 9 [address].7 3 g 33.3 kg/m2 172.72 cm 62 /min 18 /min 137 mm[Hg] 72 mm[Hg] Bashir Mooreo [facility] 9 13:02:04 Date Recorded Body height Body mass index (BMI) Body weight Respiratory rate Heart rate Systolic blood pressure Diastolic blood pressure Provider Name and Address Organization Details Last Updated DateTime 9 172.72 cm 33.3 kg/m2 52950.7 3 g 18 /min 72 /min 145 mm[Hg] 69 mm[Hg] Darlene Melgarvan [facility] 9 11:36:23 Social History Question Answer Notes LastModified by Linquet Details LastModified Time Tobacco Smoking Status Never Smoker [facility] 11/21/2018 13:08:51 How Much Tobacco Do You Chew? None Information not available 11/21/2018 What Was The Date Of Your Most Recent Tobacco Screening? 02/09/2019 [email or web address] Information not available 02/09/2019 How Much Tobacco Do You Smoke? No Information not available 11/21/2018 How Many Years Have You Smoked Tobacco? 0 Information not available 11/21/2018 Sex: Unknown Functional Status Question Answer Note LastModified by Linquet Details LastModified Time Do you or have you ever used smokeless tobacco? Never used smokeless tobacco Information not available 11/21/2018 Do you or have you ever used e-cigarettes or vape? Never used electronic cigarettes Information not available 11/21/2018 Mental Status None recorded. Family History Nothing Reported. Medical History No medical history recorded. Gynecological HistoryNo gynecological history recorded. Obstetrics History GPAL:G 0 P 0 0 0 0 Past Encounters Encounter ID Performer Location Encounter Start Date Encounter Closed Date Diagnosis/Indication Diagnosis SNOMED-CT Code Diagnosis ICD10 Code Diagnosis Note [id number] STEPHANI CHEN APRN [facility] [address] [place] [address] 11/21/2018 12:36:37 11/21/2018 13:52:27 Anti-nuclear factor detected 540721117 R76.8 1:80 she has no periungual erythema, no synovitis, no dactylitis she will have a lupus panel assessed though she is likely to have had this positive marker throughout her life and does not indicate any active disease; she verbalizes an understand ing; discussed with her family and her together [id number] STEPHANI CHEN APRN [facility] [address] [place] [address] 02/09/2019 10:31:49 02/14/2019 09:44:17 Anti-nuclear factor detected 261325951 R76.8 1:80 she has no periungual erythema, no synovitis, no dactylitis she will have a lupus panel assessed though she is likely to have had this positive marker throughout her life and does not indicate any active disease; she verbalizes an understand ing; discussed with her family and her together Health Concerns Section Related Observation LastModified by Organization Detai ls LastModified Time None Recorded Concern Status LastModified by Organization Details LastModified Time None Recorded Advance Directives Directive None Recorded Payers Insurance Date Sequence Insurance Name Policy Number Policy Camacho Covered Member ID Camacho Member ID Guarantor Name 02/06/2019 1 MEDICARE-K121 (MEDICARE) Hilda Nagel [id number] Hilda Nagel 02/14/2019 2 [place] [id number] Hilda Nagel [id number] Hilda Nagel Notes Date Note Type Note Provider Name and Address Organization Details Recorded Time 11/21/2018 text/html new patient here for initial evaluation and consultation at the request of Dr. Hughes for a recent pos rosi; she reported multiple joint pain; tenderness; she currently denies hair loss or injury family history of mixed connective tissue disease only a couple of weeks prior to her passing in 1981; with skin changes on the bilateral shins with vitiligo appearance; she did have a recent rash on the legs with an antibiotic that had a dye and after stopping the med, it went away; she reports she has been doing well overall and is not having any specific issues; she currently denies bowel or bladder changes, cp, soa, or fevers and all others are negative STEPHANI CHEN APRN [address] [place], [address], [facility] 11/28/2018 17:43:43 02/09/2019 text/html f/u after being new patient here for initial evaluation and consultation at the request of Dr. Hughes for a recent pos rosi; she reported multiple joint pain; tenderness; she currently denies hair loss or injury; family history of mixed connective tissue disease only a couple of weeks prior to her passing in 1981; with skin changes on the bilateral shins with vitiligo appearance; she did have a recent rash on the legs with an antibiotic that had a dye and after stopping the med, it went away; she reports she has been doing well overall and is not having any specific issues; she currently denies bowel or bladder changes, cp, soa, or fevers and all others are negative STEPHANI CHEN APRN [address] [place], [address], [facility] 02/09/2019 11:40:43 OBGyn Episode No OBEpisode recorded.
--- OUTSIDE RECORDS SUMMARY | 2024-10-04 15:51 | XMS_ITS | Data Portability ---
Author Organization [place] [facility] Address [address] [place] [id number] Assessment Encounter Date Assessment Date Assessment LastModified by Organization Details LastModified Time 11/02/2023 11/02/2023 Surveillance laboratory studies have been ordered to assess for the target of treatment as well as any potential end-organ toxicity. [email or web address] Not available 11/02/2023 13:04:31 Plan of Treatment Reminders Order Date Submit Date Provider Last Modified By Organization Details Last Modified Time Details Appointments OV EST 15 2024 09:00A P[address], Not available Not available Not available Lab HbA1c (hemoglob in A1c), blood 2023 024 MELISSA [facility], [address], [address] [address], [place], [address], 11/03/2023 13:11:16 albumin/c reatinine , mass ratio, urine 2023 024 MELISSA [facility], [address], [place] [address], [place], [address], 11/03/2023 13:11:15 CMP, serum or plasma 2023 024 MELISSA [facility], [address], [place] [address], [place], [address], 11/03/2023 13:11:13 lipid panel, serum 2023 024 MELISSA [facility], [address], [place] [address], [place], [address], 11/03/2023 13:11:14 magnesium , serum or plasma 2023 024 MELISSA [facility], [address], [place] [address], [place], [address], 11/03/2023 13:11:17 vitamin B12 + folate, serum or blood 2023 024 MELISSA [facility], [address], [place] [address], [place], [address], 11/03/2023 13:11:16 iron + total iron-bind ing capacity (TIBC), serum 2023 024 MELISSA [facility], [address], [place] [address], [place], [address], 11/03/2023 13:11:14 Referral None recorded. Procedures None recorded. Surgeries None recorded. Imaging DEXA, axial skeleton + vertebral fracture assessmen t 2023 024 [email or web address] [facility] ([facility]), [address], [place], [address], 12/23/2023 13:13:50 Medication Orders permethri n 5 % topical cream 2023 025 D[place]AM IR [facility] #23457, [address], [id number], 04/20/2024 08:51:13 prednison e 10 mg tablet 2023 024 [facility], [address], [id number], 04/12/2024 10:30:31 Ozempic 1 mg/dose (4 mg/3 mL) subcutane ous pen injector 2023 024 [facility], [address], [id number], 11/02/2023 13:05:33 Protonix 40 mg tablet,de layed release 2023 024 [facility] #35116, [address], [id number], 11/02/2023 13:05:35 Coreg 25 mg tablet 2023 024 [facility] #11981, [address], [id number], 11/02/2023 13:05:41 losartan 100 mg tablet 2023 024 [facility] #92186, [address], [id number], 11/02/2023 13:05:36 torsemide 100 mg tablet [email or web address] [facility]24728, [address], [id number], 04/12/2024 09:51:29 Patient TargetsNo targets recorded. Patient Instructions Encounter Date Encounter Id Patient Instructions Last Modified By Organization Details Last Modified Time 04/12/2024 [id number] Today's visit is part of long-term chronic disease management as well as chronic wellness management. Ongoing efforts to consolidate and optimize care is the goal at each visit. Today's visit includes the management of surveillance laboratory studies, discussion of their values if necessary, in addition to the interaction of multiple comorbidities, allowing the necessary additional time required [email or web address] [id number] Not available 04/12/2024 10:30:20 Reason for Referral None Reported. Results Created Date Observation Date Name Description Value Unit Range Abnormal Flag Note LastModifiedBy Organization Detail LastModifiedTime 11/02/19 24 11/03/2023 COMP. METAB OLIC PANEL (14) glucose 159 mg/dL 70-99 above high normal Not Available [facility] ([facility]) [address] [facility], [place], [address], 11/03/2023 13:11:13 11/02/19 24 11/03/2023 COMP. METAB OLIC PANEL (14) BUN 23 mg/dL 8-27 Not Available [facility] ([facility]) [address] [facility], [place], [address], 11/03/2023 13:11:13 11/02/19 24 11/03/2023 COMP. METAB OLIC PANEL (14) creatinine 1.45 mg/dL 0.57-1 .00 above high normal Not Available [facility] ([facility]) [address] [facility], [place], [address], 11/03/2023 13:11:13 11/02/19 24 11/03/2023 COMP. METAB OLIC PANEL (14) eGFR 37 mL/mi n/1.7 3 >59 below low normal Not Available [facility] ([facility]) [address] [facility], [place], [address], 11/03/2023 13:11:13 11/02/19 24 11/03/2023 COMP. METAB OLIC PANEL (14) BUN/creatini ne ratio 16 12-28 Not Available [facility] ([facility]) [address] [facility], [place], [address], 11/03/2023 13:11:13 11/02/19 24 11/03/2023 COMP. METAB OLIC PANEL (14) sodium 142 mmol/ L 134-14 4 Not Available [facility] ([facility]) [address] [facility], [place], [address], 11/03/2023 13:11:13 11/02/19 24 11/03/2023 COMP. METAB OLIC PANEL (14) potassium 4.2 mmol/ L 3.5-5. 2 Not Available [facility] ([facility]) [address] [facility], [place], [address], 11/03/2023 13:11:13 11/02/19 24 11/03/2023 COMP. METAB OLIC PANEL (14) chloride 102 mmol/ L 96-106 Not Available [facility] ([facility]) [address] [facility] [place], [address], 11/03/2023 13:11:13 11/02/19 24 11/03/2023 COMP. METAB OLIC PANEL (14) carbon dioxide, total 24 mmol/ L 20-29 Not Available [facility] ([facility]) [address] [facility], [place], [address], 11/03/2023 13:11:13 11/02/19 24 11/03/2023 COMP. METAB OLIC PANEL (14) calcium 9.5 mg/dL 8.7-10 .3 Not Available [facility] ([facility]) [address] [facility], [place], [address], 11/03/2023 13:11:13 11/02/19 24 11/03/2023 COMP. METAB OLIC PANEL (14) protein, total 6.6 g/dL 6.0-8. 5 Not Available [facility] ([facility]) [address] [place], [address], 11/03/2023 13:11:13 11/02/19 24 11/03/2023 COMP. METAB OLIC PANEL (14) albumin 4.0 g/dL 3.8-4. 8 Not Available [facility] ([facility]) [address] [place], [address], 11/03/2023 13:11:13 11/02/19 24 11/03/2023 COMP. METAB OLIC PANEL (14) globulin, total 2.6 g/dL 1.5-4. 5 Not Available [facility] ([facility]) [address] [place], [address], 11/03/2023 13:11:13 11/02/19 24 11/03/2023 COMP. METAB OLIC PANEL (14) bilirubin, total 0.6 mg/dL 0.0-1. 2 Not Available [facility] ([facility]) [address] [facility] [place], [address], 11/03/2023 13:11:13 11/02/19 24 11/03/2023 COMP. METAB OLIC PANEL (14) alkaline phosphatase 120 IU/L 44-121 Not Available [facility] ([facility]) [address] [place], [address], 11/03/2023 13:11:13 11/02/19 24 11/03/2023 COMP. METAB OLIC PANEL (14) AST (SGOT) 21 IU/L 0-40 Not Available [facility] ([facility]) [address] [place], [address], 11/03/2023 13:11:13 11/02/19 24 11/03/2023 COMP. METAB OLIC PANEL (14) ALT (SGPT) 21 IU/L 0-32 Not Available [facility] ([facility]) [address] [place], [address], 11/03/2023 13:11:13 11/02/19 24 11/03/2023 LIPID PANEL cholesterol, total 94 mg/dL 100-19 9 below low normal Not Available [facility] ([facility]) [address] [place], [address], 11/03/2023 13:11:14 11/02/19 24 11/03/2023 LIPID PANEL triglyceride s 188 mg/dL 0-149 above high normal Not Available [facility] ([facility]) [address] [place], [address], 11/03/2023 13:11:14 11/02/19 24 11/03/2023 LIPID PANEL HDL cholesterol 44 mg/dL >39 Not Available [facility] ([facility]) [address] [place], [address], 11/03/2023 13:11:14 11/02/19 24 11/03/2023 LIPID PANEL VLDL cholesterol clem 30 mg/dL 5-40 Not Available [facility] ([facility]) [address] [place], [address], 11/03/2023 13:11:14 11/02/19 24 11/03/2023 LIPID PANEL LDL chol calc ([facility]) 20 mg/dL 0-99 Not Available [facility] ([facility]) [address] [place], [address], 11/03/2023 13:11:14 11/02/19 24 11/03/2023 LIPID PANEL LDL calc comment: [employer] Not Available [facility] ([facility]) [address] [place], [address], 11/03/2023 13:11:14 11/02/19 24 11/03/2023 IRON AND TIBC iron bind.cap.(TI BC) 264 ug/dL 250-45 0 Not Available [facility] ([facility]) [address] [place], [address], 11/03/2023 13:11:14 11/02/19 24 11/03/2023 IRON AND TIBC UIBC 190 ug/dL 118-36 9 Not Available [facility] ([facility]) [address] [place], [address], 11/03/2023 13:11:14 11/02/19 24 11/03/2023 IRON AND TIBC iron 74 ug/dL 27-139 Not Available [facility] ([facility]) [address] [place], [address], 11/03/2023 13:11:14 11/02/19 24 11/03/2023 IRON AND TIBC iron saturation 28 % 15-55 Not Available [facility] ([facility]) [address] [place], [address], 11/03/2023 13:11:14 11/02/19 24 11/03/2023 ALBUM IN/CR EATIN INE RATIO ,URIN E creatinine, urine 10.0 mg/dL not estab. Not Available [facility] ([facility]) [address] [facility], [place], [address], 11/03/2023 13:11:15 11/02/19 24 11/03/2023 ALBUM IN/CR EATIN INE RATIO ,URIN E albumin, urine 193.6 ug/mL not estab. Not Available [facility] ([facility]) [address] [facility], [place], [address], 11/03/2023 13:11:15 11/02/19 24 11/03/2023 ALBUM IN/CR EATIN INE RATIO ,URIN E alb/creat ratio 1936 mg/g_ creat 0-29 above high normal Toyin l: 0 - 29 Moder ately incre ased: 30 - 300 Sever tonie incre ased: >300 Not Available [facility] ([facility]) [address] [facility], [place], [address], 11/03/2023 13:11:15 11/02/19 24 11/03/2023 VITAM IN B12 AND FOLAT E vitamin B12 527 pg/mL 232-12 45 Not Available [facility] ([facility]) [address] [facility], [place], [address], 11/03/2023 13:11:15 11/02/19 24 11/03/2023 VITAM IN B12 AND FOLAT E folate (folic acid), serum >20.0 NG/mL >3.0 A serum folat e daya ntrat ion of less than 3.1 ng/mL is consi dered to repre sent clini clem defic iency . Not Available [facility] ([facility]) [address] [facility], [place], [address], 11/03/2023 13:11:15 07/17/11/03/2023 HEMOG LOBIN A1C hemoglobin A1C 6.4 % 4.8-5. 6 above high normal Predi abete s: 5.7 - 6.4 Diabe chau: >6.4 Glyce prashanth contr ol for adult s with diabe chau: <7.0 Not Available [facility] ([facility]) [address] [facility], [place], [address], 11/03/2023 13:11:16 11/02/19 24 11/03/2023 MAGNE SIUM magnesium 1.9 mg/dL 1.6-2. 3 Not Available [facility] ([facility]) [address] [facility], [place], [address], 11/03/2023 13:11:17 03/19/20 24 03/14/2024 nucle ar stres s test No observ ation record ed. [address] [facility] [address], [place], [address], 03/20/2024 16:53:48 07/27/19 25 07/26/2024 US, renal No observ ation record ed. [address], [place], [address], 07/27/2024 07:54:44 Result Notes None recorded. Problems Name Problem SNOMED Code Status Onset Date Resolution Date Notes Provider Name and Address Organization Details Recorded Time Acute dermatitis 34418561 Active [address], MD [address] [place] [address],[address], [address] , [place] - [facility] [place] & [place] 4 10:28:06 Acute kidney injury 66898681 Active Annie Vice null, [place] [facility] [place] & [place] 5 11:00:28 History of artificial joint 830911604 Active Annie Vice null, [place] [facility] [place] [facility] [place] 5 11:00:28 Enteritis caused by rotavirus 604445962 Active Annie Vice null, [place] [facility] [place] [facility] [place] 5 11:00:28 Dehydration 55518111 Active Annie Pringle null, [place] - [facility] & [place] 5 11:00:28 History of cardiac catheteriza tion 5211012691874 0 Active Annie Pringle null, [place] - [facility] & [place] 5 11:00:28 Allergic rhinitis 09222800 Active Gwendolyn Smooth null, [place] - [facility] - [facility] & [place] 2 09:53:18 Gastroesoph ageal reflux disease without esophagitis 467867183 Active Gwendolyn Smooth null, [place] - [facility] & [place] 2 09:53:49 Essential hypertensio n 49193919 Active Gwendolyn Smooth null, [place] - [facility] & [place] 2 09:54:00 Lumbar spondylosis 089202175 Active Gwendolyn Smooth null, [place] - [facility] & [place] 2 09:54:25 Lumbar radiculopat hy 224608095 Active Gwendolyn Smooth null, [place] - [facility] & [place] 2 09:54:39 Mild chronic obstructive pulmonary disease 659174143 Active Gwendolyn Smooth null, [place] - [facility] & [place] 2 09:55:25 Asthma 572697775 Active Gwendolyn Smooth null, [place] - [facility] & [place] 2 09:55:35 Osteoarthri tis of multiple joints 489970265 Active Gwendolyn Smooth null, [place] - [facility] & [place] 2 09:56:40 Osteoporosi s 69151514 Active Gwendolyn Smooth null, [place] - [facility] - [facility] & [place] 2 09:57:17 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 48859846 Active [address], [address] [facility],[place] [address], [place], [address], [place] - [facility] & [place] 2 10:40:28 Long-term current use of drug therapy 988906464 Active [address], MD [address] [place] [address],[address], [address], [place] - [facility] [place] & [place] 2 10:40:38 Acute on chronic diastolic heart failure 871346517 Active [address], MD [address] [place] [address], [address], [place] - [facility] [place] & [place] 4 16:19:45 Standardize d adult depression screening tool completed 8993220625157 07 Active [address], MD [address] [place] [address],[address], [address], [place] - [facility] [place] & [place] 4 16:20:49 Problem Notes None recorded. Procedures Surgical History Date Name Laterality Status Provider Name and Address Organization Details Recorded Time Knee Surgery completed Gwendolyn Smooth [place] - [facility] [place] & [place] 10/06/2023 09:40:43 procedure on elbow completed Gemma ca Smooth [place] - [facility] [place] & [place] 03/26/2022 10:00:15 procedure on wrist completed Gemma ca Smooth [place] [facility] [place] [facility] [place] 03/26/2022 10:00:33 Cholecystectomy completed Gwendolyn Smooth [place] [facility] [place] [facility] [place] 03/26/2022 10:00:47 Back Surgery completed Gwendolyn Smooth [place] [facility] [place] [facility] [place] 03/26/2022 10:01:04 ligation of fallopian tube completed Gwendolyn Smooth [place] [facility] [place] & [place] 03/26/2022 10:01:37 Total hip arthroplasty completed Gwendolyn Smooth [place] [facility] [place] [facility] [place] 03/26/2022 10:01:59 Imaging Results None recorded. Procedure Notes None recorded. Medical Equipment None Reported. Allergies Allergen ID Allergen Name Allergen Category Reaction Reaction Severity Criticality Documentation Date Start Date Code Code System Note Provider Name and Address Organization Details Recorded Time 64758 simvastat in medicatio n Not available Not available Not available 03/26/2022 35303 RxNorm Gwendolyn Rebollar [facility], [place] - [facility] - [place] & [place] 2 09:44:03 Medications Name Sig Start Date Stop [...] Arterial blood by Pulse oximetry Heart rate Respiratory rate Systolic blood pressure Diastolic blood pressure Provider Name and Address Organization Details Last Updated DateTime 5 172.72 cm 33.5 kg/m2 38756.4 2 g 97.6 [degF] 97 % 97 % 77 /min 18 /min 150 mm[Hg] 90 mm[Hg] Gwendolyn Smooth [facility] & [place] 5 08:50:20 Date Recorded Body height Body mass index (BMI) Body weight Body temperature Oxygen saturation Oxygen saturation in Arterial blood by Pulse oximetry Heart rate Heart rate Respiratory rate Systolic blood pressure Diastolic blood pressure Provider Name and Address Organization Details Last Updated DateTime 5 172.72 cm 33.2 kg/m2 01316.8 4 g 97.8 [degF] 99 % 99 % 67 /min 67 /min 16 /min 142 mm[Hg] 72 mm[Hg] Annie Pringle [facility] & [place] 5 10:58:31 Date Recorded Body height Body mass index (BMI) Body weight Body temperature Oxygen saturation Oxygen saturation in Arterial blood by Pulse oximetry Heart rate Respiratory rate Systolic blood pressure Diastolic blood pressure Provider Name and Address Organization Details Last Updated DateTime 4 172.72 cm 35.9 kg/m2 003628. 8 g 97.6 [degF] 88 % 88 % 81 /min 24 /min 202 mm[Hg] 80 mm[Hg] Sindy Stephenson [facility] & [place] 4 08:49:06 Date Recorded Body height Body mass index (BMI) Body weight Body temperature Oxygen saturation Oxygen saturation in Arterial blood by Pulse oximetry Heart rate Respiratory rate Systolic blood pressure Diastolic blood pressure Provider Name and Address Organization Details Last Updated DateTime 4 172.72 cm 33.8 kg/m2 418780. 22 g 98.1 [degF] 96 % 96 % 73 /min 16 /min 138 mm[Hg] 80 mm[Hg] Peter Hathaway [facility] & [place] 4 14:41:20 Date Recorded Body height Body mass index (BMI) Body weight Body temperature Oxygen saturation Oxygen saturation in Arterial blood by Pulse oximetry Heart rate Respiratory rate Systolic blood pressure Diastolic blood pressure Provider Name and Address Organization Details Last Updated DateTime 4 172.72 cm 33.3 kg/m2 71187.1 3 g 97.8 [degF] 96 % 96 % 76 /min 18 /min 136 mm[Hg] 70 mm[Hg] Gwendolyn Rebollar [facility] & [place] 4 09:50:36 Social History Question Answer Notes LastModified by [employer] Details LastModified Time Tobacco Smoking Status Never Smoker Gwendolyn Loftoner [facility] & [place] 03/26/2022 09:58:25 What Is Your Level Of Caffeine Consumption? Occasional [email or web address] Information not available 03/26/2022 What Was The Date Of Your Most Recent Tobacco Screening? 04/12/2024 [email or web address] Information not available 04/12/2024 Has Tobacco Cessation Counseling Been Provided? No [email or web address] Information not available 04/12/2024 Sex: Unknown Functional Status Question Answer Note LastModified by [employer] Details LastModified Time Do you use any illicit or recreational drugs? No Information not available 03/26/2022 Do you or have you ever used any other forms of tobacco or nicotine? No Information not available 03/26/2022 What is your level of alcohol consumption? None [email or web address] Information not available 03/26/2022 Mental Status None recorded. Family History Relationship Description Onset Age of this Age Resolved Age Notes LastModified by Organization Details LastModified Time Father Coronary arterioscler [email or web address] Not available 2021 09:57:59 Father Diabetes mellitus [email or web address] Not available 2021 09:58:08 Mother Coronary arterioscler osis [email or web address] Not available 2021 09:57:59 Medical History Condition Response Coronary Artery Disease Y Gout N Hyperthyroidism N Depression N COPD Y Hypothyroidism N Anemia N MRSA exposure N Difficulty Swallowing N Anxiety Disorder N Diabetes N Meniere's disease N Obesity Y Arthritis Y Mental Disorder N Tuberculosis N AIDS/HIV N Congestive Heart Failure (CHF) Y Stroke N Diverticulitis N Asthma Y Reflux/GERD Y Jaundice N High Cholesterol Y Liver Disease N Pulmonary Embolism N Fibromyalgia N Chronic Ear Infections N Hypertension Y Osteoporosis N Kidney Disease Y Gynecological HistoryNo gynecological history recorded. Obstetrics History GPAL:G 0 P 0 0 0 0 Immunizations Vaccine Type Date Status Note Provider Nam e and Address Organization Details Recorded Time Td (adult), 2 Lf tetanus toxoid, preservative free, adsorbed 1 completed Gwendolyn crook [place] - [facility] 03/26/2022 09:43:45 COVID-19, mRNA, LNP-S, bivalent, PF, 50 mcg/0.5 mL or 25mcg/0.25 mL dose 2 completed Gwendolyn crook [place] [facility] 03/26/2022 09:43:45 pneumococcal polysaccharide PPV23 5 completed Gwendolyn crook [facility] 03/26/2022 09:43:45 COVID-19, mRNA, LNP-S, PF, 100 mcg/0.5mL dose or 50 mcg/0.25mL dose 1 completed Gwendolyn crook [facility] 03/26/2022 09:43:45 COVID-19, mRNA, LNP-S, PF, 100 mcg/0.5mL dose or 50 mcg/0.25mL dose 1 completed Gwendolyn crook [place] [facility] 03/26/2022 09:43:45 COVID-19, mRNA, LNP-S, PF, 100 mcg/0.5mL dose or 50 mcg/0.25mL dose 1 completed Gwendolyn crook [place] [facility] 03/26/2022 09:43:45 Pneumococcal Conjugate, unspecified formulation 5 completed Gwendolyn crook, [place] - [facility] [place] [facility] [place] 03/26/2022 09:43:45 RSV, recombinant, protein subunit RSVpreF, adjuvant reconstituted, 0.5 mL, PF 4 completed Gwendolyn crook, [place] - [facility] - [place] & [place] 04/12/2024 09:51:07 COVID-19, mRNA, LNP-S, PF, 50 mcg/0.5 mL 4 completed Gwendolyn crook, [place] [facility] - [place] & [place] 04/12/2024 09:51:07 Past Encounters Encounter ID Performer Location Encounter Start Date Encounter Closed Date Diagnosis/Indication Diagnosis SNOMED-CT Code Diagnosis ICD10 Code Diagnosis Note [id number] MD [facility] [address] [place] [address] 03/26/2022 08:45:59 03/26/2022 10:30:57 Complication due to diabetes mellitus 75287168 E11.69 Patient comes in today for follow-up of diabetes mellitus with multiple comorbidit ies that will be addressed further in the noted problem list. Reported random blood sugars suggest current status of diabetes appears to be reasonably well controlled with no with this for significan t hypoglycem ia etc. Long-term current use of drug therapy 774753580 Z79.899 Surveillan ce laboratory studies have been ordered to assess for the target of treatment as well as any potential end-organ toxicity. Standardiz ed adult depression screening tool completed 7872069850 99841 Z13.89 [id number] MD [facility] [address] [place] [address] 10/18/2022 14:47:37 10/18/2022 16:29:48 Essential hypertension 84495391 I10 Patient returns today for follow-up of a chronic diagnosis of hypertensi on. Outpatient surveillan ce as demonstrat ed good control, without any issues or complaints of side effect. Today's evaluation s suggest adequate control of disease process and no need for change in medication currently. Complicati on due to diabetes mellitus 45552909 E11.69 Patient comes in today for follow-up of diabetes mellitus with multiple comorbidit ies that will be addressed further in the noted problem list. Reported random blood sugars suggest current status of diabetes appears to be reasonably well controlled with no with this for significan t hypoglycem ia etc. Chronic ki dney disease stage 3B 130982034 N18.32 Surveillan ce laboratory studies have been ordered to assess for the target of treatment as well as any potential end-organ toxicity. Mild chron ic obstructive pulmonary disease 898769395 J44.9 This represents a chronic process that has been medically stable. Currently remains asymptomat ic, with no change in status, and no change in progressio n diagnostic ally or from a treatment standpoint . Gastroesop hageal reflux disease without esophagitis 173962708 K21.9 Follow-up today relative to a chronic diagnosis of gastroesop hageal reflux disease. Patient relates good symptomati c control, and no perceived side effects or issues with her currently prescribed medication Osteoporosis [id number] M8 1.0 This represents a chronic process that has been stable on medication s for extended period of time. Currently there appears to be no toxicity or side effect and good response to treatment. For these reasons we will continue medication s as ordered. Standardiz ed adult depression screening tool completed [id number] 87502 Z13.89 Appropriat e age related, gender related, and health risk related parameters were addressed today recommenda tions were made for appropriat e wellness studies as indicated. [id number] MD [facility] [address] [place] [address] 04/26/2023 14:03:59 04/26/2023 15:28:20 Complication due to diabetes mellitus [id number] E11.69 Patient comes in today for follow-up of diabetes mellitus with multiple comorbidit ies that will be addressed further in the noted problem list. Reported random blood sugars suggest current status of diabetes appears to be reasonably well controlled with no with this for significan t hypoglycem ia etc. Chronic ki dney disease stage 3B [id number] N18.32 Surveillan ce laboratory studies have been ordered to assess for the target of treatment as well as any potential end-organ toxicity. Today's evaluation s suggest adequate control of disease process and no need for change in medication currently. Osteoporosis 40705608 M8 1.0 This represents a chronic process that has been stable on medication s for extended period of time. Currently there appears to be no toxicity or side effect and good response to treatment. For these reasons we will continue medication s as ordered. Osteoarthr itis of multiple joints 774295613 M15.9 This represents a chronic process that has been stable on medication s for extended period of time. Currently there appears to be no toxicity or side effect and good response to treatment. For these reasons we will continue medication s as ordered. Mild chron ic obstructive pulmonary disease 672624334 J44.9 This represents a chronic process that has been medically stable. Currently remains asymptomat ic, with no change in status, and no change in progressio n diagnostic ally or from a treatment standpoint . Lumbar spondylosis 35951 0009 M47.896 this currently is undergoing epidural injections . Gastroesop hageal reflux disease without esophagitis 191337408 K21.9 Follow-up today relative to a chronic diagnosis of gastroesop hageal reflux disease. Patient relates good symptomati c control, and no perceived side effects or issues with her currently prescribed medication Essential hypertension [id number] I10 Patient returns today for follow-up of a chronic diagnosis of hypertensi on. Outpatient surveillan ce as demonstrat ed good control, without any issues or complaints of side effect. Today's evaluation s suggest adequate control of disease process and no need for change in medication currently. Chronic lo ng term disease management required: complex needs 858192553 Z76.89 Today's visit is part of long-term chronic disease management as well as chronic wellness management . Ongoing efforts to consolidat e and optimize care is the goal at each visit. Today's visit includes the management of surveillan ce laboratory studies, discussion of their values if necessary, in addition to the interactio n of multiple comorbidit ies, allowing the necessary additional time required [id number] MD [facility] [address] [place] [address] 06/08/2023 11:08:36 06/08/2023 12:08:07 Osteoarthritis of multiple joints 438586369 M15.9 This represents a chronic process that has been stable on medication s for extended period of time. Currently there appears to be no toxicity or side effect and good response to treatment. For these reasons we will continue medication s as ordered. History of left total knee replacement [id number] 779431 Z96.652 Issues relative to today's discussion and diagnosis were addressed. All questions were attempted to be addressed and reconciled . Any particular necessary informatio n was dispensed Complicati on due to diabetes mellitus 18269193 E11.69 This represents a chronic process that has been medically stable. Currently remains asymptomat ic, with no change in status, and no change in progressio n diagnostic ally or from a treatment standpoint . Essential hypertension 78739665 I10 Patient returns today for follow-up of a chronic diagnosis of hypertensi on. Outpatient surveillan ce as demonstrat ed good control, without any issues or complaints of side effect. Today's evaluation s suggest adequate control of disease process and no need for change in medication currently. Mild chron ic obstructive pulmonary disease 967687691 J44.9 This represents a chronic process that has been medically stable. Currently remains asymptomat ic, with no change in status, and no change in progressio n diagnostic ally or from a treatment standpoint . Osteoporosis 43105000 M8 1.0 This represents a chronic process that has been stable on medication s for extended period of time. Currently there appears to be no toxicity or side effect and good response to treatment. For these reasons we will continue medication s as ordered. [id number] [facility] [address] [place] [address] 10/06/2023 09:06:56 10/06/2023 09:58:40 Osteoarthritis of multiple joints 497592174 M15.9 This represents a chronic process that has been stable on medication s for extended period of time. Currently there appears to be no toxicity or side effect and good response to treatment. For these reasons we will continue medication s as ordered. History of right total knee replacement [id number] 847251 Z96.651 Patient presents today for 1 week follow-up regarding recent right TKA completed on 09/27/2023 at [facility] with Dr. Eubanks. Patient has scheduled follow-up appointmen t with Dr. Eubanks postsurgic radha. Patient also states that she will be starting physical therapy with [facility] tomorrow. There appears to be no complicati ons. Issues relative to today's discussion and diagnosis were addressed. All questions were attempted to be addressed and reconciled . Any particular necessary informatio n was dispensed [id number] MD [facility] [address] [place] [address] 11/02/2023 08:30:18 11/02/2023 10:11:55 Postmenopausal state 56299467 Z78.0 Surveillan ce laboratory studies have been ordered to assess for the target of treatment as well as any potential end-organ toxicity. Complicati on due to diabetes mellitus 51280369 E11.69 This represents a chronic process that has been medically stable. Currently remains asymptomat ic, with no change in status, and no change in progressio n diagnostic ally or from a treatment standpoint . Essential hypertension 67474835 I10 Patient returns today for follow-up of a chronic diagnosis of hypertensi on. Outpatient surveillan ce as demonstrat ed good control, without any issues or complaints of side effect. Today's evaluation s suggest adequate control of disease process and no need for change in medication currently. Anemia 941081608 D64.9 she is now postoperat ively has a hemoglobin of 9.9 I am going to go on and assess to see the degree of iron deficiency etcetera to see how much of a component this could be with her dyspnea on exertion Gastroesop hageal reflux disease without esophagitis 939069589 K21.9 Follow-up today relative to a chronic diagnosis of gastroesop hageal reflux disease. Patient relates good symptomati c control, and no perceived side effects or issues with her currently prescribed medication Long-term current use of drug therapy 258415512 Z79.899 Surveillan ce laboratory studies have been ordered to assess for the target of treatment as well as any potential end-organ toxicity. Moderate c hronic obstructive pulmonary disease 142608061 J43.1 This represents a chronic process that has been medically stable. Currently remains asymptomat ic, with no change in status, and no change in progressio n diagnostic ally or from a treatment standpoint . Chronic lo ng term disease management required: complex needs 833279509 Z76.89 Today's visit is part of long-term chronic disease management as well as chronic wellness management . Ongoing efforts to consolidat e and optimize care is the goal at each visit. Today's visit includes the management of surveillan ce laboratory studies, discussion of their values if necessary, in addition to the interactio n of multiple comorbidit ies, allowing the necessary additional time required Standardiz ed adult depression screening tool completed [id number] 81824 Z13.31 Routine screening for depression is found to be negative. No interventi ons are required [id number] MD [facility] [address] [place] [address] 11/10/2023 14:21:26 11/10/2023 15:24:12 Acute on chronic diastolic heart failure 997369427 I50.33 Hilda is symptomati treva much better. She currently has follow-up with Cardiology and at that time they will probably look into her heart failure management . Mild chron ic obstructive pulmonary disease 769900204 J44.9 This represents a chronic process that has been medically stable. Currently remains asymptomat ic, with no change in status, and no change in progressio n diagnostic ally or from a treatment standpoint . Essential hypertension 74485388 I10 Patient returns today for follow-up of a chronic diagnosis of hypertensi on. Outpatient surveillan ce as demonstrat ed good control, without any issues or complaints of side effect. Today's evaluation s suggest adequate control of disease process and no need for change in medication currently. Chronic lo ng term disease management required: complex needs 579626303 Z76.89 Today's visit is part of long-term chronic disease management as well as chronic wellness management . Ongoing efforts to consolidat e and optimize care is the goal at each visit. Today's visit includes the management of surveillan ce laboratory studies, discussion of their values if necessary, in addition to the interactio n of multiple comorbidit ies, allowing the necessary additional time required Standardiz ed adult depression screening tool completed [id number] 38867 Z13.31 Routine screening for depression is found to be negative. No interventi ons are required [id number] MD [facility] [address] [place] [address] 04/12/2024 09:33:14 04/12/2024 10:23:04 Acute dermatitis 24567990 L30.9 this has a very odd presentati on in appearance to this rash. 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 I can not exclude the fact that this could be a might related eruption as well. On the front in for safety what I am going to do is I am going to go on and do a permethrin overnight treatment then after that put her on 40 mg of prednisone daily and have her come back in a week we are going to have to reassess how we are going to manage this it if indeed we seem to be on the right track we are really going to have to be cautious with how we taper her. Complicati on due to diabetes mellitus 92809916 E11.69 Appropriat e age related, gender related, and health risk related parameters were addressed today recommenda tions were made for appropriat e wellness studies as indicated. Essential hypertension 59276745 I10 Patient returns today for follow-up of a chronic diagnosis of hypertensi on. Outpatient surveillan ce as demonstrat ed good control, without any issues or complaints of side effect. Today's evaluation s suggest adequate control of disease process and no need for change in medication currently. Long-term current use of drug therapy 242080795 Z79.899 Surveillan ce laboratory studies have been ordered to assess for the target of treatment as well as any potential end-organ toxicity. Lumbar spondylosis 66011 0009 M47.896 this is a concerning issue in the sense that she had a postoperat richard infectious process and I need to be really cautious with her steroid use Standardiz ed adult depression screening tool completed [id number] 77683 Z13.31 Routine screening for depression is found to be negative. No interventi ons are required [id number] MD [facility] [address] [place] [address] 04/20/2024 08:33:27 04/20/2024 09:06:59 Acute dermatitis 38490419 L30.9 At this point since we still can not be 100% sure what the etiology of this was I have gone on and counseled her I am very slow progressiv e taper of her prednisone and then we are going to touch base next week. The underlying concern is the coincidenc e of the lesion on her knee and questionin g whether this could be related to an underlying issue with the knee replacemen t [id number] MD [facility] [address] [place] [address] 09/20/2024 10:45:52 09/20/2024 11:31:18 Viral gastroenteritis 956451120 A08.4 Issues relative to today's discussion and diagnosis were addressed. All questions were attempted to be addressed and reconciled . Any particular necessary informatio n was dispensed Complicati on due to diabetes mellitus 33084312 E11.8 We have had a lengthy discussion [...] a secondary agent. Enteritis caused by rotavirus 446209052 A08.0 This has a slowly resolving issue. Standardiz ed adult depression screening tool completed [id number] 79138 Z13.31 Routine screening for depression is found [...] Camacho Member ID Guarantor Name 09/20/2024 2 [employer] [employer] [place] [id number] Hilda Nagel [id number] Hilda Nagel 09/20/2024 2 [employer]MEDICARE[place] Hilda Nagel [id number] Hilda Nagel 10/02/2024 1 [facility] [id number] Hilda Nagel [id number] Hilda Nagel Notes Date Note Type Note Provider Name and Address Organization Details Recorded Time 4 text/htm l DiabetesReported bypatient.Review finger sticks:fasting: Duration:chronic Control:usually well controlled Compliance:compliant with medications; compliant with follow-up visits; compliant with diet; compliant with home glucose monitoring Self Care:seeing eye doctor regularly; checking feet regularly Associated Symptoms:no increased thirst; no increased appetite Chronic Complications:diabetic neuropathy: No; diabetic nephropathy: Yes; hypertension: Yes; hyperlipidemia: Yes Comorbidities:coronary artery disease: Yes; claudications/peripheral vascular disease: NoHyperlipidemiaReported bypatient.Duration:chronic Prior Tests:Most recent studies acceptable 6 months ago Control:usually well controlled Adherence to Treatment Plan:follows recommended diet; takes medications as prescribedNotes:Additional reasons for visit include management of other associated comorbidities and chronic disease management, as will be outlined in the assessment and plan.Hypertension F/UReported bypatient.Medications:taking medications as directed; no side effects from medication Lifestyle:limits sodium intake Associated Symptoms:no dizziness; no lightheadedness; no chest pain; no shortness of breath; no calf pain with exertionNotes:No cough Additional reasons for visit includes Co management of any other associated comorbidities related to chronic disease management, as will be outlined in the assessment and plan. Shahid Knight MD [address] [place] [address] Drive,[address], [place], [address], [place] [facility] & [place] 11/02/2023 13:07:10 4 text/htm l Hilda was recently admitted for aggressive diuresis of diastolic heart failure as well as some degree of reactive airways disease. She comes in today feeling much better now essentially 10 lb lessen weight compared to her last visit Shahid Knight MD [address] [place] [address] Drive,[address], [place], [address], [facility] - [facility] [place] & [place] 11/10/2023 16:21:27 4 text/htm l today's visit is for an evolving dermatologic process. Hilda states back in September after she had her total knee replacement that she started with this progressive dermatologic eruption. It started as a small plaque on the lateral aspect of her right knee and now she is coincidentally had a diffuse systemic eruption that is very pruritic to some degree tiny papular looking interruption. Shahid Knight MD [address] [place] [address] Drive,[address], [place], [address], [facility] - [facility] & [place] 04/12/2024 10:31:04 5 text/htm sukhdeep Stevens returns today with marked improvement in her dermatitis eruption. The major reason for having her come back today is it was a very odd presentation that at this point I still can not be 100% sure what the underlying etiology was she had this large plaque lateral on her right knee that looked psoriatic in nature but had the coincidence of being there since she had her knee replacement. In addition to that she had a diffuse eruption that was papular that had to look to it like mites. All of it is markedly improved today but she continues on 40 mg of prednisone Shahid Knight MD [address] [place] [address] Drive,[address], [place], [address], [facility] - [facility] & [place] 04/20/2024 09:10:02 5 text/htm sukhdeep Today's visit is after a very prolonged [...] was having significant nausea. Shahid Knight MD [address], [place], [address], [place] [facility] & [place] 09/20/2024 12:16:42 OBGyn Episode No OBEpisode recorded.
[2024-10-04 17:13] LABS: Alanine Aminotransferase 22 U/L (12-78); Albumin Level 3.6 g/dl (3.5-5.0); Albumin/Globulin Ratio 1.3 (1.1-1.8); Alkaline Phosphatase 142 U/L (38-126); Anion Gap 8.2 mEq/L (5-15); Aspartate Amino Transferase 26 U/L (14-36); Bilirubin,Total 0.7 mg/dl (0.2-1.3); Blood Urea Nitrogen 35 mg/dl (7-17); Calcium 9.2 mg/dl (8.4-10.2); Carbon Dioxide 29 mmol/L (22.0-30.0); Chloride 105 mmol/L (98-107); Estimated Glomerular Filt Rate 26 ml/min (>60); GFR (African American) 31 ML/MIN (>60); Globulin 2.7 g/dL (1.3-3.2); Glucose 175 mg/dl (74-100); Potassium 4.2 mmoL/L (3.5-5.1); Sodium 138 mmol/L (136-145); Total Protein,Serum 6.3 g/dl (6.3-8.2)
== END 2024-10-04 23:59 | disposition home or self-care (01) ==
LOC: LAB 15:49
PROVIDERS: PCP Internal Medicine; Visit Provider Internal Medicine Pulmonary Disease
DX: J84.9 Interstitial pulmonary disease, unspecified (principal)
CPT/HCPCS: 36415; 80053

== ENCOUNTER 2024-12-07 11:17 | Outpatient (CLI) | payer OTHER, MEDICARE, SELFPAY ==
--- NOTE | 2024-12-07 11:21 | XR_ITS ---
PROCEDURE INFORMATION: Exam: XR Chest Exam date and time: 12/07/2024 11:22 AM Age: 79 years old Clinical indication: Shortness of breath; Additional info: SOB TECHNIQUE: Imaging protocol: Radiologic exam of the chest. Views: 2 views. COMPARISON: CR XR CHEST 2V 11/04/2023 9:56 AM FINDINGS: Lungs: Lungs are well aerated without a focal area of consolidation. Pleural spaces: Unremarkable. No pleural effusion. No pneumothorax. Heart/Mediastinum: Calcified lymph nodes in the hilar regions. The cardiac silhouette appears enlarged, some of which is magnification related to the AP projection. Bones/joints: Unremarkable. IMPRESSION: Lungs are well aerated without a focal area of consolidation. Minimal platelike atelectasis adjacent to the left heart border. Small subpulmonic effusion on the left.
--- OUTSIDE RECORDS SUMMARY | 2024-12-07 11:21 | XMS_ITS | Clinical Summary ---
Author Organization [facility] Address [address] [place] [address] Care Team Providers Care Cloud Systems Architect Name Role Phone Shahid Knight MD Primary Care Provider Allergies Active Allergy Reactions Criticality Noted Date Comments Statins Other (See Comments) Medium 07/15/2022 myalgia Medications valsartan-hydro chlorothiazide (DIOVAN-HCT) 320-25 MG per tablet Take 1 tablet by mouth Daily. 6 Active pantoprazole (PROTONIX) 40 MG EC tablet 6 Active furosemide (LASIX) 40 MG tablet 6 Active ZETIA 10 MG tablet Take 1 tablet by mouth Daily. 6 Active carvedilol (COREG) 25 MG tablet 1.5 tablets 2 (Two) Times a Day With Meals. 6 Active TEKTURNA 300 MG tablet Take 150 mg by mouth Daily. 6 Active acetaminophen (TYLENOL) 325 MG tablet Take 2 tablets by mouth Every 4 (Four) Hours As Needed for Mild Pain . 8 Active cyclobenzaprine (FLEXERIL) 10 MG tablet Take 1 tablet by mouth 3 (Three) Times a Day As Needed for Muscle Spasms. 20 tablet 8 Active saccharomyces boulardii (FLORASTOR) 250 MG capsule Take 1 capsule by mouth 2 (Two) Times a Day. 60 capsule 5 8 Active albuterol (PROVENTIL HFA;VENTOLIN HFA) 108 (90 Base) MCG/ACT inhaler Inhale 2 puffs Every 4 (Four) Hours As Needed for Wheezing. 1 inhaler 8 Active rOPINIRole (REQUIP) 1 MG tablet Requip 1 mg tablet Take 2 tablets every day by oral route. Active torsemide (DEMADEX) 100 MG tablet torsemide 100 mg tablet Take 0.5 tablets every day by oral route. Active Acetaminophen (TYLENOL PO) Tylenol 250 mg Active ALENDRONATE SODIUM PO Take 70 mg by mouth 1 (One) Time Per Week. Active Empagliflozin (JARDIANCE PO) Take 10 mg by mouth Daily. Active Evolocumab (REPATHA) solution prefilled syringe injection Inject 1 mL under the skin into the appropriate area as directed. Active losartan (COZAAR) 50 MG tablet Take 2 tablets by mouth Daily. Active Semaglutide,0.2 5 or 0.5MG/DOS, (Ozempic, 0.25 or 0.5 MG/DOSE,) 2 MG/1.5ML solution pen-injector Inject under the skin into the appropriate area as directed 1 (One) Time Per Week. Active spironolactone (ALDACTONE) 25 MG tablet Take 1 tablet by mouth Daily. Active aspirin 81 MG EC tablet Take 1 tablet by mouth Daily. Active minocycline (MINOCIN,DYNACI N) 100 MG capsule Daily. Active ondansetron (ZOFRAN) 4 MG tablet TAKE 1 TABLET BY MOUTH EVERY 4 HOURS NEEDED FOR NAUSEA OR VOMITING 3 Active Active Problems Problem Noted Date Diagnosed Date Spinal stenosis, lumbar lidia on, with neurogenic claudication 06/17/2022 Degenerative disc disease, lumbar 06/17/2022 Foraminal stenosis of lumbar region 06/17/2022 Nonspecific abnormal results of liver function s tudy 01/26/2018 Hypoxia 06/05/2017 Osteomyelitis 06/03/2017 Possible discitis of lumbar region 06/02/2017 Essential hypertension 06/01/2017 Hypokalemia 06/01/2017 Anemia 06/01/2017 Low back pain 06/01/2017 Type 2 diabetes mellitus 06/01/2017 Acute bilateral low back pain with sciatica 05/19 Family History Medical History Relation Name Comments Cancer Daughter Diabetes Father Heart disease Father Diabetes Mother Heart disease Mother Diabetes Sister Relation Name Status Comments Daughter Father Mother Sister Social History Tobacco Use Types Packs/Day Years Used Date Smoking Tobacco: Never Smokeless Tobacco: Never Alcohol Use Standard Drinks/Week Comments No 0 (1 standard drink = 0.6 oz pur e alcohol) Comments No Sex and Gender Information Value Date Recorded Sex Assigned at Not on file Legal Sex Female 1:25 PM EDT Gender Identity Not on file Sexual Orientation Not on file Last Filed Vital Signs Vital Sign Reading Time Taken Comments Blood Pressure 168/96 07/26/2022 2:35 PM EDT Pulse 67 07/26/2022 2:35 PM EDT Temperature 36.6 C (97.8 F) 09/15/2022 11:14 AM EDT Respiratory Rate 17 09/15/2022 11:14 AM EDT Oxygen Saturation 92% 06/06/2017 5:00 PM EST Inhaled Oxygen Concentration - - Weight 98.9 kg (218 lb) 09/15/2022 11:14 AM EDT Height 165.1 cm (5' 4.99 ) 09/15/2022 11:14 AM E DT Body Mass Index 36.29 09/15/2022 11:14 AM EDT Plan of Treatment Health Maintenance Due Date Last Done Comments DXA SCAN 1945 DIABETIC EYE EXAM 1956 DIABETIC FOOT EXAM 1956 URINE MICROALBUMIN-CREATININ E RATIO (uACR) 1956 COLOGUARD 1991 COLON CANCER SCREENING 5 YEA R SIGMOIDOSCOPY [address] COLONOGRAPHY 1991 FIT Testing (1 year) 1991 ZOSTER VACCINE (1 of 2) 1996 TDAP/TD VACCINES (2 - Tdap) 04/25/2010 04/25/2000 Pneumococcal Vaccine 50+ (2 of 2 - PCV) 06/08/2015 06/08/2014 ANNUAL PHYSICAL 07/07/2017 HEPATITIS C SCREENING 07/07/2017 HEMOGLOBIN A1C 11/30/2017 06/02/2017, 05/19, 07/31/2013 COLORECTAL CANCER SCREENING 06/05/2018 FECAL OCCULT BLOOD TEST 06/05/2018 06/05/2017 RSV Vaccine - Adults (1 - 1- dose 75+ series) 2021 COVID-19 Vaccine (6 - 2023-2 5 season) 2024 02/03/2024, 02/12/2022, 02/19/2021, Additional history exists INFLUENZA VACCINE 01/16/2025 Procedures Procedure Name Priority Date/Time Associated Diagnosis Comments OCCULT BLOOD X 1, STOOL Routine 06/05/2017 4:15 PM EST HEMOGLOBIN A1C Routine 06/02/2017 5:19 AM EST from Last 3 Months or Most Recently Relevant to Health Maintenance Results * Occult Blood X 1, Stool - Stool, Per Rectum (06/05/2017 4:15 PM EST) Fecal Occult Blood Negative Negative DISK DIFFUSION 06/05/2017 4:33 PM EST [facility] Stool Specimen from rectum / Unknown Collection / Unknown 06/05/2017 4:15 PM EST 06/05/2017 4:23 PM EST Lois Nieves MICA [facility] B[facility] FLUIDS AND STOOLS ORDJanine PARADA Final Result Performing Organization Address [facility] de Phone Number [facility]
[address] [place] [address], * (ABNORMAL) Hemoglobin A1c (06/02/2017 5:19 AM EST) Hemoglobin A1C 6.40(H) 4.80 - 5.60 % 06/02/2017 8:12 AM EST [facility] Blood 06/02/2017 5:19 AM EST 06/02/2017 6:51 AM EST Narrative [facility] - 06/02/2017 8:12 AM EST The [employer] recommends maintenance of Hemoglobin A1C at 7.0% or lower. Goals for Hemoglobin A1C reduction may need to be modified if hypoglycemia is a problem. Gonzales Gooden MD LAB BLOOD ORDERABLES Final Res ult Performing Organization Address [facility] Co de Phone Number [facility]
[address] [place] [address], from Last 3 Months or Most Recently Relevant to Health Maintenance Insurance [employer] Advance Directives * Full Code (Latest Code Status on File) Date Activated Date Inactivated Comments 06/01/2017 11:07 PM 06/06/2017 8:11 PM Care Teams Cloud Systems Architect Relationship Specialty Start Date End Date Shahid Knight MD [address] [place], [place] [id number] PCP - General Internal Medicine 06/01/17
--- OUTSIDE RECORDS SUMMARY | 2024-12-07 11:21 | XMS_ITS | Encounter Summary ---
Author Organization [facility] Address [address] [place] [address] Care Team Providers Care Reel Hooker Name Role Phone Shahid Knight MD Primary Care Provider Reason for Visit * Reason Onset Date Comments Medications Refill 01/27/2011 Encounter Details Date Type Department Care Team (Late st Contact Info) Description 01/27/2011 Refill [facility] [address] [place] [address] Harpreet Hughes MD [address] [place] [id number] Medications Refill Social History Tobacco Use [...] Coronary atherosclerosis of unspecified type of vessel, [place] or graft Hyperlipidemia Other and unspecified hyperlipidemia Hypertension Unspecified essential hypertension documented in this encounter Care Teams Reel Hooker Relationship Specialty Start Date End Date Shahid Knight MD [address] [place] [address] PCP - General Pediatrics 09/25/09 documented as of this encounter
--- OUTSIDE RECORDS SUMMARY | 2024-12-07 11:21 | XMS_ITS | Clinical Summary ---
Author Organization [facility] Address [address] [id number] Care Team Providers Care Wire Wheeler Name Role Phone Shahid Knight MD Primary Care Provider [phone] Anson Palacio MD Unavailable [phone] Allergies Active Allergy Reactions Criticality Noted Date [...] or (1 - 1-dose 75+ series) 2021 [id number] Vaccine ( - season) 2023 02/12/2022, 02/19/2021, 05/19/2020, Additional history exists [facility]-Influenza Vaccine (#1) 2024 [facility]-Diabetes: Hemoglobin A1C Discontinued 06/02/2017 [facility]-Obesity [...] age to complete this topic Insurance [address] [id number] [facility] [place] [address] Care Teams Wire Wheeler Relationship Specialty Start Date End Date Shahid Knight MD [address] [place] [id number] PCP - General 05/20/22 Anson Palacio MD [address] [place] [id number] 05/20/22
--- OUTSIDE RECORDS SUMMARY | 2024-12-07 11:21 | XMS_ITS | Clinical Summary ---
Author Organization [facility] Address [address] [place] [address] Care Team Providers Care Saw Filer Name Role Phone Shahid Knight MD Primary [...] YR (Osteop orosis Screen) 2011 INFLUENZA VACCINE (#1) 2024 HEP A VACCINE Aged Out No longer elig ible based on patient's age to complete this topic HIB VACCINE Aged Out No longer eligi ble based on patient's age to complete this topic ROTOVIRUS VACCINE Aged Out No longer eligible based on patient's age to complete this topic Insurance [facility] Care Teams Saw Filer Relationship Specialty Start Date End Date Shahid Knight MD [address] [place] [address] PCP - General Pediatrics 09/25/09
--- OUTSIDE RECORDS SUMMARY | 2024-12-07 11:21 | XMS_ITS | Encounter Summary ---
Author Organization [facility] Address [address] [place] [address] Care Team Providers Care Carpet Layer Name Role Phone Shahid Knight MD Primary Care Provider Encounter Details Date Type Department Care Team (Late st Contact Info) Description 05/13/2011 Telephone [facility] [address] [place] [phone] Harpreet Hughes MD [address] [place] [phone] Social History Tobacco Use Types Packs/Day [...] 2:48 PM EST PT STOPPED BY THE [place] [facility] ON 05-13-11 HAD BP CHECKED 100/56 ct/vg documented in this encounter Plan of Treatment Not on file documented as of this encounter Visit Diagnoses Not on filedocumented in this encounter Care Teams Carpet Layer Relationship Specialty Start Date End Date Shahid Knight MD [address] [place] [address] PCP - General Pediatrics 09/25/09 documented as of this encounter
--- OUTSIDE RECORDS SUMMARY | 2024-12-07 11:21 | XMS_ITS | Encounter Summary ---
Author Organization [facility] Address [address] [place] [address] Care Team Providers Care Electrophysiology Technologist Name Role Phone Shahid Knight MD Primary Care Provider Reason for Visit * Reason Onset Date Comments Medications Refill 04/05/2011 Encounter Details Date Type Department Care Team (Late st Contact Info) Description 04/05/2011 Refill [facility] [address] [place] [address] Harpreet Hughes MD [address] [place] [phone] Medications Refill Social History Tobacco Use [...] on filedocumented in this encounter Care Teams Electrophysiology Technologist Relationship Specialty Start Date End Date Shahid Knight MD [address] [place] [address] PCP - General Pediatrics 09/25/09 documented as of this encounter
--- OUTSIDE RECORDS SUMMARY | 2024-12-07 11:21 | XMS_ITS | Clinical Summary ---
Author Organization [facility] Address [address] [place] [address] Phone Care Team Providers Care Link Knitting Machine Operator Name Role Phone Ahuja Lorena Unavailable [ ] Conditions or Problems Problem Name Problem Code Onset Date Status Entry Date Provider Comment Standard Description Annotate Eczematous dermatitis 56148417 (SNOMED CT) 06/05 Active 06/05 Lorena Thomasonherty Eczema Anemia 941361484 (SNOMED CT) 10/31 Active 10/31 Shahid Ahuja MD Anemia Hx of bilateral knee arthroplast ies 083813009 (SNOMED CT) 10/31 Active 10/31 Shahid Ahuja MD History of operative procedure on knee 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 Coagulase negative 69332955963 9107 (SNOMED CT) 06/08 Resolved 06/08 Shahid Ahuja MD Infection caused by coagulase-negat richard Staphylococcus Staph epidermidis 718874983 (SNOMED CT) 08/06 Active 08/06 Shahid Ahuja MD Sepsis caused by coagulase negative Staphylococcus Dermatitis 79008870 (SNOMED CT) 08/06 Active 08/06 Shahid Ahuja MD Eczema Long-term (current) use of antibiotics 662832274 (SNOMED CT) 07/08 Active 07/08 Shahid Ahuja MD Long-term drug therapy Health advice, education, or counseling 966561247 (SNOMED CT) 07/08 Active 07/08 Shahid Ahuja MD Procedure carried out on subject Nontraumati c acute kidney injury 09705501951 9103 (SNOMED CT) 06/28 Resolved 06/28 Shahid Ahuja MD Acute nontraumatic kidney injury Nontraumati c acute kidney injury 69221037818 9103 (SNOMED CT) 08/09 Resolved 08/09 Shahid Ahuja MD Acute nontraumatic kidney injury Kidney disease, chronic, stage II 395328258 (SNOMED CT) 01/07 Active 01/07 Shahid Ahuja MD Chronic kidney disease stage 2 Arthritis, left hip 65887525 (SNOMED CT) 07/11 Active 07/11 Nia collazo TWISTER FRAME TENDER Arthritis of hip Pruritus 212485969 (SNOMED CT) 04/27 Active 04/27 Shahid Ahuja MD Pruritic disorder Adverse drug reaction 92479991 (SNOMED CT) 09/20 Active 09/20 Shahid Ahuja MD Adverse reaction to drug Rash 293187525 (SNOMED CT) 09/20 Active 09/20 Nia collazo TWISTER FRAME TENDER Eruption Nontraumati c acute kidney injury 99890831709 9103 (SNOMED CT) 08/09 Removed 08/09 Nia collazo TWISTER FRAME TENDER Acute nontraumatic kidney injury Paraspinal fluid collection (Abscess) 30227291 (SNOMED CT) 06/28 Active 06/29 Suzanne W Spinal cord abscess Elevated LFT's 886292551 (SNOMED CT) 06/14 Active 06/14 Suzanne W Liver function tests outside reference range Adverse effect of other systemic antibiotics -CUBICIN/In itial encounter T36.8x5A (ICD-10-CM) 06/21 Active 06/21 Suzanne W Adverse effect of other systemic antibiotics, initial encounter Nontraumati c acute kidney injury 32980742410 9103 (SNOMED CT) 06/28 Removed 06/28 Nia collazo TWISTER FRAME TENDER Acute nontraumatic kidney injury Adverse drug reaction 89223010 (SNOMED CT) 06/21 Inactive 06/21 Shahid Ahuja MD Adverse reaction to drug Myositis 43700077 (SNOMED CT) 06/21 Active 06/21 Shahid Ahuja MD Myositis Elevated LFTs 929031669 (SNOMED CT) 06/14 Inactive 06/14 Nia Janine collazo APRN Liver function tests outside reference range Other obesity due to excess calories 286787584 (SNOMED CT) 06/13 Active 06/13 Mila Morguelan Simple obesity Presence of vertebral hardware 620677098 (SNOMED CT) 06/08 Active 06/09 Suzanne W Device in situ Lumbar region, infected discitis M46.36 (ICD-10-CM) 06/07 Active 06/07 Suzanne W Infection of intervertebral disc (pyogenic), 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 Coagulase negative 51479302774 9107 (SNOMED CT) 06/08 Removed 06/08 Shahid Ahuja MD Infection caused by coagulase-negat richard Staphylococcus Benign Essential Hypertensio n 01854096 (SNOMED CT) 06/07 Active 06/07 Jenny Carmelo [...] CAPSULE BY MOUTH EVERY DAY 06/05 tray 41379058589 Lorena Ahuja MINOCYCLINE HCL 100 MG CAPS Take 1 capsule by mouth once a day 12/01 minocycline 90728994398 Lorena Ahuja MINOCYCLINE HCL 100 MG CAPS 1 capsule by mouth once a day TAKE 1 CAPSULE BY MOUTH EVERY DAY 10/26 minocycline 31563740432 Shahid Ahuja MD MINOCYCLINE HCL 100 MG CAPS 1 capsule by mouth once a day TAKE 1 CAPSULE BY MOUTH EVERY DAY 04/20 minocycline 21397240197 Shahid Ahuja MD MINOCYCLINE HCL 100 MG CAPS TAKE 1 CAPSULE BY MOUTH EVERY DAY 06/07 minocycline 80119366480 Maris Velazquez RN MINOCYCLINE HCL 100 MG CAPS 1 capsule by mouth once a day TAKE 1 CAPSULE BY MOUTH EVERY DAY 04/26 minocycline 92722546478 Shahid Ahuja MD MINOCYCLINE HCL 100 MG CAPS TAKE 1 CAPSULE BY MOUTH EVERY DAY 06/07 minocycline 11947027169 Shahid Ahuja MD MINOCYCLINE HCL 100 MG CAPS TAKE 1 CAPSULE BY MOUTH EVERY DAY 05/02 minocycline 85074718272 Shahid Ahuja MD Proventil HFA 90 mcg/actuation HFA aerosol inhaler every four hours as needed 08/05 albuterol sulfate 01594834871 Areli Min NORCO 5-325 MG ORAL TABLET by mouth every six hours as needed 08/05 NORCO 5-325 MG ORAL TABLET Areli Min TYLENOL 325 MG CAPS 2 tablet by mouth every four hours as needed 08/05 ACETAMINOPHEN Areli Min ZETIA 10 MG TABS by mouth once a day 08/05 ezetimibe 34448556315 Areli Min CYCLOBENZAPRINE HCL 10 MG TABS by mouth three times a day as needed 08/05 cyclobenzaprine 29000296553 Areli Min FLORASTOR 250 MG CAPS by mouth twice a day 08/05 saccharomyces boulardii 77664122645 Areli Min LASIX 40 MG TABS by mouth once a day 08/05 furosemide 87518793084 Areli Pako GLUCOPHAGE 500 MG ORAL TABLET by mouth every morning 08/05 GLUCOPHAGE 500 MG ORAL TABLET Areli Pako TEKTURNA 300 MG TABS by mouth once a day 08/05 aliskiren 40360349389 Areli Pako DIOVAN HCT 320-25 MG TABS by mouth once a day 08/05 valsartan-hydroch lorothiazide 78780940106 Areli Pako DOXYCYCLINE HYCLATE 100 MG CAPS Take 1 twice a day 08/05 doxycycline hyclate 21615996818 Areli Min ALENDRONATE SODIUM 70 MG TABS once a week alendronate 05835770074 Areli Min JARDIANCE 10 MG TABS once a day empagliflozin 61322337742 Areli Min REPATHA SURECLICK 140 MG/ML SOAJ once every two weeks evolocumab 61370465776 Areli Min LOSARTAN POTASSIUM 100 MG TABS once a day losartan 49516268597 Areli Min ROPINIROLE HCL 1 MG TABS once a day as needed ropinirole 29794915664 Areli Min OZEMPIC (0.25 OR 0.5 MG/DOSE) 2 MG/3ML SOPN once a week semaglutide 55128498276 Areli Min SPIRONOLACTONE 25 MG TABS once a day spironolactone 04400824732 Areli Min TORSEMIDE 100 MG TABS as needed torsemide 69818124529 Areli Min MINOCYCLINE HCL 100 MG CAPS Take 1 capsule by mouth once a day 07/28 minocycline 42852341654 Corina Horvath MINOCYCLINE HCL 100 MG CAPS TAKE 1 CAPSULE BY MOUTH EVERY DAY 08/05 minocycline 82370431242 Shahid Ahuja MD MINOCYCLINE HCL 100 MG CAPS Take 1 capsule by mouth once a day for a week, then once a day minocycline 76130317206 Lorena Ahuja MINOCYCLINE HCL 100 MG CAPS Take 1 capsule by mouth once a day 08/01 minocycline 94653438297 Lorena Ahuja MINOCYCLINE HCL 100 MG CAPS TAKE 1 CAPSULE BY MOUTH DAILY 08/06 minocycline 34839038464 Elaine Ross RN MINOCYCLINE HCL 100 MG CAPS Take 1 capsule by mouth once a day for a week, then once a day 08/01 minocycline 59676785167 Shahid Ahuja MD CYCLOBENZAPRINE HCL 10 MG TABS by mouth three times a day as needed 08/05 cyclobenzaprine 09412564914 Glenna Joiner FLORASTOR 250 MG CAPS by mouth twice a day 08/05 saccharomyces boulardii 96658635063 Glenna Joiner NORCO 5-325 MG ORAL TABLET by mouth every six hours as needed 08/05 NORCO 5-325 MG ORAL TABLET Glenna Joiner DOXYCYCLINE HYCLATE 100 MG CAPS Take 1 twice a day 07/24 doxycycline hyclate 28344672243 Shahid Ahuja MD ZETIA 10 MG TABS by mouth once a day 08/05 ezetimibe 34295569715 Glenna Joiner GLUCOPHAGE 500 MG ORAL TABLET by mouth every morning 08/05 GLUCOPHAGE 500 MG ORAL TABLET Glenna Joiner Proventil HFA 90 mcg/actuation HFA aerosol inhaler every four hours as needed 08/05 albuterol sulfate 85040411455 Glenna Joiner PROTONIX 40 MG PACK by mouth twice a day pantoprazole 46793995579 Glenna Joiner TEKTURNA 300 MG TABS by mouth once a day 08/05 aliskiren 22702016452 Glenna Joiner TYLENOL 325 MG CAPS 2 tablet by mouth every four hours as needed 08/05 ACETAMINOPHEN Glenna Joiner COREG 25 MG TABS 1.5 tablet by mouth twice a day carvedilol 05775460906 Glenna Joiner ASPIRIN 81 MG ORAL TABLET by mouth once a day ASPIRIN 81 MG ORAL TABLET Glenna Joiner LASIX 40 MG TABS by mouth once a day 08/05 furosemide 80983972986 Glenna Joiner DIOVAN HCT 320-25 MG TABS by mouth once a day 08/05 valsartan-hydroch lorothiazide 90888682536 Glenna Joiner MINOCYCLINE HCL 100 MG CAPS Take 1 capsule by mouth once a day minocycline 33616849087 Lorena Ahuja MINOCYCLINE HCL 100 MG CAPS TAKE 1 CAPSULE BY MOUTH DAILY 08/06 minocycline 84362580784 Shahid Ahuja MD MINOCYCLINE HCL 100 MG CAPS TAKE 1 CAPSULE BY MOUTH DAILY minocycline 22721460015 Madhavi Rose MINOCYCLINE HCL 100 MG CAPS Take 1 capsule by mouth once a day 08/04 minocycline 19150869505 Lorena Ahuja MINOCYCLINE HCL 100 MG CAPS TAKE 1 CAPSULE BY MOUTH DAILY 07/17 MINOCYCLINE HCL 01141010940 Shahid Ahuja MD MINOCYCLINE HCL 100 MG CAPS Take 1 by mouth daily 0 07/17 MINOCYCLINE HCL 92244603666 Shahid Ahuja MD MINOCYCLINE HCL 100 MG CAPS one po daily 10/11 MINOCYCLINE HCL 34238134819 Shahid Ahuja MD MINOCYCLINE HCL 100 MG CAPS one daily 0 10/26 MINOCYCLINE HCL 00791855396 Shahid Ahuja MD MINOCYCLINE HCL 100 MG CAPS one po daily 0 07/26 MINOCYCLINE HCL 99422848399 Shahid Ahuja MD MINOCYCLINE HCL 100 MG CAPS one po daily 0 04/28 MINOCYCLINE HCL 54262595446 Nia Carias APRN MINOCYCLINE HCL 100 MG CAPS one po bid 0 11/18 MINOCYCLINE HCL 52314077478 Nia Carias APRN MINOCYCLINE HCL 100 MG CAPS one po bid 2018/10/20 MINOCYCLINE HCL 87608167321 Shahid Ahuja MD DOXYCYCLINE MONOHYDRATE 100 MG CAPS one po bid 09/23 DOXYCYCLINE MONOHYDRATE 23857244044 Shahid Ahuja MD DOXYCYCLINE MONOHYDRATE 100 MG CAPS one po bid 09/08 DOXYCYCLINE MONOHYDRATE 64671666857 Shahid Ahuja MD VANCOMYCIN HCL 5000 MG INTRAVENOUS SOLUTION RECONSTITUTED 1.75 gms IV Q 48 hrs/BHHI Doses at noon 07/25 VANCOMYCIN HCL 67836974010 Mana Brizuela RN DOXYCYCLINE HYCLATE 100 MG CAPS Take one pill twice daily. 07/24 DOXYCYCLINE HYCLATE 07947673167 Shahid Ahuja MD VANCOMYCIN HCL 5000 MG INTRAVENOUS SOLUTION RECONSTITUTED 1.75 gms IV Q 48 hrs/BHHI Doses at noon 07/25 VANCOMYCIN HCL 61018503564 Alva Rojo RN VANCOMYCIN HCL 5000 MG INTRAVENOUS SOLUTION RECONSTITUTED 1.25 gms IV Q 48 hrs/BHHI Doses at noon 07/07 VANCOMYCIN HCL 77206084451 Alva Rojo RN VANCOMYCIN HCL 5000 MG INTRAVENOUS SOLUTION RECONSTITUTED 1.25 gms IV Q 24 hrs/BHHI Doses at noon 06/28 VANCOMYCIN HCL 22274460610 Alva Rojo RN VANCOMYCIN HCL 5000 MG INTRAVENOUS SOLUTION RECONSTITUTED 1.75 gms IV Q 24 hrs/BHHI Doses at noon 06/21 VANCOMYCIN HCL 77916921029 Sarah Torres RN VANCOMYCIN HCL 5000 MG INTRAVENOUS SOLUTION RECONSTITUTED 1.75 gms IV Q 24 hrs/BHHI 06/15 VANCOMYCIN HCL 67919953185 Sarah Torres RN CUBICIN 500 MG INTRAVENOUS SOLUTION RECONSTITUTED 500mg IV Q 24 hrs/BHHI and melany wiseman do PICC care and labs on appt days 06/14 DAPTOMYCIN 19571422349 Sarah Torres RN CEFTRIAXONE SODIUM 2 GM SOLR 2 GMS iv q 24 HRS/BHHI AND Melany noel do PICC care and labs 06/08 CEFTRIAXONE SODIUM 51341115151 Sarah Torres RN PROTONIX 40 MG PACK by mouth twice daily 08/06 PANTOPRAZOLE SODIUM 42466107514 Mila Guadarrama ZETIA 10 MG TABS by mouth daily 08/06 EZETIMIBE 90142151149 Andreas Carbone DIOVAN HCT 320-25 MG TABS by mouth daily 08/06 VALSARTAN-HYDROCH LOROTHIAZIDE 00636842320 Andreas Carbone TEKTURNA 300 MG TABS by mouth daily 08/06 ALISKIREN FUMARATE 40960299662 Andreas Carbone FLORASTOR 250 MG CAPS by mouth twice daily 08/06 SACCHAROMYCES BOULARDII 72337656654 Andreas Carbone PROTONIX 40 MG PACK 06/08 PANTOPRAZOLE SODIUM 01846746706 Andreas Carbone GLUCOPHAGE 500 MG ORAL TABLET by mouth in the morning 08/06 METFORMIN HCL 95137482654 Andreas Carbone NORCO 5-325 MG ORAL TABLET by mouth every 6 hours as needed 08/06 HYDROCODONE-ACETA MINOPHEN 65008892237 Andreas Carbone LASIX 40 MG TABS by mouth daily 08/06 FUROSEMIDE 46431837114 Andreas Carbone CYCLOBENZAPRINE HCL 10 MG TABS by mouth three times a day as needed 08/06 CYCLOBENZAPRINE HCL 68014008230 Andreas Carbone COREG 25 MG TABS 1.5 tabs by mouth twice daily 08/06 CARVEDILOL 99221481114 Andreas Carbone ASPIRIN 81 MG ORAL TABLET by mouth daily 08/06 ASPIRIN 55792283624 Andreas Carbone PROVENTIL HFA 108 (90 BASE) MCG/ACT INHALATION AEROSOL SOLUTION every 4 hours as needed 08/06 ALBUTEROL SULFATE 36255008791 Andreas Carbone TYLENOL 325 MG CAPS 2 tabs by mouth every 4 hours as needed for pain 08/06 ACETAMINOPHEN 40668024232 Andreas Carbone CEFTRIAXONE SODIUM 2 GM SOLR 2 GMS iv q 24 HRS/BHHI AND Melany noel do PICC care and labs 06/08 CEFTRIAXONE SODIUM 94868200755 Sarah Torres RN CUBICIN 500 MG INTRAVENOUS SOLUTION RECONSTITUTED 500mg IV Q 24 hrs/BHHI and melany [place] do PICC care and labs on appt days 06/14 DAPTOMYCIN 81811623616 Sarah Torres RN Medications Administered No information [...] Rate Calculation Office Visit: room 3 DIET VETERINARY MEDICAL OFFICER Yes - Overweight Dietary manageme nt education, guidance, and counseling (procedure) Office Visit: Office Visit: rm. 6 FALLRSKASSES yes Fall ris k assessment Office Visit: Office Visit: 4 MEDS REVIEW Done Documenta tion of current medications (procedure) ORALTOBACUSE Never Tobacco smoking status SMOK STATUS Never smoker Toba executive account manager smoking status Lab Report: CBC WITH AUTO [...] Plan of Care Type Date Detail Appointment 02:00 PM Shahid julien MD, [address] [place] [address], [address], [place], [address], Referral MRI Lumbar Spine with/without constrast Pending [...] Name Date Entry Date CPT-sl STAT Labs CPT-18546 CMP [id number] CBC with Differential 2024 CPT-71995 C- reactive protein CPT-34623 Sedimentation Rate (ESR) 202 08/17/17 G2211 Complex E&M visit add-on (G2211) G2211 Complex E&M visit add-on (G2211) CPT-sl STAT Labs CPT-sl STAT Labs CPT-93619 CMP [id number] CBC with Differential 2023 CPT-55854 C- reactive protein CPT-01879 Sedimentation Rate (ESR) 202 07/24/15 CPT-sl STAT Labs CPT-sl STAT Labs CPT-03284 CMP [id number] CBC with Differential 2023 CPT-64404 C- reactive protein CPT-31658 Sedimentation Rate (ESR) 07/17/08 CPT-sl STAT Labs CPT-sl STAT Labs CPT-sl STAT Labs CPT-28870 CMP [id number] CBC with Differential 2021 CPT-32711 C- reactive protein CPT-38387 Sedimentation Rate (ESR) 05/28/17 CPT-sl STAT Labs CPT-sl STAT Labs CPT-sl STAT Labs CPT-sl STAT Labs CPT-15586 CMP [id number],[id number] CBC with Differential 2020 CPT-74496 C- reactive protein CPT-90798 Sedimentation Rate (ESR) 202 04/27/20 CPT-Cooral Continue oral antibiotics 06/07/22 [id number] CBC with Differential 2020 CPT-32882 CMP CPT-20122 Sedimentation Rate (ESR) 202 04/20/22 CPT-77677 C- reactive protein CPT-sl STAT Labs CPT-sl STAT Labs CPT-sl STAT Labs CPT-sl STAT Labs CPT-12475 CMP [id number] CBC with Differential 2019 CPT-82652 C- reactive protein CPT-65982 Sedimentation Rate (ESR) 202 CPT-sl STAT Labs CPT-sl STAT Labs CPT-47321 CMP [id number] CBC with Differential 2018 CPT-10688 C- reactive protein CPT-66587 Sedimentation Rate (ESR) 201 12/26/09 CPT-74510 CMP [id number],[id number] CBC with Differential 2018 CPT-65581 C- reactive protein CPT-97638 Sedimentation Rate (ESR) 201 12/20/10 CPT-sl STAT Labs CPT-64854 CMP [id number] CBC with Differential 2018 CPT-02076 C- reactive protein CPT-96422 Sedimentation Rate (ESR) 201 12/20/09 CPT-Cooral Continue oral antibiotics 20 06/05/09 CPT-cwl Weekly Labs (Continue) 04/27 CPT-22770 CMP [id number],[id number] CBC with Differential 2018 CPT-32903 C- reactive protein CPT-65182 Sedimentation Rate (ESR) 201 12/17/09 CPT-72004 CMP [id number] CBC with Differential 2017 CPT-13442 C- reactive protein CPT-02477 Sedimentation Rate (ESR) 201 11/25/10 CPT-Cooral Continue oral antibiotics 02/02/11 CPT-sl STAT Labs CPT-Cooral Continue oral antibiotics 20 02/11/02 CPT-78411 CMP [id number],[id number] CBC with Differential 2017 CPT-76323 C- reactive protein CPT-65461 Sedimentation Rate (ESR) 201 11/22/02 CPT-04527 CMP [id number],[id number] CBC with Differential 2017 CPT-01493 C- reactive protein CPT-68794 Sedimentation Rate (ESR) 201 11/21/04 CPT-trip New Oral Antibiotic CPT-76094 CMP [id number],[id number] CBC with Differential 2017 CPT-81544 C- reactive protein CPT-50258 Sedimentation Rate (ESR) 201 11/21/07 CPT-Cooral Continue oral antibiotics 20 03/09/07 CPT-sl STAT Labs CPT-Cooral Continue oral antibiotics 20 04/08/23 CPT-13597 CMP [id number] CBC with Differential 2017 CPT-27123 MRI Lumbar Spine with/without constrast 2 CPT-ca Continue IV antibiotics 2017 CPT-J3370 Vancomycin CPT-trip New Oral Antibiotic CPT-ca Continue IV antibiotics 2017 CPT-cwl Weekly Labs (Continue) 07/11 CPT-wpc Weekly PICC Line Care 07/11 CPT-55296 CMP [id number] CBC with Differential 2017 CPT-57604 C- reactive protein CPT-92670 Sedimentation Rate (ESR) 201 11/18/25 CPT-04712 Vancomycin Trough CPT-sl STAT Labs CPT-85261 CMP [id number],[id number] CBC with Differential 2017 CPT-64564 C- reactive protein CPT-94270 Sedimentation Rate (ESR) 201 11/19/19 CPT-94585 Vancomycin Trough CPT-84018 CMP CPT-96147 C- reactive protein CPT-67826 Sedimentation Rate (ESR) 201 11/18/12 CPT-83628 Vancomycin Trough [id number],[id number] CBC with Differential 2017 [id number], [id number] CPK CPT-sl STAT Labs CPT-92930 CMP [id number] CBC with Differential 2017 CPT-28189 C- reactive protein CPT-18198 Sedimentation Rate (ESR) 201 11/18/05 CPT-80388 Vancomycin Trough CPT-sl STAT Labs CPT-23047 Vancomycin Trough CPT- stat weekly Stat Weekly Labs CPT-ca Continue IV antibiotics 2017 CPT-wpc Weekly PICC Line Care 0 06/14 CPT-cwl Weekly Labs (Continue) 06/14 CPT-32967 CMP [id number] CBC with Differential 2017 CPT-44634 C- reactive protein [id number], [id number] CPK CPT-57605 Sedimentation Rate (ESR) 201 11/17/26 CPT-ca Continue IV antibiotics 2017 CPT-felice Change IV antibiotics 0 06/14 CPT-ca Continue IV antibiotics 2017 CPT-cwl Weekly Labs (Continue) 06/08 CPT-wpc Weekly PICC Line Care 06/08 CPT-97191 CMP [id number] CBC with Differential 2017 CPT-78595 C- reactive protein CPT-88334 Sedimentation Rate (ESR) 201 11/17/20 [id number], [id number] CPK CPT-ca Continue IV antibiotics 2017 CPT- [...]
== END 2024-12-07 23:59 | disposition home or self-care (01) ==
PROVIDERS: PCP Internal Medicine; Visit Provider Internal Medicine Pulmonary Disease
DX: J90 Pleural effusion, not elsewhere classified (principal)
CPT/HCPCS: 71046

== ENCOUNTER 2025-04-03 14:45 | Outpatient (CLI) | payer OTHER, MEDICARE, SELFPAY ==
--- NOTE | 2025-04-03 14:48 | MM_ITS ---
PROCEDURE INFORMATION: Exam: MG Bilateral Screening 3D Mammography Exam date and time: 04/03/2025 3:08 PM Age: 79 years old Clinical indication: Screening examination TECHNIQUE: Imaging protocol: Bilateral Screening tomosynthesis and 2D mammography including computer-aided detection (CAD) when performed. COMPARISON: 1. MG MM DIG SCREENING MAMM BI W/CAD 02/24/2024 9:53 AM 2. MG MM DIG SCREENING MAMM BI W/CAD 01/28/2023 9:38 AM FINDINGS: MAMMOGRAPHY: Breast composition: The breasts are extremely dense, which lowers the sensitivity of mammography. Mass: None. Architectural distortion: None. Calcifications: No suspicious calcifications. Asymmetric density: None. Skin thickening: None. Axillary adenopathy: None. IMPRESSION: No mammographic evidence of malignancy. Annual screening is recommended unless otherwise clinically indicated. ASSESSMENT: BI-RADS Category 1: Negative.
--- OUTSIDE RECORDS SUMMARY | 2025-04-03 15:47 | XMS_ITS | Encounter Summary ---
Author Organization [facility] Address [address] [place] [address] Care Team Providers Care Dry Cleaner Presser Name Role Phone Shahid Knight MD Primary Care Provider Reason for Visit * Reason Onset Date Comments Medications Refill 04/05/2011 Encounter Details Date Type Department Care Team (Late st Contact Info) Description 04/05/2011 Refill [facility] [address] [address] [place] [address] Harpreet Hughes MD [address] [place] [id number] Medications Refill Social History Tobacco Use [...] on filedocumented in this encounter Care Teams Dry Cleaner Presser Relationship Specialty Start Date End Date Shahid Knight MD [address] [place] [address] PCP - General Pediatrics 09/25/09 documented as of this encounter
--- OUTSIDE RECORDS SUMMARY | 2025-04-03 15:47 | XMS_ITS | Clinical Summary ---
Author Organization [facility] Address [address] [place] [address] Phone Care Team Providers Care Administrative Liaison Name Role Phone Ahuja, Lorena Unavailable [ ] Conditions or Problems Problem Name Problem Code Onset Date Status Entry Date Provider Comment Standard Description Annotate Eczematous dermatitis 47455544 (SNOMED CT) 06/05 Active 06/05 Lorena Thomasonherty Eczema Anemia 986425199 (SNOMED CT) 10/31 Active 10/31 Shahid Ahuja MD Anemia Hx of bilateral knee arthroplast ies 895371021 (SNOMED CT) 10/31 Active 10/31 Shahid Ahuja MD History of operative procedure on knee 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 Coagulase negative 39547547144 9107 (SNOMED CT) 06/08 Resolved 06/08 Shahid Ahuja MD Infection caused by coagulase-negat richard Staphylococcus Staph epidermidis 247427693 (SNOMED CT) 08/06 Active 08/06 Shahid Ahuja MD Sepsis caused by coagulase negative Staphylococcus Dermatitis 24844659 (SNOMED CT) 08/06 Active 08/06 Shahid Ahuja MD Eczema Long-term (current) use of antibiotics 693369348 (SNOMED CT) 07/08 Active 07/08 Shahid Ahjua MD Long-term drug therapy Health advice, education, or counseling 646122603 (SNOMED CT) 07/08 Active 07/08 Shahid Ahuja MD Procedure carried out on subject Nontraumati c acute kidney injury 29224451943 9103 (SNOMED CT) 06/28 Resolved 06/28 Shahid Ahuja MD Acute nontraumatic kidney injury Nontraumati c acute kidney injury 33145453873 9103 (SNOMED CT) 08/09 Resolved 08/09 Shahid Ahuja MD Acute nontraumatic kidney injury Kidney disease, chronic, stage II 864515582 (SNOMED CT) 01/07 Active 01/07 Shahid Ahuja MD Chronic kidney disease stage 2 Arthritis, left hip 30402434 (SNOMED CT) 07/11 Active 07/11 Nia collazo PET CARE TECHNICIAN Arthritis of hip Pruritus 873177148 (SNOMED CT) 04/27 Active 04/27 Shahid Ahuja MD Pruritic disorder Adverse drug reaction 20804022 (SNOMED CT) 09/20 Active 09/20 Shahid Ahuja MD Adverse reaction to drug Rash 089045227 (SNOMED CT) 09/20 Active 09/20 Nia collazo PET CARE TECHNICIAN Eruption Nontraumati c acute kidney injury 57534788749 9103 (SNOMED CT) 08/09 Removed 08/09 Nia collazo PET CARE TECHNICIAN Acute nontraumatic kidney injury Paraspinal fluid collection (Abscess) 74941601 (SNOMED CT) 06/28 Active 06/29 Suzanne W Spinal cord abscess Elevated LFT's 102217669 (SNOMED CT) 06/14 Active 06/14 Suzanne W Liver function tests outside reference range Adverse effect of other systemic antibiotics -CUBICIN/In itial encounter T36.8x5A (ICD-10-CM) 06/21 Active 06/21 Suzanne W Adverse effect of other systemic antibiotics, initial encounter Nontraumati c acute kidney injury 25037089398 9103 (SNOMED CT) 06/28 Removed 06/28 Nia collazo PET CARE TECHNICIAN Acute nontraumatic kidney injury Adverse drug reaction 36102150 (SNOMED CT) 06/21 Inactive 06/21 Shahid Ahuja MD Adverse reaction to drug Myositis 12674658 (SNOMED CT) 06/21 Active 06/21 Shahid Ahuja MD Myositis Elevated LFTs 981092754 (SNOMED CT) 06/14 Inactive 06/14 Nia Janine collazo APRN Liver function tests outside reference range Other obesity due to excess calories 413664610 (SNOMED CT) 06/13 Active 06/13 Mila Morguelan Simple obesity Presence of vertebral hardware 688387316 (SNOMED CT) 06/08 Active 06/09 Suzanne W Device in situ Lumbar region, infected discitis M46.36 (ICD-10-CM) 06/07 Active 06/07 Suzanne W Infection of intervertebral disc (pyogenic), 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 Coagulase negative 47760696043 9107 (SNOMED CT) 06/08 Removed 06/08 Shahid Ahuja MD Infection caused by coagulase-negat richard Staphylococcus Benign Essential Hypertensio n 83544135 (SNOMED CT) 06/07 Active 06/07 Jenny Carmelo [...] NDC Provider MINOCYCLINE HCL 100 MG CAPS Take 1 capsule by mouth once a day 09/14 tray 18938334610 Lorena Ahuja MINOCYCLINE HCL 100 MG CAPS 1 capsule by mouth once a day TAKE 1 CAPSULE BY MOUTH EVERY DAY 06/05 minocycline 82171495841 Lorena Ahuja MINOCYCLINE HCL 100 MG CAPS Take 1 capsule by mouth once a day 12/01 minocycline 30427228062 Lorena Ahuja MINOCYCLINE HCL 100 MG CAPS 1 capsule by mouth once a day TAKE 1 CAPSULE BY MOUTH EVERY DAY 10/26 minocycline 23931672644 Shahid Ahuja MD MINOCYCLINE HCL 100 MG CAPS 1 capsule by mouth once a day TAKE 1 CAPSULE BY MOUTH EVERY DAY 04/20 minocycline 96664650455 Shahid Ahuja MD MINOCYCLINE HCL 100 MG CAPS TAKE 1 CAPSULE BY MOUTH EVERY DAY 06/07 minocycline 48620543407 Maris Velazquez RN MINOCYCLINE HCL 100 MG CAPS 1 capsule by mouth once a day TAKE 1 CAPSULE BY MOUTH EVERY DAY 04/26 minocycline 36694698525 Shahid Ahuja MD MINOCYCLINE HCL 100 MG CAPS TAKE 1 CAPSULE BY MOUTH EVERY DAY 06/07 minocycline 06946114368 Shahid Ahuja MD MINOCYCLINE HCL 100 MG CAPS TAKE 1 CAPSULE BY MOUTH EVERY DAY 05/02 minocycline 30381876976 Shahid Ahuja MD Proventil HFA 90 mcg/actuation HFA aerosol inhaler every four hours as needed 08/05 albuterol sulfate 28618990540 Areli Min NORCO 5-325 MG ORAL TABLET by mouth every six hours as needed 08/05 NORCO 5-325 MG ORAL TABLET Areli Min TYLENOL 325 MG CAPS 2 tablet by mouth every four hours as needed 08/05 ACETAMINOPHEN Areli Min ZETIA 10 MG TABS by mouth once a day 08/05 ezetimibe 68988015251 Areli Min CYCLOBENZAPRINE HCL 10 MG TABS by mouth three times a day as needed 08/05 cyclobenzaprine 50011217791 Areli Min FLORASTOR 250 MG CAPS by mouth twice a day 08/05 saccharomyces boulardii 76558455639 Areli Min LASIX 40 MG TABS by mouth once a day 08/05 furosemide 38818917385 Areli Min GLUCOPHAGE 500 MG ORAL TABLET by mouth every morning 08/05 GLUCOPHAGE 500 MG ORAL TABLET Areli Min TEKTURNA 300 MG TABS by mouth once a day 08/05 aliskiren 62444749108 Areli Min DIOVAN HCT 320-25 MG TABS by mouth once a day 08/05 valsartan-hydroch lorothiazide 40894114844 Areli Min DOXYCYCLINE HYCLATE 100 MG CAPS Take 1 twice a day 08/05 doxycycline hyclate 92163994634 Areli Min ALENDRONATE SODIUM 70 MG TABS once a week alendronate 97437903253 Areli Min JARDIANCE 10 MG TABS once a day empagliflozin 64651284856 Areli Min REPATHA SURECLICK 140 MG/ML SOAJ once every two weeks evolocumab 81696176463 Areli Min LOSARTAN POTASSIUM 100 MG TABS once a day losartan 90047554028 Areli Min ROPINIROLE HCL 1 MG TABS once a day as needed ropinirole 83601642996 Areli Min OZEMPIC (0.25 OR 0.5 MG/DOSE) 2 MG/3ML SOPN once a week semaglutide 70474104666 Areli Min SPIRONOLACTONE 25 MG TABS once a day spironolactone 04741911096 Areli Min TORSEMIDE 100 MG TABS as needed torsemide 31840533283 Areli Min MINOCYCLINE HCL 100 MG CAPS Take 1 capsule by mouth once a day 07/28 minocycline 67910374964 Corina Horvath MINOCYCLINE HCL 100 MG CAPS TAKE 1 CAPSULE BY MOUTH EVERY DAY 08/05 minocycline 34065971254 Shahid Ahuja MD MINOCYCLINE HCL 100 MG CAPS Take 1 capsule by mouth once a day for a week, then once a day minocycline 96878744638 Lorena Thomasonherty MINOCYCLINE HCL 100 MG CAPS Take 1 capsule by mouth once a day 08/01 minocycline 32770081356 Lorena Ahuja MINOCYCLINE HCL 100 MG CAPS TAKE 1 CAPSULE BY MOUTH DAILY 08/06 minocycline 63868716120 Elaine Ross RN MINOCYCLINE HCL 100 MG CAPS Take 1 capsule by mouth once a day for a week, then once a day 08/01 minocycline 44289888521 Shahid Ahuja MD CYCLOBENZAPRINE HCL 10 MG TABS by mouth three times a day as needed 08/05 cyclobenzaprine 59720077641 Glenna Joiner FLORASTOR 250 MG CAPS by mouth twice a day 08/05 saccharomyces boulardii 02207967575 Glenna Joiner NORCO 5-325 MG ORAL TABLET by mouth every six hours as needed 08/05 NORCO 5-325 MG ORAL TABLET Glenna Joiner DOXYCYCLINE HYCLATE 100 MG CAPS Take 1 twice a day 07/24 doxycycline hyclate 74118089725 Shahid Ahuja MD ZETIA 10 MG TABS by mouth once a day 08/05 ezetimibe 80587796599 Glenna Joiner GLUCOPHAGE 500 MG ORAL TABLET by mouth every morning 08/05 GLUCOPHAGE 500 MG ORAL TABLET Glenna Joiner Proventil HFA 90 mcg/actuation HFA aerosol inhaler every four hours as needed 08/05 albuterol sulfate 65167481134 Glenna Joiner PROTONIX 40 MG PACK by mouth twice a day pantoprazole 78121762355 Glenna Joiner TEKTURNA 300 MG TABS by mouth once a day 08/05 aliskiren 69445766661 Glenna Joiner TYLENOL 325 MG CAPS 2 tablet by mouth every four hours as needed 08/05 ACETAMINOPHEN Glenna Joiner COREG 25 MG TABS 1.5 tablet by mouth twice a day carvedilol 59116154699 Glenna Joiner ASPIRIN 81 MG ORAL TABLET by mouth once a day ASPIRIN 81 MG ORAL TABLET Glenna Joiner LASIX 40 MG TABS by mouth once a day 08/05 furosemide 17565730678 Glenna Joiner DIOVAN HCT 320-25 MG TABS by mouth once a day 08/05 valsartan-hydroch lorothiazide 13004110481 Glenna Joiner MINOCYCLINE HCL 100 MG CAPS Take 1 capsule by mouth once a day minocycline 50193830976 Lorena Ahuja MINOCYCLINE HCL 100 MG CAPS TAKE 1 CAPSULE BY MOUTH DAILY 08/06 minocycline 65255297003 Shahid Ahuja MD MINOCYCLINE HCL 100 MG CAPS TAKE 1 CAPSULE BY MOUTH DAILY minocycline 19852677354 Madhavi Nguyen MINOCYCLINE HCL 100 MG CAPS Take 1 capsule by mouth once a day 08/04 minocycline 60642997349 Lorena Ahuja MINOCYCLINE HCL 100 MG CAPS TAKE 1 CAPSULE BY MOUTH DAILY 07/17 MINOCYCLINE HCL 43025231909 Shahid Ahuja MD MINOCYCLINE HCL 100 MG CAPS Take 1 by mouth daily 0 07/17 MINOCYCLINE HCL 84154963968 Shahid Ahuja MD MINOCYCLINE HCL 100 MG CAPS one po daily 0 10/11 MINOCYCLINE HCL 16869549713 Shahid Ahuja MD MINOCYCLINE HCL 100 MG CAPS one daily 0 10/26 MINOCYCLINE HCL 48601073371 Shahid Ahuja MD MINOCYCLINE HCL 100 MG CAPS one po daily 07/26 MINOCYCLINE HCL 31429294782 Shahid Ahuja MD MINOCYCLINE HCL 100 MG CAPS one po daily 0 04/28 MINOCYCLINE HCL 19832192935 Nia Carias APRN MINOCYCLINE HCL 100 MG CAPS one po bid 11/18 MINOCYCLINE HCL 99544678898 Nia Janine Jv ARIZA MINOCYCLINE HCL 100 MG CAPS one po bid 10/20 MINOCYCLINE HCL 57048391426 Shahid Ahuja MD DOXYCYCLINE MONOHYDRATE 100 MG CAPS one po bid 09/23 DOXYCYCLINE MONOHYDRATE 25259003148 Shahid Ahuja MD DOXYCYCLINE MONOHYDRATE 100 MG CAPS one po bid 09/08 DOXYCYCLINE MONOHYDRATE 58940046221 Shahid Ahuja MD VANCOMYCIN HCL 5000 MG INTRAVENOUS SOLUTION RECONSTITUTED 1.75 gms IV Q 48 hrs/[facility] Doses at noon 07/25 VANCOMYCIN HCL 19588424375 Mana Brizuela RN DOXYCYCLINE HYCLATE 100 MG CAPS Take one pill twice daily. 07/24 DOXYCYCLINE HYCLATE 59852717639 Shahid Ahuja MD VANCOMYCIN HCL 5000 MG INTRAVENOUS SOLUTION RECONSTITUTED 1.75 gms IV Q 48 hrs/[facility] Doses at noon 07/25 VANCOMYCIN HCL 94972292113 Alva Rojo RN VANCOMYCIN HCL 5000 MG INTRAVENOUS SOLUTION RECONSTITUTED 1.25 gms IV Q 48 hrs/[facility] Doses at noon 07/07 VANCOMYCIN HCL 51271148928 Alva Rojo RN VANCOMYCIN HCL 5000 MG INTRAVENOUS SOLUTION RECONSTITUTED 1.25 gms IV Q 24 hrs/[facility] Doses at noon 06/28 VANCOMYCIN HCL 45743959225 Alva Rojo RN VANCOMYCIN HCL 5000 MG INTRAVENOUS SOLUTION RECONSTITUTED 1.75 gms IV Q 24 hrs/[facility] Doses at noon 06/21 VANCOMYCIN HCL 73545853805 Sarah Torres RN VANCOMYCIN HCL 5000 MG INTRAVENOUS SOLUTION RECONSTITUTED 1.75 gms IV Q 24 hrs/[facility] 06/15 VANCOMYCIN HCL 45592867130 Sarah Torres RN CUBICIN 500 MG INTRAVENOUS SOLUTION RECONSTITUTED 500mg IV Q 24 hrs/[facility] and we ivone do PICC care and labs on appt days 06/14 DAPTOMYCIN 06230014227 Sarah Torres RN CEFTRIAXONE SODIUM 2 GM SOLR 2 GMS iv q 24 HRS/[facility] AND Melany noel do PICC care and labs 06/08 CEFTRIAXONE SODIUM 94499198580 Sarah Torres RN PROTONIX 40 MG PACK by mouth twice daily 08/06 PANTOPRAZOLE SODIUM 52952198060 Mila Guadarrama ZETIA 10 MG TABS by mouth daily 08/06 EZETIMIBE 62832963588 Andreas Carbone DIOVAN HCT 320-25 MG TABS by mouth daily 08/06 VALSARTAN-HYDROCH LOROTHIAZIDE 31477730978 Andreas K TEKTURNA 300 MG TABS by mouth daily 08/06 ALISKIREN FUMARATE 98192499151 Andreas K FLORASTOR 250 MG CAPS by mouth twice daily 08/06 SACCHAROMYCES BOULARDII 41160473257 Andreas K PROTONIX 40 MG PACK 06/08 PANTOPRAZOLE SODIUM 14734762668 Andreas K GLUCOPHAGE 500 MG ORAL TABLET by mouth in the morning 08/06 METFORMIN HCL 93301612684 Andreas K NORCO 5-325 MG ORAL TABLET by mouth every 6 hours as needed 08/06 HYDROCODONE-ACETA MINOPHEN 81986952902 Andreas Carbone LASIX 40 MG TABS by mouth daily 08/06 FUROSEMIDE 53167313538 Andreas K CYCLOBENZAPRINE HCL 10 MG TABS by mouth three times a day as needed 08/06 CYCLOBENZAPRINE HCL 20748816229 Andreas K COREG 25 MG TABS 1.5 tabs by mouth twice daily 08/06 CARVEDILOL 89493994936 Andreas K ASPIRIN 81 MG ORAL TABLET by mouth daily 08/06 ASPIRIN 20401632846 Andreas Carbone PROVENTIL HFA 108 (90 BASE) MCG/ACT INHALATION AEROSOL SOLUTION every 4 hours as needed 08/06 ALBUTEROL SULFATE 59859463392 Andreas K TYLENOL 325 MG CAPS 2 tabs by mouth every 4 hours as needed for pain 08/06 ACETAMINOPHEN 82547291876 Andreas K CEFTRIAXONE SODIUM 2 GM SOLR 2 GMS iv q 24 HRS/[facility] AND Melany noel do PICC care and labs 06/08 CEFTRIAXONE SODIUM 41784722349 Sarah Torres RN CUBICIN 500 MG INTRAVENOUS SOLUTION RECONSTITUTED 500mg IV Q 24 hrs/[facility] and melany wiseman do PICC care and labs on appt days 06/14 DAPTOMYCIN 47064156328 Sarah Torres RN Medications Administered No information [...] s as percent of body fluid leukocytes RDW 12.7 % 12.3-15.4 Erythrocyte distribution width [Ratio] by Automated count Lab Report: COMPREHENSIVE ME TABOLIC PANEL GFRC 28 mL/min/1 .73m2 >60 L Glomerular Filtration Rate Calculation Office Visit: room 3 DIET LAWNMOWER MECHANIC Yes - Overweight Dietary manageme nt education, guidance, and counseling (procedure) Office Visit: Office Visit: rm. 6 FALLRSKASSES yes Fall ris k assessment Lab Report: CBC WITH AUTO DI FFERENTIAL NEUTROP BF 82.2 % 42.7-76.0 H Neutroph ils/100 leukocytes in Body fluid ZZ-GE-unk 0.0 /100 WBC 0.0-0.2 GE use only - for [employer] import when terms are not otherwise specified IMMATUREGRAN 0.03 10*3/MM3 0.00-0.05 Immature granulocytes [#/volume] in Blood BASO# 0.05 10*3/mm3 0.00-0.20 Basop hils [#/volume] in Blood EOS ABSLT 0.48 10*3/uL 0.00-0.40 H Eosinophi ls [#/volume] in Blood MONOSCT AUTO 0.64 10*3/uL 0.10-0.90 Monocy chau [#/volume] in Blood by Automated count LYMPHCT AUTO 0.98 10*3/mm3 0.70-3.10 Lymph ocytes [#/volume] in Blood by Automated count ABS NEUTROPH 4.84 10*3/uL 1.70-7.00 Neutro phils [#/volume] in Blood IMM GRANU % 0.4 % 0.0-0.5 Immature granulocytes/100 leukocytes in Blood % EOS AUTO 6.8 % 0.3-6.2 H Eosinophil s/100 leukocytes in Blood by Automated count MONOCYTE % 9.1 % 5.0-12.0 Monocytes /100 leukocytes in Blood by Automated count LYMPHOCY BF 14.0 % 19.6-45.3 L lymphoc ytes as percent of body fluid leukocytes PMN % 69.0 % 42.7-76.0 Neutrophils /100 leukocytes in Blood by Automated count PLATELETS 166 10*3/mm3 140-450 Platelets [#/volume] in Blood by Automated count RDW_ 13.2 12.3-15.4 RDW, no uni ts MCHC 32.0 G/DL 31.5-35.7 MCHC [Mass/ volume] by Automated count MCH 29.2 pg 26.6-33.0 MCH [Entiti c mass] by Automated count MCV 91.3 fL 79.0-97.0 MCV [Entiti c volume] by Automated count HCT 36.6 % 34.0-46.6 Hematocrit [Volume Fraction] of Blood by Automated count HGB 11.7 g/dL 12.0-15.9 L Hemoglobin [Mass/volume] in Blood RBC 4.01 10*6/mm3 3.77-5.28 Erythrocyt es [#/volume] in Blood by Automated count WBC 7.02 10*3/mm3 3.40-10.8 0 Leukocytes [#/volume] in Blood by Automated count Lab Report: SEDIMENTATION RA TE ESR 27 mm/h 0-30 Erythrocyte sedimentation rate by Westergren method Lab Report: C-REACTIVE PROTE IN CRP 0.42 mg/dL 0.00-0.50 C reactive protein [Mass/volume] in Serum or Plasma Lab Report: COMPREHENSIVE ME TABOLIC PANEL ANIONGAP 10.9 mmol/L 5.0-15.0 anion gap, serum BUN/CREAT 24.3 7.0-25.0 Urea nitrogen/Creatinine [Mass Ratio] in Serum or Plasma BILI TOTAL 0.4 mg/dL 0.0-1.2 Bilirubin. total [Mass/volume] in Serum or Plasma ALK PHOS 139 U/L 39-117 H Alkaline phosphatase [Enzymatic activity/volume] in Blood SGOT (AST) 24 U/L 1-32 Aspartate aminotransferase [Enzymatic activity/volume] in Serum or Plasma SGPT (ALT) 20 U/L 1-33 Alanine aminotransferase [Enzymatic activity/volume] in Serum or Plasma ALBUMIN 3.7 g/dL 3.5-5.2 Albumin [Mass/volume] in Serum or Plasma PROTEIN, TOT 6.3 g/dL 6.0-8.5 Protein [Mass/volume] in Serum or Plasma CALCIUM 8.9 mg/dL 8.6-10.5 Calcium [Moles/volume] in Serum or Plasma CO2 25.1 mmol/L 22.0-29.0 Carbon diox felipe, total [Moles/volume] in Venous blood CHLORIDE 102 mmol/L 98-107 Chloride [Moles/volume] in Serum or Plasma POTASSIUM 4.6 mmol/L 3.5-5.2 Potassium [Moles/volume] in Serum or Plasma SODIUM 138 mmol/L 136-145 Sodium [Moles/volume] in Serum or Plasma CREATININE 1.83 mg/dL 0.57-1.00 H Creatini ne [Mass/volume] in Serum or Plasma BUN 44.4 mg/dL 8.0-23.0 H Urea nitroge n [Mass/volume] in Serum or Plasma GLUCOSE SER 284 mg/dL 65-99 H Glucose [Mass/volume] in Serum or Plasma Office Visit: Office Visit: 3 ORALTOBACUSE Never Tobacco smoking status SMOK STATUS Never smoker Toba b2b account executive smoking status MEDS REVIEW Done Documenta tion of current medications (procedure) Plan of Care Type Date Detail Appointment 10:15 AM Shahid julien MD, [address] [facility], [address], [place], [address], Referral MRI Lumbar Spine with/without constrast Pending [...] Procedures Code Procedure Name Date Entry Date Complex E&M visit add-on () G221 Complex E&M visit add-on (G2) CPT-sl STAT Labs CPT-08150 CMP [id number] CBC with Differential 2024 CPT-83538 C- reactive protein CPT-33501 Sedimentation Rate (ESR) 202 08/24/01 G221 Complex E&M visit add-on (G2) G2211 Complex E&M visit add-on (G2211) CPT-sl STAT Labs CPT-54595 CMP [id number] CBC with Differential 2024 CPT-33589 C- reactive protein CPT-76777 Sedimentation Rate (ESR) 202 08/17/17 CPT-sl STAT Labs CPT-sl STAT Labs CPT-82337 CMP [id number] CBC with Differential 2023 CPT-13938 C- reactive protein CPT-84867 Sedimentation Rate (ESR) 202 07/24/15 CPT-sl STAT Labs CPT-sl STAT Labs CPT-09166 CMP [id number] CBC with Differential 2023 CPT-08967 C- reactive protein CPT-91695 Sedimentation Rate (ESR) 07/17/08 CPT-sl STAT Labs CPT-sl STAT Labs CPT-sl STAT Labs CPT-83984 CMP [id number] CBC with Differential 2021 CPT-64463 C- reactive protein CPT-88304 Sedimentation Rate (ESR) 05/28/17 CPT-sl STAT Labs CPT-sl STAT Labs CPT-sl STAT Labs CPT-sl STAT Labs CPT-81942 CMP [id number] CBC with Differential 2020 CPT-80643 C- reactive protein CPT-22155 Sedimentation Rate (ESR) 202 04/27/20 CPT-Cooral Continue oral antibiotics 06/07/22 [id number] CBC with Differential 2020 CPT-45509 CMP CPT-71335 Sedimentation Rate (ESR) 04/20/22 CPT-58029 C- reactive protein CPT-sl STAT Labs CPT-sl STAT Labs CPT-sl STAT Labs CPT-sl STAT Labs CPT-20958 CMP [id number] CBC with Differential 2019 CPT-40418 C- reactive protein CPT-32245 Sedimentation Rate (ESR) 202 CPT-sl STAT Labs CPT-sl STAT Labs CPT-12661 CMP [id number] CBC with Differential 2018 CPT-23278 C- reactive protein CPT-29480 Sedimentation Rate (ESR) 201 12/26/09 CPT-19513 CMP [id number] CBC with Differential 2018 CPT-00346 C- reactive protein CPT-32638 Sedimentation Rate (ESR) 201 12/20/10 CPT-sl STAT Labs CPT-27512 CMP [id number] CBC with Differential 2018 CPT-30317 C- reactive protein CPT-16183 Sedimentation Rate (ESR) 201 12/20/09 CPT-Cooral Continue oral antibiotics 06/05/09 CPT-cwl Weekly Labs (Continue) 04/27 CPT-69071 CMP [id number] CBC with Differential 2018 CPT-34318 C- reactive protein CPT-92529 Sedimentation Rate (ESR) 201 12/17/09 CPT-76394 CMP [id number] CBC with Differential 2017 CPT-60751 C- reactive protein CPT-67920 Sedimentation Rate (ESR) 201 11/25/10 CPT-Cooral Continue oral antibiotics 20 02/02/11 CPT-sl STAT Labs CPT-Cooral Continue oral antibiotics 20 02/11/02 CPT-11554 CMP [id number] CBC with Differential 2017 CPT-68313 C- reactive protein CPT-54043 Sedimentation Rate (ESR) 201 11/22/02 CPT-92229 CMP [id number] CBC with Differential 2017 CPT-90405 C- reactive protein CPT-68598 Sedimentation Rate (ESR) 201 11/21/04 CPT-trip New Oral Antibiotic CPT-43998 CMP [id number] CBC with Differential 2017 CPT-01569 C- reactive protein CPT-71654 Sedimentation Rate (ESR) 201 11/21/07 CPT-Cooral Continue oral antibiotics 20 03/09/07 CPT-sl STAT Labs CPT-Cooral Continue oral antibiotics 20 04/08/23 CPT-91022 CMP [id number] CBC with Differential 2017 CPT-72812 MRI Lumbar Spine with/without constrast 2 CPT-ca Continue IV antibiotics 2017 CPT-J3370 Vancomycin CPT-trip New Oral Antibiotic CPT-ca Continue IV antibiotics 2017 CPT-cwl Weekly Labs (Continue) 07/11 CPT-wpc Weekly PICC Line Care 2018/07/11 CPT-31258 CMP [id number] CBC with Differential 2017 CPT-81538 C- reactive protein CPT-86475 Sedimentation Rate (ESR) 201 11/18/25 CPT-84439 Vancomycin Trough CPT-sl STAT Labs CPT-04935 CMP [id number] CBC with Differential 2017 CPT-05827 C- reactive protein CPT-15387 Sedimentation Rate (ESR) 201 11/19/19 CPT-27779 Vancomycin Trough CPT-45462 CMP CPT-87625 C- reactive protein CPT-55825 Sedimentation Rate (ESR) 201 11/18/12 CPT-70691 Vancomycin Trough [id number] CBC with Differential 2017 [id number], [id number] CPK CPT-sl STAT Labs CPT-01488 CMP [id number] CBC with Differential 2017 CPT-74995 C- reactive protein CPT-62794 Sedimentation Rate (ESR) 201 11/18/05 CPT-25404 Vancomycin Trough CPT-sl STAT Labs CPT-97255 Vancomycin Trough CPT- stat weekly Stat Weekly Labs CPT-ca Continue IV antibiotics 2017 CPT-wpc Weekly PICC Line Care 06/14 CPT-cwl Weekly Labs (Continue) 06/14 CPT-94568 CMP [id number] CBC with Differential 2017 CPT-50701 C- reactive protein [id number], [id number] CPK CPT-73872 Sedimentation Rate (ESR) 201 11/17/26 CPT-ca Continue IV antibiotics 2017 CPT-felice Change IV antibiotics 06/14 CPT-ca Continue IV antibiotics 2017 CPT-cwl Weekly Labs (Continue) 06/08 CPT-wpc Weekly PICC Line Care 06/08 CPT-15823 CMP [id number] CBC with Differential 2017 CPT-50246 C- reactive protein CPT-53485 Sedimentation Rate (ESR) 201 11/17/20 [id number], [id number] CPK CPT-ca Continue IV antibiotics 2017 CPT- stat weekly Stat Weekly Labs Vital Signs Date Name Value Unit Description BMI (Body Mass Index) 33.96 kg/m2 Bod y Mass Index (Ratio) Body Temperature 96.2 [degF] temperat ure E&M BP Diastolic 72 mm[Hg] blood pressu re, diastolic BP Systolic 136 mm[Hg] blood pressur e, systolic Heart Rate 62 /min pulse rate Height 68 [in_us] height E&M Respiratory Rate 16 /min respirat ory rate E&M Weight Measured 223.4 [lb_av] weight E& M Weight Measured 223.4 [lb_av] weight E& M Immunizations Vaccine Administration Date Standard Description CVX Co de Dose Unspecified Formulation Unspecified Formulation 152 Unknown Unspecified Formulation Unspecified Formulation 33 Unknown Advance Directives Directive Description Start Date NO DIRECTIVES AT THIS TIME
--- OUTSIDE RECORDS SUMMARY | 2025-04-03 15:47 | XMS_ITS | Clinical Summary ---
Author Organization [facility] Address [address] [place] [address] Care Team Providers Care Branch General Manager Name Role Phone Shahid Knight MD Primary [...] patient's age to complete this topic Insurance [facility] Care Teams Branch General Manager Relationship Specialty Start Date End Date Shahid Knight MD [address] [place] [address] PCP - General Pediatrics 09/25/09
--- OUTSIDE RECORDS SUMMARY | 2025-04-03 15:47 | XMS_ITS | Clinical Summary ---
Author Organization Healthcare Address [address] [place] [address] Care Team Providers Care Audiometric Technician Name Role Phone Shahid Knight MD Primary Care Provider [phone] Anson Palacio MD Unavailable [phone] Allergies Active Allergy Reactions Criticality Noted Date [...] Screening 1945 [facility]-Medicare Annual Wellness (AWV) 1945 [facility]-/Child/Adol SDOH Screenings 1946 [facility]- SDOH Screenings 1964 [facility]-Adult SDOH Screenings 1964 [facility]-Zoster Vaccines (1 of 2) 1996 [facility]-DTaP,Tdap,and Td Vaccines (1 - Tdap) 04/26/2000 04/25/2000 [facility]-Pneumococcal Vaccine: 50+ Years (2 of 2 - PCV) 06/08/2015 06/08/2014 [facility]-RSV Vaccine: 60+ Years or (1 - 1-dose 75+ series) 2021 [id number] Vaccine ( - season) 2024 02/12/2022, 02/19/2021, 05/19/2020, Additional history exists [facility]-Influenza Vaccine (#1) 2024 [facility]-Diabetes: Hemoglobin A1C Discontinued 06/02/2017 [facility]-Obesity Intervention Completed 11/01/2022, 0409/2022 HPV Vaccines (No Doses Required) Completed [facility]-HIB Vaccines Aged Out No longer e [...] age to complete this topic Insurance [address] [place] [address] Care Teams Audiometric Technician Relationship Specialty Start Date End Date Shahid Knight MD [address] [place] [address] PCP - General 05/20/22 Anson Palacio MD [address] [place] [phone] 05/20/22
--- OUTSIDE RECORDS SUMMARY | 2025-04-03 15:47 | XMS_ITS | Encounter Summary ---
Author Organization [facility] Address [address] [place] [address] Care Team Providers Care Cutting Pressman Name Role Phone Shahid Knight MD Primary Care Provider Reason for Visit * Reason Onset Date Comments Medications Refill 01/27/2011 Encounter Details Date Type Department Care Team (Late st Contact Info) Description 01/27/2011 Refill [facility] [place] [address] [place] [address] Harpreet Hughes MD [address] [place] [id number] Medications Refill Social History Tobacco Use [...] Coronary atherosclerosis of unspecified type of vessel, [place] or graft Hyperlipidemia Other and unspecified hyperlipidemia Hypertension Unspecified essential hypertension documented in this encounter Care Teams Cutting Pressman Relationship Specialty Start Date End Date Shahid Knight MD [address] [place] [address] PCP - General Pediatrics 09/25/09 documented as of this encounter
--- OUTSIDE RECORDS SUMMARY | 2025-04-03 15:47 | XMS_ITS | Clinical Summary ---
Author Organization [facility] Address [address] [place] [address] Care Team Providers Care Client Delivery Specialist Name Role Phone Shahid Knight MD Primary [...] VACCINE (1 of 2) 1996 TDAP/TD VACCINES (1 - Tdap) 04/26/2000 04/25/2000 Pneumococcal Vaccine 50+ (2 of 2 - PCV) 06/08/2015 06/08/2014 ANNUAL WELLNESS VISIT 07/07/2017 HEPATITIS C SCREENING 07/07/2017 HEMOGLOBIN A1C 11/30/2017 06/02/2017, 07/31/2013 COLORECTAL CANCER SCREENING 06/05/2018 FECAL OCCULT BLOOD TEST 06/05/2018 06/05/2017 RSV Vaccine - Adults (1 - 1- dose 75+ series) 2021 INFLUENZA VACCINE 11/16/2024 COVID-19 Vaccine (6 - Modern a risk season) 2024 02/03/2024, 02/12/2022, 02/19/2021, Additional history exists Procedures Procedure Name Priority Date/Time Associated Diagnosis Comments OCCULT BLOOD X 1, STOOL Routine 06/05/2017 4:15 PM EST HEMOGLOBIN A1C Routine 06/02/2017 5:19 AM EST from Last 3 Months or Most Recently Relevant to Health Maintenance Results * Occult Blood X 1, Stool - Stool, Per Rectum (06/05/2017 4:15 PM EST) Fecal Occult Blood Negative Negative DISK DIFFUSION 06/05/2017 4:33 PM EST [facility] Stool Specimen from rectum / Unknown Collection / Unknown 06/05/2017 4:15 PM EST 06/05/2017 4:23 PM EST Lois Nieves ASSISTANT BRAND MANAGER BODY FLUIDS AND STOOLS TANIA PARADA Final Result Performing Organization Address [facility] Co de Phone Number [facility]
[address] [place] [address], * (ABNORMAL) Hemoglobin A1c (06/02/2017 5:19 AM EST) Hemoglobin A1C 6.40(H) 4.80 - 5.60 % 06/02/2017 8:12 AM EST [facility] Blood 06/02/2017 5:19 AM EST 06/02/2017 6:51 AM EST Narrative [facility] - 06/02/2017 8:12 AM EST The [place] [employer] recommends maintenance of Hemoglobin A1C at 7.0% or lower. Goals for Hemoglobin A1C reduction may need to be modified if hypoglycemia is a problem. Gonzales Gooden MD LAB BLOOD ORDERABLES Final Res ult Performing Organization Address City/[facility]/ZIP Co de Phone Number [facility]
[address] [place] [address], from Last 3 Months or Most Recently Relevant to Health Maintenance Insurance [facility] MEDICARE A & B Advance Directives * Full Code (Latest Code Status on File) Date Activated Date Inactivated Comments 06/01/2017 11:07 PM 06/06/2017 8:11 PM Care Teams Client Delivery Specialist Relationship Specialty Start Date End Date Shahid Knight MD [address] [place] [address] PCP - General Internal Medicine 06/01/17
--- OUTSIDE RECORDS SUMMARY | 2025-04-03 15:47 | XMS_ITS | Encounter Summary ---
Author Organization [facility] Address [address] [place] [address] Care Team Providers Care Multimedia Producer Name Role Phone Shahid Knight MD Primary Care Provider Encounter Details Date Type Department Care Team (Late st Contact Info) Description 05/13/2011 Telephone [facility] [place] [email or web address] [place] [phone] Harpreet Hughes MD [address] [place] [phone] Social History Tobacco Use Types Packs/Day [...] 2:48 PM EST PT STOPPED BY [facility] ON 05-13-11 HAD BP CHECKED 100/56 ct/vg documented in this encounter Plan of Treatment Not on file documented as of this encounter Visit Diagnoses Not on filedocumented in this encounter Care Teams Multimedia Producer Relationship Specialty Start Date End Date Shahid Knight MD [address] [place] [address] PCP - General Pediatrics 09/25/09 documented as of this encounter
== END 2025-04-03 23:59 | disposition home or self-care (01) ==
LOC: RAD 14:46
PROVIDERS: PCP Internal Medicine; Visit Provider Internal Medicine
DX: Z12.31 Encounter for screening mammogram for malignant neoplasm of breast (principal); R92.343 Mammographic extreme density, bilateral breasts
CPT/HCPCS: 77063; 77067

== ENCOUNTER 2025-04-08 15:20 | Outpatient (CLI) | payer OTHER, MEDICARE, SELFPAY ==
--- NOTE | 2025-04-08 15:15 | CA_ITS ---
APPROVED REPORT EXAM: Comprehensive 2D, Doppler, and color-flow Echocardiogram Security Checker: Glenna Lopez RT(R) Ht: 5 ft 8 in Wt: 225lbs BSA: 2.15 BP: 181/77 mmHg Indications: PRE-OP,HFpEF 2D Dimensions LVEF ([place]'s) 62.70 % F: 54 - 74 LV Volume 107.80 mL F: 46 - 106 LV Volume Index 50.1 mL/m2 F: 29 - 61 LA Volume 40.50 mL LA Volume Index 18.84 mL/m2 (M/F) 16-34 EF AP4 63.20 % EF AP2 62.7 % EF BP 62.7 % GL Strain -24.0 % M-Mode Dimensions RVDd 3.79 cm (0.9-2.6) LA Diam 4.26 cm (1.9-4.0) LVDd 5.35 cm (3.5-5.7) LVDs 4.01 cm (3.5-5.7) IVSd 1.03 cm (0.6-1.1) PWd 1.07 cm (0.6-1.1) EF (Teich) 49.10% FS 25.00% EDV (Teich) 138.30 mL ESV (Teich) 70.40 mL LV Diastology E Decel Time 273 (160-240 msec) E/A Ratio 1.1 Mitral Valve MV E Max Khoi. 117.0 (40-130 cm/s) MV A Velocity 104.0 (40-130 cm/s) E/A Ratio 1.12 MV PHT 80.0 ms Tricuspid Valve TR P. Velocity 270.00 cm/s Left Ventricle The left ventricle is normal size. Left ventricular systolic function is normal. The left ventricular ejection fraction is within the normal range. There is increased left ventricular wall thickness. There is normal LV segmental wall motion. The left ventricular diastolic function is normal. LVEF is 55%. Right Ventricle The right ventricle is normal size. The right ventricular systolic function is normal. Atria Left atrium is moderately dilated. Right atrium is moderately dilated. There is no color Doppler evidence of interatrial shunt. Aortic Valve The aortic valve is mildly thickened. There is no hemodynamically significant aortic valvular stenosis. Trace aortic regurgitation is present. Mitral Valve The mitral valve is normal in structure. No evidence of mitral valve stenosis. Mild mitral regurgitation is present. Tricuspid Valve The tricuspid valve leaflets are thin and pliable. Mild tricuspid regurgitation. RVSP is 20-25 mmHg. Pulmonic Valve The pulmonary valve is grossly normal in structure. Trace pulmonic valve regurgitation is present. Great Vessels The aortic root is normal in size. IVC is normal in size and collapses >50% with inspiration. Pericardium There is no pericardial effusion. Other Information Study Quality: Fair Conclusion Normal biventricular systolic function. Mild biatrial dilation. Mild MR, mild TR. Electronically signed by : Norah Vazquez MD 04/09/2025 14:52:17
--- OUTSIDE RECORDS SUMMARY | 2025-04-08 15:23 | XMS_ITS | Clinical Summary ---
Author Organization [facility] Address [address] [place] [address] Phone Care Team Providers Care Upkeep Worker Name Role Phone Brian SUAZO, Sarah Calderon Unavailable Conditions or Problems Problem Name Problem Code Onset Date Status Entry Date Provider Comment Standard Description Annotate Eczematous dermatitis 18465122 (SNOMED CT) 06/05 Active 06/05 Lorena Ahuja Eczema Anemia 912352424 (SNOMED CT) 10/31 Active 10/31 Shahid Ahuja MD Anemia Hx of bilateral knee arthroplast ies 267314483 (SNOMED CT) 10/31 Active 10/31 Shahid Ahuja MD History of operative procedure on knee 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 Coagulase negative 49618068394 9107 (SNOMED CT) 06/08 Resolved 06/08 Shahid Ahuja MD Infection caused by coagulase-negat richard Staphylococcus Staph epidermidis 975250839 (SNOMED CT) 08/06 Active 08/06 Shahid Ahuja MD Sepsis caused by coagulase negative Staphylococcus Dermatitis 81248951 (SNOMED CT) 08/06 Active 08/06 Shahid Ahuja MD Eczema Long-term (current) use of antibiotics 804822391 (SNOMED CT) 07/08 Active 07/08 Shahid Ahuja MD Long-term drug therapy Health advice, education, or counseling 345085258 (SNOMED CT) 07/08 Active 07/08 Shahid Ahuja MD Procedure carried out on subject Nontraumati c acute kidney injury 05948016461 9103 (SNOMED CT) 06/28 Resolved 06/28 Shahid Ahuja MD Acute nontraumatic kidney injury Nontraumati c acute kidney injury 86068277860 9103 (SNOMED CT) 08/09 Resolved 08/09 Shahid Ahuja MD Acute nontraumatic kidney injury Kidney disease, chronic, stage II 303952442 (SNOMED CT) 01/07 Active 01/07 Shahid Ahuja MD Chronic kidney disease stage 2 Arthritis, left hip 56337266 (SNOMED CT) 07/11 Active 07/11 Nia collazo APRN Arthritis of hip Pruritus 094832697 (SNOMED CT) 04/27 Active 04/27 Shahid Ahuja MD Pruritic disorder Adverse drug reaction 19409942 (SNOMED CT) 09/20 Active 09/20 Shahid Ahuja MD Adverse reaction to drug Rash 531695330 (SNOMED CT) 09/20 Active 09/20 Nia collazo APRN Eruption Nontraumati c acute kidney injury 59239178388 9103 (SNOMED CT) 08/09 Removed 08/09 Nia collazo APRN Acute nontraumatic kidney injury Paraspinal fluid collection (Abscess) 99947978 (SNOMED CT) 06/28 Active 06/29 Suzanne W Spinal cord abscess Elevated LFT's 474228965 (SNOMED CT) 06/14 Active 06/14 Suzanne W Liver function tests outside reference range Adverse effect of other systemic antibiotics -CUBICIN/In itial encounter T36.8x5A (ICD-10-CM) 06/21 Active 06/21 Suzanne W Adverse effect of other systemic antibiotics, initial encounter Nontraumati c acute kidney injury 82599216810 9103 (SNOMED CT) 06/28 Removed 06/28 Nia collazo APRN Acute nontraumatic kidney injury Adverse drug reaction 40884351 (SNOMED CT) 06/21 Inactive 06/21 Shahid Ahuja MD Adverse reaction to drug Myositis 96467795 (SNOMED CT) 06/21 Active 06/21 Shahid Ahuja MD Myositis Elevated LFTs 920262402 (SNOMED CT) 06/14 Inactive 06/14 Nia Mehta Louisea vale ARIZA Liver function tests outside reference range Other obesity due to excess calories 840771105 (SNOMED CT) 06/13 Active 06/13 Mila Morguelan Simple obesity Presence of vertebral hardware 080988135 (SNOMED CT) 06/08 Active 06/09 Suzanne W Device in situ Lumbar region, infected discitis M46.36 (ICD-10-CM) 06/07 Active 06/07 Suzanne W Infection of intervertebral disc (pyogenic), 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 Coagulase negative 82084481695 9107 (SNOMED CT) 06/08 Removed 06/08 Shahid Ahuja MD Infection caused by coagulase-negat richard Staphylococcus Benign Essential Hypertensio n 83174627 (SNOMED CT) 06/07 Active 06/07 Jenny Carmelo [...] 1 capsule by mouth once a day 07/06 tray 20149065915 Lorena Ahuja MINOCYCLINE HCL 100 MG CAPS Take 1 capsule by mouth once a day 09/14 minocycline 14215157567 Lorena Ahuja MINOCYCLINE HCL 100 MG CAPS 1 capsule by mouth once a day TAKE 1 CAPSULE BY MOUTH EVERY DAY 06/05 minocycline 41666861588 Lorena Seymour MINOCYCLINE HCL 100 MG CAPS Take 1 capsule by mouth once a day 12/01 minocycline 82946458756 Lorena Seymour MINOCYCLINE HCL 100 MG CAPS 1 capsule by mouth once a day TAKE 1 CAPSULE BY MOUTH EVERY DAY 10/26 minocycline 90298037065 Shahid Ahuja MD MINOCYCLINE HCL 100 MG CAPS 1 capsule by mouth once a day TAKE 1 CAPSULE BY MOUTH EVERY DAY 04/20 minocycline 79450404753 Shahid Ahuja MD MINOCYCLINE HCL 100 MG CAPS TAKE 1 CAPSULE BY MOUTH EVERY DAY 06/07 minocycline 95922854876 Maris Velazquez RN MINOCYCLINE HCL 100 MG CAPS 1 capsule by mouth once a day TAKE 1 CAPSULE BY MOUTH EVERY DAY 04/26 minocycline 85832218225 Shahid Ahuja MD MINOCYCLINE HCL 100 MG CAPS TAKE 1 CAPSULE BY MOUTH EVERY DAY 06/07 minocycline 24504392422 Shahid Ahuja MD MINOCYCLINE HCL 100 MG CAPS TAKE 1 CAPSULE BY MOUTH EVERY DAY 05/02 minocycline 91407271090 Shahid Ahuja MD Proventil HFA 90 mcg/actuation HFA aerosol inhaler every four hours as needed 08/05 albuterol sulfate 24539352514 Areli Min NORCO 5-325 MG ORAL TABLET by mouth every six hours as needed 08/05 NORCO 5-325 MG ORAL TABLET Areli Min TYLENOL 325 MG CAPS 2 tablet by mouth every four hours as needed 08/05 ACETAMINOPHEN Areli Min ZETIA 10 MG TABS by mouth once a day 08/05 ezetimibe 04324725707 Areli Min CYCLOBENZAPRINE HCL 10 MG TABS by mouth three times a day as needed 08/05 cyclobenzaprine 36119451691 Areli Min FLORASTOR 250 MG CAPS by mouth twice a day 08/05 saccharomyces boulardii 61276076349 Areli Min LASIX 40 MG TABS by mouth once a day 08/05 furosemide 11462368391 Areli Min GLUCOPHAGE 500 MG ORAL TABLET by mouth every morning 08/05 GLUCOPHAGE 500 MG ORAL TABLET Areli Min TEKTURNA 300 MG TABS by mouth once a day 08/05 aliskiren 46738714956 Areli Min DIOVAN HCT 320-25 MG TABS by mouth once a day 08/05 valsartan-hydroch lorothiazide 58485183882 Areli Min DOXYCYCLINE HYCLATE 100 MG CAPS Take 1 twice a day 08/05 doxycycline hyclate 43075543116 Areli Min ALENDRONATE SODIUM 70 MG TABS once a week alendronate 23973062917 Areli Min JARDIANCE 10 MG TABS once a day empagliflozin 35567880856 Areli Min REPATHA SURECLICK 140 MG/ML SOAJ once every two weeks evolocumab 77491294880 Areli Min LOSARTAN POTASSIUM 100 MG TABS once a day losartan 16541817560 Areli Min ROPINIROLE HCL 1 MG TABS once a day as needed ropinirole 80929329534 Areli Min OZEMPIC (0.25 OR 0.5 MG/DOSE) 2 MG/3ML SOPN once a week semaglutide 81039249318 Areli Min SPIRONOLACTONE 25 MG TABS once a day spironolactone 33595819679 Areli Min TORSEMIDE 100 MG TABS as needed torsemide 81164767165 Areli Min MINOCYCLINE HCL 100 MG CAPS Take 1 capsule by mouth once a day 07/28 minocycline 70219716267 Corina Horvath MINOCYCLINE HCL 100 MG CAPS TAKE 1 CAPSULE BY MOUTH EVERY DAY 08/05 minocycline 43776345563 Shahid Ahuja MD MINOCYCLINE HCL 100 MG CAPS Take 1 capsule by mouth once a day for a week, then once a day minocycline 71598580653 Lorena Seymuor MINOCYCLINE HCL 100 MG CAPS Take 1 capsule by mouth once a day 08/01 minocycline 75795981041 Lorena Ahuja MINOCYCLINE HCL 100 MG CAPS TAKE 1 CAPSULE BY MOUTH DAILY 08/06 minocycline 17239119576 Elaine Ross RN MINOCYCLINE HCL 100 MG CAPS Take 1 capsule by mouth once a day for a week, then once a day 08/01 minocycline 21258643165 Shahid Ahuja MD CYCLOBENZAPRINE HCL 10 MG TABS by mouth three times a day as needed 08/05 cyclobenzaprine 45887339923 Glenna Joiner FLORASTOR 250 MG CAPS by mouth twice a day 08/05 saccharomyces boulardii 95295250424 Glenna Joiner NORCO 5-325 MG ORAL TABLET by mouth every six hours as needed 08/05 NORCO 5-325 MG ORAL TABLET Glenna Joiner DOXYCYCLINE HYCLATE 100 MG CAPS Take 1 twice a day 07/24 doxycycline hyclate 48198563474 Shahid Ahuja MD ZETIA 10 MG TABS by mouth once a day 08/05 ezetimibe 95895554555 Glenna Joiner GLUCOPHAGE 500 MG ORAL TABLET by mouth every morning 08/05 GLUCOPHAGE 500 MG ORAL TABLET Glenna Joiner Proventil HFA 90 mcg/actuation HFA aerosol inhaler every four hours as needed 08/05 albuterol sulfate 88759093984 Glenna Joiner PROTONIX 40 MG PACK by mouth twice a day pantoprazole 45244155245 Glenna Joiner TEKTURNA 300 MG TABS by mouth once a day 08/05 aliskiren 65390940752 Glenna Joiner TYLENOL 325 MG CAPS 2 tablet by mouth every four hours as needed 0 08/05 ACETAMINOPHEN Glenna Joiner COREG 25 MG TABS 1.5 tablet by mouth twice a day carvedilol 37503337588 Glenna Joiner ASPIRIN 81 MG ORAL TABLET by mouth once a day ASPIRIN 81 MG ORAL TABLET Glenna Joiner LASIX 40 MG TABS by mouth once a day 08/05 furosemide 54779052267 Glenna Joiner DIOVAN HCT 320-25 MG TABS by mouth once a day 08/05 valsartan-hydroch lorothiazide 61663068067 lGenna Joiner MINOCYCLINE HCL 100 MG CAPS Take 1 capsule by mouth once a day minocycline 73591163892 Lorena Ahuja MINOCYCLINE HCL 100 MG CAPS TAKE 1 CAPSULE BY MOUTH DAILY 0 08/06 minocycline 12410761411 Shahid Ahuja MD MINOCYCLINE HCL 100 MG CAPS TAKE 1 CAPSULE BY MOUTH DAILY minocycline 90582915807 Madhavi Nguyen MINOCYCLINE HCL 100 MG CAPS Take 1 capsule by mouth once a day 08/04 minocycline 72013048723 Lorena Ahuja MINOCYCLINE HCL 100 MG CAPS TAKE 1 CAPSULE BY MOUTH DAILY 07/17 MINOCYCLINE HCL 94035959122 Shahid Ahuja MD MINOCYCLINE HCL 100 MG CAPS Take 1 by mouth daily 0 07/17 MINOCYCLINE HCL 98343722709 Shahid Ahuja MD MINOCYCLINE HCL 100 MG CAPS one po daily 0 10/11 MINOCYCLINE HCL 59660719214 Shahid Ahuja MD MINOCYCLINE HCL 100 MG CAPS one daily 0 10/26 MINOCYCLINE HCL 18421236749 Shahid Ahuja MD MINOCYCLINE HCL 100 MG CAPS one po daily 0 07/26 MINOCYCLINE HCL 32451100574 Shahid Ahuja MD MINOCYCLINE HCL 100 MG CAPS one po daily 0 04/28 MINOCYCLINE HCL 96526310795 Nia Janine Carias MECHANIC MINOCYCLINE HCL 100 MG CAPS one po bid 0 11/18 MINOCYCLINE HCL 38811408734 Nia Mehta Jv MECHANIC MINOCYCLINE HCL 100 MG CAPS one po bid 10/20 MINOCYCLINE HCL 62509534278 Shahid Ahuja MD DOXYCYCLINE MONOHYDRATE 100 MG CAPS one po bid 09/23 DOXYCYCLINE MONOHYDRATE 87252196974 Shahid Ahuja MD DOXYCYCLINE MONOHYDRATE 100 MG CAPS one po bid 09/08 DOXYCYCLINE MONOHYDRATE 93669703173 Shahid Ahuja MD VANCOMYCIN HCL 5000 MG INTRAVENOUS SOLUTION RECONSTITUTED 1.75 gms IV Q 48 hrs/[facility] Doses at noon 0 07/25 VANCOMYCIN HCL 99592737523 Mana Brizuela RN DOXYCYCLINE HYCLATE 100 MG CAPS Take one pill twice daily. 07/24 DOXYCYCLINE HYCLATE 73961176221 Shahid Ahuja MD VANCOMYCIN HCL 5000 MG INTRAVENOUS SOLUTION RECONSTITUTED 1.75 gms IV Q 48 hrs/BHHI Doses at noon 0 07/25 VANCOMYCIN HCL 74034116544 Alva Rojo RN VANCOMYCIN HCL 5000 MG INTRAVENOUS SOLUTION RECONSTITUTED 1.25 gms IV Q 48 hrs/BHHI Doses at noon 0 07/07 VANCOMYCIN HCL 82701634117 Alva Rojo RN VANCOMYCIN HCL 5000 MG INTRAVENOUS SOLUTION RECONSTITUTED 1.25 gms IV Q 24 hrs/BHHI Doses at noon 0 06/28 VANCOMYCIN HCL 19528107190 Alva Rojo RN VANCOMYCIN HCL 5000 MG INTRAVENOUS SOLUTION RECONSTITUTED 1.75 gms IV Q 24 hrs/BHHI Doses at noon 0 06/21 VANCOMYCIN HCL 73525554227 Sarah Torres RN VANCOMYCIN HCL 5000 MG INTRAVENOUS SOLUTION RECONSTITUTED 1.75 gms IV Q 24 hrs/BHHI 0 06/15 VANCOMYCIN HCL 66231367140 Sarah Torres RN CUBICIN 500 MG INTRAVENOUS SOLUTION RECONSTITUTED 500mg IV Q 24 hrs/[facility] and we ivone do PICC care and labs on appt days 06/14 DAPTOMYCIN 70386829852 Sarah Torres RN CEFTRIAXONE SODIUM 2 GM SOLR 2 GMS iv q 24 HRS/F F [facility] AND Melany noel do PICC care and labs 06/08 CEFTRIAXONE SODIUM 19260806047 Sarah Torres RN PROTONIX 40 MG PACK by mouth twice daily 08/06 PANTOPRAZOLE SODIUM 44879491418 Mila Mejiagujaime ZETIA 10 MG TABS by mouth daily 08/06 EZETIMIBE 11208788149 Andreas Carbone DIOVAN HCT 320-25 MG TABS by mouth daily 08/06 VALSARTAN-HYDROCH LOROTHIAZIDE 54064751299 Andreas K TEKTURNA 300 MG TABS by mouth daily 08/06 ALISKIREN FUMARATE 79283210171 Andreas K FLORASTOR 250 MG CAPS by mouth twice daily 08/06 SACCHAROMYCES BOULARDII 81577007790 Andreas K PROTONIX 40 MG PACK 06/08 PANTOPRAZOLE SODIUM 83511615634 Andreas Carbone GLUCOPHAGE 500 MG ORAL TABLET by mouth in the morning 08/06 METFORMIN HCL 96702016283 Andreas K NORCO 5-325 MG ORAL TABLET by mouth every 6 hours as needed 08/06 HYDROCODONE-ACETA MINOPHEN 09917623091 Andreas K LASIX 40 MG TABS by mouth daily 08/06 FUROSEMIDE 55369886456 Andreas K CYCLOBENZAPRINE HCL 10 MG TABS by mouth three times a day as needed 08/06 CYCLOBENZAPRINE HCL 10591460424 Andreas K COREG 25 MG TABS 1.5 tabs by mouth twice daily 08/06 CARVEDILOL 59714654361 Andreas K ASPIRIN 81 MG ORAL TABLET by mouth daily 08/06 ASPIRIN 86244827575 Andreas K PROVENTIL HFA 108 (90 BASE) MCG/ACT INHALATION AEROSOL SOLUTION every 4 hours as needed 08/06 ALBUTEROL SULFATE 61690158168 Andreas K TYLENOL 325 MG CAPS 2 tabs by mouth every 4 hours as needed for pain 08/06 ACETAMINOPHEN 39019882283 Andreas K CEFTRIAXONE SODIUM 2 GM SOLR 2 GMS iv q 24 HRS/[facility] AND Melany noel do PICC care and labs 06/08 CEFTRIAXONE SODIUM 26731466231 Sarah Torres RN CUBICIN 500 MG INTRAVENOUS SOLUTION RECONSTITUTED 500mg IV Q 24 hrs/[facility] and melany wiseman do PICC care and labs on appt days 06/14 DAPTOMYCIN 08943175162 Sarah Torres RN Medications Administered No information [...] Rate Calculation Office Visit: room 3 DIET OPENSTACK DEVELOPER Yes - Overweight Dietary manageme nt education, [...] smoking status SMOK STATUS Never smoker Toba interactive account manager smoking status MEDS REVIEW Done Documenta tion of current medications (procedure) Plan of Care Type Date Detail Appointment 10:15 AM Shahid julien MD, [facility], [address], [place], [address], Referral MRI Lumbar Spine with/without constrast Pending [...] Procedures Code Procedure Name Date Entry Date G2211 Complex E&M visit add-on (G2211) G2211 Complex E&M visit add-on (G2211) CPT-sl STAT Labs CPT-54524 CMP [id number] CBC with Differential 2024 CPT-27599 C- reactive protein CPT-92942 Sedimentation Rate (ESR) 202 08/24/01 G2211 Complex E&M visit add-on (G2211) G2211 Complex E&M visit add-on (G2211) CPT-sl STAT Labs CPT-61825 CMP [id number] CBC with Differential 2024 CPT-01384 C- reactive protein CPT-94434 Sedimentation Rate (ESR) 202 08/17/17 CPT-sl STAT Labs CPT-sl STAT Labs CPT-06677 CMP [id number],[id number] CBC with Differential 2023 CPT-81199 C- reactive protein CPT-36809 Sedimentation Rate (ESR) 202 07/24/15 CPT-sl STAT Labs CPT-sl STAT Labs CPT-78898 CMP [id number] CBC with Differential 2023 CPT-54959 C- reactive protein CPT-04612 Sedimentation Rate (ESR) 202 07/17/08 CPT-sl STAT Labs CPT-sl STAT Labs CPT-sl STAT Labs CPT-99840 CMP [id number] CBC with Differential 2021 CPT-01078 C- reactive protein CPT-87216 Sedimentation Rate (ESR) 202 05/28/17 CPT-sl STAT Labs CPT-sl STAT Labs CPT-sl STAT Labs CPT-sl STAT Labs CPT-60593 CMP [id number],[id number] CBC with Differential 2020 CPT-62233 C- reactive protein CPT-12254 Sedimentation Rate (ESR) 202 04/27/20 CPT-Cooral Continue oral antibiotics 06/07/22 [id number] CBC with Differential 2020 CPT-32569 CMP CPT-35011 Sedimentation Rate (ESR) 202 04/20/22 CPT-61789 C- reactive protein CPT-sl STAT Labs CPT-sl STAT Labs CPT-sl STAT Labs CPT-sl STAT Labs CPT-91181 CMP [id number] CBC with Differential 2019 CPT-12685 C- reactive protein CPT-41202 Sedimentation Rate (ESR) 202 CPT-sl STAT Labs CPT-sl STAT Labs CPT-64807 CMP [id number] CBC with Differential 2018 CPT-09284 C- reactive protein CPT-95673 Sedimentation Rate (ESR) 201 12/26/09 CPT-61801 CMP [id number] CBC with Differential 2018 CPT-52573 C- reactive protein CPT-39588 Sedimentation Rate (ESR) 201 12/20/10 CPT-sl STAT Labs CPT-97092 CMP [id number],[id number] CBC with Differential 2018 CPT-09863 C- reactive protein CPT-38725 Sedimentation Rate (ESR) 201 12/20/09 CPT-Cooral Continue oral antibiotics 20 06/05/09 CPT-cwl Weekly Labs (Continue) 04/27 CPT-61747 CMP [id number],[id number] CBC with Differential 2018 CPT-94448 C- reactive protein CPT-99065 Sedimentation Rate (ESR) 201 12/17/09 CPT-59062 CMP [id number],[id number] CBC with Differential 2017 CPT-56334 C- reactive protein CPT-00585 Sedimentation Rate (ESR) 201 11/25/10 CPT-Cooral Continue oral antibiotics 20 02/02/11 CPT-sl STAT Labs CPT-Cooral Continue oral antibiotics 20 02/11/02 CPT-25354 CMP [id number],[id number] CBC with Differential 2017 CPT-04746 C- reactive protein CPT-48641 Sedimentation Rate (ESR) 201 11/22/02 CPT-93283 CMP [id number] CBC with Differential 2017 CPT-17957 C- reactive protein CPT-97667 Sedimentation Rate (ESR) 201 11/21/04 CPT-trip New Oral Antibiotic CPT-67220 CMP [id number],[id number] CBC with Differential 2017 CPT-54370 C- reactive protein CPT-68947 Sedimentation Rate (ESR) 201 11/21/07 CPT-Cooral Continue oral antibiotics 20 03/09/07 CPT-sl STAT Labs CPT-Cooral Continue oral antibiotics 20 04/08/23 CPT-18984 CMP [id number] CBC with Differential 2017 CPT-66115 MRI Lumbar Spine with/without constrast 2 CPT-ca Continue IV antibiotics 2017 CPT-J3370 Vancomycin CPT-trip New Oral Antibiotic CPT-ca Continue IV antibiotics 2017 CPT-cwl Weekly Labs (Continue) 07/11 CPT-wpc Weekly PICC Line Care 201807/11 CPT-11699 CMP [id number],[id number] CBC with Differential 2017 CPT-66567 C- reactive protein CPT-31626 Sedimentation Rate (ESR) 201 11/18/25 CPT-90502 Vancomycin Trough CPT-sl STAT Labs CPT-79414 CMP [id number] CBC with Differential 2017 CPT-12504 C- reactive protein CPT-81971 Sedimentation Rate (ESR) 201 11/19/19 CPT-65489 Vancomycin Trough CPT-34784 CMP CPT-98076 C- reactive protein CPT-46914 Sedimentation Rate (ESR) 201 11/18/12 CPT-39802 Vancomycin Trough [id number],[id number] CBC with Differential 2017 [id number], [id number] CPK CPT-sl STAT Labs CPT-34289 CMP [id number],[id number] CBC with Differential 2017 CPT-76464 C- reactive protein CPT-58525 Sedimentation Rate (ESR) 201 11/18/05 CPT-52282 Vancomycin Trough CPT-sl STAT Labs CPT-08071 Vancomycin Trough CPT- stat weekly Stat Weekly Labs CPT-ca Continue IV antibiotics 2017 CPT-wpc Weekly PICC Line Care 06/14 CPT-cwl Weekly Labs (Continue) 06/14 CPT-36919 CMP [id number] CBC with Differential 2017 CPT-16928 C- reactive protein [id number], [id number] CPK CPT-37910 Sedimentation Rate (ESR) 201 11/17/26 CPT-ca Continue IV antibiotics 2017 CPT-felice Change IV antibiotics 06/14 CPT-ca Continue IV antibiotics 2017 CPT-cwl Weekly Labs (Continue) 06/08 CPT-wpc Weekly PICC Line Care 06/08 CPT-51569 CMP [id number] CBC with Differential 2017 CPT-93019 C- reactive protein CPT-14802 Sedimentation Rate (ESR) 201 11/17/20 [id number], [id number] CPK CPT-ca Continue IV antibiotics 2017 CPT- [...]
--- OUTSIDE RECORDS SUMMARY | 2025-04-08 15:23 | XMS_ITS | Clinical Summary ---
Author Organization [facility] Address [address] [place] [address] Care Team Providers Care Biotech Production Specialist Name Role Phone Shahid Knight MD [...] Negative DISK DIFFUSION 06/05/2017 4:33 PM EST [facility] Stool Specimen from rectum / Unknown Collection / Unknown 06/05/2017 4:15 PM EST 06/05/2017 4:23 PM EST Lois Nieves CORDUROY CUTTER OPERATOR BODY FLUIDS AND STOOLS TANIA PARADA Final Result Performing Organization Address [facility] Co de Phone Number [facility]
[address] [place] [address], * (ABNORMAL) Hemoglobin A1c (06/02/2017 5:19 AM EST) Hemoglobin A1C 6.40(H) 4.80 - 5.60 % 06/02/2017 8:12 AM EST [facility] Blood 06/02/2017 5:19 AM EST 06/02/2017 6:51 AM EST Narrative [facility] - 06/02/2017 8:12 AM EST The [employer] recommends maintenance of Hemoglobin A1C at 7.0% or lower. Goals for Hemoglobin A1C reduction may need to be modified if hypoglycemia is a problem. Gonzales Gooden MD LAB BLOOD ORDERABLES Final Res ult Performing Organization Address City/[facility]/ZIP Co de Phone Number [facility]
[address] [place] [address], from Last 3 Months or Most Recently Relevant to Health Maintenance Insurance [facility] [place] [address] MEDICARE A & B Advance Directives * Full Code (Latest Code Status on File) Date Activated Date Inactivated Comments 06/01/2017 11:07 PM 06/06/2017 8:11 PM Care Teams Biotech Production Specialist Relationship Specialty Start Date End Date Shahid Knight MD [address] [place] [address] PCP - General Internal Medicine 06/01/17
--- OUTSIDE RECORDS SUMMARY | 2025-04-08 15:23 | XMS_ITS | Encounter Summary ---
Author Organization [facility] Address [address] [place] [address] Care Team Providers Care Sales Team Recruiter Name Role Phone Shahid Knight MD Primary Care Provider Reason for Visit * Reason Onset Date Comments Medications Refill 04/05/2011 Encounter Details Date Type Department Care Team (Late st Contact Info) Description 04/05/2011 Refill [facility] [address] [address] [place] [address] Harpreet Hughes MD [address] [place] [id number] Medications Refill Social History Tobacco Use [...] on filedocumented in this encounter Care Teams Sales Team Recruiter Relationship Specialty Start Date End Date Shahid Knight MD [address] [place] [address] PCP - General Pediatrics 09/25/09 documented as of this encounter
--- OUTSIDE RECORDS SUMMARY | 2025-04-08 15:23 | XMS_ITS | Clinical Summary ---
Author Organization [facility] Address [address] [place] [address] Care Team Providers Care Automotive Design Layout Drafter Name Role Phone Shahid Knight MD Primary [...] patient's age to complete this topic Insurance [facility] Care Teams Automotive Design Layout Drafter Relationship Specialty Start Date End Date Shahid Knight MD [address] [place] [address] PCP - General Pediatrics 09/25/09
--- OUTSIDE RECORDS SUMMARY | 2025-04-08 15:23 | XMS_ITS | Data Portability ---
Author Organization [place] [facility] [place] [facility] AlfaroS WABASHA CLOSED Address [address] [place] [address] Assessment No assessment recorded. Plan of Treatment Reminders Order Date Submit Date Provider Last Modified By Organization Details Last Modified Time Details Appointments None recorded. Lab systemic lupus erythematos us profile 2018 019 [facility], [address] [place] [address], [phone], 9 17:11:20 Referral None recorded. Procedures None recorded. Surgeries None recorded. Imaging None recorded. Medication Orders None recorded. Patient TargetsNo targets recorded. Patient InstructionsNo instructions recorded. Reason for Referral None Reported. Results Created Date Observation Date Name Description Value Unit Range Abnormal Flag Note LastModifiedBy Organization Detail LastModifiedTime 11/22/1911/22/2018 syste prashanth lupus eryth emato dario profi le C3 148 mg/dL 83-193 normal TEST PERFO RMED AT: [facility] [address] [place] [address] RAJEEV Smith MD Not Available [facility] [address] [place] [address], [phone], 11/24/2018 18:06:06 11/22/19 19 11/22/2018 syste prashanth lupus eryth emato dario profi le C4 28 mg/dL 15-57 normal TEST PERFO RMED AT: [facility] [address] [place] [address] RAJEEV Smith MD Not Available [facility] [address] [place] [address], [phone], 11/24/2018 18:06:06 11/22/19 19 11/23/2018 syste prashanth lupus eryth emato dario profi le sm antibody <1.0 NEG ai <1.0 neg normal Not Available [facility] [address] [place] [address], [phone], 11/24/2018 18:06:06 11/22/19 19 11/23/2018 syste prashanth lupus eryth emato dario profi le sm/instructional services specialist Ab <1.0 NEG ai <1.0 neg normal TEST PERFO RMED AT: [facility] [address] [place] [address] RAJEEV Smith MD Not Available [facility] [address] [place] [address], [phone], 11/24/2018 18:06:06 11/22/19 19 11/23/2018 syste prahsanth lupus eryth emato dario profi le centromere B Ab <1.0 NEG ai <1.0 neg normal TEST PERFO RMED AT: [facility] [address] [place] [address] RAJEEV Smith MD Not Available [facility] [address] [place] [address], [phone], 11/24/2018 18:06:06 11/22/19 19 11/23/2018 syste prashanth lupus eryth emato dario profi le scleroderma Ab <1.0 NEG ai <1.0 neg normal TEST PERFO RMED AT: [facility] [address] [place] [address] RAJEEV Smith MD Not Available [facility] [address] [place] [address], [phone], 11/24/2018 18:06:06 11/22/19 19 11/23/2018 syste prashanth lupus eryth emato dario profi le ss-A Ab <1.0 NEG ai <1.0 neg normal Not Available [facility] [address] [place], [address], 11/24/2018 18:06:06 11/22/19 19 11/23/2018 syste prashanth lupus eryth emato dario profi le ss-B Ab <1.0 NEG ai <1.0 neg normal TEST PERFO RMED AT: [facility] [place] [address] [facility] [place] [address] RAJEEV Smith MD Not Available [facility] [address] [place], [address], 11/24/2018 18:06:06 11/22/19 19 11/24/2018 syste prashanth lupus eryth emato dario profi le DNA (ds) Ab NEGATI VE negati ve normal TEST PERFO RMED AT: [facility] [place] [address] [place] [address] RAJEEV Smith MD Not Available [facility] [address] [place], [address], 11/24/2018 18:06:06 Result Notes None recorded. Problems [...] Body height Heart rate Respiratory rate Systolic And Diastolic Provider Name and Address Organization Details Last Updated DateTime 9 24549.7 3 g 33.3 kg/m2 172.72 cm 62 /min 18 /min 137/72 mm[Hg] Bashirabdoulaye Mooreo [facility] 9 13:02:04 Date Recorded Body height Body mass index (BMI) Body weight Respiratory rate Heart rate Systolic And Diastolic Provider Name and Address Organization Details Last Updated DateTime 9 172.72 cm 33.3 kg/m2 48269.7 3 g 18 /min 72 /min 145/69 mm[Hg] Darlene Melgarvan [facility] 9 11:36:23 Social History Question Answer Notes LastModified by [employer] ion Details LastModified Time Tobacco Smoking Status Never Smoker Bashirabdoulaye [facility]ston[facility]line [facility] 11/21/2018 13:08:51 How Much Tobacco Do You Chew? None Information not available 11/21/2018 What Was The Date Of Your Most Recent Tobacco Screening? 02/09/2019 [email or web address] Information not available 02/09/2019 How Much Tobacco Do You Smoke? No Information not available 11/21/2018 How Many Years Have You Smoked Tobacco? 0 Information not available 11/21/2018 Sex: Unknown Functional Status Question Answer Note LastModified by [employer] ion Details LastModified Time Do you or have [...] Diagnosis SNOMED-CT Code Diagnosis ICD10 Code Diagnosis IMO Codes Diagnosis Note [id number] STEPHANI CHEN APRN [facility] [address] [place] [address] 11/21/2018 12:36:37 11/21/2018 13:52:27 Anti-nuclear factor detected [id number] R76.8 1:80 she has no periungual erythema, no synovitis, no dactylitis she will have a lupus panel assessed though she is likely to have had this positive marker throughout her life and does not indicate any active disease; she verbalizes an understand ing; discussed with her family and her together [id number] STEPHANI CHEN APRN [facility] [address] [place] [address] 02/09/2019 10:31:49 02/14/2019 09:44:17 Anti-nuclear factor detected [id number] R76.8 1:80 she has no periungual erythema, [...] Camacho Member ID Guarantor Name 02/06/2019 1 [place] Hilda Nagel [id number] Hilda Nagel 02/14/2019 2 [place] [id number] Hilda Nagel [id number] Hilda Nagel Notes Date Note Type Note Provider Name and Address Organization Details Recorded Time 11/21/2018 text/html ROS as noted in the HPI new patient here for initial evaluation and [...] are negative STEPHANI CHEN APRN [address] [place], [address], [facility] 11/28/2018 17:43:43 02/09/2019 text/html ROS as noted in the HPI f/u after being new patient here for [...] others are negative STEPHANI CHEN APRN [address] [place], [address], [facility] 02/09/2019 11:40:43 OBGyn Episode No OBEpisode recorded.
--- OUTSIDE RECORDS SUMMARY | 2025-04-08 15:23 | XMS_ITS | Encounter Summary ---
Author Organization [facility] Address [address] [place] [address] Care Team Providers Care Scouring Train Operator Chief Name Role Phone Shahid Knight MD Primary Care Provider Encounter Details Date Type Department Care Team (Late st Contact Info) Description 05/13/2011 Telephone [facility] [address] [place] [id number] Harpreet Hughes MD [address] [place] [id number] Social History Tobacco Use Types Packs/Day [...] 2:48 PM EST PT STOPPED [facility] ON 05-13-11 HAD BP CHECKED 100/56 ct/vg documented in this encounter Plan of Treatment Not on file documented as of this encounter Visit Diagnoses Not on filedocumented in this encounter Care Teams Scouring Train Operator Chief Relationship Specialty Start Date End Date Shahid Knight MD [address] [place] [address] PCP - General Pediatrics 09/25/09 documented as of this encounter
--- OUTSIDE RECORDS SUMMARY | 2025-04-08 15:23 | XMS_ITS | Encounter Summary ---
Author Organization [facility] Address [address] [place] [address] Care Team Providers Care Home Appraiser Name Role Phone Shahid Knight MD Primary Care Provider Reason for Visit * Reason Onset Date Comments Medications Refill 01/27/2011 Encounter Details Date Type Department Care Team (Late st Contact Info) Description 01/27/2011 Refill [facility] [place] [address] [place] [address] Harpreet Hughes MD [address] [place] [id number] Medications Refill Social History Tobacco Use [...] Coronary atherosclerosis of unspecified type of vessel, mary's igloo or graft Hyperlipidemia Other and unspecified hyperlipidemia Hypertension Unspecified essential hypertension documented in this encounter Care Teams Home Appraiser Relationship Specialty Start Date End Date Shahid Knight MD [address] [place] [address] PCP - General Pediatrics 09/25/09 documented as of this encounter
--- OUTSIDE RECORDS SUMMARY | 2025-04-08 15:23 | XMS_ITS | Clinical Summary ---
Author Organization Healthcare Address [address] [place] [address] Care Team Providers Care Plant Maintenance Engineer Name Role Phone Shahid Knight MD Primary Care Provider [phone] Anson Palacio MD Unavailable [phone] Allergies Active Allergy Reactions Criticality Noted Date [...] or (1 - 1-dose 75+ series) 2021 OOP-RDADC-15 Vaccine ( - season) 2024 02/12/2022, 02/19/2021, [...] age to complete this topic Insurance [address] [place] [address] Care Teams Plant Maintenance Engineer Relationship Specialty Start Date End Date Shahid Knight MD [address] [place] [address] PCP - General 05/20/22 Anson Palacio MD [address] [place] [phone] 05/20/22
[2025-04-08 16:18] LABS: Hematocrit 37.3 % (37.0-47.0); Hemoglobin 12.2 g/dL (12.2-16.2); Immature Granulocytes % 0.5 %; Mean Corpuscular HGB Conc 32.7 g/dL (31.8-35.4); Mean Corpuscular Hemoglobin 29.9 pg (27.0-31.2); Mean Corpuscular Volume 91.4 fl (81-99); Nucleated Red Blood Cells % 0 %; Platelet Count 243 K/mm3 (142-424); Red Blood Count 4.08 M/mm3 (4.20-5.40); Red Cell Distribution Width-SD 44.7 fL; White Blood Count 8.0 K/mm3 (4.8-10.8)
[2025-04-08 17:37] LABS: Alanine Aminotransferase 19 U/L (12-78); Albumin Level 4.0 g/dl (3.5-5.0); Alkaline Phosphatase 145 U/L (38-126); Anion Gap 11.8 mEq/L (5-15); Aspartate Amino Transferase 25 U/L (14-36); Bilirubin,Direct 0.3 mg/dl (0.0-0.4); Bilirubin,Indirect 0.4 mg/dL (0.0-0.9); Bilirubin,Total 0.7 mg/dl (0.2-1.3); Bilirubin,Unconjugated 0.5 mg/dL (0.0-1.1); Blood Urea Nitrogen 48 mg/dl (7-17); Calcium 9.1 mg/dl (8.4-10.2); Carbon Dioxide 31 mmol/L (22.0-30.0); Chloride 97 mmol/L (98-107); Cholesterol 162 mg/dl (140-200); Creatinine,Serum 2.10 mg/dl (0.52-1.04); Estimated Glomerular Filt Rate 23 ml/min (>60); GFR (African American) 28 ML/MIN (>60); Glucose 216 mg/dl (74-100); HDL Cholesterol 55 mg/dl (40-60); Magnesium 1.6 mg/dl (1.6-2.3); Potassium 3.8 mmoL/L (3.5-5.1); Sodium 136 mmol/L (136-145); Total Protein,Serum 6.7 g/dl (6.3-8.2); Triglycerides 318 mg/dl (30-150)
[2025-04-08 17:53] LABS: Free T4 (Free Thyroxine) 1.40 ng/dl (0.78-2.19)
[2025-04-08 18:09] LABS: Thyroid Stimulating Hormone 2.96 uIU/mL (0.465-4.68)
[2025-04-08 20:20] LABS: Hemoglobin A1C 8.5 % (4.0-6.0)
== END 2025-04-08 23:59 | disposition home or self-care (01) ==
LOC: RT 15:21
PROVIDERS: PCP Internal Medicine; Visit Provider Physician Assistant
DX: Z01.810 Encounter for preprocedural cardiovascular examination (principal); I08.1 Rheumatic disorders of both mitral and tricuspid valves; I11.0 Hypertensive heart disease with heart failure; I50.33 Acute on chronic diastolic (congestive) heart failure; E78.2 Mixed hyperlipidemia; E11.65 Type 2 diabetes mellitus with hyperglycemia; I25.10 Atherosclerotic heart disease of native coronary artery without angina pectoris; I48.0 Paroxysmal atrial fibrillation; N28.89 Other specified disorders of kidney and ureter
CPT/HCPCS: 36415; 80048; 80061; 80076; 83036; 83735; 83835; 84439; 84443; 85025; 93306